=== PATIENT | male | born 1960 | race African-American/Black ===

== ENCOUNTER 2020-03-06 12:50 | Outpatient (REF) | payer OTHER, SELFPAY | END 2020-03-06 12:51 | disposition home or self-care (01) | LOC: HO.LAB 12:50 | PROVIDERS: Visit Provider Internal Medicine | DX: Z20.828 Contact with and (suspected) exposure to other viral communicable diseases (principal) | CPT/HCPCS: 87635 ==

== ENCOUNTER 2022-12-21 10:28 | Outpatient (AMB) | payer OTHER, SELFPAY ==
--- NOTE | 2022-12-21 06:57 | A.OFFVIS_ITS ---
Intake Intake Visit Reasons: Elevated PSA Allergies tetracycline Allergy (Verified 12/21/22 11:33) Unknown HPI HPI Comments History of Present Illness Details Jamey is a 62-year-old male who presents today to the office for an evaluation of elevated PSA. 12/21/2022-- He complains of urinary frequency and weak urinary stream.? He has a past medial history significant for nicotine dependence, type 2 diabetes. He states that he is not taking Atorvastatin and Vitamin D medications at this time. He states that he is not on any blood thinners. He reports bleeding with ejaculation and microscopic hematuria.? He states that he used to smoke ? a pack a day in the past.?He has been smoking since he was 7 years old. He smoked 4 packs a day for 4 years when he was in the He denies any dysuria. He states that his father had a history of prostate cancer. He uses cane for ambulatory assistance. Review of urology referral notes from the [place], he had a PSA of 24.98. Evaluation UA - 1+ blood Plan: We will schedule CAT scan and US of the kidneys. Various contributing factors that can lead to elevated PSA were discussed with the patient including enlarged prostate, inflammation/infection, and prostate cancer. Discussed prostate biopsy followed by cystoscopy to be scheduled. Prescribed Bactrim DS. ? PFSH Medical History History of benign prostatic hyperplasia History of cocaine abuse History of erectile dysfunction History of hyperlipidemia History of tobacco use History of vitamin B deficiency History of vitamin D deficiency Hx of chronic hepatitis Hx of chronic kidney disease Hx of essential hypertension Hx of obesity Hx of sleep apnea Hx of tinnitus Hx of type 2 diabetes mellitus Surgical History Hx of colonoscopy Family History Father No problems noted. Mother No problems noted. Social History Alcohol intake: unknown Patient Tobacco Use Status: Current everyday Tobacco user Questionnaire AUA Symptom Score AUA Incomplete emptying - It does not feel like I empty my bladder all the way.: 5 - Almost always Frequency - I have to go again less than two hours after I finish urinating.: 4 - More than half the time Intermittency - I stop and start again several times when I urinate.: 3 - About half the time Urgency - It is hard to wait when I have to urinate.: 2 - Less than half the time Weak stream - I have a weak urinary stream.: 5 - Almost always Straining - I have to push or strain to begin urination.: 1 - Less than 1 time in 5 Nocturia - I get up to urinate after I go to bed until the time I get up in the morning.: 3 times AUA Symptom Score: 23 Quality of life due to urinary symptoms: If you were to spend the rest of your life with your urinary condition the way it is now, how would you feel about that?: Terrible Source: Ramírez RECINOS, Wilbur DESAI Jr, O'Megha MP, et al, and the Measurement Committee of the [employer]. The [employer] symptom index for benign prostatic hyperplasia. J Urol. 1992; 148: 8644-8936. Copyright 1992 [employer] Review of Systems Const All systems reviewed & are unremarkable except as noted in HPI and below Reports no additional complaints Eyes Reports no additional complaints ENT Reports no additional complaints Card Denies dyspnea Resp Denies cough and Denies dyspnea GI Reports no additional complaints Musc Reports no additional complaints Skin/Breast Denies rash and Denies unusual bruising Neuro Reports no additional complaints Psych Reports no additional complaints Endo Reports no additional complaints Perfecto/Lymph Reports no additional complaints Aller/Immun Reports no additional complaints Physical Exam Const General: healthy appearing, no acute distress and well developed Orientation/consciousness: patient oriented x3 HEENT Head: Yes normocephalic and Yes atraumatic Eyes Conjunctivae: conjunctivae normal Neck Neck: Yes normal visual inspection Chest Chest palpation & inspection: normal inspection of the chest Resp Effort & Inspection: normal respiratory effort Cardio Rate: regular rate GI Inspection: Yes normal to inspection Palpation (GI): Soft to palpation Skin General skin exam: no rashes or lesions noted Neuro General: patient oriented x3 Extrem General: No pedal edema Psych Appearance: grossly normal Affect: normal affect Results AMB Urinalysis, Automated UA Leukoctes 0 Talib/uL Last Edit by Sallie Lundy CMA on 12/21/22 11:46 UA Nitrite Negative Last Edit by Sallie Lundy CMA on 12/21/22 11:46 UA Urobilinogen 1 mg/dL Last Edit by Sallie Lundy CMA on 12/21/22 11:46 + Sallie Lundy 12/21/22 11:46 UA Protein 1 mg/dL Last Edit by Sallie Lundy CMA on 12/21/22 11:46 + Sallie Lundy 12/21/22 11:46 UA pH 6.0 Last Edit by Sallie Lundy CMA on 12/21/22 11:46 UA Blood 1 Sumit/uL Last Edit by Sallie Lundy CMA on 12/21/22 11:46 UA Specific [place] 1.030 Last Edit by Sallie Lundy CMA on 12/21/22 11: 48 UA Specific [place] previously reported as 1.30 Sallie Lundy 12/21/22 11:48 UA Ketone Negative Last Edit by Sallie Lundy CMA on 12/21/22 11:46 UA Bilirubin 1 mg/dL Last Edit by Sallie Lundy CMA on 12/21/22 11:46 + Sallie Lundy 12/21/22 11:46 UA Glucose 0 mg/dL Last Edit by Sallie Lundy CMA on 12/21/22 11:46 Results Reviewed Results Reviewed: Laboratory Last Values Urine pH (Auto) 6.0 12/21/22 11:42 Specific [place] (Auto) 1.030 12/21/22 11:42 Urine Protein (Auto) 1 mg/dL 12/21/22 11:42 Glucose (UA)(Auto) 0 mg/dL 12/21/22 11:42 Urine Ketones (Auto) Negative 12/21/22 11:42 Urine Blood (Auto) 1 Sumit/uL 12/21/22 11:42 Urine Nitrite (Auto) Negative 12/21/22 11:42 Urine Bilirubin (Auto) 1 mg/dL 12/21/22 11:42 Urine Urobilinogen (Auto) 1 mg/dL 12/21/22 11:42 Leukocyte Esterase (Auto) 0 Talib/uL 12/21/22 11:42 Assessment & Plan Assessment & Plan (1) Microscopic hematuria: Code(s): R31.29 - Other microscopic hematuria (2) BPH (benign prostatic hyperplasia): Code(s): N40.0 - Benign prostatic hyperplasia without lower urinary tract symptoms (3) Family history of prostate cancer: Code(s): Z80.42 - Family history of malignant neoplasm of prostate (4) Elevated PSA: Code(s): R97.20 - Elevated prostate specific antigen [PSA] Plan Schedule CAT scan and US of the kidneys. Various contributing factors that can lead to elevated PSA were discussed with the patient including enlarged prostate, inflammation/infection, and prostate cancer. Discussed prostate biopsy followed by cystoscopy to be scheduled. Prescribed Bactrim DS. Orders: Orders AMB Urinalysis Automated 12/21/22 Z13.9 - Encounter for screening, unspecified Patient Instructions: The patient had an opportunity to ask questions regarding treatment plan. All questions were answered. Imaging, Laboratory studies and physical exam results were discussed and reviewed in detail. No major barriers to understanding were identified. The patient expressed understanding and agreement with the above treatment plan.? ? ? The patient is aware they should contact our office by phone for worsening of their current condition or the appearance of new symptoms. Compliance is encouraged with any medications and followup testing that is ordered.? ? ? It is a privilege to be allowed the opportunity to participate in the urologic care of your patient. If you have any questions or concerns regarding treatment for the above conditions please do not hesitate to contact me. The office telephone contact is [phone].? ? ? This note is constructed in part using voice recognition software. While every effort has been made to ensure accuracy contact lens curve grinder errors may have been included.? ? ? Yours sincerely,? ? ? Carolyne Douglas MD? Quality Reporting (2019) Benign Prostatic Hyperplasia ([facility] 771) AUA symptom score: 23 Quality of life due to urinary symptoms: If you were to spend the rest of your life with your urinary condition the way it is now, how would you feel about that?: Terrible Coding Level of Care Code New Pt Level 4 (54182) Diagnoses Microscopic hematuria R31.29 BPH (benign prostatic hyperplasia) N40.0 Family history of prostate cancer Z80.42 Elevated PSA R97.20
--- NOTE | 2022-12-21 12:05 | MHC.OFFVIS ---
Intake Intake Visit Reasons: Elevated PSA Allergies tetracycline Allergy (Verified 12/21/22 11:33) Unknown HPI HPI Comments History of Present Illness Details Jamey is a 62-year-old male who presents today to the office for an evaluation of elevated PSA. 12/21/2022-- He complains of urinary frequency and weak urinary stream.? He has a past medial history significant for nicotine dependence, type 2 diabetes. He states that he is not taking Atorvastatin and Vitamin D medications at this time. He states that he is not on any blood thinners. He reports bleeding with ejaculation and microscopic hematuria.? He states that he used to smoke ? a pack a day in the past.?He has been smoking since he was 7 years old. He smoked 4 packs a day for 4 years when he was in the He denies any dysuria. He states that his father had a history of prostate cancer. He uses cane for ambulatory assistance. Review of urology referral notes from the [place], he had a PSA of 24.98. Plan: We will schedule CAT scan and US of the kidneys. Various contributing factors that can lead to elevated PSA were discussed with the patient including enlarged prostate, inflammation/infection, and prostate cancer. Discussed prostate biopsy followed by cystoscopy to be scheduled. Prescribed Bactrim DS. [facility] Medical History History of benign prostatic hyperplasia History of cocaine abuse History of erectile dysfunction History of hyperlipidemia History of tobacco use History of vitamin B deficiency History of vitamin D deficiency Hx of chronic hepatitis Hx of chronic kidney disease Hx of essential hypertension Hx of obesity Hx of sleep apnea Hx of tinnitus Hx of type 2 diabetes mellitus Surgical History Hx of colonoscopy Family History Father No problems noted. Mother No problems noted. Social History Alcohol intake: unknown Patient Tobacco Use Status: Current everyday Tobacco user Results AMB Urinalysis, Automated UA Leukoctes 0 Talib/uL Last Edit by Sallie Lundy CMA on 12/21/22 11:46 UA Nitrite Negative Last Edit by Sallie Lundy CMA on 12/21/22 11:46 UA Urobilinogen 1 mg/dL Last Edit by Sallie Lundy CMA on 12/21/22 11:46 + Sallie Lundy 12/21/22 11:46 UA Protein 1 mg/dL Last Edit by Sallie Lundy CMA on 12/21/22 11:46 + Sallie Lundy 12/21/22 11:46 UA pH 6.0 Last Edit by Sallie Lundy CMA on 12/21/22 11:46 UA Blood 1 Sumit/uL Last Edit by Sallie Lundy CMA on 12/21/22 11:46 UA Specific [place] 1.030 Last Edit by Sallie Lundy CMA on 12/21/22 11:48 UA Specific [place] previously reported as 1.30 Sallie Lundy 12/21/22 11:48 UA Ketone Negative Last Edit by Sallie Lundy CMA on 12/21/22 11:46 UA Bilirubin 1 mg/dL Last Edit by Sallie Lundy CMA on 12/21/22 11:46 + Sallie Lundy 12/21/22 11:46 UA Glucose 0 mg/dL Last Edit by Sallie Lundy CMA on 12/21/22 11:46 Results Reviewed Results Reviewed: Laboratory Last Values Urine pH (Auto) 6.0 12/21/22 11:42 Specific [place] (Auto) 1.030 12/21/22 11:42 Urine Protein (Auto) 1 mg/dL 12/21/22 11:42 Glucose (UA)(Auto) 0 mg/dL 12/21/22 11:42 Urine Ketones (Auto) Negative 12/21/22 11:42 Urine Blood (Auto) 1 Sumit/uL 12/21/22 11:42 Urine Nitrite (Auto) Negative 12/21/22 11:42 Urine Bilirubin (Auto) 1 mg/dL 12/21/22 11:42 Urine Urobilinogen (Auto) 1 mg/dL 12/21/22 11:42 Leukocyte Esterase (Auto) 0 Talib/uL 12/21/22 11:42 Assessment & Plan Assessment & Plan (1) Family history of prostate cancer: Code(s): Z80.42 - Family history of malignant neoplasm of prostate (2) Hematospermia: Code(s): R36.1 - Hematospermia (3) BPH (benign prostatic hyperplasia): Code(s): N40.0 - Benign prostatic hyperplasia without lower urinary tract symptoms (4) Microscopic hematuria: Code(s): R31.29 - Other microscopic hematuria Plan We will schedule CAT scan and US of the kidneys. Various contributing factors that can lead to elevated PSA were discussed with the patient including enlarged prostate, inflammation/infection, and prostate cancer. Discussed prostate biopsy followed by cystoscopy to be scheduled. Prescribed Bactrim DS. Orders: Orders AMB Urinalysis Automated Today Z13.9 - Encounter for screening, unspecified Coding Diagnoses Family history of prostate cancer Z80.42 Hematospermia R36.1 BPH (benign prostatic hyperplasia) N40.0 Microscopic hematuria R31.29
== END 2022-12-21 12:24 | disposition home or self-care (01) ==
PROVIDERS: PCP Family Medicine; Visit Provider Urology
DX: R31.29 Other microscopic hematuria (principal); N40.0 Benign prostatic hyperplasia without lower urinary tract symptoms; Z80.42 Family history of malignant neoplasm of prostate; R97.20 Elevated prostate specific antigen [PSA]
CPT/HCPCS: 99204

== ENCOUNTER → 2022-12-21 10:28 | Outpatient (BNVA) | payer OTHER, SELFPAY | PROVIDERS: PCP Family Medicine; Visit Provider Urology | DX: R31.29 Other microscopic hematuria (principal); R97.20 Elevated prostate specific antigen [PSA]; N40.0 Benign prostatic hyperplasia without lower urinary tract symptoms; Z80.42 Family history of malignant neoplasm of prostate | CPT/HCPCS: 81003; 99202 ==

== ENCOUNTER 2023-01-17 06:26 | Day surgery (SDC) | payer OTHER, SELFPAY ==
--- NOTE | 2023-01-09 09:05 | P.CONAN_ITS ---
Documented by User: Faina Guido NP 01/09/23 09:06 HPI - Anesthesia Eval Consult details Narrative: 62yo M for Prostate Biopsy, Cystoscopy & Possible Bladder Biopsy PMFSH Active Problems Active Problems: All Active Problems (Updated 01/02/23 @ 15:41 by Carolyne Douglas MD) Diabetes (Acute) Hematuria (Acute) Elevated PSA (Acute) Microscopic hematuria (Acute) BPH (benign prostatic hyperplasia) (Acute) Hematospermia (Acute) Family history of prostate cancer (Acute) Past Medical History Medical History History of benign prostatic hyperplasia History of cocaine abuse History of erectile dysfunction History of hyperlipidemia History of tobacco use History of vitamin B deficiency History of vitamin D deficiency Hx of chronic hepatitis Hx of chronic kidney disease Hx of essential hypertension Hx of obesity Hx of sleep apnea Hx of tinnitus Hx of type 2 diabetes mellitus Family History Family History Father No problems noted. Mother No problems noted. Surgical History Surgical History Hx of colonoscopy Social History Social History Are you a primary healthcare sales representative to a significant other at home: No Do you presently have visiting nurse or other home services: No Alcohol intake: unknown Patient Tobacco Use Status: Current everyday Tobacco user Tobacco use type: Cigarette Cigarette Packs Per Day: 0.5 Cigarettes Per Day: 10.0 Smoked in Last 30 Days: Yes Patient Interested in Nicotine Replacement: No Patient Given Instructions on How to Stop Smoking: No Substance Use Type Other:: cocaine Have you been hit, kicked, punched, or otherwise hurt by someone within the past year? If so, by whom?: No Are you DNR?: No Advance Directives: No Advance Directives Information Provided: Yes Recently lost weight without trying: No Eating poorly because of decreased appetite: No Nutrition Risks: No Nutritional Risk Poor oral hygiene: No Meds Allergies Allergy/AdvReac Type Severity Reaction Status Date / Time tetracycline Allergy Unknown Verified 12/21/22 11:33 Home Medications Medication Instructions Recorded Confirmed Last Taken Type amlodipine 5 mg tablet 5 mg PO DAILY 12/13/22 Unknown History atorvastatin 40 mg tablet 40 mg PO BEDTIME 12/13/22 Unknown History cholecalciferol (vitamin D3) 50 50 mcg PO DAILY 12/13/22 Unknown History mcg (2,000 unit) capsule sildenafil 100 mg tablet 100 mg PO DAILY PRN 12/13/22 Unknown History tamsulosin 0.4 mg capsule 0.4 mg PO BEDTIME 12/13/22 Unknown History terazosin 2 mg capsule 2 mg PO BEDTIME 12/13/22 Unknown History Exam Exam Date and Time: January 09, [id number] Assessment and Plan Assessment Anesthesia Assessment: Chart Reviewed Documented by User: Marjorie Harvey MD 01/17/23 07:57 PMFSH Past Medical History Medical History History of benign prostatic hyperplasia History of cocaine abuse History of erectile dysfunction History of hyperlipidemia History of tobacco use History of vitamin B deficiency History of vitamin D deficiency Hx of chronic hepatitis Hx of chronic kidney disease Hx of essential hypertension Hx of obesity Hx of sleep apnea Hx of tinnitus Hx of type 2 diabetes mellitus Family History Family History Father No problems noted. Mother No problems noted. Family history of problems with anesthesia: No Surgical History Surgical History Hx of colonoscopy History of Problems with Anesthesia: No Social History Social History Are you a primary healthcare sales representative to a significant other at home: No Do you presently have visiting nurse or other home services: No Alcohol intake: unknown Patient Tobacco Use Status: Current everyday Tobacco user Tobacco use type: Cigarette Cigarette Packs Per Day: 0.5 Cigarettes Per Day: 10.0 Smoked in Last 30 Days: Yes Patient Interested in Nicotine Replacement: No Patient Given Instructions on How to Stop Smoking: No Substance Use Type Other:: cocaine Have you been hit, kicked, punched, or otherwise hurt by someone within the past year? If so, by whom?: No Are you DNR?: No Advance Directives: No Advance Directives Information Provided: Yes Recently lost weight without trying: No Eating poorly because of decreased appetite: No Nutrition Risks: No Nutritional Risk Poor oral hygiene: No Meds Allergies Allergy/AdvReac Type Severity Reaction Status Date / Time tetracycline Allergy Unknown Verified 12/21/22 11:33 Home Medications Medication Instructions Recorded Confirmed Last Taken Type amlodipine 5 mg tablet 5 mg PO DAILY 12/13/22 Unknown History atorvastatin 40 mg tablet 40 mg PO BEDTIME 12/13/22 Unknown History cholecalciferol (vitamin D3) 50 50 mcg PO DAILY 12/13/22 Unknown History mcg (2,000 unit) capsule sildenafil 100 mg tablet 100 mg PO DAILY PRN 12/13/22 Unknown History tamsulosin 0.4 mg capsule 0.4 mg PO BEDTIME 12/13/22 Unknown History terazosin 2 mg capsule 2 mg PO BEDTIME 12/13/22 Unknown History Exam Airway Mallampati Class: III TM Dist: >3cm Neck ROM: Full Heart: rrr Lungs: cta Assessment and Plan Assessment Anesthesia Assessment: Anesthesia Plan Discussed and Smoking Cess. Discussed Final Anesthetic Review Family History of Problems with Anesthesia: No History of Problems with Anesthesia: No NPO: Yes ASA Class: III Final Preanesthetic Review: No Changes in Pt Med Stat, Meds/Allgs Chart Reviewed, Consent Obtained/Reviewed and Anes Risks/Benef Reviewed Patient Risk: Intermediate Procedure Risk: Low Anesthetic Plan Anesthetic Plan: GA Disposition: Standard PACU
[2023-01-17] VITALS (8 sets, daily range): BP systolic 119–152; BP diastolic 72–90; PULSE 76–84; RESP 17–18; TEMP 36.3–36.8; O2SAT 96–100; BMI 30.5
[2023-01-17 07:10] LABS: Amphetamine Screen Urine Not Detected (Not Detect); Barbiturates, Urine Not Detected (Not Detect); Benzodiazepines Screen Urine Not Detected (Not Detect); Cannabinoid Screen Urine Not Detected (Not Detect); Cocaine Screen Urine Not Detected (Not Detect); Fentanyl, urine Not Detected (Not Detect); Opiate Screen Urine Not Detected (Not Detect); Phencyclidine Screen Urine Not Detected (Not Detect)
--- NOTE | 2023-01-17 07:18 | MHC.SHP ---
Pre-Procedural Eval Section A Date of Service: 01/17/23 The patient is an INPATIENT: No The History & Physical has been completed within 30 days and I have reviewed it.: Yes Section B Chief Complaint: Elevated prostate specific antigen[PSA], Hematuria Details of Present Illness: Herve states he is now seeing gross painless hematuria. Allergies: Allergies Allergy/AdvReac Type Severity Reaction Status Date / Time tetracycline Allergy Unknown Verified 12/21/22 11:33 Plan Diagnosis/Plan: Unchanged I have reviewed the history and physical and performed a pertinent physical examination on my patient. No changes have occurred unless specified. Cystoscopy, possible bladder biopsy, transrectal ultrasound guided biopsy of the prostate Time Spent With Patient Time: Total time managing care of this patient today ____ minutes.
[2023-01-17] MEDS: oxyCODONE HCl Immed Release 5 MG TABLET PO (08:55)
--- NOTE | 2023-01-17 09:01 | W.PM.OPN ---
Operative Note Operative Note Date of Service: 01/17/23 Narrative: PreOperative Diagnosis:? ? Elevated PSA, hematuria Post Operative Diagnosis:??Elevated PSA, hematuria Procedure:?1. Transrectal ultrasound guided biopsy of the prostate 12 core 2. Transrectal ultrasound measurement of prostate 3. Transrectal ultrasound guided pudendal nerve block 4. Cystoscopy Surgeon:?Dr Carolyne Douglas Anesthesia:?General Indications for procedure: Elevated PSA, painles gross hematuria Procedure: The patient was brought into the OR room and placed on the OR table in supine position. General anesthesia was instituted. The patient was repositioned into lithotomy position, prepped and draped in the usual sterile fashion. ? Time-out was done per protocol. ? Antibiotics confirmed. Levaquin 500 mg IV. 2% lidocaine urojet was passed transurethrally into the bladder. ? A 22 fr cystoscope was placed transurethrally into the bladder.? The right and left ureteral orifices were visualized.? The bulbous urethra was within normal limits, Trilobar enlargement of the prostate. The median lobe was obstructive. The entire bladder was visualized.? There were no suspicious bladder lesions seen.? The bladder was visualized with the 30 and 70 degree lens. The right and left ureteral orifices wer visualized. The cystoscope was removed.? The patient was repositioned and was placed in left lateral position. Digital rectal exam performed, iodine mixed with lubricant jelly 30 cc placed per rectum. Ultrasound probe was placed per rectum. The prostate was visualized. A cyst was noted. The prostate was measured width 5.32 cm, height 3.64 cm, length 5.99 cm with a volume of 60.7 mL. An ultrasound guided pudendal nerve block was performed using 10 cc of 1% lidocaine. A 12 core biopsy was performed from the left base, left mid, left apex and right base, mid, apex 2 biopsies from each section. The ultrasound probe was removed and digital palpation of the prostate for 2-3 minutes for hemostasis was performed. The patient tolerated the procedure well. Complications: None
[2023-01-17] MEDS: Phenazopyridine HCL 200 MG TABLET PO (09:06)
== END 2023-01-17 11:53 | disposition home or self-care (01) ==
PROVIDERS: Anesthesiology; PCP Family Medicine; Visit Provider Urology
PROC: (CPT 55700; principal; 2023-01-17 07:30)
PROC: (CPT 55700; 2023-01-17 07:30)
DX: C61 Malignant neoplasm of prostate (principal); R97.20 Elevated prostate specific antigen [PSA]; Z80.42 Family history of malignant neoplasm of prostate; R31.0 Gross hematuria; N40.1 Benign prostatic hyperplasia with lower urinary tract symptoms; N42.83 Cyst of prostate; N52.9 Male erectile dysfunction, unspecified; E11.22 Type 2 diabetes mellitus with diabetic chronic kidney disease; I12.9 Hypertensive chronic kidney disease with stage 1 through stage 4 chronic kidney disease, or unspecified chronic kidney disease; N18.9 Chronic kidney disease, unspecified; Z79.899 Other long term (current) drug therapy; Z99.89 Dependence on other enabling machines and devices; Z88.1 Allergy status to other antibiotic agents; F17.210 Nicotine dependence, cigarettes, uncomplicated; F14.90 Cocaine use, unspecified, uncomplicated
CPT/HCPCS: 55700; 52000; 76942; 80307; 88305; 88344; J1100; J1956; J2405; J3010

== ENCOUNTER → 2023-01-17 06:26 | Outpatient (BNV) | payer OTHER, SELFPAY | PROVIDERS: PCP Family Medicine; Visit Provider Urology | DX: R97.20 Elevated prostate specific antigen [PSA] (principal); R31.0 Gross hematuria | CPT/HCPCS: 52000; 55700; 76942 ==

== ENCOUNTER 2023-02-02 13:41 | Outpatient (REF) | payer OTHER, SELFPAY | END 2023-02-02 13:42 | disposition home or self-care (01) | LOC: HO.LAB 13:41 | PROVIDERS: PCP Family Medicine; Visit Provider Urology | DX: N39.0 Urinary tract infection, site not specified (principal); R97.20 Elevated prostate specific antigen [PSA]; C61 Malignant neoplasm of prostate | CPT/HCPCS: 81003; 87086; 99212 ==

== ENCOUNTER 2023-02-02 13:41 | Outpatient (AMB) | payer OTHER, SELFPAY ==
--- NOTE | 2023-02-02 13:43 | A.OFFVIS_ITS ---
Intake Intake Visit Reasons: Bx results Intake Note: Patient presents today for a follow-up on Post Op, Biopsy Results: Meds- Finasteride, Terazosin, Tamsulosin & Pyridium Allergies to Antibiotic- No Known Allergies Blood Thinner- None Kitchen Helper Required: No Allergies tetracycline Allergy (Verified 12/21/22 11:33) Unknown Medication List - Last Reconciled 02/02/23 by Carolyne Douglas MD amlodipine 5 mg PO DAILY atorvastatin 40 mg PO BEDTIME cholecalciferol (vitamin D3) 50 mcg PO DAILY finasteride (Proscar) 5 mg PO DAILY sildenafil 100 mg PO DAILY PRN sulfamethoxazole-trimethoprim 800-160 mg (Bactrim DS) 1 tab PO BID tamsulosin 0.4 mg PO BEDTIME terazosin 2 mg PO BEDTIME HPI HPI Comments History of Present Illness Details Jamey is a 62-year-old male who presents today to the office for a follow-up. 02/02/2023? He is followed today for biopsy results. He was last seen by me on 12/21/2022 for elevated PSA. Prescribed Bactrim DS during that time.? The patient is a status post prostate biopsy and cystoscopy done on 01/17/2023 in the main OR. Estimated prostate size was 60.7. I reviewed the pathology report results from 01/17/2023 revealed a one core left apex that came back 1 % of the core with karlie grade 3+3. Cystoscopy findings: Bladder no suspicious lesions, trilobar enlargement of prostate. He denies any burning with urination. He completed bactrim, taking pyridium. Review of charts: Last visit: 12/21/2022? 12/21/2022-- He complains of urinary frequency and weak urinary stream.? history significant for nicotine dependence, type 2 diabetes. He states that he is not taking Atorvastatin and Vitamin D medications at this time. He states that he is not on any blood thinners. He reports bleeding with ejaculation and microscopic hematuria.? He states that he used to smoke ? a pack a day in the past. He has been smoking since he was 7 years old. He smoked 4 packs a day for 4 years when he was in the He denies any dysuria. He states that his father had a history of prostate cancer. He uses cane for ambulatory assistance. Review of urology referral notes from the [place], he had a PSA of 24.98. Evaluation UA - 1+ blood Plan: We will schedule CAT scan and US of the kidneys. Various contributing factors that can lead to elevated PSA were discussed with the patient including enlarged prostate, inflammation/infection, and prostate cancer. Discussed prostate biopsy followed by cystoscopy to be scheduled. Prescribed Bactrim DS. 02/22/2023?Evaluation today?UA? Leukocyt es: 1 +; nitrite positive; blood: 2 +. 02/02/2023: Plan: Will send urine for culture. Active surveillance for the prostate cancer. Continue taking Proscar 5 mg, and tamsulosin 0.4 mg daily. Advised the patient to stop taking Pyridium. Follow up in 6 months with PSA and MRI of the prostate prior. [facility] Medical History History of benign prostatic hyperplasia History of cocaine abuse History of erectile dysfunction History of hyperlipidemia History of tobacco use History of vitamin B deficiency History of vitamin D deficiency Hx of chronic hepatitis Hx of chronic kidney disease Hx of essential hypertension Hx of obesity Hx of sleep apnea Hx of tinnitus Hx of type 2 diabetes mellitus Surgical History Hx of colonoscopy Family History Father No problems noted. Mother No problems noted. Social History Are you a primary career coordinator to a significant other at home: No Do you presently have visiting nurse or other home services: No Alcohol intake: unknown Patient Tobacco Use Status: Current everyday Tobacco user Tobacco use type: Cigarette Cigarette Packs Per Day: 0.5 Cigarettes Per Day: 10.0 Results AMB Urinalysis, Automated UA Leukoctes 70 Talib/uL Last Edit by Brigida Barrientos [facility] on 02/02/23 14:25 1+ Brigida Barrientos 02/02/23 14:25 UA Nitrite Positive Last Edit by Brigida Barrientos [facility] on 02/02/23 14:25 UA Urobilinogen 2 mg/dL Last Edit by Brigida Barrientos [facility] on 02/02/23 14:25 1+ Brigida Barrientos 02/02/23 14:25 UA Protein 15 mg/dL Last Edit by Brigida Barrientos [facility] on 02/02/23 14:25 UA pH 5.5 Last Edit by Brigida Barrientos [facility] on 02/02/23 14:25 UA Blood 80 Sumit/uL Last Edit by Brigida Barrientos [facility] on 02/02/23 14:25 2+ Brigida Barrientos 02/02/23 14:25 UA Specific [place] 1.030 Last Edit by Brigida Barrientos [facility] on 02/02/23 14: 25 UA Ketone Positive Last Edit by Brigida Barrientos [facility] on 02/02/23 14:25 5mg Brigida Barrientos 02/02/23 14:25 UA Bilirubin 2 mg/dL Last Edit by Brigida Barrientos [facility] on 02/02/23 14:25 2+ Brigida Barrientos 02/02/23 14:25 UA Glucose 0 mg/dL Last Edit by Brigida Barrientos [facility] on 02/02/23 14:25 Results Reviewed Results Reviewed: Laboratory Last Values Urine pH (Auto) 5.5 02/02/23 14:23 Specific [place] (Auto) 1.030 02/02/23 14:23 Urine Protein (Auto) 15 mg/dL 02/02/23 14:23 Glucose (UA)(Auto) 0 mg/dL 02/02/23 14:23 Urine Ketones (Auto) Positive 02/02/23 14:23 Urine Blood (Auto) 80 Sumit/uL 02/02/23 14:23 Urine Nitrite (Auto) Positive 02/02/23 14:23 Urine Bilirubin (Auto) 2 mg/dL 02/02/23 14:23 Urine Urobilinogen (Auto) 2 mg/dL 02/02/23 14:23 Leukocyte Esterase (Auto) 70 Talib/uL 02/02/23 14:23 Date of service: 01/17/2023: Diagnosis Prostate, needle core biopsies: A. Left base lateral: Atypical small acinar proliferation. B. Left base medial: Benign prostatic tissue. C. Left mid lateral: Benign prostatic tissue. D. Left mid medial: Benign prostatic tissue. E. Left apex lateral: Adenocarcinoma, Karlie grade 3+3=6 (Grade group 1), involving 1% of core, with background High-grade intraepithelial neoplasia (HGPIN). F. Left apex medial: High-grade intraepithelial neoplasia (HGPIN). G. Right base lateral: Benign prostatic tissue. H. Right base medial: Benign prostatic tissue. I. Right mid lateral: Benign prostatic tissue. J. Right mid medial: Benign fibromuscular tissue. K. Right apex lateral: Benign fibromuscular tissue. L. Right apex medial: Benign fibromuscular tissue. Data synopsis - Prostate needle biopsy Histologic type: Acinar adenocarcinoma Histologic grade: Karl[place] score: 3+3=6 % of pattern 4: N/A % of pattern 5: N/A Grade group: 1 Tumor quantitation: Number cores positive 1: Total number of cores: 12 % of tissue involved: <1% of all tissue Assessment & Plan Assessment & Plan (1) Adenocarcinoma of prostate: Code(s): C61 - Malignant neoplasm of prostate (2) Elevated PSA: Code(s): R97.20 - Elevated prostate specific antigen [PSA] Plan Will send urine for culture. Active surveillance for the prostate cancer. Continue taking Proscar 5 mg, and tamsulosin 0.4 mg daily. Advised the patient to stop taking Pyridium. Follow up in 6 months with PSA and MRI of the prostate prior. Orders: Orders MR pelvis wo/w con 5 Months C61 - Malignant neoplasm of prostate, R97.20 - Elevated prostate specific antigen [PSA] AMB Urinalysis Automated Today Z13.9 - Encounter for screening, unspecified PSA,Total (Free>4and<10) 5 Months C61 - Malignant neoplasm of prostate, R97.20 - Elevated prostate specific antigen [PSA] Patient Instructions: The patient had an opportunity to ask questions regarding treatment plan. All questions were answered. Imaging, Laboratory studies and physical exam results were discussed and reviewed in detail. No major barriers to understanding were identified. The patient expressed understanding and agreement with the above treatment plan.? ? ? The patient is aware they should contact our office by phone for worsening of their current condition or the appearance of new symptoms. Compliance is encouraged with any medications and followup testing that is ordered.? ? ? It is a privilege to be allowed the opportunity to participate in the urologic care of your patient. If you have any questions or concerns regarding treatment for the above conditions please do not hesitate to contact me. The office telephone contact is [phone].? ? ? This note is constructed in part using voice recognition software. While every effort has been made to ensure accuracy ice cream freezer assistant errors may have been included.? ? ? Yours sincerely,? ? ? Carolyne Douglas MD? ? Coding Level of Care Code Est Pt Level 4 (19923) Diagnoses Adenocarcinoma of prostate C61 Elevated PSA R97.20 Time Spent (min) 31
== END 2023-02-02 14:46 | disposition home or self-care (01) ==
PROVIDERS: PCP Family Medicine; Visit Provider Urology
DX: C61 Malignant neoplasm of prostate (principal); R97.20 Elevated prostate specific antigen [PSA]; Z13.9 Encounter for screening, unspecified
CPT/HCPCS: 99214

== ENCOUNTER 2023-04-11 14:54 | Outpatient (REF) | payer OTHER, SELFPAY ==
--- NOTE | ~2023-04-11 | CT_ITS ---
EXAMINATION: CT ABDOMEN AND PELVIS WITHOUT AND WITH CONTRAST CLINICAL INFORMATION: Hematuria COMPARISON: None available. TECHNIQUE: Multidetector volumetric imaging was performed of the abdomen and pelvis before and after the IV administration of mL of Omnipaque 300 intravenous contrast. Sagittal and coronal reformatted images were obtained on the technologist's workstation. This CT examination was performed using dose optimization techniques as appropriate, variously including the following: *Automated exposure control *Adjustment of mA and/or kV according to patient size (this includes techniques or standardized protocols for targeted exams where dose is matched to indication/reason for exam; i.e. extremities or head) *Use of iterative reconstruction technique DLP: 817 mGy-cm FINDINGS: LUNG BASES: The visualized lung bases are unremarkable. LIVER, GALLBLADDER, AND BILIARY TREE: The liver is normal in size, shape, and attenuation. No focal hepatic lesion or biliary ductal dilatation is present. The gallbladder is unremarkable with no evidence of radiopaque gallstones, gallbladder wall thickening, or obvious pericholecystic inflammatory changes. PANCREAS: Small calcifications in the pancreas suggestive of chronic pancreatitis. SPLEEN: Unremarkable ADRENAL GLANDS: Unremarkable KIDNEYS AND URETERS: The kidneys are normal in size, shape, and attenuation. No hydronephrosis, hydroureter, or calculi seen. The collecting systems and ureters are normal. No perinephric stranding. BLADDER: Not optimally distended. The prostate gland is enlarged and protrudes into the base of the bladder. Abnormal contour to the left base of the bladder probably related to lobulated prostate gland. GASTROINTESTINAL TRACT: The small and large bowel are unremarkable. The appendix is unremarkable. ABDOMINAL WALL: Umbilical hernia containing fat. LYMPH NODES: Normal VASCULAR: Unremarkable PELVIC VISCERA: The prostate gland is enlarged and protrudes into the base of the bladder. The prostate gland measures 4.2 x 5.2 cm in AP and transverse dimension. The prostate gland is heterogeneous in attenuation with 1 cm cystic area superiorly. OSSEOUS STRUCTURES: Unremarkable CT/CT abdomen pelvis wo/w IV con IMPRESSION: Normal-appearing kidneys, collecting systems and ureters. Bladder not optimally distended and not well evaluated. Enlarged prostate gland that protrudes into the base of the bladder. There is lobulated contour seen at the left base of the bladder probably related to the prostate gland. The prostate gland is heterogeneous in attenuation with 1 cm cystic area posterior superiorly. Small calcifications in the pancreas suggestive of chronic pancreatitis. Fleischner guidelines were followed.
[2023-04-11] MEDS: iohexoL 350 MG/ML 100 ML INFUS..BTL 85 ML IV (15:20)
[2023-04-13 06:57] LABS: Creatinine POC 0.8 mg/dL (0.5-1.4); GFR POC > 60
== END 2023-04-11 14:55 | disposition home or self-care (01) ==
LOC: HO.CT 14:54
PROVIDERS: PCP Family Medicine; Visit Provider Urology
DX: R31.9 Hematuria, unspecified (principal)
CPT/HCPCS: 74178; 82565; Q9967

== ENCOUNTER 2023-09-01 09:38 | Outpatient (REF) | payer OTHER, SELFPAY ==
[2023-09-01 11:44] LABS: Anion Gap 10 (12-20); Carbon Dioxide 27 mmol/L (22-29); Chloride 110 mmol/L (96-108); Potassium 3.8 mmol/L (3.3-5.1); Sodium 143 mmol/L (135-145)
[2023-09-01 12:02] LABS: PSA,Total (Free>4and<10) 7.92 ng/mL (0.00-4.00)
[2023-09-04 11:43] LABS: Free Prostate Spec Ag 0.8 ng/mL; Percent Free Prostate Spec Ag 10 % (calc) (>25); Prostate Specific Ag Total 8.1 ng/mL (< OR = 4.0)
== END 2023-09-01 09:39 | disposition home or self-care (01) ==
LOC: HO.LAB 09:38
PROVIDERS: PCP Family Medicine; Visit Provider Urology
DX: R31.9 Hematuria, unspecified (principal); E11.9 Type 2 diabetes mellitus without complications; C61 Malignant neoplasm of prostate; R97.20 Elevated prostate specific antigen [PSA]; Z12.5 Encounter for screening for malignant neoplasm of prostate
CPT/HCPCS: 36415; 80051; 82550; 84153; 84154

== ENCOUNTER 2023-09-07 10:24 | Outpatient (AMB) | payer OTHER, SELFPAY ==
--- NOTE | 2023-09-07 10:24 | A.OFFVIS_ITS ---
Intake Visit Reasons: 6m/MRI/PSA Intake Note: Patient presents today for a follow-up on PROSTATE MRI & PSA RESULTS: Meds- Finasteride, Terazosin, Tamsulosin & Sildenafil Allergies to Antibiotic- No Known Allergies Blood Thinner- None Lockstitcher Required: No Allergies tetracycline Allergy (Verified 12/21/22 11:33) Unknown HPI Comments Details: Jamey is a 63-year-old male who presents today for telehealth follow-up. He states he was recently discharged from hospital. He is on active surveillance for diagnosis of prostate cancer. He had MRI prostate and results reviewed with him, a 1.9 cm lesion right posterior transition zone near base, [place] 5; clinically significant, no adenapathy, capsule or SV involvement. PSA -09/01/23--7.92ng/mL. Discussed MRI guided prostate biopsy. Review of chart: 02/02/2023? He is followed today for biopsy results. He was last seen by me on 12/21/2022 for elevated PSA. Prescribed Bactrim DS during that time.? The patient is a status post prostate biopsy and cystoscopy done on 01/17/2023 in the main OR. Estimated prostate size was 60.7. I reviewed the pathology report results from 01/17/2023 revealed a one core left apex that came back 1 % of the core with karlie grade 3+3. Cystoscopy findings: Bladder no suspicious lesions, trilobar enlargement of prostate. He denies any burning with urination. He completed bactrim, taking pyridium. Last visit: 12/21/2022? 12/21/2022-- He complains of urinary frequency and weak urinary stream.? history significant for nicotine dependence, type 2 diabetes. He states that he is not taking Atorvastatin and Vitamin D medications at this time. He states that he is not on any blood thinners. He reports bleeding with ejaculation and microscopic hematuria.? He states that he used to smoke ? a pack a day in the past. He has been smoking since he was 7 years old. He smoked 4 packs a day for 4 years when he was in the He denies any dysuria. He states that his father had a history of prostate cancer. He uses cane for ambulatory assistance. Review of urology referral notes from the [place], he had a PSA of 24.98. Evaluation UA - 1+ blood Plan: We will schedule CAT scan and US of the kidneys. Various contributing factors that can lead to elevated PSA were discussed with the patient including enlarged prostate, inflammation/infection, and prostate cancer. Discussed prostate biopsy followed by cystoscopy to be scheduled. Prescribed Bactrim DS. [facility] Medical History History of benign prostatic hyperplasia History of cocaine abuse History of erectile dysfunction History of hyperlipidemia History of tobacco use History of vitamin B deficiency History of vitamin D deficiency Hx of chronic hepatitis Hx of chronic kidney disease Hx of essential hypertension Hx of obesity Hx of sleep apnea Hx of tinnitus Hx of type 2 diabetes mellitus Surgical History Hx of colonoscopy Family History Father No problems noted. Mother No problems noted. Social History Are you a primary college and career counselor to a significant other at home: No Do you presently have visiting nurse or other home services: No Alcohol intake: unknown Patient Tobacco Use Status: Current everyday Tobacco user Tobacco use type: Cigarette Cigarette Packs Per Day: 0.5 Cigarettes Per Day: 10.0 Review of Systems Const All systems reviewed & are unremarkable except as noted in HPI and below Reports no additional complaints Eyes Reports no additional complaints ENT Reports no additional complaints Card Reports no additional complaints Resp Reports no additional complaints GI Reports no additional complaints Reports as per HPI Musc Reports no additional complaints Skin/Breast Reports system reviewed and no additional complaints, except as documented Neuro Reports no additional complaints Psych Reports no additional complaints Endo Reports no additional complaints Perfecto/Lymph Reports no additional complaints Aller/Immun Reports no additional complaints Telehealth Telehealth Location of provider rendering services: practice address Location of patient: address on file Patient Identification confirmed using: Name, : Yes Telehealth method: video Patient verbally consented to treatment: Yes Patient verbally consented to billing insurance company: Yes Patient informed of any privacy concerns related to visit: Yes Assessment & Plan Assessment & Plan (1) Adenocarcinoma of prostate: Code(s): C61 - Malignant neoplasm of prostate Category: Medical (2) Elevated PSA: Code(s): R97.20 - Elevated prostate specific antigen [PSA] Category: Medical Plan MRI guided prostate biopsy Coding Level of Care Code Tele Est Pt Level 4 (28100) Diagnoses Adenocarcinoma of prostate C61 Elevated PSA R97.20
== END 2023-09-07 11:31 | disposition home or self-care (01) ==
LOC: HO.HUSH 10:24
PROVIDERS: PCP Family Medicine; Visit Provider Urology
DX: C61 Malignant neoplasm of prostate (principal); R97.20 Elevated prostate specific antigen [PSA]
CPT/HCPCS: 99214

== ENCOUNTER → 2023-09-07 10:24 | Outpatient (BNVA) | payer OTHER, SELFPAY | PROVIDERS: PCP Family Medicine; Visit Provider Urology ==

== ENCOUNTER 2023-10-18 12:47 | Outpatient (AMB) | payer OTHER, SELFPAY ==
--- NOTE | 2023-10-18 12:47 | MHC.OFFVIS ---
Intake Visit Reasons: follow up/MRI/PSA Business Employment Specialist Required: No Allergies tetracycline Allergy (Verified 10/18/23 12:48) Unknown HPI Comments Details: 10/18/23- Jamey is a 63-year-old male who presents today for telehealth follow-up. He is on active surveillance for diagnosis of prostate cancer. He had MRI prostate and results reviewed with him, a 1.9 cm lesion right posterior transition zone near base, [place] 5; clinically significant, no adenapathy, capsule or SV involvement. PSA -09/01/23--7.92ng/mL. We are in the process of coordinating the MRI guided biopsy. I discussed with him in more detail event regarding recent hospitalization to [facility]. He states he was treated for sepsis and possible stroke. We will need medical clearance prior to procedure. Review of chart: 09/07/23--Jamey is a 63-year-old male who presents today for telehealth follow-up. He states he was recently discharged from hospital. He is on active surveillance for diagnosis of prostate cancer. He had MRI prostate and results reviewed with him, a 1.9 cm lesion right posterior transition zone near base, [place] 5; clinically significant, no adenapathy, capsule or SV involvement. PSA -09/01/23--7.92ng/mL. Discussed MRI guided prostate biopsy. 02/02/2023? He is followed today for biopsy results. He was last seen by me on 12/21/2022 for elevated PSA. Prescribed Bactrim DS during that time.? The patient is a status post prostate biopsy and cystoscopy done on 01/17/2023 in the main OR. Estimated prostate size was 60.7. I reviewed the pathology report results from 01/17/2023 revealed a one core left apex that came back 1 % of the core with karlie grade 3+3. Cystoscopy findings: Bladder no suspicious lesions, trilobar enlargement of prostate. He denies any burning with urination. He completed bactrim, taking pyridium. 12/21/2022-- He complains of urinary frequency and weak urinary stream.? history significant for nicotine dependence, type 2 diabetes. He states that he is not taking Atorvastatin and Vitamin D medications at this time. He states that he is not on any blood thinners. He reports bleeding with ejaculation and microscopic hematuria.? He states that he used to smoke ? a pack a day in the past. He has been smoking since he was 7 years old. He smoked 4 packs a day for 4 years when he was in the He denies any dysuria. He states that his father had a history of prostate cancer. He uses cane for ambulatory assistance. Review of urology referral notes from the [place], he had a PSA of 24.98. Evaluation UA - 1+ blood Plan: We will schedule CAT scan and US of the kidneys. Various contributing factors that can lead to elevated PSA were discussed with the patient including enlarged prostate, inflammation/infection, and prostate cancer. Discussed prostate biopsy followed by cystoscopy to be scheduled. Prescribed Bactrim DS. [facility] Medical History History of vitamin D deficiency Hx of type 2 diabetes mellitus History of tobacco use Hx of tinnitus Hx of sleep apnea Hx of obesity History of erectile dysfunction History of hyperlipidemia Hx of essential hypertension History of vitamin B deficiency History of cocaine abuse Hx of chronic hepatitis Hx of chronic kidney disease History of benign prostatic hyperplasia Surgical History Hx of colonoscopy Family History Father No problems noted. Mother No problems noted. Social History Are you a primary lawn care worker to a significant other at home: No Do you presently have visiting nurse or other home services: No Alcohol intake: unknown Patient Tobacco Use Status: Current everyday Tobacco user Tobacco use type: Cigarette Cigarette Packs Per Day: 0.5 Cigarettes Per Day: 10.0 Review of Systems Const All systems reviewed & are unremarkable except as noted in HPI and below Reports no additional complaints Eyes Reports no additional complaints ENT Reports no additional complaints Card Reports no additional complaints Resp Reports no additional complaints GI Reports no additional complaints Reports as per HPI Musc Reports no additional complaints Skin/Breast Reports system reviewed and no additional complaints, except as documented Neuro Reports no additional complaints Psych Reports no additional complaints Endo Reports no additional complaints Perfecto/Lymph Reports no additional complaints Aller/Immun Reports no additional complaints Telehealth Telehealth Telehealth Platform: Telephone Location of provider rendering services: practice address Location of patient: address on file Patient Identification confirmed using: Name, : Yes Telehealth method: voice only Patient verbally consented to treatment: Yes Patient verbally consented to billing insurance company: Yes Patient informed of any privacy concerns related to visit: Yes Minutes spent on Phone/Video with Pt.: 15 Results Reviewed Results Reviewed: Date of service: 01/17/2023: Diagnosis Prostate, needle core biopsies: A. Left base lateral: Atypical small acinar proliferation. B. Left base medial: Benign prostatic tissue. C. Left mid lateral: Benign prostatic tissue. D. Left mid medial: Benign prostatic tissue. E. Left apex lateral: Adenocarcinoma, [place] grade 3+3=6 (Grade group 1), involving 1% of core, with background High-grade intraepithelial neoplasia (HGPIN). F. Left apex medial: High-grade intraepithelial neoplasia (HGPIN). G. Right base lateral: Benign prostatic tissue. H. Right base medial: Benign prostatic tissue. I. Right mid lateral: Benign prostatic tissue. J. Right mid medial: Benign fibromuscular tissue. K. Right apex lateral: Benign fibromuscular tissue. L. Right apex medial: Benign fibromuscular tissue. Data synopsis - Prostate needle biopsy Histologic type: Acinar adenocarcinoma Histologic grade: [place] score: 3+3=6 % of pattern 4: N/A % of pattern 5: N/A Grade group: 1 Tumor quantitation: Number cores positive 1: Total number of cores: 12 % of tissue involved: <1% of all tissue Assessment & Plan Assessment & Plan (1) Adenocarcinoma of prostate: Code(s): C61 - Malignant neoplasm of prostate Category: Medical (2) Elevated PSA: Code(s): R97.20 - Elevated prostate specific antigen [PSA] Category: Medical Plan MRI guided prostate biopsy. Medical clearance prior Patient Instructions: The patient had an opportunity to ask questions regarding treatment plan. The patient expressed understanding and agreement with the above treatment plan. The patient is aware they should contact our office by phone for worsening of their current condition or the appearance of new symptoms. Compliance is encouraged with any medications and followup testing that is ordered. It is a privilege to be allowed the opportunity to participate in the urologic care of your patient. If you have any questions or concerns regarding treatment for the above conditions please do not hesitate to contact me. The office telephone contact is [phone]. This note is constructed in part using voice recognition software. While every effort has been made to ensure accuracy protocol manager errors may have been included. Yours sincerely, Carolyne Douglas MD Coding Level of Care Code Tele Est Pt Level 3 (78385) Diagnoses Adenocarcinoma of prostate C61 Elevated PSA R97.20
== END 2023-10-18 13:54 | disposition home or self-care (01) ==
LOC: HO.HUSH 12:47
PROVIDERS: PCP Family Medicine; Referring Provider Family Medicine; Visit Provider Urology
DX: C61 Malignant neoplasm of prostate (principal); R97.20 Elevated prostate specific antigen [PSA]
CPT/HCPCS: 99213

== ENCOUNTER → 2023-10-18 12:47 | Outpatient (BNVA) | payer OTHER, SELFPAY | PROVIDERS: PCP Family Medicine; Visit Provider Urology ==

== ENCOUNTER 2024-02-27 15:27 | Outpatient (AMB) | payer OTHER, SELFPAY ==
--- NOTE | 2024-02-27 15:27 | A.OFFVIS_ITS ---
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 50 g prostate 10/18/23- Jamey is a 63-year-old male who presents today for telehealth follow- up. He is on active surveillance for diagnosis of prostate cancer. He had MRI prostate and results reviewed with him, a 1.9 cm lesion right posterior transition zone near base, VA 5; clinically significant, no adenapathy, capsule or SV involvement. PSA -09/01/23--7.92ng/mL. We are in the process of coordinating the MRI guided biopsy. I discussed with him in more detail event regarding recent hospitalization to [facility]. He states he was treated for sepsis and possible stroke. We will need medical clearance prior to procedure. Review of chart: 09/07/23--Jamey is a 63-year-old male who presents today for telehealth follow- up. He states he was recently discharged from hospital. He is on active surveil thiago for diagnosis of prostate cancer. He had MRI prostate and results reviewed with him, a 1.9 cm lesion right posterior transition zone near base, VA 5; clinically significant, no adenapathy, capsule or SV involvement. PSA -09/01/23--7.92ng/mL. Discussed MRI guided prostate biopsy. 02/02/2023? He is followed today for biopsy results. He was last seen by me on 12/21/2022 for elevated PSA. Prescribed Bactrim DS during that time.? The patient is a status post prostate biopsy and cystoscopy done on 01/17/2023 in the main OR. Estimated prostate size was 60.7. I reviewed the pathology report results from 01/17/2023 revealed a one core left apex that came back 1 % of the core with karlie grade 3+3. Cystoscopy findings: Bladder no suspicious lesions, trilobar enlargement of prostate. He denies any burning with urination. He completed bactrim, taking pyridium. 12/21/2022-- He complains of urinary frequency and weak urinary stream.? history significant for nicotine dependence, type 2 diabetes. He states that he is not taking Atorvastatin and Vitamin D medications at this time. He states that he is not on any blood thinners. He reports bleeding with ejaculation and microscopic hematuria.? He states that he used to smoke ? a pack a day in the past. He has been smoking since he was 7 years old. He smoked 4 packs a day for 4 years when he was in the He denies any dysuria. He states that his father had a history of prostate cancer. He uses cane for ambulatory assistance. Review of urology referral notes from the [place], he had a PSA of 24.98. Evaluation UA - 1+ blood Plan: We will schedule CAT scan and US of the kidneys. Various contributing factors that can lead to elevated PSA were discussed with the patient including enlarged prostate, inflammation/infection, and prostate cancer. Discussed prostate biopsy followed by cystoscopy to be scheduled. Prescribed Bactrim DS. PFSH Medical History History of vitamin D deficiency Hx of type 2 diabetes mellitus History of tobacco use Hx of tinnitus Hx of sleep apnea Hx of obesity History of erectile dysfunction History of hyperlipidemia Hx of essential hypertension History of vitamin B deficiency History of cocaine abuse Hx of chronic hepatitis Hx of chronic kidney disease History of benign prostatic hyperplasia Surgical History Hx of colonoscopy Family History Father No problems noted. Mother No problems noted. Social History Are you a primary intensive care medicine specialist to a significant other at home: No Do you presently have visiting nurse or other home services: No Alcohol intake: unknown Patient Tobacco Use Status: Current everyday Tobacco user Tobacco use type: Cigarette Cigarette Packs Per Day: 0.5 Cigarettes Per Day: 10.0 Review of Systems Const All systems reviewed & are unremarkable except as noted in HPI and below Reports no additional complaints Resp Reports no additional complaints GI Reports no additional complaints Reports as per HPI [facility] [place] no additional complaints Physical Exam Telemedicine evaluation Appropriate responses Regular breathing rate and rhythm HEENT Head: Yes normal to inspection Ears: hearing grossly normal bilaterally Eyes General: appearance normal, both eyes and all related structures Neck Neck: Yes normal visual inspection Chest Chest palpation & inspection: normal inspection of the chest Resp Effort & Inspection: normal respiratory effort and able to speak in complete sentences Telehealth Telehealth Telehealth Platform: [employer] Location of provider rendering services: practice address Location of patient: address on file Patient Identification confirmed using: Name, : Yes Telehealth method: video Patient verbally consented to treatment: Yes Patient verbally consented to billing insurance company: Yes Patient informed of any privacy concerns related to visit: Yes Minutes spent on Phone/Video with Pt.: 15 Assessment & Plan Assessment & Plan (1) Adenocarcinoma of prostate: Code(s): C61 - Malignant neoplasm of prostate Category: Medical Plan Risks, benefits and alternatives to therapy were discussed. These include but are not limited to infection, bleeding, damage to local organs and tissues, need for further interventions. Anesthetic risks regarding cardiac arrhythmia, blood clots, and potential mortality were discussed. The patient understands the typical recovery time and the outpatient nature of the procedure. After consideration of these risks the patient gives full informed consent and they wish to move ahead with the procedure. MRI guided prostate biopsy Patient Instructions: Imaging studies, laboratory and physical exam results were discussed and reviewed in detail. No major barriers to patient understanding were identified. An opportunity to ask questions regarding the treatment plan was provided. All questions were answered. The patient expressed understanding and agreement with the above treatment plan. The patient is aware they should contact our office by phone for worsening of their current condition or the appearance of new urologic symptoms. Compliance is encouraged with any medications and followup testing that is ordered. It is a privilege to participate in the urologic care of your patient. If you have any questions or concerns regarding treatment for the above conditions, or other urologic issues, please do not hesitate to contact me. The office telephone contact is [phone]. This note is constructed using voice recognition software. While every effort has been made to ensure accuracy semiconductor wafers marker errors may have been included. Yours sincerely, Dr Sukhdev Naylor MD, [facility] - Urology Providers of Expert, Compassionate Care for the Genitourinary System Coding Level of Care Code Tele Est Pt Level 3 (46229) Diagnoses Adenocarcinoma of prostate C61
== END 2024-02-27 16:32 | disposition home or self-care (01) ==
LOC: HO.HUSH 15:27
PROVIDERS: PCP Family Medicine; Visit Provider Urology
DX: C61 Malignant neoplasm of prostate (principal)
CPT/HCPCS: 99213

== ENCOUNTER → 2024-02-27 15:27 | Outpatient (BNVA) | payer OTHER, SELFPAY | PROVIDERS: PCP Family Medicine; Visit Provider Urology ==

== ENCOUNTER 2024-03-04 09:02 | Day surgery (SDC) | payer OTHER, SELFPAY ==
--- NOTE | 2023-12-29 14:31 | HO.ANESPROP2 ---
HPI - Anesthesia Eval Consult details Narrative: 63yo M for Targeted Prostate Needle Biopsy Smoker Hx polysub PMFSH Active Problems Active Problems: All Active Problems Adenocarcinoma of prostate (Acute) Diabetes (Acute) Hematuria (Acute) Elevated PSA (Acute) Microscopic hematuria (Acute) BPH (benign prostatic hyperplasia) (Acute) Hematospermia (Acute) Family history of prostate cancer (Acute) Past Medical History Medical History History of vitamin D deficiency Hx of type 2 diabetes mellitus History of tobacco use Hx of tinnitus Hx of sleep apnea Hx of obesity History of erectile dysfunction History of hyperlipidemia Hx of essential hypertension History of vitamin B deficiency History of cocaine abuse Hx of chronic hepatitis Hx of chronic kidney disease History of benign prostatic hyperplasia Family History Family History Father No problems noted. Mother No problems noted. Family history of problems with anesthesia: No Surgical History Surgical History Hx of colonoscopy History of Problems with Anesthesia: No Social History Social History Are you a primary home care giver to a significant other at home: No Do you presently have visiting nurse or other home services: No Alcohol intake: unknown Patient Tobacco Use Status: Current everyday Tobacco user Tobacco use type: Cigarette Cigarette Packs Per Day: 0.5 Cigarettes Per Day: 10.0 Meds Allergies Allergy/AdvReac Type Severity Reaction Status Date / Time tetracycline Allergy Unknown Verified 10/18/23 12:48 Home Medications ?Medication ?Instructions ?Recorded ?Confirmed ?Last Taken ?Type amlodipine 5 mg tablet 5 mg PO DAILY 12/13/22 02/02/23 Unknown History atorvastatin 40 mg tablet 40 mg PO BEDTIME 12/13/22 02/02/23 Unknown History cholecalciferol (vitamin D3) 50 50 mcg PO DAILY 12/13/22 02/02/23 Unknown History mcg (2,000 unit) capsule sildenafil 100 mg tablet 100 mg PO DAILY PRN 12/13/22 02/02/23 Unknown History terazosin 2 mg capsule 2 mg PO BEDTIME 12/13/22 02/02/23 Unknown History Assessment and Plan Assessment Anesthesia Assessment: Chart Reviewed Final Anesthetic Review Family History of Problems with Anesthesia: No History of Problems with Anesthesia: No
--- NOTE | 2024-03-01 12:54 | P.CONAN_ITS ---
Documented by User: Faina Guido NP 03/01/24 12:56 HPI - Anesthesia Eval Consult details Narrative: 63yo M for Targeted Prostate Needle Biopsy PMFSH Active Problems Active Problems: All Active Problems Adenocarcinoma of prostate (Acute) Diabetes (Acute) Hematuria (Acute) Elevated PSA (Acute) Microscopic hematuria (Acute) BPH (benign prostatic hyperplasia) (Acute) Hematospermia (Acute) Family history of prostate cancer (Acute) Past Medical History Medical History History of vitamin D deficiency Hx of type 2 diabetes mellitus History of tobacco use Hx of tinnitus Hx of sleep apnea Hx of obesity History of erectile dysfunction History of hyperlipidemia Hx of essential hypertension History of vitamin B deficiency History of cocaine abuse Hx of chronic hepatitis Hx of chronic kidney disease History of benign prostatic hyperplasia Family History Family History Father No problems noted. Mother No problems noted. Family history of problems with anesthesia: No Surgical History Surgical History (Updated 03/04/24 @ 10:21 by Melonie Merida RN) Hx of hernia repair Hx of colonoscopy History of Problems with Anesthesia: No Social History Social History Are you a primary hemodialysis patient care specialist to a significant other at home: No Do you presently have visiting nurse or other home services: No Alcohol intake: unknown Patient Tobacco Use Status: Current everyday Tobacco user Tobacco use type: Cigarette Cigarette Packs Per Day: 0.5 Cigarettes Per Day: 10.0 Smoked in Last 30 Days: Yes Patient Interested in Nicotine Replacement: No Have you been hit, kicked, punched, or otherwise hurt by someone within the past year? If so, by whom?: No Are you DNR?: No Advance Directives: No Advance Directives Information Provided: Yes Recently lost weight without trying: No Nutrition Risks: No Nutritional Risk Poor oral hygiene: No Meds Allergies Allergy/AdvReac Type Severity Reaction Status Date / Time tetracycline Allergy Unknown Verified 03/04/24 09:37 Home Medications ?Medication ?Instructions ?Recorded ?Confirmed ?Last Taken ?Type amlodipine 5 mg tablet 5 mg PO DAILY 12/13/22 03/04/24 Unknown History atorvastatin 40 mg tablet 40 mg PO BEDTIME 12/13/22 03/04/24 Unknown History cholecalciferol (vitamin D3) 50 50 mcg PO DAILY 12/13/22 03/04/24 Unknown History mcg (2,000 unit) capsule sildenafil 100 mg tablet 100 mg PO DAILY PRN Erectile 12/13/22 03/04/24 Unknown History Dysfunction terazosin 2 mg capsule 2 mg PO BEDTIME 12/13/22 03/04/24 Unknown History Assessment and Plan Assessment Anesthesia Assessment: Chart Reviewed Final Anesthetic Review Family History of Problems with Anesthesia: No History of Problems with Anesthesia: No Documented by User: Karolina Alves MD 03/04/24 10:47 PMFSH Past Medical History Medical History History of vitamin D deficiency Hx of type 2 diabetes mellitus History of tobacco use Hx of tinnitus Hx of sleep apnea Hx of obesity History of erectile dysfunction History of hyperlipidemia Hx of essential hypertension History of vitamin B deficiency History of cocaine abuse Hx of chronic hepatitis Hx of chronic kidney disease History of benign prostatic hyperplasia Family History Family History Father No problems noted. Mother No problems noted. Surgical History Surgical History (Updated 03/04/24 @ 10:21 by Melonie Merida RN) Hx of hernia repair Hx of colonoscopy Social History Social History Are you a primary hemodialysis patient care specialist to a significant other at home: No Do you presently have visiting nurse or other home services: No Alcohol intake: unknown Patient Tobacco Use Status: Current everyday Tobacco user Tobacco use type: Cigarette Cigarette Packs Per Day: 0.5 Cigarettes Per Day: 10.0 Smoked in Last 30 Days: Yes Patient Interested in Nicotine Replacement: No Have you been hit, kicked, punched, or otherwise hurt by someone within the past year? If so, by whom?: No Are you DNR?: No Advance Directives: No Advance Directives Information Provided: Yes Recently lost weight without trying: No Nutrition Risks: No Nutritional Risk Poor oral hygiene: No Meds Allergies Allergy/AdvReac Type Severity Reaction Status Date / Time tetracycline Allergy Unknown Verified 03/04/24 09:37 Home Medications ?Medication ?Instructions ?Recorded ?Confirmed ?Last Taken ?Type amlodipine 5 mg tablet 5 mg PO DAILY 12/13/22 03/04/24 Unknown History atorvastatin 40 mg tablet 40 mg PO BEDTIME 12/13/22 03/04/24 Unknown History cholecalciferol (vitamin D3) 50 50 mcg PO DAILY 12/13/22 03/04/24 Unknown History mcg (2,000 unit) capsule sildenafil 100 mg tablet 100 mg PO DAILY PRN Erectile 12/13/22 03/04/24 Unknown History Dysfunction terazosin 2 mg capsule 2 mg PO BEDTIME 12/13/22 03/04/24 Unknown History Exam Airway Mallampati Class: III TM Dist: >3cm Neck ROM: Full Heart: rrr Lungs: cta Assessment and Plan Assessment Anesthesia Assessment: Anesthesia Plan Discussed Final Anesthetic Review NPO: Yes ASA Class: III Final Preanesthetic Review: No Changes in Pt Med Stat, Meds/Allgs Chart Reviewed and Consent Obtained/Reviewed Patient Risk: Low Procedure Risk: Low Anesthetic Plan Anesthetic Plan: GA Disposition: Standard PACU
[2024-03-04] VITALS (8 sets, daily range): BP systolic 103–157; BP diastolic 69–95; PULSE 57–87; RESP 9–18; TEMP 36.1–36.6; O2SAT 97–99; BMI 30.9
[2024-03-04] MEDS: Lactated Ringers 1,000 ML 100 ML IVCONT (09:37)
[2024-03-04 10:03] LABS: Hemoglobin 13.2 g/dl (14.0-18.0); Mean Corpuscular HGB Conc 34.7 g/dl (31.0-36.0); Mean Corpuscular Hemoglobin 31.6 pg (27.0-33.0); Mean Corpuscular Volume 90.9 fL (80.0-98.0); Mean Platelet Volume 9.4 fL (9.4-12.4); Platelet Count 237 X10*3/uL (160-400); Red Blood Count 4.18 X10*6/uL (4.60-5.80); Red Cell Distribution Width 15.2 % (11.0-16.0); White Blood Count 6.5 X10*3/uL (4.8-10.8)
[2024-03-04 10:23] LABS: Anion Gap 12 (12-20); Blood Urea Nitrogen 9 mg/dL (9-16); Calcium 9.7 mg/dL (8.4-10.2); Carbon Dioxide 27 mmol/L (22-29); Chloride 107 mmol/L (96-108); Creatinine Clr Calc Pharmacy 63.8; Estimated Glomerular Filt Rate 59; Glucose Fasting 126 mg/dL (60-99); Potassium 3.3 mmol/L (3.3-5.1); Sodium 143 mmol/L (135-145)
[2024-03-04] MEDS: levoFLOXacin 500 MG TABLET PO (12:40)
--- NOTE | 2024-03-04 12:50 | MHC.SHP ---
Pre-Procedural Eval Section A - 24 Hr Update-Section A only Date of Service: 03/04/24 The patient is an INPATIENT: No Changes since office visit: No Cold of Flu in the past 2 weeks, No New Medical Problems, No Changes in Medication and No Patient answered all questions The patient has been examined within 24 hours of the surgical procedure. The History & Physical has been completed within 30 days and I have reviewed it.: Yes Section B - Complete if H&P > 30 days Chief Complaint: Elevated prostate specific antigen [PSA] Allergies: Allergies Allergy/AdvReac Type Severity Reaction Status Date / Time tetracycline Allergy Intermediate Gastrointestinal Verified 03/04/24 12:42 Upset Plan I have reviewed the history and physical and performed a pertinent physical examination on my patient. No changes have occurred unless specified. Time Spent With Patient Time: Total time managing care of this patient today ____ minutes.
--- NOTE | 2024-03-04 13:33 | P.OP_ITS ---
Operative Note Operative Note Date of Service: 03/04/24 Narrative: Preoperative diagnosis: Prostate Cancer Postoperative diagnosis: Prostate Cancer Procedure: 1. transrectal ultrasound-guided pudendal nerve block 2. MRI-US fusion image registration performed 3. transperineal ultrasound-guided prostate biopsy 14 core including targets Surgeon: Dr. Sukhdev Naylor Anesthetic: Sedation plus local Indications for procedure: Prostate Cancer - 06/09 core Gl 3+# - here for follow-up biopsy Procedure: After informed consent was verified, the patient was brought into the procedure area. Patient identity confirmed. Perioperative antibiotics confirmed. Safety pause time out performed. Anesthesia performed per protocol. Scrotum taped out of operative area. Iodine prep used. Perineal injection of local anesthetic. Digital guided prostate pudendal nerve block performed with 10 cc of 1% lidocaine. 5cc each side. Combination 10cc iodine with 50cc gel was mixed and placed in the rectum. Ultrasound probe was placed per rectum. Ultrasound probe stabilized on a prostate stepper with attached grid. [employer] software and hardware platform used for US image acquisition, US 3D model creation and MRI-US fusion image overlay. Ultrasound placement was made with external grid calibration for height and prostate diameter in both the transverse and longitudinal planes. Grid A-C covering right prostate and c-F covering left prostate. Numbers 1.0-2.5 covering posterior prostate and 2.5-4.0 covering anterior prostate. Once grid calibration was confirmed prostate ultrasound data acquisition was performed in the transverse fashion. The US images were registered to create model boundaries. A three dimensional ultrasound model was created using [employer] software. The model was reviewed against acquired US images. The planned needle targeting, based on prior acquisition of MRI imaging, was overlaid on the ultrasound images and targets confirmed through ultrasound review. Adjustments were then made between real time and projected model targeting locations. Based on pre-planning evaluation 14 targets had been identified. These included 2 targets of the PI-RADS 3 - identified lesion/s. He tolerated the procedure well. Was transferred to stable condition in the PACU. Printed instructions regarding antibiotic use and common side effects such as low-grade temperature, potential infection and bleeding were given Pathology: 14 prostate biopsy CPT 66366 Modifier 22 for complexity of procedure execution (Perineal prostate biopsy) CPT code 48578: Transrectal ultrasound; this is a diagnostic test for evaluation of the prostate and surrounding structures, looking for abnormalities or suspicious areas worrisome for cancer CPT code 35375: Ultrasonic guidance for needle placement (eg, biopsy, aspiration, injection, localization device), imaging supervision and interpre tation CPT 69669: 3D rendering with interpretation and reporting of computed tomography (CT), MRI, ultrasound, or other tomographic modality with image postprocessing under concurrent supervision; not requiring image postprocessing on an independent workstation
[2024-03-04 14:25] LABS: Glucose, Whole Blood 129 mg/dL (60-115)
== END 2024-03-04 15:39 | disposition home or self-care (01) ==
PROVIDERS: Nurse Practitioner; PCP Family Medicine; Visit Provider Urology
PROC: (CPT 55700; principal; 2024-03-04 11:30)
DX: C61 Malignant neoplasm of prostate (principal); R97.20 Elevated prostate specific antigen [PSA]; N52.9 Male erectile dysfunction, unspecified; E11.22 Type 2 diabetes mellitus with diabetic chronic kidney disease; I12.9 Hypertensive chronic kidney disease with stage 1 through stage 4 chronic kidney disease, or unspecified chronic kidney disease; N18.9 Chronic kidney disease, unspecified; J44.9 Chronic obstructive pulmonary disease, unspecified; B18.2 Chronic viral hepatitis C; E55.9 Vitamin D deficiency, unspecified; E53.8 Deficiency of other specified B group vitamins; F17.210 Nicotine dependence, cigarettes, uncomplicated; F14.21 Cocaine dependence, in remission; Z79.899 Other long term (current) drug therapy; Z88.1 Allergy status to other antibiotic agents; Z91.148 Patient's other noncompliance with medication regimen for other reason
CPT/HCPCS: 55706; 36415; 80048; 82947; 85027; 88305; J0330; J1100; J2003; J2250; J2371; J2405; J2704; J2795; J3010

== ENCOUNTER → 2024-03-04 09:02 | Outpatient (BNV) | payer OTHER, SELFPAY | PROVIDERS: PCP Family Medicine; Visit Provider Urology | DX: C61 Malignant neoplasm of prostate (principal) | CPT/HCPCS: 55706; 76376; 76872; 76942 ==

== ENCOUNTER 2024-03-20 09:54 | Outpatient (AMB) | payer OTHER, SELFPAY ==
--- NOTE | 2024-03-20 09:58 | A.OFFVIS_ITS ---
Intake Visit Reasons: Targeted Prostate biopsy results Intake Note: Patient is present for Telephone Biopsy Result Urology Med: Finasteride, Tamsulosin, Sildenafil, Terazosin Antibiotic Allergy: Tetrecycline Blood Thinner: None Recent PSA: 08/2023 PSA: 7.92 Hospice Nurse Practitioner Required: No Accompanied by: Self / Same As Patient Allergies tetracycline Allergy (Intermediate, Verified 03/20/24 09:58) Gastrointestinal Upset Medication List - Last Reconciled 03/20/24 by Sukhdev Naylor MD amlodipine 5 mg PO DAILY atorvastatin 40 mg PO BEDTIME cholecalciferol (vitamin D3) 50 mcg PO DAILY finasteride (Proscar) 5 mg PO ONCE 90 days sildenafil 100 mg PO DAILY PRN sulfamethoxazole-trimethoprim 800-160 mg (Bactrim DS) 1 tab PO BID tamsulosin 0.4 mg PO BEDTIME 90 days terazosin 2 mg PO BEDTIME HPI Comments Details: Marcus is a pleasant male. He is a patient of Dr. Page. He is seen for the following urologic conditions - prostate cancer Telemedicine Evaluation 15 min Consultation [employer] Marty Video 03/21 Prostate MRI reviewed with 1.9 cm right posterior transition zone base lesion PI-RADS 5. 50 g prostate Underwent directed biopsies Directed biopsies negative Restart finasteride 4 month follow-up PSA 10/18/23- Jamey is a 63-year-old male who presents today for telehealth follow- up. He is on active surveillance for diagnosis of prostate cancer. He had MRI prostate and results reviewed with him, a 1.9 cm lesion right posterior transition zone near base, DC 5; clinically significant, no adenapathy, capsule or SV involvement. PSA -09/01/23--7.92ng/mL. We are in the process of coordinating the MRI guided biopsy. I discussed with him in more detail event regarding recent hospitalization to [facility]. He states he was treated for sepsis and possible stroke. We will need medical clearance prior to procedure. Review of chart: 09/07/23--Jamey is a 63-year-old male who presents today for telehealth follow- up. He states he was recently discharged from hospital. He is on active surveillance for diagnosis of prostate cancer. He had MRI prostate and results reviewed with him, a 1.9 cm lesion right posterior transition zone near base, DC 5; clinically significant, no adenapathy, capsule or SV involvement. PSA -09/01/23--7.92ng/mL. Discussed MRI guided prostate biopsy. 02/02/2023? Histologic type: Acinar adenocarcinoma G[place] score: 3+3=6 Grade group: 1 Tumor quantitation: Number cores positive 1: Total number of cores: 12 % of tissue involved: <1% of all tissue 12/21/2022-- He complains of urinary frequency and weak urinary stream.? history significant for nicotine dependence, type 2 diabetes. He states that he is not taking Atorvastatin and Vitamin D medications at this time. He states that he is not on any blood thinners. He reports bleeding with ejaculation and microscopic hematuria.? He states that he used to smoke ? a pack a day in the past. He has been smoking since he was 7 years old. He smoked 4 packs a day for 4 years when he was in the He denies any dysuria. He states that his father had a history of prostate cancer. He uses cane for ambulatory assistance. Review of urology referral notes from the [place], he had a PSA of 24.98. Evaluation UA - 1+ blood Plan: We will schedule CAT scan and US of the kidneys. Various contributing factors that can lead to elevated PSA were discussed with the patient including enlarged prostate, inflammation/infection, and prostate cancer. Discussed prostate biopsy followed by cystoscopy to be scheduled. Prescribed Bactrim DS. PFSH Medical History History of vitamin D deficiency Hx of type 2 diabetes mellitus History of tobacco use Hx of tinnitus Hx of sleep apnea Hx of obesity History of erectile dysfunction History of hyperlipidemia Hx of essential hypertension History of vitamin B deficiency History of cocaine abuse Hx of chronic hepatitis Hx of chronic kidney disease History of benign prostatic hyperplasia Surgical History Hx of hernia repair Hx of colonoscopy Family History Father No problems noted. Mother No problems noted. Social History Are you a primary home care assistant to a significant other at home: No Do you presently have visiting nurse or other home services: No Alcohol intake: unknown Patient Tobacco Use Status: Current everyday Tobacco user Tobacco use type: Cigarette Cigarette Packs Per Day: 0.5 Cigarettes Per Day: 10.0 Telehealth Telehealth Telehealth Platform: [employer] Location of provider rendering services: practice address Location of patient: address on file Patient Identification confirmed using: Name, : Yes Telehealth method: video Patient verbally consented to treatment: Yes Patient verbally consented to billing insurance company: Yes Patient informed of any privacy concerns related to visit: Yes Minutes spent on Phone/Video with Pt.: 15 Assessment & Plan Assessment & Plan (1) Adenocarcinoma of prostate: Code(s): C61 - Malignant neoplasm of prostate Category: Medical Plan Four month follow-up PSA Orders: Orders PSA,Total (Free>4and<10) 4 Months C61 - Malignant neoplasm of prostate Medications: Changed From finasteride (Proscar) 5 mg PO DAILY 90 tabs 2RF To finasteride (Proscar) take daily 5 mg PO ONCE 90 days 90 tabs 1RF Patient Instructions: Imaging studies, laboratory and physical exam results were discussed and reviewed in detail. No major barriers to patient understanding were identified. An opportunity to ask questions regarding the treatment plan was provided. All questions were answered. The patient expressed understanding and agreement with the above treatment plan. The patient is aware they should contact our office by phone for worsening of their current condition or the appearance of new urologic symptoms. Compliance is encouraged with any medications and followup testing that is ordered. It is a privilege to participate in the urologic care of your patient. If you have any questions or concerns regarding treatment for the above conditions, or other urologic issues, please do not hesitate to contact me. The office telephone contact is [phone]. This note is constructed using voice recognition software. While every effort has been made to ensure accuracy heel finisher errors may have been included. Yours sincerely, Dr Sukhdev Naylor MD, [facility] - Urology Providers of Expert, Compassionate Care for the Genitourinary System Coding Level of Care Code Tele Est Pt Level 4 (05425) Diagnoses Adenocarcinoma of prostate C61
== END 2024-03-20 10:40 | disposition home or self-care (01) ==
LOC: HO.HUSH 09:54
PROVIDERS: PCP Family Medicine; Referring Provider Family Medicine; Visit Provider Urology
DX: C61 Malignant neoplasm of prostate (principal)
CPT/HCPCS: 99214

== ENCOUNTER → 2024-03-20 09:54 | Outpatient (BNVA) | payer OTHER, SELFPAY | PROVIDERS: PCP Family Medicine; Visit Provider Urology ==

== ENCOUNTER 2024-07-24 10:55 | Outpatient (AMB) | payer OTHER, SELFPAY ==
--- NOTE | 2024-07-24 10:56 | A.OFFVIS_ITS ---
Intake Visit Reasons: 4m/PSA/PVR Intake Note: Patient is present for 4M/PSA/ PVR Urology Medication:TAMSULOSIN,FINASTERIDE,SILDENAFIL Antibiotic Allergy:TETRCYCLINE Blood Thinner: Todays PVR:21ML'S Iv Technician Required: No Allergies tetracycline Allergy (Intermediate, Verified 07/24/24 10:57) Gastrointestinal Upset HPI Comments Details: Marcus is a pleasant male. He is a patient of Dr. Page. He is seen for the following urologic conditions - prostate cancer - Lower urinary tract symptoms Four month surveillance Remains on tamsulosin, finasteride and sildenafil No current PSA Repeat PSA today Weakness of stream unable to clear 12 in or more Discussed GreenLight laser prostate Printed information provided Lower urinary tract symptoms Progressive Maximized on medication - tamsulosin, finasteride Prostate cancer - low-grade, low volume - active surveillance PSA 09/19 8.0 03/21 Prostate MRI reviewed with 1.9 cm right posterior transition zone base lesion PI-RADS 5 - directed biopsies negative 02/18 initial PSA 25 Histologic type: Acinar adenocarcinoma Raffy score: 3+3=6 Grade group: 1 Tumor quantitation: Number cores positive 1: Total number of cores: 12 % of tissue involved: <1% of all tissue PFSH Medical History History of vitamin D deficiency Hx of type 2 diabetes mellitus History of tobacco use Hx of tinnitus Hx of sleep apnea Hx of obesity History of erectile dysfunction History of hyperlipidemia Hx of essential hypertension History of vitamin B deficiency History of cocaine abuse Hx of chronic hepatitis Hx of chronic kidney disease History of benign prostatic hyperplasia Surgical History Hx of hernia repair Hx of colonoscopy Family History Father No problems noted. Mother No problems noted. Social History Are you a primary acute care nurse practitioner to a significant other at home: No Do you presently have visiting nurse or other home services: No Alcohol intake: unknown Patient Tobacco Use Status: Current everyday Tobacco user Tobacco use type: Cigarette Cigarette Packs Per Day: 0.5 Cigarettes Per Day: 10.0 Review of Systems Const Denies chills and Denies fever(s) Card Reports no additional complaints and Denies syncope Resp Denies cough GI Denies abdominal pain and Denies heartburn Reports as per HPI and Denies change in libido Neuro Denies syncope Psych Denies change in libido Endo Denies change in libido Physical Exam Const General: cooperative, healthy appearing, comfortable and no acute distress Orientation/consciousness: patient oriented x3 HEENT Face and sinus: Yes normal facial exam Mouth: moist mucous membranes Neck Neck: Yes normal visual inspection, Yes full ROM and Yes trachea midline Chest Chest palpation & inspection: normal inspection of the chest Resp Effort & Inspection: normal respiratory effort, able to speak in complete sentences and no respiratory distress GI Inspection: Yes normal to inspection Back/Spine/Pelvis Cervical Spine: normal cervical lordosis Thoracic/Lumbar Spine: thoracic and lumbar spine normal to inspection Skin General skin exam: no rashes or lesions noted Neuro General: patient oriented x3, gait normal, tone normal and moves all extremities Extrem General: Yes normal to inspection and Yes capillary refill normal Office Procedures Post Void Residual Post Residual Void Post Void Residual (PVR): 21 [id number] Void Residual by ultrasound Assessment & Plan Assessment & Plan (1) BPH (benign prostatic hyperplasia): Code(s): N40.0 - Benign prostatic hyperplasia without lower urinary tract symptoms Category: Medical (2) Adenocarcinoma of prostate: Code(s): C61 - Malignant neoplasm of prostate Category: Medical Plan PSA today PSA 4 months Orders: Orders AMB Urinalysis Automated Today Z13.9 - Encounter for screening, unspecified PSA,Total (Free>4and<10) Today C61 - Malignant neoplasm of prostate PSA,Total (Free>4and<10) 4 Months C61 - Malignant neoplasm of prostate Patient Instructions: This note is constructed using voice recognition software. While every effort has been made to ensure accuracy support services manager errors may have been included. Imaging studies, laboratory and physical exam results were discussed and reviewed in detail. No major barriers to patient understanding were identified. An opportunity to ask questions regarding the treatment plan was provided. All questions were answered. The patient expressed understanding and agreement with the above treatment plan. The patient is aware they should contact our office by phone for worsening of their current condition or the appearance of new urologic symptoms. Compliance is encouraged with any medications and followup testing that is ordered. It is a privilege to participate in the urologic care of your patient. If you have any questions or concerns regarding treatment for the above conditions, or other urologic issues, please do not hesitate to contact me. The office telephone contact is [phone]. Sincerely, Dr Sukhdev Naylor MD, [facility] - Urology Compassionate Specialist Care for the Genitourinary System Coding Level of Care Code Est Pt Level 3 (75327) Diagnoses BPH (benign prostatic hyperplasia) N40.0 Adenocarcinoma of prostate C61 CPT Codes Post Residual Void - PVR CPT Code: 25537-Nfta Void Residual by ultrasound ([id number])
--- OUTSIDE RECORDS SUMMARY | 2024-07-24 13:37 | XMS_ITS | Encounter Summary ---
Author Name [facility] Address [address] [place] [address] Care Team Providers Care Hammer Driver Name Role Phone COLT RAND Primary Care Provider Unavailabl e Insurance Providers: All historical and current Section Date Range: From patient's date of to the date document was created. This section includes the names of all active insurance providers for the patient. Insurance Provider Type of Coverage Plan Name Start of Policy Coverage End of Policy Coverage Group Number Member ID Insurance Provider's Telephone Number Policy Womack's Name Patient's Relationship to Policy Womcak [facility] MEDICAID MEDICAID MEDIC AID May 29, 2018 MEDICAI D [id number] JAMES WRIGHT PATIENT MEDICAID MEDICAID [facility] Sep 24, 2018 MEDICAI D [id number] ALEX AlexandreJAMES PATIENT Selected Encounter This section includes the information on record at [place] for the Encounter. Date/Time Encounter Type Encounter Description Reason Provider Source Nov 10, 2023 01:00 PM SELF CARE MNGMENT TRAINING PHYSICAL THERAPY ICD-10-CM M62.81 Muscle weakness (generalized) ANGELES DUNN Baldomero Encounter Template Text not used by [facility] Assessments - Encounter Diagnoses This section includes the primary and secondary diagnoses documented for the Encounter. Date/Time Primary/Secondary Diagnosis Diagnosis Name Provider Source Nov 10, 2023 01:43 PM PRIMARY Muscle weakness (generalized) EMILEE DUNN JUANA KATHY [place] Plan of Treatment: Future Appointments (+ 6 months) and Future Tests (+/- 45 days) The Plan of Treatment section includes future care activities for the patient [facility] [place] [facility] This section includes future appointments and future orders which are active, pending or scheduled. Future Appointments This section includes appointments that were scheduled to occur 6 months from the date of the Encounter, up to a maximum of 20 appointments. The data comes from all [place] [facility]. Appointment Date/Time Appointment Type Appointme nt Facility Name Nov 27, 2023 01:30 PM AMBULATORY [place] [place] [facility] [place] [facility] Nov 29, 2023 02:30 PM AMBULATORY - [facility] [facility] [place] [facility] [place] [facility] Dec 04, 2023 01:30 PM AMBULATORY - [facility] [place] [facility] [place] [facility] Dec 07, 2023 11:00 AM AMBULATORY - [place] MEDIC[place] Dec 22, 2023 11:30 AM AMBULATORY - RE[facility] MEDICIN [place] Dec 28, 2023 11:00 AM AMBULATORY - RE[facility] MEDICIN [place] Jan 05, 2024 11:30 AM AMBULATORY - RE[facility] MEDICIN [place] Jan 11, 2024 08:30 AM AMBULATORY - [place]ICINE [place] [facility] [place] [facility] Feb 26, 2024 01:00 PM AMBULATORY - MEDICINE [place] [facility] [place] [facility] Feb 27, 2024 03:30 PM AMBULATORY - MEDICINE [place] [facility] [place] [facility] Mar 28, 2024 11:00 AM AMBULATORY - MEDICINE [place] [facility] [place] [facility] Apr 01, 2024 01:30 PM AMBULATORY - MEDICINE [place] [facility] [place] [facility] May 03, 2024 02:00 PM AM[place]ULATORY [place]ICINE [place] [facility] [place] [facility] Social History: Smoking Status (Most current) and Tobacco Use (All prior to encounter date) This section includes the most current, and the historical, smoking and tobacco- related health factors from the [place] facility where the Encounter took place. Current Smoking Status This section includes the most current smoking, or tobacco-related health factor, from the [place] facility where the Encounter took place. Date/Time Current Smoking Status Comment Anthony ity Sep 06, 2023 03:30 PM VA-TOBACCO DOESNT USE WI 30 MIN WAKEUP [place] Tobacco Use History This section includes a history of the smoking, or tobacco-related health factors, that were collected on or before the date of the Encounter. The data comes from the [facility] where the Encounter took place. Date/Time Smoking Status/Tobacco Use Comment F acility Sep 06, 2023 03:30 PM VA-TOBACCO USE 30 YEARS OR MORE [place] Sep 06, 2023 03:30 PM VA-TOBACCO USE ADVICE [place] Sep 06, 2023 03:30 PM VA-TOBACCO USE PANCAKE PROFESSIONAL [facility] Sep 06, 2023 03:30 PM VA-TOBACCO USE MED [facility] Sep 06, 2023 03:30 PM VA-TOBACCO USER EVERY DAY [place] Jul 26, 2022 02:00 PM [facility]BACCO [facility]ARS [facility] 02:00 PM VA-TOBACCO USE ADVICE [place] Jul 26, 2022 02:00 PM VA-TOBACCO USE PANCAKE PROFESSIONAL [facility] Jul 26, 2022 02:00 PM VA-TOBACCO USE MED [facility] Jul 26, 2022 02:00 PM VA-TOBACCO USE WI 30 MIN OF WAKE UP [place] Jul 26, 2022 02:00 PM VA-TOBACCO USER EVERY DAY [place] Mar 01, 2019 01:59 PM VA-TOBACCO DOESNT USE WI 30 MIN [facility] Mar 01, 2019 01:59 PM VA-TOBACCO USE 30 YEARS OR MORE [place] Mar 01, 2019 01:59 PM VA-TOBACCO USE ADVICE [place] Mar 01, 2019 01:59 PM VA-TOBACCO USE PANCAKE PROFESSIONAL [facility] Mar 01, 2019 01:59 PM VA-TOBACCO USE MED [facility] Mar 01, 2019 01:59 PM VA-TOBACCO USER EVERY DAY [place] Mar 06, 2018 04:15 PM VA-TOBACCO USE 30 YEARS OR MORE [place] Mar 06, 2018 04:15 PM VA-TOBACCO USE ADVICE [place] Mar 06, 2018 04:15 PM VA-TOBACCO USE PANCAKE PROFESSIONAL NO [place] Mar 06, 2018 04:15 PM VA-TOBACCO USE MED [facility] Mar 06, 2018 04:15 PM VA-TOBACCO USE WI 30 MIN OF WAKE UP [place] Mar 06, 2018 04:15 PM VA-TOBACCO USER EVERY DAY [place] Advance Directives: All historical and current Section Date Range: From patient's date of to the date document was created. This section includes ALL of a patient's completed or amended [place] Advance and Rescinded Directives. The entries below indicate that a directive exists for the patient, but an actual copy is not included with this document. The data comes from all [place] facilities. Date Advance Directives Provider Source Mar 15, 2018 ADVANCE DIRECTIVE RULTOBI GORE MICHAEL Encounter Notes: All associated encounter notes This section contains the clinical notes associated to the Encounter. Date/Time Encounter Note(s) Provider Source Nov 10, 2023 01:10 PM PHYSICAL THERAPY C ONSULT: LOCAL TITLE: PHYSICAL THERAPY CONSULT STANDARD TITLE: PHYSICAL THERAPY CONSULT DATE OF NOTE: NOV 10, 2023@13:10 ENTRY DATE: NOV 10, 2023@13:10:44 AUTHOR: CECI DUNN COSIGNER: URGENCY: STATUS: COMPLETED Initial Evaluation date: 11/10/23 Treatment #: eval Treatment time: 40 min Diagnosis: Muscle Weakness (Generalized) (ICD-10-CM M62.81) (Primary) Provider: Camilo Velazquez. identified by full name and Active problems - Computerized Problem List is the source for the followin. Adenocarcinoma of prostate 2. Obesity 3. Folic acid deficiency 4. Housing lack 5. Colonoscopy Screening 6. Tobacco dependence, continuous 7. Hyperlipidemia 8. Type 2 diabetes mellitus 9. Benign prostatic hypertrophy with outflow obstruction 10. Hypertension 11. Cocaine dependence in remission 12. Tinnitus 13. Erectile dysfunction 14. Obstructive sleep apnea 15. Chronic hepatitis C SUBJECTIVE: [place]ah states he suffered from sepsis in Jun 2023 along with a mild stroke causing weakness in his right leg. He was found following being on the floor for 5 days and was hospitalized for three months. He completed rehab and home PT, progressing from a wheel chair, to a walker, and now uses a single point cane. He finds that his knee's tend to buckle when not using the cane and feels he is a high falls risk. He has been attempting to walk 1-2 blocks per day for exercise and is hopeful he can regain his strength and endurance. Prior to the hospitalization he exercised regularly performing a variety of cardiovascular and strengthening exercises. He has a history of being on the [employer] team and understands the benefits of regular exercise. He is hopeful PT can help improve his leg strength and balance so he can ambulate without a cane. Date of onset: Jun 2023 ( ) Gradual (x) Rapid BRIANNE: Stroke, sepsis Since onset: ( ) Worsening ( ) Improving (x) Staying the same C/O: (x) Pain location: Right knee ( ) ROM loss: (x) Strength loss: Right lower extremity weakness ( ) Sensory loss: Pain 0-10: Current 0/10 Pt. goal: Walk without a cane OBJECTIVE: Vitals: BP: 142/89 HR: 89 SaO2: 99% Observation: Ambulates with single point cane MMT / Myotomes (R) (L) *pain UE strength grossly 5/5 bilaterally Hip flex L2 4 4+ Knee flex L5: 4- 5 Extension L3 4 5 Ankle DF L4 4 5 PF S1: 4+ 5 Balance Test: 30 Second Chair Stand Stand up and sit down as many times in 30 seconds, arms folded Trial 1: 7 times Timed Up and Go Test modifications: Trial 1: 24 without cane & no arms to rise(right knee álvaro) Trial 2: 14 seconds with cane and arm assist ARROYO: 4 Sitting to standing 4: Able to stand without using hands & stabilize independently 3: Able to stand independently using hands 2: Able to stand after several tries 1: Need minimal aid to stand or stabilize 0: Needs mod or max A to stand 4 Standing unsupported 4: Able to stand safely for 2 minutes 3: Able to stand 2 minutes with supervision 2: Able to stand 30 seconds unsupported 1: Needs several tries to stand 30 seconds unsupported 0: Unable to stand 30 seconds unsupported 4 Sitting unsupported 4: Able to sit safely and securely for 2 minutes 3: Able to sit 2 minutes under supervision 2: Able to sit 30 seconds 1: Able to sit 10 seconds 0: Unable to sit without support 10 seconds 4 Standing to sitting 4: Sits safely with minimal use of hands 3: Controls descent by using hands 2: Uses back of legs against chair to control descent 1: Sits independently but has uncontrolled descent 0: Needs assist to sit 3 Pivot transfer from chair (1 armrest 1 w/o then back) 4: Able to transfer safely with minor use of hands 3: Able to transfer safely definite use of hands 2: Able to transfer with verbal cue or supervision 1: Needs one person to assist 0: Needs two people to assist 4 Standing unsupported eyes closed 4: Able to stand 10 seconds safely 3: Able to stand 10 seconds with supervision 2: Able to stand 3 seconds 1: Unable to keep eyes closed 3 seconds but is safe 0: Needs help to keep from falling 4 Standing unsupported feet together 4: Able to stand 1 minute safely 3: Able to stand 1 minute with supervision 2: Unable to hold 30 seconds 1: Needs help to position, able to stand 15 seconds 0: Unable to hold 15 seconds 3 Reaching forward with outstretched arms while standing 4: Can reach forward confidently 10 inches 3: Can reach forward 5 inches 2: Reaches forward but needs supervision 1: Looses balance while trying / requires external support 4 Pick object from the floor from a standing position 4: Able to fruit or nut picker slipper safely and easily 3: Able to fruit or nut picker slipper but needs supervision 2: Unable but reaches 1-2 inches from slipper 1: Unable to fruit or nut picker and needs supervision while trying 0: unable to try / needs assist to prevent fall 3 Turning to look behind while standing 4: Looks behind from both sides and weight shifts well 3: Looks behind one side only other side shows less weight shift 2: Turns sideways only but maintains balance 1: Needs supervision when turning 0: Needs assist to keep from losing balance or falling 1 Turn 360 degrees 4: Able to turn 360 degrees safely in 4 seconds or less 3: Able to turn 360 deg safely one side only 4 seconds less 2: Able to turn 360 deg safely but slowly 1: Needs close supervision or verbal cuing 0: Needs assistance while turning [address] alternate foot on stool standing unsupported 4: Complete 8 steps in 20 seconds independently 3: Complete 8 steps > 20 seconds independently 2: Able to complete 4 steps without aid with supervision 1: Able to complete >2 steps, needs minimal assist 0: Needs assistance to keep from falling / unable to try 4 Standing unsupported one foot in front 4: Able to place foot tandem independently and hold 30 seconds 3: Able to place foot ahead independently and hold 30 seconds 2: Able to take small step independently and hold 30 seconds 1: Needs help to step but can hold 15 seconds 0: Loses balance while stepping or standing 2 Standing on one leg 4: Able to lift leg independently and hold >10 seconds 3: Able to lift leg independently and hold 5-10 seconds 2: Able to lift leg independently and hold > 3 seconds 1: Unable to hold 3 seconds but remains standing independently 0: Unable to try, needs assist to prevent fall 45/56 points ASSESSMENT: [place]ah is a 63 year old male presenting to PT with gait and balance deficits following a CVA causing right lower extremity weakness. The right knee also has some medial ligamentous insufficiency and will require bracing to help prevent buckling during standing. Please perform the exercises in the parallel bars as the right knee can buckle and result in a fall. Suspect he will do well with physical therapy due to intact cognition and high motivations to return to normal. GOALS: 1.)TUG less than 10 seconds with SPC 2.)10 sit to stands in 30 seconds 3.)Ambulate without AD safely, without knee buckling 4.)Rx HEP in 4 visits PLAN OF CARE: [place] is in agreement to split treatments between [place] and [place] due to availability. Aerobic exercise and walking routine. Mat hip and core stabilization. Functional movement patterns in parallel bars. Gentle lower extremity stretches. Balance and proprioception training in parallel bars. Pre-gait and gait training in parallel bars. 6 apointments 2x per week. TODAYS TREATMENT: Edu on plan of care. Ordered more compression stockings. Ordered hinged knee brace, advised to bring this device to f/u appointments. Thank you for this consultation and allowing the PT team to participate in this patient's care. Please do not hesitate to contact us if you have any questions. All treatments to be implemented at tolerance of pt. and discretion of therapist(s). Pt is in agreement with above goals and plan of care and will be discharged when goals are met or pt. has plateaued in progress. /arnaud/ CECI DUNN DPSidney Physical Therapist Signed: 11/10/2023 14:56 CECI DUNN [place]
--- OUTSIDE RECORDS SUMMARY | 2024-07-24 13:37 | XMS_ITS | Encounter Summary ---
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 Date/Time Encounter Type Encounter Description Reason Provider Source Aug 24, 2023 08:45 AM OFF/OP EST SEPTEMBER X REQ PHY/QHP PRIMARY CARE/MEDICINE ICD-10-CM L03.115 Cellulitis of right lower limb TONI HAQUE Encounter Template Text not used by [place] Assessments - Encounter Diagnoses This section includes the primary and secondary diagnoses documented for the Encounter. Date/Time Primary/Secondary Diagnosis Diagnosis Name Provider Source Aug 24, 2023 10:07 AM PRIMARY Cellulitis of right lower limb TONI HAQUE [place] Plan of Treatment: Future Appointments (+ 6 months) and Future Tests (+/- 45 days) The Plan of Treatment section includes future care activities for the patient from [facility] [place] [facility] This section includes future appointments and future orders which are active, pending or scheduled. Future Appointments This section includes appointments that were scheduled to occur 6 months from the date of the Encounter, up to a maximum of 20 appointments. The data comes from all [place] treatment facilities. Appointment Date/Time Appointment Type Appointme nt Facility Name Sep 06, 2023 03:30 PM AM[place]UL[place]ORY [place]ICINE [place] [facility] [place] [facility] Sep 07, 2023 12:00 PM AM[place]UL[place] [facility] [place] [facility] Sep 08, 2023 11:00 AM AM[facility]ULATORY [facility] MEDICINE [facility] Sep 26, 2023 10:00 AM AMBULATORY - REHAB MEDICIN E [place] October 05, 2023 01:30 PM AM[place]UL[place] [facility] [place] [facility] Oct 30, 2023 11:30 AM [facility]ORY [facility] MEDICINE [facility] Oct 31, 2023 03:00 PM AM[place]UL[place] [facility] [place] [facility] Nov 09, 2023 01:00 PM AMBULATORY [place]ICINE [place] [facility] [place] [facility] Nov 10, 2023 01:00 PM AMBULATORY - REHAB MEDICIN E [place] Nov 27, 2023 01:30 PM AMBULATORY - REHAB MEDICIN E [place] [facility] [place] [facility] Nov 29, 2023 02:30 PM AMBULATORY - REHAB MEDICIN E [place] [facility] [place] [facility] Dec 04, 2023 01:30 PM AMBULATORY - REHAB MEDICIN E [place] [facility] [place] [facility] Dec 07, 2023 11:00 AM AMBULATORY - REHAB MEDICIN E [place] Dec 22, 2023 11:30 AM AMBULATORY - REHAB MEDICIN E [place] Dec 28, 2023 11:00 AM AMBULATORY - REHAB MEDICIN E [place] Jan 05, 2024 11:30 AM AMBULATORY - REHAB MEDICIN E [place] Jan 11, 2024 08:30 AM AMBULATORY - MEDICINE [facility] Lab Results: +/- 30 days of the encounter This section includes the Chemistry and Hematology Lab Results on record with [place] for the patient. Radiology Reports and Pathology Reports are provided separately, in subsequent sections. Lab Results This section contains the Chemistry/Hematology Results that were resulted 30 days before or 30 daysafter the date of the Encounter. Date/Time Source Result Type Result - Unit Interpretation Reference Range Comment Sep 08, 2023 01:01 PM [place] CBC AND DIFF (AUTO) Specimen Type: BLOOD No comment entered. Ordering Provider: COLT RAND Report Released Date/Time: Sep 08, 2023 11:41 AM Reporting Lab: [facility] [address] [facility] [address] Performing Lab: [facility] [address] [facility] [address] WBC 5.25 10*3/uL 4.50-11.00 RBC 3.74 10*6/uL L 4.23-5.66 HGB 11.6 g/dL L 12.8-17 HCT 35.7 L 39.2-50.4 MCV 95.5 fL 82-99 MCHC 32.5 g/dL 30.8-35.1 PLT 215 10*3/uL 140-360 RDW-CV 16.5 H 12.0-16.0 Cook, Abs 0.35 10*3/uL 0.30-1.10 MCH 31.0 pg 26.2-32.6 Neut % 43.2 L 43.7-75.8 Lymph % 41.9 14.0-42.3 Cook % 6.7 5.1-13.7 Eos % 7.6 H 0.4-6.8 Baso % 0.4 0.1-2.0 Neut, Abs 2.27 10*3/uL 2.20-7.60 Lymph, Abs 2.20 10*3/uL 1.00-3.20 Eos, Abs 0.40 10*3/uL 0.03-0.44 Baso, Abs 0.02 10*3/uL 0.01-0.13 Immature Gran % 0.2 0.0-0.7 Immature Gran, Abs 0.01 10*3/uL 0.00-0.06 Aug 29, 2023 09:34 AM [facility] TRAMADOL PNL (Quest) Specimen Type: URINE Comment: REFERENCE RANGE: <100 ng/mL REFERENCE RANGE: <100 ng/mL See LDT message Test Performed by [facility], [place], [address] [place], [place] Arturo Wilhelm M.D., Ph.D., Director of Laboratories , CLIA [id number] This drug testing is for medical treatment only. Analysis was performed as non-forensic testing and these results should be used only by healthcare providers to render diagnosis or treatment, or to monitor progress of medical conditions. LDT Message: This test was developed and its analytical performance characteristics have been determined by [place], [place]. It has not been cleared or approved by the U.S. Food and Drug Administration. This assay has been validated pursuant to the CLIA regulations and is used for clinical purposes. Healthcare Providers needing Interpretation assistance, please contact us at [phone] ( ) M-F, 8am to 10pm EST TEST PERFORMED AT: , Ordering Provider: COLT RAND Report Released Date/Time: Aug 24, 2023 02:13 PM Reporting Lab: [address] [address] Performing Lab: [facility] [address] [address] TRAMADOL,URINE NEGATIVE ng/mL SEE BELOW DESMETHYLTRAMAD OL NEGATIVE ng/mL SEE BELOW Aug 29, 2023 09:34 AM [facility] METHADONE SCREEN Specimen Type: URINE Comment: THOMAS test are qualitative, any L or H flags only indicate a VA alert was sent. Ordering Provider: COLT RAND Report Released Date/Time: Aug 24, 2023 02:13 PM Reporting Lab: [facility] [address] [facility] [address] Performing Lab: [facility] [address] [facility] [address] METHADONE SCREEN None detected(Negati ve) L Negative Aug 29, 2023 09:34 AM [facility] ALCOHOL, ETHYL URINE PANEL Specimen Type: URINE Comment: Urine with Cr <5 is diluted or substituted. Cr between 5 and 20 is very dilute. Urine with SG of 1.001 or less is diluted or substituted. SG of 1.003 or less is very dilute. Urine with a pH <3 or >11 has been adulterated and is unsuitable for testing by our current method. Urine with pH between 3 and 4 OR 10 and 11 may have been adulterated. Ordering Provider: COLT RAND Report Released Date/Time: Aug 24, 2023 02:13 PM Reporting Lab: [address] [address] Performing Lab: [address] [address] ALCOHOL, ETHYL URINE NONE-DETECTED mg/dL NONE-DETEC KARIN, cutoff = 10 mg/dL PH, THOMAS 5.1 [pH] 4-10 CREATININE, THOMAS 318.04 mg/dL >20 SP.GRAVITY, THOMAS 1.031 H 1.00 3-1.02 0 Aug 29, 2023 09:34 AM [facility] AMPHETAMINES SCREEN PANEL Specimen Type: URINE Comment: Urine with Cr <5 is diluted or substituted. Cr between 5 and 20 is very dilute. Urine with SG of 1.001 or less is diluted or substituted. SG of 1.003 or less is very dilute. Urine with a pH <3 or >11 has been adulterated and is unsuitable for testing by our current method. Urine with pH between 3 and 4 OR 10 and 11 may have been adulterated. Ordering Provider: COLT RAND Report Released Date/Time: Aug 24, 2023 02:13 PM Reporting Lab: [address] [address] Performing Lab: [address] [address] AMPHETAMINES SCREEN NONE-DETECTED None-Detec karin, Cutoff = 1000 ng/mL PH, THOMAS 5.1 [pH] 4-10 CREATININE, THOMAS 318.04 mg/dL >20 SP.GRAVITY, THOMAS 1.031 H 1.00 3-1.02 0 Aug 29, 2023 09:34 AM [facility] FENTANYL SCREEN PANEL Specimen Type: URINE Comment: Urine with Cr <5 is diluted or substituted. Cr between 5 and 20 is very dilute. Urine with SG of 1.001 or less is diluted or substituted. SG of 1.003 or less is very dilute. Urine with a pH <3 or >11 has been adulterated and is unsuitable for testing by our current method. Urine with pH between 3 and 4 OR 10 and 11 may have been adulterated. FENTANYL CONFIRMATION NOT SENT BY LAB. Ordering Provider: COLT RAND Report Released Date/Time: Aug 24, 2023 02:13 PM Reporting Lab: [address] [address] Performing Lab: [address] [address] FENTANYL SCREEN NONE-DETECTE D ng/mL Negative: Cutoff = 1.00 ng/mL PH, THOMAS 5.3 [pH] 4-10 CREATININE, THOMAS 317.72 mg/dL >20 SP.GRAVITY, THOMAS 1.031 H 1.00 3-1.02 0 Aug 29, 2023 09:34 AM [facility] BENZODIAZEPINES SCREEN PANEL Specimen Type: URINE Comment: Urine with Cr <5 is diluted or substituted. Cr between 5 and 20 is very dilute. Urine with SG of 1.001 or less is diluted or substituted. SG of 1.003 or less is very dilute. Urine with a pH <3 or >11 has been adulterated and is unsuitable for testing by our current method. Urine with pH between 3 and 4 OR 10 and 11 may have been adulterated. Ordering Provider: COLT RAND Report Released Date/Time: Aug 24, 2023 02:13 PM Reporting Lab: [address] [address] Performing Lab: [address] [address] BENZODIAZEPINES SCREEN NONE-DETECTED None-Detec karin, Cutoff = 200 ng/mL PH, THOMAS 5.1 [pH] 4-10 CREATININE, THOMAS 318.04 mg/dL >20 SP.GRAVITY, THOMAS 1.031 H 1.00 3-1.02 0 Aug 29, 2023 09:34 AM [facility] BUPRENORPHINE SCREEN PANEL Specimen Type: URINE Comment: Urine with Cr <5 is diluted or substituted. Cr between 5 and 20 is very dilute. Urine with SG of 1.001 or less is diluted or substituted. SG of 1.003 or less is very dilute. Urine with a pH <3 or >11 has been adulterated and is unsuitable for testing by our current method. Urine with pH between 3 and 4 OR 10 and 11 may have been adulterated. Ordering Provider: COLT RAND Report Released Date/Time: Aug 24, 2023 02:13 PM Reporting Lab: [address] [address] Performing Lab: [address] [address] BUPRENORPHINE (URINE) NONE-DETECTED None Detected, Cutoff = 10.0 ng/mL PH, THOMAS 5.1 [pH] 4-10 CREATININE, THOMAS 318.04 mg/dL >20 SP.GRAVITY, THOMAS 1.031 H 1.00 3-1.02 0 Aug 29, 2023 09:34 AM [facility] COCAINE SCREEN PANEL Specimen Type: URINE Comment: Urine with Cr <5 is diluted or substituted. Cr between 5 and 20 is very dilute. Urine with SG of 1.001 or less is diluted or substituted. SG of 1.003 or less is very dilute. Urine with a pH <3 or >11 has been adulterated and is unsuitable for testing by our current method. Urine with pH between 3 and 4 OR 10 and 11 may have been adulterated. Ordering Provider: COLT RAND Report Released Date/Time: Aug 24, 2023 02:13 PM Reporting Lab: [address] [address] Performing Lab: [address] [address] COCAINE SCREEN NONE-DETECTED N one-Detec karin,Cutoff = 300 ng/mL PH, THOMAS 5.1 [pH] 4-10 CREATININE, THOMAS 318.04 mg/dL >20 SP.GRAVITY, THOMAS 1.031 H 1.00 3-1.02 0 Aug 29, 2023 09:34 AM [facility] OPIATES SCREEN PANEL Specimen Type: URINE Comment: Urine with Cr <5 is diluted or substituted. Cr between 5 and 20 is very dilute. Urine with SG of 1.001 or less is diluted or substituted. SG of 1.003 or less is very dilute. Urine with a pH <3 or >11 has been adulterated and is unsuitable for testing by our current method. Urine with pH between 3 and 4 OR 10 and 11 may have been adulterated. Ordering Provider: COLT RAND Report Released Date/Time: Aug 24, 2023 02:13 PM Reporting Lab: [address] [address] Performing Lab: [address] [address] OPIATES SCREEN NONE-DETECTED N one-Detec karin, Cutoff = 300 ng/mL PH, THOMAS 5.1 [pH] 4-10 CREATININE, THOMAS 318.04 mg/dL >20 SP.GRAVITY, THOMAS 1.031 H 1.00 3-1.02 0 Aug 29, 2023 09:34 AM [facility] OXYCODONE SCREEN PANEL Specimen Type: URINE Comment: Urine with Cr <5 is diluted or substituted. Cr between 5 and 20 is very dilute. Urine with SG of 1.001 or less is diluted or substituted. SG of 1.003 or less is very dilute. Urine with a pH <3 or >11 has been adulterated and is unsuitable for testing by our current method. Urine with pH between 3 and 4 OR 10 and 11 may have been adulterated. Ordering Provider: COLT RAND Report Released Date/Time: Aug 24, 2023 02:13 PM Reporting Lab: [address] [address] Performing Lab: [address] [address] OXYCODONE SCREEN NONE-DETECTED None-Detec karin, Cutoff = 100 ng/mL PH, THOMAS 5.1 [pH] 4-10 CREATININE, THOMAS 318.04 mg/dL >20 SP.GRAVITY, THOMAS 1.031 H 1.00 3-1.02 0 Aug 29, 2023 09:34 AM [facility] CANNABINOIDS SCREEN PANEL Specimen Type: URINE Comment: Urine with Cr <5 is diluted or substituted. Cr between 5 and 20 is very dilute. Urine with SG of 1.001 or less is diluted or substituted. SG of 1.003 or less is very dilute. Urine with a pH <3 or >11 has been adulterated and is unsuitable for testing by our current method. Urine with pH between 3 and 4 OR 10 and 11 may have been adulterated. Ordering Provider: COLT RAND Report Released Date/Time: Aug 24, 2023 02:13 PM Reporting Lab: [address] [address] Performing Lab: [address] [address] CANNABINOIDS SCREEN NONE-DETECTED None-Detec karin,Cutoff = 50 ng/mL PH, THOMAS 5.1 [pH] 4-10 CREATININE, THOMAS 318.04 mg/dL >20 SP.GRAVITY, THOMAS 1.031 H 1.00 3-1.02 0 Aug 29, 2023 09:06 AM [facility] LIPID PANEL FASTING Specimen Type: SERUM No comment entered. Ordering Provider: COLT RAND Report Released Date/Time: Aug 24, 2023 02:11 PM Reporting Lab: [address] [address] Performing Lab: [address] [address] CHOLESTEROL 132 mg/dL TRIGLYCERIDE 129 mg/dL 0-150 LDL calculated 69 mg/dL 0-129 CHOL/HDL 3.6 HDL CHOLESTEROL 37 mg/dL L 40-60 Aug 29, 2023 09:06 AM [facility] LIVER FUNCTION Specimen Type: SERUM No comment entered. Ordering Provider: COLT RAND Report Released Date/Time: Aug 24, 2023 02:11 PM Reporting Lab: [address] [address] Performing Lab: [address] [address] PROTEIN,TOTAL 7.7 g/dL 6.0-8.3 ALBUMIN 3.8 g/dL 3.5-5.0 ALKALINE PHOSPHATASE 73 U/L 40-150 AST 15 U/L 5-34 ALT 9 U/L BILIRUBIN, TOTAL 0.5 mg/dL 0.2-1.2 Aug 29, 2023 09:06 AM [facility] PSA Specimen Type: SERUM No comment entered. Ordering Provider: COLT RAND Report Released Date/Time: Aug 24, 2023 02:11 PM Reporting Lab: [address] [address] Performing Lab: [address] [address] PSA 7.14 ng/mL H 0.00-4.00 Aug 29, 2023 09:06 AM [facility] BASIC METABOLIC PANEL (fasting) Specimen Type: SERUM No comment entered. Ordering Provider: COLT RAND Report Released Date/Time: Aug 24, 2023 02:11 PM Reporting Lab: [address] [address] Performing Lab: [address] [address] UREA NITROGEN 10 mg/dL 7-25 GLUCOSE 113 mg/dL H 65-100 SODIUM 142 mmol/L 135-145 POTASSIUM 3.7 mmol/L 3.5-5.0 CHLORIDE 108 mmol/L 100-110 CO2 25 meq/L 20-30 CREATININE, Serum 1.13 mg/dL 0.50-1.40 eGFR(CKD-EPI 2020) 72 mL/min >60 Aug 29, 2023 09:06 AM [facility] TSH Specimen Type: SERUM No comment entered. Ordering Provider: COLT RAND Report Released Date/Time: Aug 24, 2023 02:11 PM Reporting Lab[facility] [address] [address] Performing [facility]: [facility] [address] [address] TSH 1.07 u[IU]/mL 0.35-5.00 Aug 29, 2023 09:06 AM [facility] HEMOGLOBIN A1C PANEL Specimen Type: BLOOD Comment: Values obtained from A1C measurements can vary. For atypical A1C assays, a reported value of 7.0 could actually be between 6.72 and 7.28 if measured by a reference method. A reported value of 9.0 could actually be between 8.73 and 9.27. Ref: http://www.ngsp .org/CAPdata.as p Ordering Provider: COLT RAND Report Released Date/Time: Aug 24, 2023 02:11 PM Reporting Lab: [facility] [address] [address] Performing [facility] [address] HEMOGLOBIN A1C 4.4 4.0-5.6 Aug 29, 2023 09:06 AM [facility] VITAMIN B12 Specimen Type: SERUM No comment entered. Ordering Provider: COLT RAND Report Released Date/Time: Aug 24, 2023 02:11 PM Reporting Lab: [facility] [address] [address] Performing [facility]: [facility] [address] VITAMIN B12 329 pg/mL 200-900 Aug 29, 2023 09:06 AM [facility] CBC AND DIFF (AUTO) Specimen Type: BLOOD No comment entered. Ordering Provider: COLT RAND Report Released Date/Time: Aug 24, 2023 02:11 PM Reporting Lab: [facility] [address] Performing Lab: [facility] [address] [facility] [address] WBC 4.94 10*3/uL 4.50-11.00 RBC 3.69 10*6/uL L 4.23-5.66 HGB 11.4 g/dL L 12.8-17 HCT 34.8 L 39.2-50.4 MCV 94.3 fL 82-99 MCHC 32.8 g/dL 30.8-35.1 PLT 264 10*3/uL 140-360 RDW-CV 16.3 H 12.0-16.0 Cook, Abs 0.28 10*3/uL L 0.30-1.10 MCH 30.9 pg 26.2-32.6 Neut % 54.0 43.7-75.8 Lymph % 31.8 14.0-42.3 Cook % 5.7 5.1-13.7 Eos % 7.5 H 0.4-6.8 Baso % 0.8 0.1-2.0 Neut, Abs 2.67 10*3/uL 2.20-7.60 Lymph, Abs 1.57 10*3/uL 1.00-3.20 Eos, Abs 0.37 10*3/uL 0.03-0.44 Baso, Abs 0.04 10*3/uL 0.01-0.13 Immature Gran % 0.2 0.0-0.7 Immature Gran, Abs 0.01 10*3/uL 0.00-0.06 Vital Signs: All taken on the encounter date This section contains inpatient and outpatient Vital Signs collected on the date of the Encounter. Date/Time Temperature Pulse Blood Pressure Respiratory Rate SP02 Pain Height Weight Body Mass Index Source Aug 24, 2023 09:17 AM 97.3 91 120/75 18 100 4 [place] Social History: Smoking Status (Most current) and Tobacco Use (All prior to encounter date) This section includes the most current, and the historical, smoking and tobacco- related health factors from the [place] facility where the Encounter took place. Current Smoking Status This section includes the most current smoking, or tobacco-related health factor, from the [place] facility where the Encounter took place. Date/Time Current Smoking Status Marita riojas Jul 26, 2022 02:00 PM [place]-TOBAC[place] USE [place] 30 MIN OF WAKE UP [place] Tobacco Use History This section includes a history of the smoking, or tobacco-related health factors, that were collected on or before the date of the Encounter. The data comes from the [place] facility where the Encounter took place. Date/Time Smoking Status/Tobacco Use Comment F acility Jul 26, 2022 02:00 PM VA-TOBACCO USE ADVICE [place] Jul 26, 2022 02:00 PM VA-TOBACCO USE BACKFILLER NO [facility] Jul 26, 2022 02:00 PM VA-TOBACCO USE MED NO [place] Jul 26, 2022 02:00 PM VA-TOBACCO USE [place] 30 MIN OF WAKE UP [facility] 28, 2023 02:00 PM VA-TOBACCO USER EVERY DAY [place] Mar 01, 2019 01:59 PM [facility]ACCO [facility]ESNT USE [facility] 01, 2019 01:59 PM VA-TOBACCO USE 30 YEARS OR MORE [facility] Mar 01, 2019 01:59 PM VA-TOBACCO USE ADVICE [facility] Mar 01, 2019 01:59 PM VA-TOBACCO USE BACKFILLER NO [place] Mar 01, 2019 01:59 PM VA-TOBACCO USE MED NO [facility] Mar 01, 2019 01:59 PM VA-TOBACCO USER EVERY DAY [facility] Mar 06, 2018 04:15 PM VA-TOBACCO USE 30 YEARS OR MORE [facility] Mar 06, 2018 04:15 PM VA-TOBACCO USE ADVICE [facility] Mar 06, 2018 04:15 PM VA-TOBACCO USE BACKFILLER NO [place] Mar 06, 2018 04:15 PM VA-TOBACCO USE MED [facility] Mar 06, 2018 04:15 PM VA-TOBACCO USE [place] 30 MIN OF WAKE UP [place] Mar 06, 2018 04:15 PM VA-TOBACCO USER EVERY DAY [place] Advance Directives: All historical and current Section Date Range: From patient's date of to the date document was created. This section includes ALL of a patient's completed or amended [place] Advance and Rescinded Directives. The entries below indicate that a directive exists for the patient, but an actual copy is not included with this document. The data comes from all [facility]. Date Advance Directives Provider Source Mar 15, 2018 ADVANCE DIRECTIVE RUTOBI AU Encounter Notes: All associated encounter notes This section contains the clinical notes associated to the Encounter. Date/Time Encounter Note(s) Provider Source Aug 24, 2023 09:17 AM PRIMARY CARE NOTE: LOCAL TITLE: WALK-IN NOTE PRIMARY CARE (T) STANDARD TITLE: PRIMARY CARE NOTE DATE OF NOTE: AUG 24, 2023@09:17 ENTRY DATE: AUG 24, 2023@09:17:54 AUTHOR: TONI HAQUE COSIGNER: URGENCY: STATUS: COMPLETED Data: 63year old MALE Glendora reports to Primary Care clinic for Walk-In visit. Glendora's PCP is COLT RAND, last visit with PCP was , next visit scheduled for . Today Vet walks in to clinic with complaint of increase pain and swelling to right lower leg Last recorded Vital Signs are: Temperature:97.3 F [36.3 C] (08/24/2023 09:17) Pulse:91 (08/24/2023 09:17) Blood Pressure:120/75 (08/24/2023 09:17) Respiration:18 (08/24/2023 09:17) Pain:4 (08/24/2023 09:17) Vet reports current allergies are: Remote Allergy Data FACILITY ALLERGY/ADR -------- 534^[facility] (534)^[id number] 636^[facility]^636TETRACYCLINE 689^[facility]^689TETRACYCLINE Current Medications from Active Med list include: Active Outpatient Medications (including Supplies): Active Outpatient Medications Status = 1) ALBUTEROL 90MCG (CFC-F) 200D ORAL INHL INHALE 2 PUFFS ACTIVE BY MOUTH EVERY 6 HOURS NEEDED FOR WHEEZING 2) AMLODIPINE BESYLATE 2.5MG TAB TAKE THREE TABLETS BY ACTIVE MOUTH ONCE DAILY FOR BLOOD PRESSURE/HEART, DO NOT TAKE WITH GRAPEFRUIT JUICE 3) ATORVASTATIN CALCIUM 40MG TAB TAKE ONE-HALF TABLET BY ACTIVE MOUTH AT BEDTIME FOR CHOLESTEROL 4) DICLOFENAC NA 1% TOP GEL APPLY 2 GRAMS TOPICALLY FOUR ACTIVE TIMES A DAY FOR RIGHT KNEE OSTEOARTHRITIS - USE DOSING CARD PROVIDED IN BOX 5) FINASTERIDE 5MG TAB TAKE ONE TABLET BY MOUTH ONCE ACTIVE DAILY 6) IVERMECTIN 3MG TAB TAKE FIVE TABLETS BY MOUTH ACTIVE DIRECTED BY PROVIDER ONCE ON 08/20/23 7) PERMETHRIN 5% CREAM APPLY A THIN LAYER TOPICALLY AT ACTIVE BEDTIME FOR SCABIES AT BEDTIME FROM NECK DOWN. WASH OFF IN THE MORNING. MAY REPEAT IN 1 WEEK IF NEEDED 8) SILDENAFIL CITRATE 100MG TAB TAKE ONE TABLET BY MOUTH ACTIVE ONCE DAILY NEEDED TAKE 1 HOUR PRIOR TO SEXUAL ACTIVITY 9) VITAMIN B COMPLEX CAP TAKE 1 CAPSULE BY MOUTH ONCE ACTIVE DAILY FOR VITAMIN SUPPLEMENTATION Action: Glendora presents to sick call with concerns of increase pain and swelling to the right lower leg. States since initial concerns leg has improved but since returning home he his right leg has increased in size and pain. [facility] [place] [facility] [place], then to [facility] for STR. States he has been home for 4 days. He feels like he should have been continued on the antibiotic but was not discharged home with any. Glendora reports home nurse goes out daily. Having PT at home as well Right lower leg with 2+ edema, skin taught, skin discolored with slight increase warmth noted. Edema from knee to toes. No open areas noted. Pain 4-5/10 currently. Reports pain as burning. Denies numbness to foot. Using oxycodone PRN with some effect. advised if pain increases, worsening edema, open areas, numbness to leg or foot he is to go to ED. Verbalized understanding. Referred to Stefan DALTON Reminders Info Only: [facility] Connect Capable DUE NOW Advance Directive Screen MH AD Jul 26 Suicide Screen Jul 26 Homelessness/Food Insecurity Screen Jul 26 Depression Screening Jul 26 Pneumococcal Conjugate Vaccine (PCV15/PCDUE NOW Tobacco Use Screening Jul 26 Screen for Abd Aortic Aneurysm DUE NOW Medication Reconciliation DUE NOW Alcohol Use Screen (AUDIT-C) Jul 26 Tdap Immunization DUE NOW Herpes Zoster (Shingles) Vaccine DUE NOW Sexual Orientation Jul 26 RHS Screen DUE NOW Diabetes: Kidney Health Evaluation Jun 21 PAVE Foot Check DUE NOW Unable to complete clinical reminders due to time constraints /es/ TONI K GARLAND, SVP [employer] RN Signed: 08/24/2023 10:08 TONI HAQUE
--- OUTSIDE RECORDS SUMMARY | 2024-07-24 13:37 | XMS_ITS | Encounter Summary ---
Author Name [facility] [place] [facility] [place] [facility] [facility] [place] Address [address] [place] [address] Care Team Providers Care Investigation Manager Name Role Phone COLT RAND Primary Care [...] Womack's Name Patient's Relationship to Policy Womack [facility] MEDICAID MEDICAID MEDIC AID May 29, 2018 MEDICAI D [id number] ALEX AlexandreJAMES PATIENT MEDICAID MEDICAID [facility] Sep 24, 2018 MEDICAI D [id number] ALEX AlexandreJAMES PATIENT Selected Encounter This section includes the information on record at [place] for the Encounter. Date/Time Encounter Type Encounter Description Reason Provider Source Sep 08, 2023 11:00 AM OFFICE O/P EST LOW 20 MIN PRIMARY CARE/MEDICINE ICD-10-CM L03.90 Cellulitis, unspecified COLT RAND Encounter Template Text not used by [facility] Assessments - Encounter Diagnoses This section includes the primary and secondary diagnoses documented for the Encounter. Date/Time Primary/Secondary Diagnosis Diagnosis Name Provider Source Sep 08, 2023 11:40 AM PRIMARY Cellulitis, unspecified KEYONACOLTAnitha BARNHART [facility] Plan of Treatment: Future Appointments (+ 6 months) and Future Tests (+/- 45 days) The Plan of Treatment section includes future care activities for the patient [facility] [place] [facility] This section includes future appointments and future orders which are active, pending or scheduled. Future Appointments This section includes appointments that were scheduled to occur 6 months from the date of the Encounter, up to a maximum of 20 appointments. The data comes from all [place] treatment facilities. Appointment Date/Time Appointment Type Appointme nt Facility Name Sep 26, 2023 10:00 AM AMBULATORY - REHAB MEDICIN E [facility] October 05, 2023 01:30 PM [place] [facility] [place] [facility] Oct 30, 2023 11:30 AM AMBULATORY - MEDICINE [facility] Oct 31, 2023 03:00 PM [place] [facility] [facility] Nov 09, 2023 01:00 PM [place] [facility] [place] [facility] Nov 10, 2023 01:00 PM AMBULATORY - REHAB MEDICIN E [facility] Nov 27, 2023 01:30 PM AM[facility] [place] [facility] [place] [facility] Nov 29, 2023 02:30 PM AMBULAT[facility] [place] [facility] Dec 04, 2023 01:30 PM AMBULATORY [facility] [place] [facility] Dec 07, 2023 11:00 AM AMBULATORY - REHAB MEDICIN [facility] Dec 22, 2023 11:30 AM AMBULATORY - REHAB MEDICIN E [facility] Dec 28, 2023 11:00 AM AMBULATORY - REHAB MEDICIN [facility] Jan 05, 2024 11:30 AM AMBULATORY - REHAB MEDICIN [facility] Jan 11, 2024 08:30 AM [place] [facility] [facility] Feb 26, 2024 01:00 PM [place] [facility] [facility] Feb 27, 2024 03:30 PM [place] [facility] [place] [facility] Lab Results: +/- 30 days of the encounter This section includes the Chemistry and Hematology Lab Results on record with [place] for the patient. Radiology Reports and Pathology Reports are provided separately, in subsequent sections. Lab Results This section contains the Chemistry/Hematology Results that were resulted 30 days before or 30 daysafter the date of the Encounter. Date/Time Source Result Type Result - Unit Interpretation Reference Range Comment Sep 08, 2023 01:01 PM [facility] CBC AND DIFF (AUTO) Specimen Type: BLOOD No comment entered. Ordering Provider: COLT RAND Report Released Date/Time: Sep 08, 2023 11:41 AM Reporting Lab: [facility] [address] [address] Performing Lab: [address] [address] WBC 5.25 10*3/uL 4.50-11.00 RBC 3.74 10*6/uL L 4.23-5.66 HGB 11.6 g/dL L 12.8-17 HCT 35.7 L 39.2-50.4 MCV 95.5 fL 82-99 MCHC 32.5 g/dL 30.8-35.1 PLT 215 10*3/uL 140-360 RDW-CV 16.5 H 12.0-16.0 [place], Abs 0.35 10*3/uL 0.30-1.10 MCH 31.0 pg 26.2-32.6 Neut % 43.2 L 43.7-75.8 Lymph % 41.9 14.0-42.3 [place] % 6.7 5.1-13.7 Eos % 7.6 H 0.4-6.8 Baso % 0.4 0.1-2.0 Neut, Abs 2.27 10*3/uL 2.20-7.60 Lymph, Abs 2.20 10*3/uL 1.00-3.20 Eos, Abs 0.40 10*3/uL 0.03-0.44 Baso, Abs 0.02 10*3/uL 0.01-0.13 Immature Gran % 0.2 0.0-0.7 Immature Gran, Abs 0.01 10*3/uL 0.00-0.06 Aug 29, 2023 09:34 AM [facility] TRAMADOL PNL ([facility]) Specimen Type: URINE Comment: REFERENCE RANGE: <100 ng/mL REFERENCE RANGE: <100 ng/mL See LDT message Test Performed by [employer], [employer] [place], [address] [place], [place] Arturo Wilhelm M.D., Ph.D., Director of Laboratories , CLIA [id number] This drug testing is for medical treatment only. Analysis was performed as non-forensic testing and these results should be used only by healthcare providers to render diagnosis or treatment, or to monitor progress of medical conditions. LDT Message: This test was developed and its analytical performance characteristics have been determined by [employer] [place], [place]. It has not been cleared or approved by the U.S. Food and Drug Administration. This assay has been validated pursuant to the CLIA regulations and is used for clinical purposes. Healthcare Providers needing Interpretation assistance, please contact us at [phone] ( ) M-F, 8am to 10pm EST TEST PERFORMED AT: , Ordering Provider: COLT RAND Report Released Date/Time: Aug 24, 2023 02:13 PM Reporting Lab: [address] [address] Performing Lab: [facility] [address] [address] TRAMADOL,URINE NEGATIVE ng/mL SEE BELOW DESMETHYLTRAMAD OL NEGATIVE ng/mL SEE BELOW Aug 29, 2023 09:34 AM [facility] METHADONE SCREEN Specimen Type: URINE Comment: THOMAS test are qualitative, any L or H flags only indicate a VA alert was sent. Ordering Provider: COLT RAND Report Released Date/Time: Aug 24, 2023 02:13 PM Reporting Lab: [facility] [address] [address] Performing Lab: [facility] [address] [address] METHADONE SCREEN None detected(Negati ve) L Negative Aug 29, 2023 09:34 AM [facility] ALCOHOL, ETHYL URINE PANEL Specimen Type: URINE [...] Aug 24, 2023 02:13 PM Reporting Lab: [address] [address] Performing Lab: [address] [address] ALCOHOL, ETHYL URINE NONE-DETECTED mg/dL NONE-DETEC KARIN, cutoff = 10 mg/dL PH, THOMAS 5.1 [pH] 4-10 CREATININE, THOMAS 318.04 mg/dL >20 SP.GRAVITY, THOMAS 1.031 H 1.00 3-1.02 0 Aug 29, 2023 09:34 AM [facility] AMPHETAMINES SCREEN PANEL Specimen Type: URINE Comment: [...] Aug 24, 2023 02:13 PM Reporting Lab: [address] [address] Performing Lab: [address] [address] AMPHETAMINES SCREEN NONE-DETECTED None-Detec karin, Cutoff = 1000 ng/mL PH, THOMAS 5.1 [pH] 4-10 CREATININE, THOMAS 318.04 mg/dL >20 SP.GRAVITY, THOMAS 1.031 H 1.00 3-1.02 0 Aug 29, 2023 09:34 AM [facility] FENTANYL SCREEN PANEL Specimen Type: URINE Comment: [...] Aug 24, 2023 02:13 PM Reporting Lab: [address] [address] Performing Lab: [address] [address] FENTANYL SCREEN NONE-DETECTE D ng/mL Negative: Cutoff = 1.00 ng/mL PH, THOMAS 5.3 [pH] 4-10 CREATININE, THOMAS 317.72 mg/dL >20 SP.GRAVITY, THOMAS 1.031 H 1.00 3-1.02 0 Aug 29, 2023 09:34 AM [facility] BENZODIAZEPINES SCREEN PANEL Specimen Type: URINE Comment: [...] Aug 24, 2023 02:13 PM Reporting Lab: [address] [address] Performing Lab: [address] [address] BENZODIAZEPINES SCREEN NONE-DETECTED None-Detec karin, Cutoff = 200 ng/mL PH, THOMAS 5.1 [pH] 4-10 CREATININE, THOMAS 318.04 mg/dL >20 SP.GRAVITY, THOMAS 1.031 H 1.00 3-1.02 0 Aug 29, 2023 09:34 AM [facility] BUPRENORPHINE SCREEN PANEL Specimen Type: URINE Comment: [...] Aug 24, 2023 02:13 PM Reporting Lab: [address] [address] Performing Lab: [address] [address] BUPRENORPHINE (URINE) NONE-DETECTED None Detected, Cutoff = 10.0 ng/mL PH, THOMAS 5.1 [pH] 4-10 CREATININE, THOMAS 318.04 mg/dL >20 SP.GRAVITY, THOMAS 1.031 H 1.00 3-1.02 0 Aug 29, 2023 09:34 AM [facility] COCAINE SCREEN PANEL Specimen Type: URINE Comment: [...] Aug 24, 2023 02:13 PM Reporting Lab: [address] [address] Performing Lab: [address] [address] COCAINE SCREEN NONE-DETECTED N one-Detec karin,Cutoff = 300 ng/mL PH, THOMAS 5.1 [pH] 4-10 CREATININE, THOMAS 318.04 mg/dL >20 SP.GRAVITY, THOMAS 1.031 H 1.00 3-1.02 0 Aug 29, 2023 09:34 AM [facility] OPIATES SCREEN PANEL Specimen Type: URINE Comment: [...] Aug 24, 2023 02:13 PM Reporting Lab: [address] [address] Performing Lab: [address] [address] OPIATES SCREEN NONE-DETECTED N one-Detec karin, Cutoff = 300 ng/mL PH, THOMAS 5.1 [pH] 4-10 CREATININE, THOMAS 318.04 mg/dL >20 SP.GRAVITY, THOMAS 1.031 H 1.00 3-1.02 0 Aug 29, 2023 09:34 AM [facility] OXYCODONE SCREEN PANEL Specimen Type: URINE Comment: [...] Aug 24, 2023 02:13 PM Reporting Lab: [address] [address] Performing Lab: [address] [address] OXYCODONE SCREEN NONE-DETECTED None-Detec karin, Cutoff = 100 ng/mL PH, THOMAS 5.1 [pH] 4-10 CREATININE, THOMAS 318.04 mg/dL >20 SP.GRAVITY, THOMAS 1.031 H 1.00 3-1.02 0 Aug 29, 2023 09:34 AM [facility] CANNABINOIDS SCREEN PANEL Specimen Type: URINE Comment: [...] Aug 24, 2023 02:13 PM Reporting Lab: [address] [address] Performing Lab: [address] [address] CANNABINOIDS SCREEN NONE-DETECTED None-Detec karin,Cutoff = 50 ng/mL PH, THOMAS 5.1 [pH] 4-10 CREATININE, THOMAS 318.04 mg/dL >20 SP.GRAVITY, THOMAS 1.031 H 1.00 3-1.02 0 Aug 29, 2023 09:06 AM [facility] LIPID PANEL FASTING Specimen Type: SERUM No comment entered. Ordering Provider: COLT RAND Report Released Date/Time: Aug 24, 2023 02:11 PM Reporting Lab: [address] [address] Performing Lab: [address] [address] CHOLESTEROL 132 mg/dL TRIGLYCERIDE 129 mg/dL 0-150 LDL calculated 69 mg/dL 0-129 CHOL/HDL 3.6 HDL CHOLESTEROL 37 mg/dL L 40-60 Aug 29, 2023 09:06 AM [facility] LIVER FUNCTION Specimen Type: SERUM No comment entered. Ordering Provider: COLT RAND Report Released Date/Time: Aug 24, 2023 02:11 PM Reporting [facility]: [facility] [address] [address] Performing Lab: [facility] [address] [address] PROTEIN,TOTAL 7.7 g/dL 6.0-8.3 ALBUMIN 3.8 g/dL 3.5-5.0 ALKALINE PHOSPHATASE 73 U/L 40-150 AST 15 U/L 5-34 ALT 9 U/L BILIRUBIN, TOTAL 0.5 mg/dL 0.2-1.2 Aug 29, 2023 09:06 AM [facility] PSA Specimen Type: SERUM No comment entered. Ordering Provider: COLT RAND Report Released Date/Time: Aug 24, 2023 02:11 PM Reporting Lab: [facility] [address] [address] Performing Lab: [address] [address] PSA 7.14 ng/mL H 0.00-4.00 Aug 29, 2023 09:06 AM [facility] BASIC METABOLIC PANEL (fasting) Specimen Type: SERUM No comment entered. Ordering Provider: COLT RAND Report Released Date/Time: Aug 24, 2023 02:11 PM Reporting Lab: [facility] [address] [address] Performing Lab: [address] [address] UREA NITROGEN 10 mg/dL 7-25 GLUCOSE 113 mg/dL H 65-100 SODIUM 142 mmol/L 135-145 POTASSIUM 3.7 mmol/L 3.5-5.0 CHLORIDE 108 mmol/L 100-110 CO2 25 meq/L 20-30 CREATININE, Serum 1.13 mg/dL 0.50-1.40 eGFR(CKD-EPI 2020) 72 mL/min >60 Aug 29, 2023 09:06 AM [facility] TSH Specimen Type: SERUM No comment entered. Ordering Provider: COLT RAND Report Released Date/Time: Aug 24, 2023 02:11 PM Reporting Lab: [facility] [place] [facility] [address] [address] Performing [facility]: [facility] [address] [address] TSH 1.07 u[IU]/mL 0.35-5.00 Aug 29, 2023 09:06 AM [facility] HEMOGLOBIN A1C PANEL Specimen Type: BLOOD Comment: [...] Aug 24, 2023 02:11 PM Reporting Lab: [facility] [address] [address] Performing Lab: [facility] [address] [address] HEMOGLOBIN A1C 4.4 4.0-5.6 Aug 29, 2023 09:06 AM [facility] VITAMIN B12 Specimen Type: SERUM No comment entered. Ordering Provider: COLT RAND Report Released Date/Time: Aug 24, 2023 02:11 PM Reporting Lab: [facility] [address] Performing Lab: [facility] [address] [address] VITAMIN B12 329 pg/mL 200-900 Aug 29, 2023 09:06 AM [facility] CBC AND DIFF (AUTO) Specimen Type: BLOOD No comment entered. Ordering Provider: COLT RAND Report Released Date/Time: Aug 24, 2023 02:11 PM Reporting Lab: [facility] [address] [address] Performing Lab: [facility] [address] [address] WBC 4.94 10*3/uL 4.50-11.00 RBC 3.69 10*6/uL L 4.23-5.66 HGB 11.4 g/dL L 12.8-17 HCT 34.8 L 39.2-50.4 MCV 94.3 fL 82-99 MCHC 32.8 g/dL 30.8-35.1 PLT 264 10*3/uL 140-360 RDW-CV 16.3 H 12.0-16.0 [place], Abs 0.28 10*3/uL L 0.30-1.10 MCH 30.9 pg 26.2-32.6 Neut % 54.0 43.7-75.8 Lymph % 31.8 14.0-42.3 [place] % 5.7 5.1-13.7 Eos % 7.5 H 0.4-6.8 Baso % 0.8 0.1-2.0 Neut, Abs 2.67 10*3/uL 2.20-7.60 Lymph, Abs 1.57 10*3/uL 1.00-3.20 Eos, Abs 0.37 10*3/uL 0.03-0.44 Baso, Abs 0.04 10*3/uL 0.01-0.13 Immature Gran % 0.2 0.0-0.7 Immature Gran, Abs 0.01 10*3/uL 0.00-0.06 Social History: Smoking Status (Most current) and Tobacco Use (All prior to encounter date) This section includes the most current, and the historical, smoking and tobacco- related health factors from the [place] facility where the Encounter took place. Current Smoking Status This section includes the most current smoking, or tobacco-related health factor, from the [place] facility where the Encounter took place. Date/Time Current Smoking Status Comment Facil ity Sep 06, 2023 03:30 PM VA-TOBACCO USER EVERY DAY [facility] Tobacco Use History This section includes a history of the smoking, or tobacco-related health factors, that were collected on or before the date of the Encounter. The data comes from the [place] facility where the Encounter took place. Date/Time Smoking Status/Tobacco Use Comment F acility Sep 06, 2023 03:30 PM VA-TOBACCO USE 30 YEARS OR MORE [facility] Sep 06, 2023 03:30 PM VA-TOBACCO USE ADVICE [facility] Sep 06, 2023 03:30 PM VA-TOBACCO USE CASING CREW PUSHER NO [facility] Sep 06, 2023 03:30 PM VA-TOBACCO USE MED NO [facility] Sep 06, 2023 03:30 PM VA-TOBACCO USER EVERY DAY [facility] Jul 26, 2022 02:00 PM VA-TOBACCO USE 30 YEARS OR MORE [facility] Jul 26, 2022 02:00 PM VA-TOBACCO USE ADVICE [facility] Jul 26, 2022 02:00 PM VA-TOBACCO USE CASING CREW PUSHER NO [facility] Jul 26, 2022 02:00 PM VA-TOBACCO USE MED NO [facility] Jul 26, 2022 02:00 PM VA-TOBACCO USE WI 30 MIN OF WAKE UP [facility] Jul 26, 2022 02:00 PM VA-TOBACCO USER EVERY DAY [facility] Mar 01, 2019 01:59 PM VA-TOBACCO DOESNT USE WI 30 MIN WAKEUP [facility] Mar 01, 2019 01:59 PM VA-TOBACCO USE 30 YEARS OR MORE [facility] Mar 01, 2019 01:59 PM VA-TOBACCO USE ADVICE [facility] Mar 01, 2019 01:59 PM VA-TOBACCO USE CASING CREW PUSHER NO [facility] Mar 01, 2019 01:59 PM VA-TOBACCO USE MED NO [facility] Mar 01, 2019 01:59 PM VA-TOBACCO USER EVERY DAY [facility] Mar 06, 2018 04:15 PM VA-TOBACCO USE 30 YEARS OR MORE [facility] Mar 06, 2018 04:15 PM VA-TOBACCO USE ADVICE [facility] Mar 06, 2018 04:15 PM VA-TOBACCO USE CASING CREW PUSHER NO [facility] Mar 06, 2018 04:15 PM VA-TOBACCO USE MED NO [facility] Mar 06, 2018 04:15 PM VA-TOBACCO USE [place] 30 MIN OF WAKE UP [facility] Mar 06, 2018 04:15 PM VA-TOBACCO USER EVERY DAY [facility] Advance Directives: All historical and current Section Date Range: From patient's date of to the date document was created. This section includes ALL of a patient's completed or amended [place] Advance and Rescinded Directives. The entries below indicate that a directive exists for the patient, but an actual copy is not included with this document. The data comes from all [facility]. Date Advance Directives Provider Source Mar 15, 2018 ADVANCE DIRECTIVE TOBI JOHNSON Encounter Notes: All associated encounter notes This section contains the clinical notes associated to the Encounter. Date/Time Encounter Note(s) Provider Source Sep 08, 2023 10:25 AM PHYSICIAN NOTE: LOCAL TITLE: MD NOTE STANDARD TITLE: PHYSICIAN NOTE DATE OF NOTE: SEP 08, 2023@10:25 ENTRY DATE: SEP 08, 2023@10:25:36 AUTHOR: COLT RAND COSIGNER: URGENCY: STATUS: COMPLETED NOTE Has ADDENDA HISTORY OF PRESENT ILLNESS: JAMES LEO, is a 63 yo MALE [place], who presents at the [facility] via [facility] for a hospital follow up. He presented to [facility] on 07/15/23 with c/o pain, swelling, and erythema of his RLE. He had been on the floor for 4 days. Trauma surgery consulted due to concern for possible underlying necrotizing fasciitis. CT RLE showed diffuse soft tissue edema with reactive lymph nodes, but no underlying gas to suggest necrotizing infection or fluid collection to suggest abscess. Initial WBC was 32. He was dxed with RLE cellulitis. He was treated with zosyn, vanco, clinda, then cefazolin. He was transitioned to keflex 500mg QID x 14 days (due to slow improvement) - the last day being 08/04/23. On D/C to rehab his WBC was 6.6. It was also noted that he had a rash which was dxed as scabies. He was D/C'd to [facility] using private insurance on 08/04/23. He was started on levaquin 500mg daily through 08/16/23. He was also treated for recurrent scabies. His WBC was 7.1 on 08/14/23. He was D/C'd home from rehab on 08/17/23 with VNA services. He was then seen by Mr Rodriguez as a walk-in on 08/24/23 b/c vet had concerns of increased pain and swelling to the right lower leg and stated he felt he should be continued on an antibiotic. He was given levofloxacin 750mg/day x 10 days and oxycodone 5mg QID prn pain (#40). Active problems - Computerized Problem List is [...] Obstructive sleep apnea 15. Chronic hepatitis C The following VA and Non-VA meds were reconciled with patient: Active Outpatient Medications (including Supplies): Issue Date Status Last Fill Active Outpatient Medications Refills Expiration ===== 1) ALBUTEROL 90MCG (CFC-F) 200D ORAL INHL ACTIVE Issu:04-10-23 Qty: 1 for 30 days Sig: INHALE 2 Refills: 1 Last:06-05-23 PUFFS BY MOUTH EVERY 6 HOURS NEEDED Expr:04-10-24 FOR WHEEZING 2) AMLODIPINE BESYLATE 2.5MG TAB Qty: 270 ACTIVE Issu:09-06-23 for 90 days Sig: TAKE THREE TABLETS Refills: 1 Last:09-06-23 BY MOUTH ONCE DAILY FOR BLOOD Expr:09-06-24 PRESSURE/HEART, DO NOT TAKE WITH GRAPEFRUIT JUICE 3) ATORVASTATIN CALCIUM 40MG TAB Qty: 45 ACTIVE Issu:02-07-23 for 90 days Sig: TAKE ONE-HALF TABLET Refills: 2 Last:06-05-23 BY MOUTH AT BEDTIME FOR CHOLESTEROL Expr:02-08-24 4) DICLOFENAC NA 1% TOP GEL Qty: 100 for ACTIVE (S) Issu:04-10-23 30 days Sig: APPLY 2 GRAMS TOPICALLY Refills: 0 Last:09-11-23 FOUR TIMES A DAY FOR RIGHT KNEE Expr:04-10-24 OSTEOARTHRITIS - USE DOSING CARD PROVIDED IN BOX 5) FINASTERIDE 5MG TAB Qty: 90 for 90 days ACTIVE Issu:01-17-23 Sig: TAKE ONE TABLET BY MOUTH ONCE Refills: 0 Last:07-15-23 DAILY Expr:01-18-24 6) IVERMECTIN 3MG TAB Qty: 5 for 1 days ACTIVE Issu:08-18-23 Sig: TAKE FIVE TABLETS BY MOUTH Refills: 0 Last:08-18-23 DIRECTED BY PROVIDER ONCE ON 08/20/23 Expr:09-17-23 7) LEVOFLOXACIN 750MG TAB Qty: 10 for 10 ACTIVE Issu:08-24-23 days Sig: TAKE ONE TABLET BY MOUTH Refills: 0 Last:08-24-23 ONCE DAILY FOR INFECTION CAUSED BY Expr:09-23-23 BACTERIA 8) OXYCODONE HCL 5MG TAB NOT SA Qty: ACTIVE Issu:08-24-23 40 for 10 days Sig: TAKE ONE TABLET Refills: 0 Last:08-24-23 BY MOUTH FOUR TIMES DAILY NEEDED Expr:09-23-23 FOR PAIN 9) PERMETHRIN 5% CREAM Qty: 60 for 7 days ACTIVE Issu:06-22-23 Sig: APPLY A THIN LAYER TOPICALLY AT Refills: 0 Last:06-29-23 BEDTIME FOR SCABIES AT BEDTIME FROM Expr:06-22-24 NECK DOWN. WASH OFF IN THE MORNING. MAY REPEAT IN 1 WEEK IF NEEDED 10) SILDENAFIL CITRATE 100MG TAB Qty: 18 ACTIVE (S) Issu:09-06-23 for 90 days Sig: TAKE ONE TABLET BY Refills: 3 Last:10-14-23 MOUTH ONCE DAILY NEEDED TAKE 1 Expr:09-06-24 HOUR PRIOR TO SEXUAL ACTIVITY 11) TAMSULOSIN HCL 0.4MG CAP Qty: 10 for 10 ACTIVE Issu:09-08-23 days Sig: TAKE ONE CAPSULE BY MOUTH Refills: 0 Last:09-08-23 AT BEDTIME DIRECTED BY PROVIDER - Expr:10-08-23 STOP TAKING TERAZOSIN 12) TRIAMCINOLONE ACETONIDE 0.1% OINT Qty: ACTIVE Issu:09-06-23 80 for 60 days Sig: APPLY THIN LAYER Refills: 0 Last:09-06-23 TOPICALLY TWICE DAILY FOR ITCHING Expr:11-05-23 13) VITAMIN B COMPLEX CAP Qty: 100 for 90 ACTIVE Issu:04-10-23 days Sig: TAKE 1 CAPSULE BY MOUTH Refills: 2 Last:06-29-23 ONCE DAILY FOR VITAMIN SUPPLEMENTATION Expr:04-10-24 ALLERGIES: ========= TETRACYCLINE LAB HISTORY: CHEM 7 TREND LAB CUMULATIVE SELECTED Collection DT Spec GLUCOSE BUN CREATIN Sodium K+/Pot CL CO2 08/29/2023 09:06 SERUM 113 H 10 1.13 142 3.7 108 25 04/04/2023 11:30 SERUM 115 H 06/21/2022 13:39 SERUM 102 H 12 1.42 H 141 4.2 108 26 10/19/2020 14:36 SERUM 109 H 14 1.39 139 3.6 107 24 05/14/2019 13:07 SERUM 106 H 11 1.46 H 142 3.9 108 32 H CBC TREND Collection DT Spec WBC RBC HGB HCT MCV MCH PLT 08/29/2023 09:06 BLOOD 4.94 3.69 L 11.4 L 34.8 L 94.3 30.9 264 10/19/2020 14:36 BLOOD 4.78 4.04 L 13.1 38.2 L 94.6 32.4 244 05/14/2019 13:07 BLOOD 5.21 4.14 L 13.5 39.4 95.2 32.6 219 HEMOGLOBIN A1C TREND Collection DT Spec HGBA1c 08/29/2023 09:06 BLOOD 4.4 04/04/2023 11:30 BLOOD 4.9 06/21/2022 13:39 BLOOD 4.8 10/19/2020 14:36 BLOOD 5.1 05/14/2019 13:07 BLOOD 5.0 LIPID PANEL TREND Collection DT Spec CHOL HDL CHO/HDL LDL-c TRIG 08/29/2023 09:06 SERUM 132 37 L 3.6 69 129 04/04/2023 11:30 SERUM 160 38 L 4.2 101 104 06/21/2022 13:39 SERUM 154 36 L 4.3 86 161 H 10/19/2020 14:36 SERUM 175 39 L 4.5 107 147 05/14/2019 13:07 SERUM 150 36 L 4.2 89 126 LIVER PANEL TREND Collection DT Spec AST ALT T BILI ALK SALLIE T. PROT ALBUMIN 08/29/2023 09:06 SERUM 15 9 0.5 73 7.7 3.8 04/04/2023 11:30 SERUM 15 11 0.5 67 6.9 4.2 06/21/2022 13:39 SERUM 15 13 0.5 66 7.4 4.1 10/19/2020 14:36 SERUM 19 17 0.6 74 7.5 4.1 05/14/2019 13:07 SERUM 15 13 0.5 69 6.9 4.0 Collection DT Spec TSH 08/29/2023 09:06 SERUM 1.07 ========= 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 - [employer]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 COMBAT SERVICE INDICATED: No REVIEW OF SYSTEMS: CONSTITUTIONAL: No fever, no loss of appetite ENT: No sore throat, no cough CARDIOVASCULAR: No chest pain, no palpitations RESPIRATORY: No SOB, no wheezing GASTROINTESTINAL: No abd pain, no N/V/D MUSCULOSKELETAL: No joint pain, no joint swelling NEUROLOGIC: No numbness, no weakness, no tingling EXAMINATION: GENERAL: WD/WN , pleasant & in NAD NEUROLOGIC: AAO x3, no focal findings PSYCHIATRIC: Good eye contact, affect normal ASSESSMENT/PLAN: 1. RLE Cellulitis: CBC 4.94 on 08/29/23, will repeat today, has completed 6 different antibiotic regimens (levaquin twice at different doses), he has been receiving home PT services which he feels has improved the appearance of his RLE quite a bit, advised him to absolutely continue these exercises -advised if for some reason his leg takes a turn for the worse, he should go to the ER for evaluation and treatment FOLLOW UP: prn ========= UPCOMING APPOINTMENTS: 11/09/2023 13:00 NHM/OPTOMETRY/DANIEL 03/07/2024 14:00 CWM/SO/PACT 10 No barriers; Patient understands and agrees to current treatment plan. If pt has any questions, concerns, or changes in current health status he[facility]she will call [facility] Medication Reconciliation: Outpatient: Has the patient been taking medications as documented in the EMLR? YES: The patient has been taking medications as documented in the EMLR. Essential Medication List for Review used to complete this medication reconciliation. INCLUDED IN THIS LIST: Alphabetical list of active outpatient prescriptions [facility] from this [facility] (local) and dispensed from another [facility] or [facility] facility (remote) as well as inpatient orders (local, pending and active), local clinic medications, locally documented non-VA medications, and local prescriptions that have or been discontinued in the past 90 days. - All changes in medications, including all non-VA/Herbal/OTC medications were entered into [facility]. - If there were any medications the patient should no longer take, they were discontinued. - The patient/caregiver was instructed to update this list, discard old lists, and take this list to the next appointment, whether with a VA or non-VA provider. JLV Link Data on this list may not be complete. Please check JLV. Allergies/ADRs (Tool #5) FACILITY ALLERGY/ADR -------- [facility] ([address] [facility] [place] [facility] [place] [facility] TETRACYCLINE [facility] [place] TETRACYCLINE Med Recon NoGlossary (Tool #1) INCLUDED IN THIS LIST: Alphabetical list of active outpatient prescriptions dispensed from this VA (local) and dispensed from another VA or DoD facility (remote) as well as inpatient orders (local pending and active), local clinic medications, locally documented non-VA medications, and local prescriptions that have or been discontinued in the past 90 days. Non-VA Meds Last Documented On: Data not found NOTE The display of VA prescriptions dispensed from another VA or DoD facility (remote) is limited to active outpatient prescription entries matched to National Drug File at the originating site and may not include some items such as investigational drugs, compounds, etc. NOT INCLUDED IN THIS LIST: Medications self-entered by the patient into personal health records (i.e. [employer]) are NOT included in this list. Non-VA medications documented outside this VA, remote inpatient orders (regardless of status) and remote clinic medications are NOT included in this list. The patient and provider must always discuss medications the patient is taking, regardless of where the medication was dispensed or obtained. ---- OUTPT ALBUTEROL 90MCG (CFC-F) 200D ORAL INHL (Status = Active) INHALE 2 PUFFS BY MOUTH EVERY 6 HOURS NEEDED FOR WHEEZING Rx# [id number] Last Released: 06/07/23 Qty/Days Supply: 06/27 Rx Expiration Date: 04/10/24 Refills Remainin Indication: FOR WHEEZING OUTPT AMLODIPINE BESYLATE 2.5MG TAB (Status = Discontinued) TAKE THREE TABLETS BY MOUTH ONCE DAILY FOR BLOOD PRESSURE/HEART, DO NOT TAKE WITH [employer] JUICE Rx# [id number] Last Released: 04/29/23 Qty/Days Supply: 27090 Rx Expiration Date: 11/25/23 Refills Remainin Indication: FOR HIGH BLOOD PRESSURE OUTPT AMLODIPINE BESYLATE 2.5MG TAB (Status = Active) TAKE THREE TABLETS BY MOUTH ONCE DAILY FOR BLOOD PRESSURE/HEART, DO NOT TAKE WITH GRAPE[employer] JUICE Rx# [id number] Last Released: 09/06/23 Qty/Days Supply: 270/90 Rx Expiration Date: 09/06/24 Refills Remainin Indication: FOR HIGH BLOOD PRESSURE OUTPT ATORVASTATIN CALCIUM 40MG TAB (Status = Active) TAKE ONE-HALF TABLET BY MOUTH AT BEDTIME FOR CHOLESTEROL Rx# [id number] Last Released: 06/07/23 Qty/Days Supply: 45 Rx Expiration Date: 02/08/24 Refills Remainin OUTPT DICLOFENAC NA 1% TOP GEL (Status = Active/Suspended) APPLY 2 GRAMS TOPICALLY FOUR TIMES A DAY FOR RIGHT KNEE OSTEOARTHRITIS - USE DOSING CARD PROVIDED IN BOX Rx# [id number] Last Released: 06/03/23 Qty/Days Supply: /30 Rx Expiration Date: 04/10/24 Refills Remainin Indication: FOR RIGHT KNEE OUTPT FINASTERIDE 5MG TAB (Status = Active) TAKE ONE TABLET BY MOUTH ONCE DAILY Rx# [id number] Last Released: 07/12/23 Qty/Days Supply: Rx Expiration Date: 01/18/24 Refills Remainin OUTPT IVERMECTIN 3MG TAB (Status = Active) TAKE FIVE TABLETS BY MOUTH DIRECTED BY PROVIDER ONCE ON 08/20/23 Rx# [id number] Last Released: 08/18/23 Qty/Days Supply: 09/26 Rx Expiration Date: 09/17/23 Refills Remainin Indication: FOR ROUNDWORM INFECTION OUTPT LEVOFLOXACIN 750MG TAB (Status = Active) TAKE ONE TABLET BY MOUTH ONCE DAILY FOR INFECTION CAUSED BY BACTERIA Rx# [id number] Last Released: 08/24/23 Qty/Days Supply: 03/07 Rx Expiration Date: 09/23/23 Refills Remainin Indication: FOR INFECTION CAUSED BY BACTERIA OUTPT OXYCODONE HCL 5MG TAB NOT SA (Status = Active) TAKE ONE TABLET BY MOUTH FOUR TIMES DAILY NEEDED FOR PAIN Rx# [id number] Last Released: 08/24/23 Qty/Days Supply: Rx Expiration Date: 09/23/23 Refills Remainin Indication: FOR PAIN OUTPT PERMETHRIN 5% CREAM (Status = Active) APPLY A THIN LAYER TOPICALLY AT BEDTIME FOR SCABIES AT BEDTIME FROM NECK DOWN. WASH OFF IN THE MORNING. MAY REPEAT IN 1 WEEK IF NEEDED Rx# [id number] Last Released: 06/29/23 Qty/Days Supply: 60 Rx Expiration Date: 06/22/24 Refills Remainin Indication: FOR SCABIES OUTPT SILDENAFIL CITRATE 100MG TAB (Status = Discontinued) TAKE ONE TABLET BY MOUTH ONCE DAILY NEEDED TAKE 1 HOUR PRIOR TO SEXUAL ACTIVITY Rx# [id number] Last Released: 09/06/23 Qty/Days Supply: 11/25 Rx Expiration Date: 04/26/24 Refills Remainin Indication: FOR ERECTILE DYSFUNCTION OUTPT SILDENAFIL CITRATE 100MG TAB (Status = Active/Suspended) TAKE ONE TABLET BY MOUTH ONCE DAILY NEEDED TAKE 1 HOUR PRIOR TO SEXUAL ACTIVITY Rx# [id number] Last Released: Qty/Days Supply: Rx Expiration Date: 09/06/24 Refills Remainin Indication: FOR ERECTILE DYSFUNCTION OUTPT TAMSULOSIN HCL 0.4MG CAP (Status = ) TAKE ONE CAPSULE BY MOUTH AT BEDTIME DIRECTED BY PROVIDER - STOP TAKING TERAZOSIN Rx# [id number] Last Released: 06/16/23 Qty/Days Supply: Rx Expiration Date: 08/08/23 Refills Remainin OUTPT TAMSULOSIN HCL 0.4MG CAP (Status = Active) TAKE ONE CAPSULE BY MOUTH AT BEDTIME DIRECTED BY PROVIDER - STOP TAKING TERAZOSIN Rx# [id number] Last Released: 09/08/23 Qty/Days Supply: 03/07 Rx Expiration Date: 10/08/23 Refills Remainin OUTPT TRIAMCINOLONE ACETONIDE 0.1% OINT (Status = Active) APPLY THIN LAYER TOPICALLY TWICE DAILY FOR ITCHING Rx# [id number] Last Released: 09/06/23 Qty/Days Supply: 80/60 Rx Expiration Date: 11/05/23 Refills Remainin Indication: FOR ITCHING OUTPT VITAMIN B COMPLEX CAP (Status = Active) TAKE 1 CAPSULE BY MOUTH ONCE DAILY FOR VITAMIN SUPPLEMENTATION Rx# [id number] Last Released: 06/16/23 Qty/Days Supply: 100/90 Rx Expiration Date: 04/10/24 Refills Remainin Indication: FOR VITAMIN SUPPLEMENTATION ---- SUPPLIES ---- /arnaud/ COLT RAND MD Primary Care Physician Signed: 09/08/2023 11:44 09/08/2023 ADDENDUM STATUS: COMPLETED Called and informed his WBC was 5.25. /ethan RAND MD Primary Care Physician Signed: 09/08/2023 16:09 COLT RAND
--- OUTSIDE RECORDS SUMMARY | 2024-07-24 13:37 | XMS_ITS | Encounter Summary ---
Author Name [facility] [place] [facility] [place] [facility] [facility] [place] Address [address] [place] [address] Care Team Providers Care Film Maker Name Role Phone COLT RAND Primary Care [...] Womack's Name Patient's Relationship to Policy Womack [facility] MEDICAID MEDICAID MEDIC AID May 29, 2018 MEDICAI D [id number] ALEX AlexandreJAMES PATIENT [facility]ICA[facility] Sep 24, 2018 MEDICAI D [id number] ALEX AlexandreJAMES PATIENT Selected Encounter This section includes the information on record at [place] for the Encounter. Date/Time Encounter Type Encounter Description Reason Provider Source Jan 11, 2024 08:30 AM OFFICE O/P EST LOW 20 MIN PRIMARY CARE/MEDICINE ICD-10-CM I10 Essential (primary) hypertension COLT RAND Encounter Template Text not used by VA Assessments - Encounter Diagnoses This section includes the primary and secondary diagnoses documented for the Encounter. Date/Time Primary/Secondary Diagnosis Diagnosis Name Provider Source Jan 11, 2024 08:36 AM PRIMARY Essential (primary) hypertension COLT RAND BRONWYN PONCE Jan 11, 2024 08:36 AM SECONDARY Chronic obstructive pulmonary disease, unspecified KEYONACOLT BRONWYN PONCE Plan of Treatment: Future Appointments (+ 6 months) and Future Tests (+/- 45 days) The Plan of Treatment section includes future care activities for the patient [facility] [place] [facility] This section includes future appointments and future orders which are active, pending or scheduled. Future Appointments This section includes appointments that were scheduled to occur 6 months from the date of the Encounter, up to a maximum of 20 appointments. The data comes from all [place] treatment facilities. Appointment Date/Time Appointment Type Appointme nt Facility Name Feb 26, 2024 01:00 PM [place]ULATORY [place]ICINE [place] [facility] [place] [facility] Feb 27, 2024 03:30 PM [facility] [place] [facility] Mar 28, 2024 11:00 AM AMBULATORY - MEDICINE [facility] [place] [facility] Apr 01, 2024 01:30 PM [place] [facility] [place] [facility] May 03, 2024 02:00 PM [place] [facility] [place] [facility] Jun 03, 2024 02:00 PM AMBULATORY - NONE [facility] [place] [facility] Jun 03, 2024 02:30 PM [place] [facility] [place] [facility] Jun 04, 2024 08:30 AM AMBULATORY - MEDICINE [facility] Social History: Smoking Status (Most current) and Tobacco Use (All prior to encounter date) This section includes the most current, and the historical, smoking and tobacco- related health factors from the [place] facility where the Encounter took place. Current Smoking Status This section includes the most current smoking, or tobacco-related health factor, from the [place] facility where the Encounter took place. Date/Time Current Smoking Status Comment Facil ity Sep 06, 2023 03:30 PM VA-TOBACCO USER EVERY DAY [facility] Tobacco Use History This section includes a history of the smoking, or tobacco-related health factors, that were collected on or before the date of the Encounter. The data comes from the [place] facility where the Encounter took place. Date/Time Smoking Status/Tobacco Use Comment F acility Sep 06, 2023 03:30 PM VA-TOBACCO USE 30 YEARS OR MORE [facility] Sep 06, 2023 03:30 PM VA-TOBACCO USE ADVICE [facility] Sep 06, 2023 03:30 PM VA-TOBACCO USE IT SUPPORT SPECIALIST NO [facility] Sep 06, 2023 03:30 PM VA-TOBACCO USE MED NO [facility] Sep 06, 2023 03:30 PM VA-TOBACCO USER EVERY DAY [facility] Jul 26, 2022 02:00 PM VA-TOBACCO USE 30 YEARS OR MORE [facility] Jul 26, 2022 02:00 PM VA-TOBACCO USE ADVICE [facility] Jul 26, 2022 02:00 PM VA-TOBACCO USE IT SUPPORT SPECIALIST NO [facility] Jul 26, 2022 02:00 PM VA-TOBACCO USE MED [facility] Jul 26, 2022 02:00 PM VA-TOBACCO USE WI 30 MIN OF WAKE UP [facility] Jul 26, 2022 02:00 PM VA-TOBACCO USER EVERY DAY [facility] Mar 01, 2019 01:59 PM VA-TOBACCO DOESNT USE WI 30 MIN WAKEUP [facility] Mar 01, 2019 01:59 PM VA-TOBACCO USE 30 YEARS OR MORE [facility] Mar 01, 2019 01:59 PM VA-TOBACCO USE ADVICE [facility] Mar 01, 2019 01:59 PM VA-TOBACCO USE IT SUPPORT SPECIALIST NO [facility] Mar 01, 2019 01:59 PM VA-TOBACCO USE MED [facility] Mar 01, 2019 01:59 PM VA-TOBACCO USER EVERY DAY [facility] Mar 06, 2018 04:15 PM VA-TOBACCO USE 30 YEARS OR MORE [facility] Mar 06, 2018 04:15 PM VA-TOBACCO USE ADVICE [facility] Mar 06, 2018 04:15 PM VA-TOBACCO USE IT SUPPORT SPECIALIST NO [facility] Mar 06, 2018 04:15 PM VA-TOBACCO USE MED NO [facility] Mar 06, 2018 04:15 PM VA-TOBACCO USE WI 30 MIN OF WAKE UP [facility] Mar 06, 2018 04:15 PM VA-TOBACCO USER EVERY DAY [facility] Advance Directives: All historical and current Section Date Range: From patient's date of to the date document was created. This section includes ALL of a patient's completed or amended VA Advance and Rescinded Directives. The entries below indicate that a directive exists for the patient, but an actual copy is not included with this document. The data comes from all [place] facilities. Date Advance Directives Provider Source Mar 15, 2018 ADVANCE DIRECTIVE RULBAO,TOBI RODRIGUEZ Encounter Notes: All associated encounter notes This section contains the clinical notes associated to the Encounter. Date/Time Encounter Note(s) Provider Source Jan 11, 2024 08:23 AM PREVENTIVE MEDICIN E NURSING NOTE: LOCAL TITLE: CLINICAL REMINDERS/NURSING STANDARD TITLE: PREVENTIVE MEDICINE NURSING NOTE DATE OF NOTE: JAN 11, 2024@08:23 ENTRY DATE: JAN 11, 2024@08:23:53 AUTHOR: LADONNA GONGORA EXP COSIGNER: URGENCY: STATUS: COMPLETED Pneumococcal Conjugate Vaccine (PCV15/PCV20): Refuses PCV vaccine Immunization: PNEUMOCOCCAL CONJUGATE, UNSPECIFIED FORMULATION Refusal Reason: PATIENT DECISION Patient refuses all immunization(s) in the PneumoPCV group Date Documented: 01/11/24 08:24 COVID-19 Immunization: Referred to another clinic for immunization (desired vaccine unavailable at this location) Tdap Immunization: The patient declines to receive the recommended dose of Tdap vaccine. Immunization: TDAP Refusal Reason: PATIENT DECISION Patient refuses all immunization(s) in the TDAP group Date Documented: 01/11/24 08:24 Herpes Zoster (Shingles) Vaccine: The patient declines to receive the recommended dose of zoster (shingles) vaccine. Immunization: ZOSTER RECOMBINANT Refusal Reason: PATIENT DECISION Patient refuses all immunization(s) in the ZOSTER group Date Documented: 01/11/24 08:24 PAVE Foot Check: Patient declined limb care exam. The patient was advised the [place] mandates all patients with diabetes mellitus, end stage renal disease, peripheral vascular disease, or sensory neuropathy should have a complete foot check completed annually. This includes a visual exam of the skin, pedal pulses and a sensory exam. Patients with any abnormality noted during the foot check should be referred to a specialist. /arnaud/ LADONNA GONGORA LPN PACT 10 Signed: 01/11/2024 08:25 LADONNA GONGORAFIELD Jan 11, 2024 05:48 AM PHYSICIAN NOTE: LOCAL TITLE: MD NOTE STANDARD TITLE: PHYSICIAN NOTE DATE OF NOTE: JAN 11, 2024@05:48 ENTRY DATE: JAN 11, 2024@05:48:44 AUTHOR: COLT RAND EXP COSIGNER: URGENCY: STATUS: COMPLETED HISTORY OF PRESENT ILLNESS: JAMES LEO, is a 63 yo MALE [place], who presents at the [facility] for hospital follow up. He presented to [facility] on 12/29/23 with c/o cough and SOB. Chest CT Angio suggestive of bronchitis/developing bronch-pneumonia. Started on ceftriaxone and azithromycin. Admitted for further mgmt. He felt better after steroid and antibiotic. Pt has a 50 yr pack hx of smoking, likely underlying COPD. He had been having episodes of coughing resulting in syncope. He had 2 episodes the day before admission causing him to fall and hit his head. Seen by opthalmology for left eye sxs related to fall (? floaters). Will benefit from formal outpt PFT. His amlodipine was increased from 7.5mg/day to 10mg/day. He was D/C'd home 01/06/24. Active problems - Computerized Problem List is the source for the followin. Adenocarcinoma of prostate 2. Obesity 3. Folic acid deficiency 4. Housing lack 5. Colonoscopy Screening 6. Tobacco dependence, continuous 7. Hyperlipidemia 8. Type 2 diabetes mellitus 9. Benign prostatic hypertrophy 10. Hypertension 11. Cocaine dependence in remission 12. Tinnitus 13. Erectile dysfunction 14. Obstructive sleep apnea 15. Chronic hepatitis C The following VA and Non-VA meds were reconciled with patient: Active Outpatient Medications (including Supplies): Issue Date Status Last Fill Active Outpatient Medications Refills Expiration ======= 1) ALBUTEROL 90MCG (CFC-F) 200D ORAL INHL ACTIVE Issu:04-10-23 Qty: 1 for 30 days Sig: INHALE 2 Refills: 0 Last:11-10-23 PUFFS BY MOUTH EVERY 6 HOURS NEEDED Expr:04-10-24 FOR WHEEZING 2) AMLODIPINE BESYLATE 2.5MG TAB Qty: 270 ACTIVE (S) Issu:11-16-23 for 90 days Sig: TAKE THREE TABLETS Refills: 1 Last:02-23-24 BY MOUTH ONCE DAILY FOR BLOOD Expr:11-16-24 PRESSURE/HEART, DO NOT TAKE WITH GRAPEFRUIT JUICE 3) ATORVASTATIN CALCIUM 40MG TAB Qty: 45 ACTIVE Issu:02-07-23 for 90 days Sig: TAKE ONE-HALF TABLET Refills: 1 Last:11-10-23 BY MOUTH AT BEDTIME FOR CHOLESTEROL Expr:02-08-24 4) DICLOFENAC NA 1% TOP GEL Qty: 100 for ACTIVE Issu:04-10-23 30 days Sig: APPLY 2 GRAMS TOPICALLY Refills: 0 Last:09-11-23 FOUR TIMES A DAY FOR RIGHT KNEE Expr:04-10-24 OSTEOARTHRITIS - USE DOSING CARD PROVIDED IN BOX 5) FINASTERIDE 5MG TAB Qty: 90 for 90 days ACTIVE Issu:01-17-23 Sig: TAKE ONE TABLET BY MOUTH ONCE Refills: 0 Last:07-15-23 DAILY Expr:01-18-24 6) OMEPRAZOLE 20MG EC CAP Qty: 60 for 30 ACTIVE Issu:10-31-23 days Sig: TAKE ONE CAPSULE BY MOUTH Refills: 0 Last:11-20-23 TWICE DAILY FOR GASTROESOPHAGEAL Expr:10-31-24 REFLUX DISEASE 7) PERMETHRIN 5% CREAM Qty: 60 for 7 days ACTIVE Issu:06-22-23 Sig: APPLY A THIN LAYER TOPICALLY AT Refills: 0 Last:06-29-23 BEDTIME FOR SCABIES AT BEDTIME FROM Expr:06-22-24 NECK DOWN. WASH OFF IN THE MORNING. MAY REPEAT IN 1 WEEK IF NEEDED 8) SILDENAFIL CITRATE 100MG TAB Qty: 18 ACTIVE Issu:09-06-23 for 90 days Sig: TAKE ONE TABLET BY Refills: 2 Last:01-02-24 MOUTH ONCE DAILY NEEDED TAKE 1 Expr:09-06-24 HOUR PRIOR TO SEXUAL ACTIVITY 9) TAMSULOSIN HCL 0.4MG CAP Qty: 30 for 30 ACTIVE Issu:10-05-23 days Sig: TAKE ONE CAPSULE BY MOUTH Refills: 3 Last:12-14-23 AT BEDTIME DIRECTED BY PROVIDER Expr:10-05-24 10) VITAMIN B COMPLEX CAP Qty: 100 for 90 ACTIVE Issu:04-10-23 days Sig: TAKE 1 CAPSULE BY MOUTH Refills: 1 Last:11-10-23 ONCE DAILY FOR VITAMIN SUPPLEMENTATION Expr:11-13-24 ALLERGIES: ========= TETRACYCLINE LAB HISTORY: CHEM 7 TREND Collection DT Spec GLUCOSE BUN CREATIN Sodium [...] WBC RBC HGB HCT MCV MCH PLT 09/08/2023 13:01 BLOOD 5.25 3.74 L 11.6 L 35.7 L 95.5 31.0 215 08/29/2023 09:06 BLOOD 4.94 3.69 L 11.4 [...] DT Spec TSH 08/29/2023 09:06 SERUM 1.07 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 - [employer]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 COMBAT SERVICE INDICATED: No VITAL SIGNS: Blood Pressure 131/89 (01/11/2024 08:23) Pulse 82 (01/11/2024 08:23) Respiration 16 (01/11/2024 08:23) Pulse Oximetry 98% (01/11/2024 08:23) Temperature 98.2 F [36.8 C] (01/11/2024 08:23) Pain 0 (01/11/2024 08:23) Height 67 in [170.2 cm] (01/11/2024 08:23) Weight 198.4 lb [89.99 kg] (01/11/2024 08:23) BMI BMI: 31.1 REVIEW OF SYSTEMS: CONSTITUTIONAL: No fever ENT: No sore throat, no cough CARDIOVASCULAR: No chest pain, no palpitations RESPIRATORY: No SOB, no wheezing GASTROINTESTINAL: No abd pain, no N/V/D, no change in stool NEUROLOGIC: No H/A EXAMINATION: GENERAL: WD/WN , pleasant & in NAD HEENT: Moist mucosa NECK: Supple, no LN's HEART: RRR, S1-S2, no murmurs LUNGS: CTA B/L, no wheezes, distant BS B/L ABDOMEN: Soft, NT/ND EXTREMITIES: FROM x 4, no edema ASSESSMENT/PLAN: 1. Hypertension: under acceptable control on amlodipine 10mg/day (forgot to take med this am) 2. COPD w/Emphysema: will order PFT's 3. Pneumonia: completed abxs as inpt, Chest CTA was suggestive of bronchitis/devloping broncho pneumonia, resolved 4. Tobacco Dependence: 50 pack yr hx, counseled to quit smoking, will Rx nicoderm patch 14mcg/day FOLLOW UP: as scheduled 03/07/24 - FBW prior - HTN/Lipids/DM II ========= UPCOMING APPOINTMENTS: 03/07/2024 14:00 CWM/SO/PACT 10 03/28/2024 11:00 CWM/NO/DERMATOLOGY CABLE PLACER AM 11/21/2024 13:30 NHM/OPTOMETRY/DANIEL No barriers; Patient understands and agrees to [...] Allergies/ADRs (Tool #5) FACILITY ALLERGY/ADR -------- TOVA CHAIREZ [facility] ([address] [facility]AC[facility]CLINE [facility] [place] [facility] TETRACYCLINE [facility] TETRACYCLINE Med Recon NoGlossary (Tool #1) INCLUDED IN THIS LIST: Alphabetical list of active outpatient prescriptions dispensed from this [place] (local) and dispensed from another VA or [facility] facility (remote) as well as inpatient orders (local pending and active), local clinic medications, locally documented non-VA medications, and local prescriptions that have or been discontinued in the past 90 days. Non-VA Meds Last Documented On: Data not found NOTE The display of VA prescriptions dispensed from another [place] or [facility] facility (remote) is limited to active outpatient prescription entries matched to National Drug File at the originating site and may not include some items such as investigational drugs, compounds, etc. NOT INCLUDED IN THIS LIST: Medications self-entered by the patient into personal health records (i.e. [employer]) are NOT included in this list. Non-VA medications documented outside this [place], remote inpatient orders (regardless of status) and remote clinic medications are NOT included in this list. The patient and provider must always discuss medications the patient is taking, regardless of where the medication was dispensed or obtained. ------ OUTPT A & D OINT (Status = ) APPLY SMALL AMOUNT TOPICALLY TWICE DAILY NEEDED FOR SKIN PROTECTION Rx# [id number] Last Released: 10/09/23 Qty/Days Supply: Rx Expiration Date: 10/15/23 Refills Remainin Indication: FOR SKIN PROTECTION OUTPT ALBUTEROL 90MCG (CFC-F) 200D ORAL INHL (Status = Active) INHALE 2 PUFFS BY MOUTH EVERY 6 HOURS NEEDED FOR WHEEZING Rx# [id number] Last Released: 11/06/23 Qty/Days Supply: 06/27 Rx Expiration Date: 04/10/24 Refills Remainin Indication: FOR WHEEZING OUTPT AMLODIPINE BESYLATE 10MG TAB (Status = Pending) TAKE ONE TABLET BY MOUTH ONCE DAILY FOR BLOOD PRESSURE/HEART, DO NOT TAKE WITH GRAPEFRUIT JUICE Login Date: 01/11/24 Qty/Days Supply: 90 Refills Ordered: 1 OUTPT AMLODIPINE BESYLATE 2.5MG TAB (Status = Discontinued) TAKE THREE TABLETS BY MOUTH ONCE DAILY FOR BLOOD PRESSURE/HEART, DO NOT TAKE WITH GRAPEFRUIT JUICE Rx# [id number] Last Released: 11/13/23 Qty/Days Supply: Rx Expiration Date: 09/06/24 Refills Remainin Indication: FOR HIGH BLOOD PRESSURE OUTPT AMLODIPINE BESYLATE 2.5MG TAB (Status = Discontinued) TAKE THREE TABLETS BY MOUTH ONCE DAILY FOR BLOOD PRESSURE/HEART, DO NOT TAKE WITH GRAPEFRUIT JUICE Rx# [id number] Last Released: Qt/Days Supply: 270 Rx Expiration Date: 11/16/24 Refills Remainin Indication: FOR HIGH BLOOD PRESSURE OUTPT ATORVASTATIN CALCIUM 40MG TAB (Status = Active) TAKE ONE-HALF TABLET BY MOUTH AT BEDTIME FOR CHOLESTEROL Rx# [id number] Last Released: 11/06/23 Qty/Days Supply: 45 Rx Expiration Date: 02/08/24 Refills Remainin OUTPT DICLOFENAC NA 1% TOP GEL (Status = Active) APPLY 2 GRAMS TOPICALLY FOUR TIMES A DAY FOR RIGHT KNEE OSTEOARTHRITIS - USE DOSING CARD PROVIDED IN BOX Rx# [id number] Last Released: 09/12/23 Qty/Days Supply: 100/30 Rx Expiration Date: 04/10/24 Refills Remainin Indication: FOR RIGHT KNEE OUTPT FINASTERIDE 5MG TAB (Status = Active) TAKE ONE TABLET BY MOUTH ONCE DAILY Rx# [id number] Last Released: 07/12/23 Qty/Days Supply: 90 Rx Expiration Date: 01/18/24 Refills Remainin OUTPT LORATADINE 10MG TAB (Status = ) TAKE ONE TABLET BY MOUTH EVERY EVENING FOR ALLERGY Rx# [id number] Last Released: 10/05/23 Qty/Days Supply: 30 Rx Expiration Date: 10/15/23 Refills Remainin Indication: FOR ALLERGY OUTPT OMEPRAZOLE 20MG EC CAP (Status = Active) TAKE ONE CAPSULE BY MOUTH TWICE DAILY FOR GASTROESOPHAGEAL REFLUX DISEASE Rx# [id number] Last Released: 11/13/23 Qty/Days Supply: 60 Rx Expiration Date: 10/31/24 Refills Remainin Indication: FOR GASTROESOPHAGEAL REFLUX DISEASE OUTPT PERMETHRIN 5% CREAM (Status = Active) APPLY A THIN LAYER TOPICALLY AT BEDTIME FOR SCABIES AT BEDTIME FROM NECK DOWN. WASH OFF IN THE MORNING. MAY REPEAT IN 1 WEEK IF NEEDED Rx# [id number] Last Released: 06/29/23 Qty/Days Supply: 60 Rx Expiration Date: 06/22/24 Refills Remainin Indication: FOR SCABIES OUTPT SILDENAFIL CITRATE 100MG TAB (Status = Active) TAKE ONE TABLET BY MOUTH ONCE DAILY NEEDED TAKE 1 HOUR PRIOR TO SEXUAL ACTIVITY Rx# [id number] Last Released: 12/26/23 Qty/Days Supply: Rx Expiration Date: 09/06/24 Refills Remainin Indication: FOR ERECTILE DYSFUNCTION OUTPT TAMSULOSIN HCL 0.4MG CAP (Status = Active) TAKE ONE CAPSULE BY MOUTH AT BEDTIME DIRECTED BY PROVIDER Rx# [id number] Last Released: 12/13/23 Qty/Days Supply: Rx Expiration Date: 10/05/24 Refills Remainin OUTPT TRIAMCINOLONE ACETONIDE 0.1% CREAM (Status = ) APPLY A THIN LAYER TOPICALLY EVERY 12 HOURS NEEDED FOR ITCHING Rx# [id number] Last Released: 11/20/23 Qty/Days Supply: 45430 Rx Expiration Date: 12/16/23 Refills Remainin Indication: FOR ITCHING OUTPT TRIAMCINOLONE ACETONIDE 0.1% OINT (Status = ) APPLY THIN LAYER TOPICALLY EVERY 12 HOURS NEEDED FOR ITCHING Rx# [id number] Last Released: 10/05/23 Qty/Days Supply: 45430 Rx Expiration Date: 10/15/23 Refills Remainin Indication: FOR ITCHING OUTPT TRIAMCINOLONE ACETONIDE 0.1% OINT (Status = ) APPLY THIN LAYER TOPICALLY TWICE DAILY NEEDED FOR ITCHING Rx# [id number] Last Released: 12/13/23 Qty/Days Supply: Rx Expiration Date: 01/07/24 Refills Remainin Indication: FOR ITCHING OUTPT VITAMIN B COMPLEX CAP (Status = Active) TAKE 1 CAPSULE BY MOUTH ONCE DAILY FOR VITAMIN SUPPLEMENTATION Rx# [id number] Last Released: 11/06/23 Qty/Days Supply: 100/90 Rx Expiration Date: 04/10/24 Refills Remainin Indication: FOR VITAMIN SUPPLEMENTATION ------ SUPPLIES ------ /arnaud/ COLT RAND MD Primary Care Physician Signed: 01/11/2024 08:49 COLT RAND [facility]
--- OUTSIDE RECORDS SUMMARY | 2024-07-24 13:37 | XMS_ITS | Encounter Summary ---
Author Name [facility] [place] [facility] [facility] [place] Address [address] [place] [address] Care Team Providers Care Surfacing Technician Name Role Phone COLT RAND Primary Care [...] Womack's Name Patient's Relationship to Policy Womack [facility] MEDICAID MEDICAID MEDIC AID May 29, 2018 MEDICAI D [id number] ALEX AlexandreJAMES PATIENT MEDICAID [facility]ICAID [facility] Sep 24, 2018 MEDICAI D [id number] ALEX AlexandreJAMES PATIENT Selected Encounter This section includes the information on record at [place] for the Encounter. Date/Time Encounter Type Encounter Description Reason Provider Source Feb 26, 2024 01:00 PM OFFICE O/P EST LOW 20 MIN PRIMARY CARE/MEDICINE ICD-10-CM Z01.818 Encounter for other preprocedural examination COLT RAND Encounter Template Text not used by [facility] Assessments - Encounter Diagnoses This section includes the primary and secondary diagnoses documented for the Encounter. Date/Time Primary/Secondary Diagnosis Diagnosis Name Provider Source Feb 26, 2024 01:24 PM PRIMARY Encounter for other preprocedural examination COLT RAND [place] Feb 26, 2024 01:24 PM SECONDARY Encounter for immunization CARLOS OSMAN [place] Plan of Treatment: Future Appointments (+ 6 months) and Future Tests (+/- 45 days) The Plan of Treatment section includes future care activities for the patient from all [place] treatmentfacilities. This section includes future appointments and future orders which are active, pending or scheduled. Future Appointments This section includes appointments that were scheduled to occur 6 months from the date of the Encounter, up to a maximum of 20 appointments. The data comes from all [place] treatment facilities. Appointment Date/Time Appointment Type Appointme nt Facility Name Feb 27, 2024 03:30 PM AMBULATORY - MEDICINE [place] [facility] Mar 28, 2024 11:00 AM AMBULATORY - MEDICINE [place] [facility] Apr 01, 2024 01:30 PM AMBULATORY - MEDICINE [place] [facility] May 03, 2024 02:00 PM AMBULATORY - MEDICINE [place] [facility] Jun 03, 2024 02:00 PM AMBULATORY - NONE [place] [facility] Jun 03, 2024 02:30 PM AMBULATORY - MEDICINE [place] [facility] Jun 04, 2024 08:30 AM AMBULATORY - MEDICINE [facility] Lab Results: +/- 30 days of the encounter This section includes the Chemistry and Hematology Lab Results on record with [place] for the patient. Radiology Reports and Pathology Reports are provided separately, in subsequent sections. Lab Results This section contains the Chemistry/Hematology Results that were resulted 30 days before or 30 daysafter the date of the Encounter. Date/Time Source Result Type Result - Unit Interpretation Reference Range Comment Mar 07, 2024 08:02 AM [place] [facility] MICROALBUMIN CREATININE RATIO PANEL Specimen Type: URINE No comment entered. Ordering Provider: COLT RAND Report Released Date/Time: Sep 06, 2023 04:01 PM Reporting Lab: [place] [facility] [address] [facility] [address] Performing [facility]: [facility] [address] [facility] [address] MICROALBUMIN/C REATININE RATIO 17.6 mg/g 0-29.9 MICROALBUMIN,Q UANTITATIVE 2.8 mg/dL RR UNAVAIL CREATININE URINE 158.84 mg/dL Mar 06, 2024 11:43 AM [facility] LIPID PANEL FASTING Specimen Type: SERUM No comment entered. Ordering Provider: COLT RAND Report Released Date/Time: Sep 06, 2023 04:01 PM Reporting Lab: [address] [address] Performing Lab: [address] [address] CHOLESTEROL 193 mg/dL TRIGLYCERIDE 221 mg/dL H 0-150 LDL calculated 113 mg/dL 0-129 CHOL/HDL 5.4 HDL CHOLESTEROL 36 mg/dL L 40-60 Mar 06, 2024 11:43 AM [facility] LIVER FUNCTION Specimen Type: SERUM No comment entered. Ordering Provider: COLT RAND Report Released Date/Time: Sep 06, 2023 04:01 PM Reporting Lab: [address] [address] Performing Lab: [address] [address] PROTEIN,TOTAL 7.5 g/dL 6.0-8.3 ALBUMIN 4.4 g/dL 3.5-5.0 ALKALINE PHOSPHATASE 79 U/L 40-150 AST 18 U/L 5-34 ALT 16 U/L BILIRUBIN, TOTAL 0.8 mg/dL 0.2-1.2 Mar 06, 2024 11:43 AM [facility] HEMOGLOBIN A1C PANEL Specimen Type: BLOOD Comment: Values obtained from A1C measurements can vary. For atypical A1C assays, a reported value of 7.0 could actually be between 6.72 and 7.28 if measured by a reference method. A reported value of 9.0 could actually be between 8.73 and 9.27. Ref: http://www.ngs p.org/CAPdata. asp Ordering Provider: COLT RAND Report Released Date/Time: Sep 06, 2023 04:01 PM Reporting Lab: [facility] [address] [facility] [address] Performing Lab: [facility] [address] [facility] [address] HEMOGLOBIN A1C 4.9 4.0-5.6 Mar 06, 2024 11:43 AM [facility] BASIC METABOLIC PANEL (fasting) Specimen Type: SERUM No comment entered. Ordering Provider: COLT RAND Report Released Date/Time: Sep 06, 2023 04:01 PM Reporting Lab: [facility] [address] [facility] [address] Performing Lab: [facility] [address] [facility] [address] UREA NITROGEN 12 mg/dL 7-25 GLUCOSE 119 mg/dL H 65-100 SODIUM 142 mmol/L 135-145 POTASSIUM 3.4 mmol/L L 3.5-5.0 CHLORIDE 105 mmol/L 100-110 CO2 26 meq/L 20-30 CREATININE, Serum 1.35 mg/dL 0.50-1.40 eGFR(CKD-EPI 2020) 58 mL/min L >60 Immunizations: All administered on the encounter date This section contains immunizations associated to the Encounter. Immunization Series Date Issued Reaction Comments COVID-19 (MODERNA), MRNA, LN P-S, PF, 50 MCG/0.5 ML (AGES 12+ YEARS) Feb 26, 2024 INFLUENZA, SPLIT VIRUS, TRIVALENT, PF Feb 25, 2 024 Social History: Smoking Status (Most current) and Tobacco Use (All prior to encounter date) This section includes the most current, and the historical, smoking and tobacco- related health factors from the [place] facility where the Encounter took place. Current Smoking Status This section includes the most current smoking, or tobacco-related health factor, from the [place] facility where the Encounter took place. Date/Time Current Smoking Status Comment Anthony riojas Sep 06, 2023 03:30 PM [place]-TOBACCO USER EVERY DAY [place] Tobacco Use History This section includes a history of the smoking, or tobacco-related health factors, that were collected on or before the date of the Encounter. The data comes from the [place] facility where the Encounter took place. Date/Time Smoking Status/Tobacco Use Comment F acility Sep 06, 2023 03:30 PM VA-TOBACCO USE 30 YEARS OR MORE [place] Sep 06, 2023 03:30 PM VA-TOBACCO USE ADVICE [place] Sep 06, 2023 03:30 PM VA-TOBACCO USE SALES P[facility] NO [place] Sep 06, 2023 03:30 PM VA-TOBACCO USE MED [facility] Sep 06, 2023 03:30 PM VA-TOBACCO USER EVERY DAY [place] Jul 26, 2022 02:00 PM VA-TOBACCO USE 30 YEARS OR MORE [place] Jul 26, 2022 02:00 PM VA-TOBACCO USE ADVICE [place] Jul 26, 2022 02:00 PM VA-TOBACCO USE SALES [facility] NO [place] Jul 26, 2022 02:00 PM VA-TOBACCO USE MED [facility] Jul 26, 2022 02:00 PM [facility]-TOBACCO USE [place] [facility] 02:00 PM VA-TOBACCO USER EVERY DAY [place] Mar 01, 2019 01:59 PM VA-TOBACCO DOESNT USE WI 30 MIN WAKEUP [place] Mar 01, 2019 01:59 PM VA-TOBACCO USE 30 YEARS OR MORE [place] Mar 01, 2019 01:59 PM VA-TOBACCO USE ADVICE [place] Mar 01, 2019 01:59 PM VA-TOBACCO USE SALES [facility] [place] Mar 01, 2019 01:59 PM VA-TOBACCO USE MED [facility] Mar 01, 2019 01:59 PM VA-TOBACCO USER EVERY DAY [place] Mar 06, 2018 04:15 PM VA-TOBACCO USE 30 YEARS OR MORE [place] Mar 06, 2018 04:15 PM VA-TOBACCO USE ADVICE [place] Mar 06, 2018 04:15 PM VA-TOBACCO USE SALES [facility] [place] Mar 06, 2018 04:15 PM VA-TOBACCO USE MED [facility] Mar 06, 2018 04:15 PM VA-TOBACCO USE WI 30 MIN OF WAKE UP [place] Mar 06, 2018 04:15 PM VA-TOBACCO USER EVERY DAY [place] Advance Directives: All historical and current Section Date Range: From patient's date of to the date document was created. This section includes ALL of a patient's completed or amended VA Advance and Rescinded Directives. The entries below indicate that a directive exists for the patient, but an actual copy is not included with this document. The data comes from all [facility]. Date Advance Directives Provider Source Mar 15, 2018 ADVANCE DIRECTIVE RULFS,TOBI MOHAN LD Encounter Notes: All associated encounter notes This section contains the clinical notes associated to the Encounter. Date/Time Encounter Note(s) Provider Source Feb 26, 2024 01:12 PM PREVENTIVE MEDICIN E NURSING NOTE: LOCAL TITLE: CLINICAL REMINDERS/NURSING STANDARD TITLE: PREVENTIVE MEDICINE NURSING NOTE DATE OF NOTE: FEB 26, 2024@13:12 ENTRY DATE: FEB 26, 2024@13:12:43 AUTHOR: KATHY OSMAN EXP COSIGNER: URGENCY: STATUS: COMPLETED Pneumococcal Conjugate Vaccine (PCV15/PCV20): Refuses PCV vaccine Immunization: PNEUMOCOCCAL CONJUGATE, UNSPECIFIED FORMULATION Refusal Reason: PATIENT DECISION Patient refuses all immunization(s) in the PneumoPCV group Date Documented: 02/26/24 13:12 Influenza Immunization: Influenza, Trivalent, Preservative Free (Fluarix-Syringe) Administered: INFLUENZA, SPLIT VIRUS, TRIVALENT, PF Date Administered: Feb 26, 2024 13:00 Series: Booster Pie Maker Machine: [employer] Lot: [id number] Exp Date: Nov 25, 2024 NDC: [id number] Admin Route/Site: INTRAMUSCULAR/LEFT DELTOID Dosage: 0.5mL Vaccine Information Statement(s): INFLUENZA(FLU) VACC(INACTIVATED OR RECOMBINANT)VIS Jan 01, 2021 (MACANESE) Order By: Policy Administered By: Kathy Osman The Influenza Vaccine Information Statement (VIS) was reviewed with the patient/caregiver which lists the benefits and risks of the vaccine and the risks of not receiving the Influenza vaccine. The patient/caregiver denied any prior severe reaction to this vaccine or its components or a severe allergic reaction, such as anaphylaxis, to any vaccine or any injectable therapy. The patient/caregiver gave verbal consent to receive the vaccine. COVID-19 Immunization: Moderna Monovalent (Spikevax) Administered: COVID-19 (MODERNA), MRNA, LNP-S, PF, 50 MCG/0.5 ML (AGES 12+ YEARS) Date Administered: Feb 26, 2024 13:00 Series: Booster Pie Maker Machine: MODERNA [employer] Lot: [id number] Exp Date: October 18, 2024 NDC: [id number] Admin Route/Site: INTRAMUSCULAR/RIGHT DELTOID Dosage: 0.5mL Vaccine Information Statement(s): COVID-19 MRNA VACCINE (12+ YRS) VACCINE VIS Mar 16, 2023 (MACANESE) Order By: Policy Administered By: Kathy Osman Vaccine administered without complications. Tdap Immunization: The patient declines to receive the recommended dose of Tdap vaccine. Immunization: TDAP Refusal Reason: PATIENT DECISION Patient refuses all immunization(s) in the TDAP group Date Documented: 02/26/24 13:14 Herpes Zoster (Shingles) Vaccine: The patient declines to receive the recommended dose of zoster (shingles) vaccine. Immunization: ZOSTER RECOMBINANT Refusal Reason: PATIENT DECISION Patient refuses all immunization(s) in the ZOSTER group Date Documented: 02/26/24 13:14 PAVE Foot Check: Patient declined limb care exam. The patient was advised the [place] mandates all patients with diabetes mellitus, end stage renal disease, peripheral vascular disease, or sensory neuropathy should have a complete foot check completed annually. This includes a visual exam of the skin, pedal pulses and a sensory exam. Patients with any abnormality noted during the foot check should be referred to a specialist. /arnaud/ KATHY SOMAN LPN PACT 10 Signed: 02/26/2024 13:15 KATHY OSMAN [place] Feb 26, 2024 06:54 AM PHYSICIAN NOTE: LOCAL TITLE: MD NOTE STANDARD TITLE: PHYSICIAN NOTE DATE OF NOTE: FEB 26, 2024@06:54 ENTRY DATE: FEB 26, 2024@06:54:46 AUTHOR: COLT RAND EXP COSIGNER: URGENCY: STATUS: COMPLETED HISTORY OF PRESENT ILLNESS: JAMES LEO is a 63 yo MALE who presents at the [facility] for pre-op medical clearance. He is scheduled to undergo a TURP procedure on 03/04/24 to be performed at [facility] by Dr Sukhdev Elmore under general anesthesia. Patient has a long history of known noncompliance with medications and appointments. Active problems - Computerized Problem List is the source for the followin. Chronic obstructive pulmonary disease 2. Adenocarcinoma of prostate 3. Obesity 4. Folic acid deficiency 5. Housing lack 6. Colonoscopy Screening 7. Tobacco dependence, continuous 8. Hyperlipidemia 9. Type 2 diabetes mellitus 10. Benign prostatic hypertrophy with outflow obstruction 11. Hypertension 12. Cocaine dependence in remission 13. Tinnitus 14. Erectile dysfunction 15. Obstructive sleep apnea 16. Chronic hepatitis C The following VA and Non-VA meds were reconciled with patient: Active Outpatient Medications (including Supplies): Issue Date Status Last Fill Active Outpatient Medications Refills Expiration ======= 1) ALBUTEROL 90MCG (CFC-F) 200D ORAL INHL ACTIVE Issu:04-10-23 Qty: 1 for 30 days Sig: INHALE 2 Refills: 0 Last:11-10-23 PUFFS BY MOUTH EVERY 6 HOURS NEEDED Expr:04-10-24 FOR WHEEZING 2) AMLODIPINE BESYLATE 10MG TAB Qty: 90 ACTIVE Issu:01-11-24 for 90 days Sig: TAKE ONE TABLET BY Refills: 1 Last:01-11-24 MOUTH ONCE DAILY FOR BLOOD Expr:01-11-25 PRESSURE/HEART, DO NOT TAKE WITH GRAPEFRUIT JUICE 3) DICLOFENAC NA 1% TOP GEL Qty: 100 for ACTIVE Issu:04-10-23 30 days Sig: APPLY 2 GRAMS TOPICALLY Refills: 0 Last:09-11-23 FOUR TIMES A DAY FOR RIGHT KNEE Expr:04-10-24 OSTEOARTHRITIS - USE DOSING CARD PROVIDED IN BOX 4) NICOTINE 14MG/24HR PATCH Qty: 28 for 28 ACTIVE Issu:01-11-24 days Sig: APPLY 1 PATCH TO SKIN ONCE Refills: 1 Last:01-11-24 DAILY FOR SMOKING CESSATION (REMOVE Expr:01-11-25 OLD PATCH BEFORE APPLYING NEW PATCH) 5) OMEPRAZOLE 20MG EC CAP Qty: 60 for 30 ACTIVE Issu:10-31-23 days Sig: TAKE ONE CAPSULE BY MOUTH Refills: 0 Last:11-20-23 TWICE DAILY FOR GASTROESOPHAGEAL Expr:10-31-24 REFLUX DISEASE 6) PERMETHRIN 5% CREAM Qty: 60 for 7 days ACTIVE Issu:06-22-23 Sig: APPLY A THIN LAYER TOPICALLY AT Refills: 0 Last:06-29-23 BEDTIME FOR SCABIES AT BEDTIME FROM Expr:06-22-24 NECK DOWN. WASH OFF IN THE MORNING. MAY REPEAT IN 1 WEEK IF NEEDED 7) SILDENAFIL CITRATE 100MG TAB Qty: 18 ACTIVE (S) Issu:09-06-23 for 90 days Sig: TAKE ONE TABLET BY Refills: 1 Last:04-01-24 MOUTH ONCE DAILY NEEDED TAKE 1 Expr:09-06-24 HOUR PRIOR TO SEXUAL ACTIVITY 8) TAMSULOSIN HCL 0.4MG CAP Qty: 90 for 90 ACTIVE Issu:12-18-23 days Sig: TAKE ONE CAPSULE BY MOUTH Refills: 1 Last:01-24-24 EVERY EVENING AT BEDTIME FOR ENLARGED Expr:12-18-24 PROSTATE 9) VITAMIN B COMPLEX CAP Qty: 100 for 90 ACTIVE Issu:04-10-23 days Sig: TAKE 1 CAPSULE BY MOUTH Refills: 1 Last:11-10-23 ONCE DAILY FOR VITAMIN SUPPLEMENTATION Expr:04-10-24 ALLERGIES: [...] 11 1.46 H 142 3.9 108 32 CBC TREND Collection DT Spec WBC RBC [...] 1.07 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 - [facility] [employer]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 COMBAT SERVICE INDICATED: No VITAL SIGNS: Blood Pressure 134/90 (02/26/2024 13:11)Repeat BP: 133/86 Pulse 88 (02/26/2024 13:11) Respiration 16 (02/26/2024 13:11) Pulse Oximetry 99% (02/26/2024 13:11) Temperature 98.5 F [36.9 C] (02/26/2024 13:11) Pain 0 (02/26/2024 13:11) Height 67 in [170.2 cm] (02/26/2024 13:11) Weight 202 lb [91.63 kg] (02/26/2024 13:11) BMI BMI: 31.7 REVIEW OF SYSTEMS: ENT: No sore throat, no cough CARDIOVASCULAR: No chest pain, no palpitations RESPIRATORY: No SOB, no wheezing GASTROINTESTINAL: No abd pain, no N/V/D GENITOURINARY: No urinary symptoms MUSCULOSKELETAL: No joint pain PSYCHIATRIC: No anxiety, no depression NEUROLOGIC: No H/A, no numbness, no weakness EXAMINATION: GENERAL: WD/WN in NAD HEENT: Moist mucosa NECK: Supple, no LN's, no carotid bruits HEART: RRR, S1-S2, no murmurs LUNGS: CTA B/L ABDOMEN: Soft, NT/ND, + BS x 4 Quads PERIPH PULSES: 2+ B/L EXTREMITIES: FROM x 4, no edema NEUROLOGIC: AAO x3, no focal findings PSYCHIATRIC: Good eye contact, affect normal ASSESSMENT/PLAN: Pre-Op Medical Exam: patient is medically cleared to undergo a TURP on 03/04/24 at [facility] to be performed by Dr Sukhdev Elmore under general anesthesia. 1. Hypertension: under good control on amlodipine 10mg/day 2. Hyperlipidemia: historically well controlled on atorvastatin 20mg/QHS 3. DM II: historically diet controlled 4. Hx Hepatitis C: s/p ribavirin & ledipasvir treatment, Hep C neg on 05/14/19 5. Obstructive Sleep Apnea: compliant with CPAP 6. BPH: on tamsulosin 0.4mg/day 7. Prostate CA: dxed 12/2022, managed by urology at [facility], Dr Rodriguez 8. Tobacco Dependence: per pt down to 3 cigs a day from 3 PPD, (53+ pack yr hx) started age 7, not interested in quitting 9. COPD w/Emphysema: PFT's scheduled for 04/18/24 10. Hx Cocaine dependence: in remission - ? last use 05/29/16 11. Erectile Dysfunction: on sildenafil 100mg/day prn 12. Psoriasis: on Acitretin 25mg/day 13. Obesity: BMI ~32, counseled on weight loss FOLLOW UP: pt cancelled 03/07/24 appt - will reschedule - FBW prior - ========= HTN/Lipids/DM II UPCOMING APPOINTMENTS: 02/27/2024 15:30 COM CARE-UROLOGY 03/28/2024 11:00 CWM/NO/DERMATOLOGY [employer] SALESPERSON AM 04/18/2024 12:30 CWM/NO/PFT PM 05/20/2024 14:00 CWM/NO/CAT SCAN 11/21/2024 13:30 NHM/OPTOMETRY/DANIEL No barriers; Patient understands and agrees to current treatment plan. If pt has any questions, concerns, or changes in current health status he/she will call or come in to the VA. BMI>30/>24.99 High Risk: Patient declines to discuss weight management. Patient declined weight discussion. Discussed revisiting at a future visit. Medication Reconciliation: Outpatient: Has the patient been taking medications as documented in the EMLR? YES: The patient has been taking medications as documented in the EMLR. Essential Medication List for Review used to complete this medication reconciliation. INCLUDED IN THIS LIST: Alphabetical list of active outpatient prescriptions dispensed from this [facility] (local) and dispensed from another [place] or [facility] facility (remote) as well as inpatient orders [...] (Tool #5) FACILITY ALLERGY/ADR -------- [facility]CL[facility]INE [facility] TETRACYCLINE [facility] TETRACYCLINE Med Recon NoGlossary (Tool #1) INCLUDED IN THIS LIST: Alphabetical list of active outpatient prescriptions dispensed from this [place] (local) and dispensed from another [place] or [facility] facility (remote) as well as inpatient orders (local pending and active), local clinic medications, locally documented non-VA medications, and local prescriptions that have or been discontinued in the past 90 days. Non-VA Meds Last Documented On: Data not found NOTE The display of VA prescriptions dispensed from another [place] or [facility] facility (remote) is limited to active outpatient prescription entries matched to National Drug File at the originating site and may not include some items such as investigational drugs, compounds, etc. NOT INCLUDED IN THIS LIST: Medications self-entered by the patient into personal health records (i.e. [employer]) are NOT included in this list. Non-VA medications documented outside this [place], remote inpatient orders (regardless of status) and remote clinic medications are NOT included in this list. The patient and provider must always discuss medications the patient is taking, regardless of where the medication was dispensed or obtained. ------ OUTPT ALBUTEROL 90MCG (CFC-F) 200D ORAL INHL (Status = Active) INHALE 2 PUFFS BY MOUTH EVERY 6 HOURS NEEDED FOR WHEEZING Rx# [id number] Last Released: 11/06/23 Qty/Days Supply: 06/27 Rx Expiration Date: 04/10/24 Refills Remainin Indication: FOR WHEEZING OUTPT AMLODIPINE BESYLATE 10MG TAB (Status = Active) TAKE ONE TABLET BY MOUTH ONCE DAILY FOR BLOOD PRESSURE/HEART, DO NOT TAKE WITH GRAPEFRUIT JUICE Rx# [id number] Last Released: 01/11/24 Qty/Days Supply: Rx Expiration Date: 01/11/25 Refills Remainin Indication: FOR HIGH BLOOD PRESSURE OUTPT AMLODIPINE BESYLATE 2.5MG TAB (Status = Discontinued) TAKE THREE TABLETS BY MOUTH ONCE DAILY FOR BLOOD PRESSURE/HEART, DO NOT TAKE WITH GRAPEFRUIT JUICE Rx# [id number] Last Released: Qt/Days Supply: 270/ Rx Expiration Date: 11/16/24 Refills Remainin Indication: FOR HIGH BLOOD PRESSURE OUTPT ATORVASTATIN CALCIUM 40MG TAB (Status = ) TAKE ONE-HALF TABLET BY MOUTH AT BEDTIME FOR CHOLESTEROL Rx# [id number] Last Released: 11/06/23 Qty/Days Supply: 45 Rx Expiration Date: 02/08/24 Refills Remainin OUTPT DICLOFENAC NA 1% TOP GEL (Status = Active) APPLY 2 GRAMS TOPICALLY FOUR TIMES A DAY FOR RIGHT KNEE OSTEOARTHRITIS - USE DOSING CARD PROVIDED IN BOX Rx# [id number] Last Released: 09/12/23 Qty/Days Supply: 100/30 Rx Expiration Date: 04/10/24 Refills Remainin Indication: FOR RIGHT KNEE OUTPT FINASTERIDE 5MG TAB (Status = ) TAKE ONE TABLET BY MOUTH ONCE DAILY Rx# [id number] Last Released: 07/12/23 Qty/Days Supply: 90/90 Rx Expiration Date: 01/18/24 Refills Remainin OUTPT NICOTINE 14MG/24HR PATCH (Status = Active) APPLY 1 PATCH TO SKIN ONCE DAILY FOR SMOKING CESSATION (REMOVE OLD PATCH BEFORE APPLYING NEW PATCH) Rx# [id number] Last Released: 01/19/24 Qty/Days Supply: Rx Expiration Date: 01/11/25 Refills Remainin Indication: FOR SMOKING CESSATION OUTPT OMEPRAZOLE 20MG EC CAP (Status = Active) TAKE ONE CAPSULE BY MOUTH TWICE DAILY FOR GASTROESOPHAGEAL REFLUX DISEASE Rx# [id number] Last Released: 11/13/23 Qty/Days Supply: 60/30 Rx Expiration Date: 10/31/24 Refills Remainin Indication: FOR GASTROESOPHAGEAL REFLUX DISEASE OUTPT PERMETHRIN 5% CREAM (Status = Active) APPLY A THIN LAYER TOPICALLY AT BEDTIME FOR SCABIES AT BEDTIME FROM NECK DOWN. WASH OFF IN THE MORNING. MAY REPEAT IN 1 WEEK IF NEEDED Rx# [id number] Last Released: 06/29/23 Qty/Days Supply: 60/7 Rx Expiration Date: 06/22/24 Refills Remainin Indication: FOR SCABIES OUTPT SILDENAFIL CITRATE 100MG TAB (Status = Active/Suspended) TAKE ONE TABLET BY MOUTH ONCE DAILY NEEDED TAKE 1 HOUR PRIOR TO SEXUAL ACTIVITY Rx# [id number] Last Released: 12/26/23 Qty/Days Supply: Rx Expiration Date: 09/06/24 Refills Remainin Indication: FOR ERECTILE DYSFUNCTION OUTPT TAMSULOSIN HCL 0.4MG CAP (Status = Discontinued) TAKE ONE CAPSULE BY MOUTH AT BEDTIME DIRECTED BY PROVIDER Rx# [id number] Last Released: 12/13/23 Qty/Days Supply: Rx Expiration Date: 10/05/24 Refills Remainin OUTPT TAMSULOSIN HCL 0.4MG CAP (Status = Active) TAKE ONE CAPSULE BY MOUTH EVERY EVENING AT BEDTIME FOR ENLARGED PROSTATE Rx# [id number] Last Released: 02/09/24 Qty/Days Supply: Rx Expiration Date: 12/18/24 Refills Remainin Indication: FOR ENLARGED PROSTATE OUTPT TRIAMCINOLONE ACETONIDE 0.1% CREAM (Status = ) APPLY A THIN LAYER TOPICALLY EVERY 12 HOURS NEEDED FOR ITCHING Rx# [id number] Last Released: 11/20/23 Qty/Days Supply: Rx Expiration Date: 12/16/23 Refills Remainin Indication: FOR ITCHING OUTPT TRIAMCINOLONE ACETONIDE 0.1% OINT (Status = ) APPLY THIN LAYER TOPICALLY TWICE DAILY NEEDED FOR ITCHING Rx# [id number] Last Released: 12/13/23 Qty/Days Supply: Rx Expiration Date: 01/07/24 Refills Remainin Indication: FOR ITCHING OUTPT VITAMIN B COMPLEX CAP (Status = Active) TAKE 1 CAPSULE BY MOUTH ONCE DAILY FOR VITAMIN SUPPLEMENTATION Rx# [id number] Last Released: 11/06/23 Qty/Days Supply: Rx Expiration Date: 04/10/24 Refills Remainin Indication: FOR VITAMIN SUPPLEMENTATION ------ SUPPLIES ------ Home Telehealth ([facility]) Referral: Patient not a candidate for [facility] at this time. Diabetes: Kidney Health Evaluation: Last eGFR: EGFR Collection DT Specimen Test Name Result Units Ref Range 08/29/2023 09:06 SERUM eGFR(CKD-EPI 2020 72 mL/min Ref: >=60 Last uACR: No uACR found within the past year uACR (Urine Albumin-Creatinine Ratio) Quantitative urine creatinine and quantitative urine albumin lab tests were ordered. /arnaud/ COLT RAND MD Primary Care Physician Signed: 02/26/2024 13:38 COLT RAND [place]
--- OUTSIDE RECORDS SUMMARY | 2024-07-24 13:38 | XMS_ITS ---
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 Date/Time Encounter Type Encounter Description Reason Provider Source Nov 29, 2023 02:30 PM THERAPEUTIC EXERCISES PHYSICAL THERAPY ICD-10-CM M62.81 Muscle weakness (generalized) SABINE CALLEJAS Encounter Template Text not used by [facility] Assessments - Encounter Diagnoses This section includes the primary and secondary diagnoses documented for the Encounter. Date/Time Primary/Secondary Diagnosis Diagnosis Name Provider Source Nov 29, 2023 04:09 PM PRIMARY Muscle weakness (generalized) SABINE CALLEJAS [facility] Plan of Treatment: Future Appointments (+ 6 months) and Future Tests (+/- 45 days) The Plan of Treatment section includes future care activities for the patient [facility] This section includes future appointments and future orders which are active, pending or scheduled. Future Appointments This section includes appointments that were scheduled to occur 6 months from the date of the Encounter, up to a maximum of 20 appointments. The data comes from all [place] treatment facilities. Appointment Date/Time Appointment Type Appointme nt Facility Name Dec 04, 2023 01:30 PM AMBULATORY - [facility] Dec 07, 2023 11:00 AM AM[facility]ULAT[facility] - [place]IC[place] Dec 22, 2023 11:30 AM AMBULATORY - RE[place] Dec 28, 2023 11:00 AM AMBULATORY - REHAB MEDICIN E [place] Jan 05, 2024 11:30 AM AMBULATORY - REHAB MEDICIN E [place] Jan 11, 2024 08:30 AM AMBULATORY - MEDICINE [facility] [place] [facility] Feb 26, 2024 01:00 PM AMBULATORY - MEDICINE [facility] [place] [facility] Feb 27, 2024 03:30 PM AMBULATORY - MEDICINE [facility] [place] [facility] Mar 28, 2024 11:00 AM AMBULATORY - MEDICINE [facility] [place] [facility] Apr 01, 2024 01:30 PM AMBULATORY - MEDICINE [facility] [place] [facility] May 03, 2024 02:00 PM AMBULATORY - MEDICINE [facility] Social History: Smoking Status (Most current) and Tobacco Use (All prior to encounter date) This section includes the most current, and the historical, smoking and tobacco- related health factors from the [place] facility where the Encounter took place. Current Smoking Status This section includes the most current smoking, or tobacco-related health factor, from the [place] facility where the Encounter took place. Date/Time Current Smoking Status Comment Facil ity October 21, 2020 01:38 PM VA-TOBACCO USER EVERY DAY [facility] Tobacco Use History This section includes a history of the smoking, or tobacco-related health factors, that were collected on or before the date of the Encounter. The data comes from the CT facility where the Encounter took place. Date/Time Smoking Status/Tobacco Use Comment F acility October 21, 2020 01:38 PM VA-TOBACCO USE [address] [place] [facility] October 21, 2020 01:38 PM VA-TOBACCO USE ADVICE CT [facility] [place] 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 October 21, 2020 01:38 PM VA-TOBACCO USE MED NO CT [place] [facility] October 21, 2020 01:38 PM [facility]BACCO [facility]ER [facility] Advance Directives: All historical and current Section Date Range: From patient's date of to the date document was created. This section includes ALL of a patient's completed or amended CT Advance and Rescinded Directives. The entries below indicate that a directive exists for the patient, but an actual copy is not included with this document. The data comes from all CT facilities. Date Advance Directives Provider Source Mar 15, 2018 ADVANCE DIRECTIVE TOBI JOHNSON Encounter Notes: All associated encounter notes This section contains the clinical notes associated to the Encounter. Date/Time Encounter Note(s) Provider Source Nov 29, 2023 04:03 PM PHYSICAL THERAPY NOTE: LOCAL TITLE: PHYSICAL THERAPY STANDARD TITLE: PHYSICAL THERAPY NOTE DATE OF NOTE: NOV 29, 2023@16:03 ENTRY DATE: NOV 29, 2023@16:03:20 AUTHOR: KIKI CALLEJAS COSIGNER: URGENCY: STATUS: COMPLETED Initial Evaluation date: 11/10/23 Treatment #: 2 Treatment time: 30 min Diagnosis: Muscle Weakness (Generalized) (ICD-10-CM M62.81) (Primary) Provider: Camilo Arevalo identified by full name and SUBJECTIVE: States that he's feeling good, ready to work OBJECTIVE: THERAPEUTIC EXERCISE: MINUTES: 30 mins Nu-step 10 mins L4 standing hip abd in pbars standing hip ext in pbars, almost fell, L knee buckled L hip flexor S in pbars L TKE with rtband in pbars MANUAL THERAPY: MINUTES: GAIT TRAINING: MINUTES: NEUROMUSCULAR EDUCATION: MINUTES: OTHER: MINUTES: MODALITIES: MINUTES: [] Contraindication screen completed prior to modality [] Skin intact pre/post SELF CARE/EDUCATION: MINUTES: Access Code: [email or web address] URL: [email or web address] Date: 11/29/2023 Prepared by: [facility] Exercises - Beginner Bridge - 1 x daily - 7 x weekly - 3 sets - 10 reps - Beginner Clam - 1 x daily - 7 x weekly - 3 sets - 10 reps - Sidelying Diagonal Hip Abduction - 1 x daily - 7 x weekly - 3 sets - 10 reps - Sit to Stand Without Arm Support - 1 x daily - 7 x weekly - 3 sets - 10 reps - Standing Hip Abduction with Counter Support - 1 x daily - 7 x weekly - 3 sets - 10 reps - Standing Hip Extension with Counter Support - 1 x daily - 7 x weekly - 3 sets - 10 reps - Standing Terminal Knee Extension with Resistance - 1 x daily - 7 x weekly - 3 sets - 10 reps Patient education was provided for all aspects of care during this clinical encounter. ASSESSMENT: Tolerated session well, was able to catch himself before falling, no particular reason why the knee buckled, will need to monitor L knee. PLAN: Schwertner is in agreement to split treatments between [facility] and [place] due to availability. Aerobic exercise and walking routine. Mat hip and core stabilization. Functional movement patterns in parallel bars. Gentle lower extremity stretches. Balance and proprioception training in parallel bars. Pre-gait and gait training in parallel bars. /es/ BETHANY ESPINOZA LICENSE OPEN TENTER OPERATOR Signed: 11/29/2023 16:[address] [facility]
--- OUTSIDE RECORDS SUMMARY | 2024-07-24 13:38 | XMS_ITS ---
Author Name [facility] [place] Address [address] [place] [address] Care Team Providers Care Trial Lawyer Name Role Phone COLT RAND Primary Care [...] Womack's Name Patient's Relationship to Policy Womack [facility] MEDICAID MEDICAID MEDIC AID May 29, 2018 MEDICAI D [id number] JAMES WRIGHT PATIENT MEDICAID MEDICAID [facility] [place] [place] Sep 24, 2018 MEDICAI D [id number] JAMES WRIGHT PATIENT Selected Encounter This section includes the information on record at [place] for the Encounter. Date/Time Encounter Type Encounter Description Reason Provider Source Jun 04, 2024 07:07 AM [facility] OL DIG ASSMT&MGMT 5-10 PULMONARY/CHEST ICD-10-CM Z12.2 Encntr screen for malignant neoplasm of respiratory organs JADE GUTHRIE [facility] Encounter Template Text not used by [place] Assessments - Encounter Diagnoses This section includes the primary and secondary diagnoses documented for the Encounter. Date/Time Primary/Secondary Diagnosis Diagnosis Name Provider Source Jun 04, 2024 09:11 AM PRIMARY Encntr screen for malignant neoplasm of respiratory organs JADE GUTHRIE CCA [facility] Plan of Treatment: Future Appointments (+ 6 months) and Future Tests (+/- 45 days) The Plan of Treatment section includes future care activities for the patient from all [place] [facility] This section includes future appointments and future orders which are active, pending or scheduled. Future Appointments This section includes appointments that were scheduled to occur 6 months from the date of the Encounter, up to a maximum of 20 appointments. The data comes from all [place] treatment facilities. Appointment Date/Time Appointment Type Appointme nt Facility Name Aug 28, 2024 02:00 PM AMBULATORY - MEDICINE [facility] Sep 23, 2024 01:30 PM AMBULATORY - MEDICINE [facility] October 02, 2024 02:00 PM AMBULATORY - MEDICINE [facility] Nov 21, 2024 01:30 PM AMBULATORY - MEDICINE [facility] Social History: Smoking Status (Most current) and Tobacco Use (All prior to encounter date) This section includes the most current, and the historical, smoking and tobacco- related health factors from the [place] facility where the Encounter took place. Current Smoking Status This section includes the most current smoking, or tobacco-related health factor, from the [place] facility where the Encounter took place. Date/Time Current Smoking Status Comment Facil ity October 21, 2020 01:38 PM VA-TOBACCO USER EVERY DAY [facility] Tobacco Use History This section includes a history of the smoking, or tobacco-related health factors, that were collected on or before the date of the Encounter. The data comes from the [place] facility where the Encounter took place. 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 This section includes ALL of a patient's completed or amended [place] Advance and Rescinded Directives. The entries below indicate that a directive exists for the patient, but an actual copy is not included with this document. The data comes from all [place] facilities. Date Advance Directives Provider Source Mar 15, 2018 ADVANCE DIRECTIVE TOBI JOHNSON Radiology Reports: +/- 30 days of the encounter Radiology Reports For cases when an order for radiology services may have been completed prior to the date of the Encounter, the report list includes the Radiology Reports that were completed up to 30 days before dateof the Encounter. For cases when an order for radiology services may have been completed after the date of the Encounter, the report list also includes the Radiology Reports that were completed up to30 days after date of the Encounter. The data comes from all [place] treatment facilities. Date/Time Radiology Report Provider Source Jun 03, 2024 02:31 PM LDCT LUNG CANCER S CREENING: JAMES LEO Lynette [id number] -[id number] M Exm Date: JUN 03, 2024@14:31 Req Phys: COLT RAND Pat Loc: ZZCWM/NO/LCS ADMIN (Req'g Loc) Img Loc: [place] Service: [facility] [place] [address] (Case [id number] COMPLETE) LDCT LUNG CANCER SCREENING (CT Detailed) CPT:59702 Reason for Study: LUNG CANCER SCREENING Clinical History: 43 TPY-Currently smoking LCS LDCT on 05/18/2023: LR2 Index Nodule: 3.0 mm solid round well-circumscribed right upper lobe pulmonary nodule, 8-180. Report Status: Verified Date Reported: JUN 03, 2024 Date Verified: JUN 03, 2024 Briar Cutter E-Sig:/ES/YOSELIN LALA Report: CT THORAX LUNG CANCER SCR C- 06/03/2024 2:31 PM COMPARISON: 05/18/2023 TECHNIQUE: Non-contrast helical low-dose CT (LDCT) of the chest using lung cancer screening protocol. Iterative reconstruction technique was employed in order to reduce radiation exposure to the patient. Vessel suppression and nodule detection algorithms were applied. Imaging technique is not optimized for detection of soft tissue abnormalities. FINDINGS: Lung screening specific (LUNG-RADS): Stable 3 mm solid nodule with smooth margins located in the left upper lobe on series 8 image 85. Stable 3 mm soft tissue nodule with smooth margins located in the right upper lobe on series 8 image 159. Potentially significant incidentals (LUNG-RADS category S): Coronary artery atherosclerotic calcifications. Pulmonary incidentals: Emphysema. Other incidentals: Stable appearance of minimally hyperdense nodules within the marrow cavity of the right seventh rib and benign-appearing cortical thickening of the proximal right eighth rib. Impression: 1. LUNG-RADS Category : Lung-RADS Category 2, benign appearance and behavior. 2. LUNG-RADS Category S: Coronary atherosclerotic calcifications. RECOMMENDATIONS: Continue low-dose CT lung cancer screening. Primary Diagnostic Code: No immediate attention required Primary Interpreting Staff: YOSELIN LALA Staff Physician (Briar Cutter) /YOSELIN [facility]ALL[facility] Encounter Notes: All associated encounter notes This section contains the clinical notes associated to the Encounter. Date/Time Encounter Note(s) Provider Source Jun 04, 2024 07:07 AM PREVENTIVE MEDICINE RISK ASSESSMENT SCREENING NOTE: LOCAL TITLE: LUNG CANCER SCREENING DOCUMENTATION STANDARD TITLE: PREVENTIVE MEDICINE RISK ASSESSMENT SCREENING NO DATE OF NOTE: JUN 04, 2024@07:07 ENTRY DATE: JUN 04, 2024@07:07:25 AUTHOR: ZAFAR GUTHRIE COSIGNER: URGENCY: STATUS: COMPLETED NO LUNG NODULES or TRACKING OF NODULE NOT INDICATED per guidelines (e.g., clearly benign/some small nodules). Date of image: Date: June 03, 2024 LDCT Scan Results: Most recent LDCT scan shows a nodule for which tracking is not indicated per guidelines or radiology report. Comment: Stable Lung RADS Score: 2 (S) FINDINGS: Lung screening specific (LUNG-RADS): Stable 3 mm solid nodule with smooth margins located in the left upper lobe on series 8 image 85. Stable 3 mm soft tissue nodule with smooth margins located in the right upper lobe on series 8 image 159. Impression: 1. LUNG-RADS Category : Lung-RADS Category 2, benign appearance and behavior. 2. LUNG-RADS Category S: Coronary atherosclerotic calcifications. RECOMMENDATIONS: Continue low-dose CT lung cancer screening. Incidental Findings: S CODE ALERTS PCP TO SIGNIFICANT INCIDENTAL FINDING NOT RELATED TO LUNG CANCER: S CODE FINDING FOR THIS SCAN: LUNG-RADS Category S: Coronary atherosclerotic calcifications. The following *INCIDENTAL FINDINGS* were noted: Pulmonary incidentals: Emphysema. Other incidentals: Stable appearance of minimally hyperdense nodules within the marrow cavity of the right seventh rib and benign-appearing cortical thickening of the proximal right eighth rib. I am notifying the Primary Care Provider for information, and for follow-up of incidental findings, if indicated. Comment: Dr. Rand via TEAMS message and second signer in CPRS, PACT team via second signer in CPRS Plan: Continue routine annual lung cancer screening. Patient Notification of results: Results letter sent to patient. Comment: Results letter and educational materials mailed to address on file. Patient contacted by telephone. Comment: Call placed to the [facility]. Non-urgent voicemail left. Direct call back number for LCS Coordinator provided. /arnaud/ ZAFAR LOWERY,RN,OCN LUNG CANCER SCREENING NURSE NAVIGATOR Signed: 06/04/2024 09:11 Receipt Acknowledged By: 06/04/2024 09:24 /es/ ANTONIO SANTANA RN REGISTERED NURSE 06/04/2024 09:26 /arnaud/ COLT RAND MD Primary Care Physician ZAFAR GUTHRIE [place] [facility]
--- OUTSIDE RECORDS SUMMARY | 2024-07-24 13:38 | XMS_ITS | Encounter Summary ---
Author Name [facility] [place] [facility] [place] [facility] [place] Address [address] [place] [address] Care Team Providers Care Manager Of Finance Name Role Phone COLT RAND Primary Care [...] Womack's Name Patient's Relationship to Policy Womack [facility] MEDICAID MEDICAID MEDIC AID May 29, 2018 MEDICAI D [id number] JAMES WRIGHT PATIENT MEDICAID MEDICAID [facility] Sep 24, 2018 MEDICAI D [id number] ALEX AlexandreJAMES PATIENT Selected Encounter This section includes the information on record at [place] for the Encounter. Date/Time Encounter Type Encounter Description Reason Provider Source Oct 30, 2023 11:30 AM OFF/OP EST SEPTEMBER X REQ PHY/QHP PRIMARY CARE/MEDICINE ICD-10-CM R06.00 Dyspnea, unspecified TONI HAQUE Encounter Template Text not used by VA Assessments - Encounter Diagnoses This section includes the primary and secondary diagnoses documented for the Encounter. Date/Time Primary/Secondary Diagnosis Diagnosis Name Provider Source Oct 30, 2023 12:08 PM PRIMARY Dyspnea, unspecified TONI HAQUE [place] Oct 30, 2023 12:08 PM SECONDARY Essential (primary) hypertension GARLANDTONI Addison [place] Plan of Treatment: Future Appointments (+ 6 months) and Future Tests (+/- 45 days) The Plan of Treatment section includes future care activities for the patient [facility] [place] [facility] This section includes future appointments and future orders which are active, pending or scheduled. Future Appointments This section includes appointments that were scheduled to occur 6 months from the date of the Encounter, up to a maximum of 20 appointments. The data comes from all [place] treatment facilities. Appointment Date/Time Appointment Type Appointme nt Facility Name Oct 31, 2023 03:00 PM AMBULATORY [facility]ICINE [facility] [place] [facility] Nov 09, 2023 01:00 PM AM[place]ULATORY [place]ICINE [place] [facility] [place] [facility] Nov 10, 2023 01:00 PM AMBULATORY - REHAB MEDICIN E [place] Nov 27, 2023 01:30 PM AMBULATORY - REHAB MEDICIN E [facility] [place] [facility] Nov 29, 2023 02:30 PM AMBULATORY - REHAB MEDICIN E [facility] [place] [facility] Dec 04, 2023 01:30 PM AMBULATORY - REHAB MEDICIN E [facility] [place] [facility] Dec 07, 2023 11:00 AM AMBULATORY - REHAB MEDICIN E [place] Dec 22, 2023 11:30 AM AMBULATORY - REHAB MEDICIN E [place] Dec 28, 2023 11:00 AM AMBULATORY - [facility]HAB MEDICIN E [place] Jan 05, 2024 11:30 AM AMBULATORY - REHAB MEDICIN E [place] Jan 11, 2024 08:30 AM AMBULATORY - MEDICINE [facility] [place] [facility] Feb 26, 2024 01:00 PM AMBULATORY - MEDICINE [facility] [place] [facility] Feb 27, 2024 03:30 PM AMBULATORY - MEDICINE [facility] [place] [facility] Mar 28, 2024 11:00 AM AMBULATORY - MEDICINE [facility] [place] [facility] Apr 01, 2024 01:30 PM AMBULATORY - MEDICINE [facility] [place] [facility] Vital Signs: All taken on the encounter date This section contains inpatient and outpatient Vital Signs collected on the date of the Encounter. Date/Time Temperature Pulse Blood Pressure Respiratory Rate SP02 Pain Height Weight Body Mass Index Source Oct 30, 2023 11:54 AM 98.2 82 144/88 18 96 0 200 31 [facility] Social History: Smoking Status (Most current) and Tobacco Use (All prior to encounter date) This section includes the most current, and the historical, smoking and tobacco- related health factors from the [place] facility where the Encounter took place. Current Smoking Status This section includes the most current smoking, or tobacco-related health factor, from the [place] facility where the Encounter took place. Date/Time Current Smoking Status Comment Facil it Sep 06, 2023 03:30 PM VA-TOBACCO USER EVERY DAY [place] Tobacco Use History This section includes a history of the smoking, or tobacco-related health factors, that were collected on or before the date of the Encounter. The data comes from the [place] facility where the Encounter took place. Date/Time Smoking Status/Tobacco Use Comment F acility Sep 06, 2023 03:30 PM VA-TOBACCO USE 30 YEARS OR MORE [facility] Sep 06, 2023 03:30 PM VA-TOBACCO USE ADVICE [facility] Sep 06, 2023 03:30 PM VA-TOBACCO USE RIDES ATTENDANT [facility] Sep 06, 2023 03:30 PM VA-TOBACCO USE MED [facility] Sep 06, 2023 03:30 PM VA-TOBACCO USER EVERY DAY [place] Jul 26, 2022 02:00 PM VA-TOBACCO USE 30 YEARS OR MORE [place] Jul 26, 2022 02:00 PM VA-TOBACCO USE ADVICE [facility] Jul 26, 2022 02:00 PM VA-TOBACCO USE RIDES ATTENDANT NO [facility] Jul 26, 2022 02:00 PM VA-TOBACCO USE MED [facility] Jul 26, 2022 02:00 PM VA-TOBACCO USE WI 30 MIN OF WAKE UP [facility] Jul 26, 2022 02:00 PM VA-TOBACCO USER EVERY DAY [facility] Mar 01, 2019 01:59 PM VA-TOBACCO DOESNT USE WI 30 MIN WAKEUP [facility] Mar 01, 2019 01:59 PM VA-TOBACCO USE 30 YEARS OR MORE [facility] Mar 01, 2019 01:59 PM VA-TOBACCO USE ADVICE [facility] Mar 01, 2019 01:59 PM VA-TOBACCO USE RIDES ATTENDANT [facility] Mar 01, 2019 01:59 PM VA-TOBACCO USE MED NO [facility] Mar 01, 2019 01:59 PM VA-TOBACCO USER EVERY DAY [facility] Mar 06, 2018 04:15 PM VA-TOBACCO USE 30 YEARS OR MORE [facility] Mar 06, 2018 04:15 PM VA-TOBACCO USE ADVICE [facility] Mar 06, 2018 04:15 PM VA-TOBACCO USE RIDES ATTENDANT NO [facility] Mar 06, 2018 04:15 PM VA-TOBACCO USE MED NO [place] Mar 06, 2018 04:15 PM VA-TOBACCO USE WI 30 MIN OF WAKE UP [facility] Mar 06, 2018 04:15 PM VA-TOBACCO USER EVERY DAY [facility] Advance Directives: All historical and current Section Date Range: From patient's date of to the date document was created. This section includes ALL of a patient's completed or amended [place] Advance and Rescinded Directives. The entries below indicate that a directive exists for the patient, but an actual copy is not included with this document. The data comes from all [place] facilities. Date Advance Directives Provider Source Mar 15, 2018 ADVANCE DIRECTIVE TOBI JOHSNON Encounter Notes: All associated encounter notes This section contains the clinical notes associated to the Encounter. Date/Time Encounter Note(s) Provider Source Oct 30, 2023 11:58 AM PRIMARY CARE NOTE: LOCAL TITLE: WALK-IN NOTE PRIMARY CARE (T) STANDARD TITLE: PRIMARY CARE NOTE DATE OF NOTE: OCT 30, 2023@11:58 ENTRY DATE: OCT 30, 2023@11:58:48 AUTHOR: TONI HAQUE COSIGNER: URGENCY: STATUS: COMPLETED Data: 63year old MALE reports to Primary Care clinic for Walk-In visit. [place]'s PCP is COLT RAND, last visit with PCP was 10/05/23, next visit scheduled for 10/31/23. Today Vet walks in to clinic with complaint of gurgling in chest, short of breath since June Last recorded Vital Signs are: Temperature:98.2 F [36.8 C] (10/30/2023 11:54) Pulse:82 (10/30/2023 11:54) Blood Pressure:144/88 (10/30/2023 11:54) Respiration:18 (10/30/2023 11:54) Pain:0 (10/30/2023 11:54) Vet reports current allergies are: Remote Allergy Data FACILITY ALLERGY/ADR -------- 534^TOVA CHAIREZ [facility] ([id number])^[id number]^[facility]^[id number] 689^[facility]^[id number] Current Medications from Active Med list [...] TABLET BY MOUTH ONCE ACTIVE DAILY 6) PERMETHRIN 5% CREAM APPLY A THIN LAYER TOPICALLY AT ACTIVE BEDTIME FOR SCABIES AT BEDTIME FROM NECK DOWN. WASH OFF IN THE MORNING. MAY REPEAT IN 1 WEEK IF NEEDED 7) SILDENAFIL CITRATE 100MG TAB TAKE ONE TABLET BY MOUTH ACTIVE ONCE DAILY NEEDED TAKE 1 HOUR PRIOR TO SEXUAL ACTIVITY 8) TAMSULOSIN HCL 0.4MG CAP TAKE ONE CAPSULE BY MOUTH AT ACTIVE BEDTIME DIRECTED BY PROVIDER 9) VITAMIN B COMPLEX CAP TAKE 1 CAPSULE BY MOUTH ONCE ACTIVE DAILY FOR VITAMIN SUPPLEMENTATION Action: [place] reports since recent discharge from hospital in June he has been having a feeling of gurgling in chest with dyspnea [place] states when he feels the gurgling, he will clear his throat and it will improve for a short time then returns. States mild dyspnea as well. Reports these symptoms started at the end of June reports he smokes tobacco, 1 pack every 3 days. [place] states he has an albuterol Inh, using it with some effect. Seen by PCP 10/05/23, when asked why he did not mention it he said he though it was a cold. Denies chest pain, headache or dizziness. Lung sounds with faint expiratory wheezing O2 sat 96% on room air RR 16-18, easy and even, no distress noted. BP 144/88 manual, with HR 82 reg, apical. [place] with appointment to see PCP tomorrow. Advised for new or worsening symptoms to go to ED for evaluation Verbalized understanding. Reminders Info Only: VA Video Connect Capable DUE NOW Pneumococcal Conjugate Vaccine (PCV15/PCDUE NOW Medication Reconciliation DUE NOW COVID-19 Immunization DUE NOW Tdap Immunization DUE NOW HTN Assess for Elevated BP>=140/90 DUE NOW Herpes Zoster (Shingles) Vaccine DUE NOW Diabetes: Kidney Health Evaluation Jun 21 PAVE Foot Check DUE NOW (Optional) Whole Health Documentation DUE NOW /arnaud/ TONI HAQUE RN PRIMARY CARE RN Signed: 10/30/2023 12:09 Receipt Acknowledged By: 10/30/2023 12:39 /es/ ANTONIO SANTANA RN REGISTERED NURSE 10/30/2023 12:46 /es/ COLT RAND MD Primary Care Physician TONI HAQUE
--- OUTSIDE RECORDS SUMMARY | 2024-07-24 13:38 | XMS_ITS ---
Author Name [facility] [place] [facility] [place] Address [address] [place] [address] Care Team Providers Care Patient Scheduling Coordinator Name Role Phone COLT RAND Primary Care [...] MEDIC AID May 29, 2018 MEDICAI D [id number] JAMES WRIGHT PATIENT MEDICAID MEDICAID [facility] Sep 24, 2018 MEDICAI D [id number] ALEX AlexandreJAMES PATIENT Selected Encounter This section includes the information on record at [place] for the Encounter. Date/Time Encounter Type Encounter Description Reason Provider Source Nov 27, 2023 01:30 PM THERAPEUTIC EXERCISES PHYSICAL THERAPY ICD-10-CM M62.81 Muscle weakness (generalized) SABINE CALLEJAS Encounter Template Text not used by VA Assessments - Encounter Diagnoses This section includes the primary and secondary diagnoses documented for the Encounter. Date/Time Primary/Secondary Diagnosis Diagnosis Name Provider Source Nov 27, 2023 02:57 PM PRIMARY Muscle weakness (generalized) SABINE CALLEJAS [place] [facility] [place] [facility] Plan of Treatment: Future Appointments (+ 6 months) and Future Tests (+/- 45 days) The Plan of Treatment section includes future care activities for the patient from all [place] [facility]. This section includes future appointments and future orders which are active, pending or scheduled. Future Appointments This section includes appointments that were scheduled to occur 6 months from the date of the Encounter, up to a maximum of 20 appointments. The data comes from all [place] treatment facilities. Appointment Date/Time Appointment Type Appointme nt Facility Name Nov 29, 2023 02:30 PM AMBULATORY - [place] MEDICIN E [place] [facility] [place] [facility] Dec 04, 2023 01:30 PM AMBULATORY - [place]HAB MEDICIN [place] [facility] [place] [facility] Dec 07, 2023 11:00 AM AMBULATORY - REHAB MEDICIN E [place] Dec 22, 2023 11:30 AM AMBULATORY - REHAB MEDICIN E [place] Dec 28, 2023 11:00 AM AMBULATORY - REHAB MEDICIN E [place] Jan 05, 2024 11:30 AM AMBULATORY - REHAB MEDICIN E [place] Jan 11, 2024 08:30 AM AMBULATORY - MEDICINE [facility] [place] [facility] Feb 26, 2024 01:00 PM AMBULATORY - MEDICINE [facility] [place] [facility] Feb 27, 2024 03:30 PM AMBULATORY - MEDICINE [place] [facility] [place] [facility] Mar 28, 2024 11:00 AM AMBULATORY - MEDICINE [place] [facility] [place] [facility] Apr 01, 2024 01:30 PM AMBULATORY - MEDICINE [place] [facility] [place] [facility] May 03, 2024 02:00 PM AMBULATORY - MEDICINE [facility] [place] [facility] Social History: Smoking Status (Most current) and Tobacco Use (All prior to encounter date) This section includes the most current, and the historical, smoking and tobacco- related health factors from the [place] facility where the Encounter took place. Current Smoking Status This section includes the most current smoking, or tobacco-related health factor, from the [place] facility where the Encounter took place. Date/Time Current Smoking Status Comment Facil ity October 21, 2020 01:38 PM VA-TOBACCO USER EVERY DAY [facility] Tobacco Use History This section includes a history of the smoking, or tobacco-related health factors, that were collected on or before the date of the Encounter. The data comes from the [place] facility where the Encounter took place. Date/Time Smoking Status/Tobacco Use Comment F acility October 21, 2020 01:38 PM VA-TOBACCO USE 30 YEARS OR MORE [place] [facility] October 21, 2020 01:38 PM [facility] October 21, 2020 01:38 PM [facility]-TOBACCO [facility] October 21, 2020 01:38 PM VA-TOBACCO USE MED [facility] October 21, 2020 01:38 PM VA-TOBACCO USER EVERY DAY [facility] Advance Directives: All historical and current Section Date Range: From patient's date of to the date document was created. This section includes ALL of a patient's completed or amended [place] Advance and Rescinded Directives. The entries below indicate that a directive exists for the patient, but an actual copy is not included with this document. The data comes from all [place] facilities. Date Advance Directives Provider Source Mar 15, 2018 ADVANCE DIRECTIVE TOBI JOHNSON Encounter Notes: All associated encounter notes This section contains the clinical notes associated to the Encounter. Date/Time Encounter Note(s) Provider Source Nov 27, 2023 02:51 PM PHYSICAL THERAPY NOTE: LOCAL TITLE: PHYSICAL THERAPY STANDARD TITLE: PHYSICAL THERAPY NOTE DATE OF NOTE: NOV 27, 2023@14:51 ENTRY DATE: NOV 27, 2023@14:51:46 AUTHOR: KIKI CALLEJAS EXP COSIGNER: URGENCY: STATUS: COMPLETED Initial Evaluation date: 11/10/23 Treatment #: 1 Treatment time: 30 min Diagnosis: Muscle Weakness (Generalized) (ICD-10-CM M62.81) (Primary) Provider: Camilo Arevalo identified by full name and SUBJECTIVE: States that he's feeling ok, ready to work. OBJECTIVE: THERAPEUTIC EXERCISE: MINUTES: 30 mins nu-step 10 mins L4 sit<> stand bridging clamshells in S/L glute Abd in S/L MANUAL THERAPY: MINUTES: GAIT TRAINING: MINUTES: NEUROMUSCULAR EDUCATION: MINUTES: OTHER: MINUTES: MODALITIES: MINUTES: [] Contraindication screen completed prior to modality [] Skin intact pre/post SELF CARE/EDUCATION: MINUTES: Access Code: [email or web address] URL: [email or web address] / Date: 11/27/2023 Prepared by: [facility] Exercises - Beginner Bridge - 1 x [...] this clinical encounter. ASSESSMENT: Tolerated session well, having some difficulties performing standing exercises secondary to pain in left knee, noted weakness R hip area PLAN: [place] is in agreement to split treatments between [place] and [place] due to availability. Aerobic exercise and walking routine. Mat hip and core stabilization. Functional movement patterns in parallel bars. Gentle lower extremity stretches. Balance and proprioception training in parallel bars. Pre-gait and gait training in parallel bars. 6 appointments 2x per week. /arnaud/ BETHANY ESPINOZA LICENSE ALTERATION SPECIALIST Signed: 11/27/2023 14:57 KIKI CALLEJAS [place] [facility] [place] [facility]
--- OUTSIDE RECORDS SUMMARY | 2024-07-24 13:38 | XMS_ITS | Continuity of Care Document ---
Author Name [facility] Organization [facility] Care Team Providers Care Upfitter Name Role Phone [facility] Unavailable Unavailable Problems Combined list of problems from Department of Defense and Veterans Affairs facilities. It does not include entries that were removed or entered in error. Problem Status Onset Date Problem Type Date of Resolution Comments Source Adenocarcinoma of prostate Active Condition Apr 14, 2023 Entered By: COLT RAND Comment: [place] grade 3+3=6 - Dxed 12/2022 [place] Albuminuria * (ICD-9-CM 791.0) Active Condition [facility] Benign prostatic hypertrophy with outflow obstruction Active Condition [facility] [place] [facility] Chronic hepatitis C Active Condition Feb 23, 2018 Entered By: COLT RAND Comment: s/p ribavirin and ledipasvir treatment [facility] [place] [facility] Chronic obstructive pulmonary disease Active Condition Jan 10 Entered By: COLT RAND Comment: with Emphysema [place] Closed fracture of other bone of wrist (ICD-9-CM 814.09) Active Condition [facility] Cocaine dependence Active [facility] Cocaine dependence in remission Active Condition [facility] [place] [facility] Cocaine dependence in remission (SNOMED CT 379803966) Active Condition [facility] Colonoscopy Screening Active Condition Feb 23, 2018 Entered By: COLT RAND Comment: +FH of Colon CAOct 2017 Entered By: COLT RAND Comment: 2015 adenomatous/hype rplastic polyps removed - repeat 3 yrs (2018)October 26, 2022 Entered By: LADONNA GONGORA Comment: 10/18/22: [facility] Dr. Carbajal, 3mm polyp proxial ascending colon, Diverticulosis sigmoid, non-bleeding hemorrhoids repeat 5yr. [facility] [place] [facility] Diabetes Mellitus without mention of Complication, type II or unspecified type, Active Condition Nov 26, 2010 Entered By: KATHY ASHTON III Comment: no 2010; f/u summer 2011 [facility] Dyslipidemia (SNOMED CT 813822209) Active Condition [facility] Edema of lower extremity Active Condition Feb 23, 2015 Entered By: KATHY ASHTON III Comment: chronic, left leg [facility] Erectile dysfunction Active Condition [facility] Family History of Malignant Neoplasm of Gastrointestinal Tract Active Condition Nov 17, 2010 Entered By: KATHY ASHTON III Comment: father: colon ca ~age55 [facility] Fit for work with restrictions (SNOMED CT 613103139) Active Condition [facility] Folic acid deficiency Active Condition [facility] Frac Wrist Active Condition [facility] Hearing loss (SNOMED CT 57700968) Active Condition [facility] Hepatitis C (SNOMED CT 49747240) Active Condition Dec 31, 2009 Entered By: KATHY ASHTON III Comment: genotype 1; liver bx 11/05: grade 2 inflam; stage 2 fibrosis [facility] Homeless single person Active Condition [facility] Housing lack Active Condition [facility] Hypertension Active Condition [facility] Hypertension * (ICD-9-CM 401.9) Active Condition [facility] Hypertrophy (Benign) of Prostate with Urinary obstruction (ICD-9-CM 600.01) Active Condition [facility] Impotence of organic origin (SNOMED CT 046740740) Active Condition [facility] Nicotine dependence Active Condition [facility] Nocturia * (ICD-9-CM 788.43) Active Condition [facility] Obesity Active Condition [facility] Obstructive sleep apnea Active Condition Feb 23, 2018 Entered By: COLT RAND Comment: on CPAP [facility] Screening for Malignant Neoplasms of colon Active Condition Nov 17, 2010 Entered By: KATHY ASHTON III Comment: cscope 2009: diverticulosis; f/u due 2014 due to fhx [facility] Tinnitus Active Condition [facility] Tinnitus (SNOMED CT 64092313) Active Condition [facility] Tobacco dependence syndrome (SNOMED CT 56220196) Active Condition [facility] Tobacco dependence, continuous Active Condition [facility] Type 2 diabetes mellitus Active Condition [facility] Diagnosis: ICD-10-CM J44.9 Chronic obstructive pulmonary disease, unspecified Active Diagnosis [facility] Diagnosis: ICD-10-CM Z12.2 Encntr screen for malignant neoplasm of respiratory organs Active Diagnosis [facility] Diagnosis: ICD-10-CM I10 Essential (primary) hypertension Active Diagnosis [place] Diagnosis: ICD-10-CM L43.9 Lichen planus, unspecified Active Diagnosis [facility] Diagnosis: ICD-10-CM Z01.818 Encounter for other preprocedural examination Active Diagnosis [place] Diagnosis: ICD-10-CM M62.81 Muscle weakness (generalized) Active Diagnosis [place] Diagnosis: ICD-10-CM Z46.0 Encounter for fit/adjst of spectacles and contact lenses Active Diagnosis [facility] Diagnosis: ICD-10-CM H53.2 Diplopia Active Diagnosis [facility] Diagnosis: ICD-10-CM K21.9 Gastro-esophageal reflux disease without esophagitis Active Diagnosis [facility] Diagnosis: ICD-10-CM R06.00 Dyspnea, unspecified Active Diagnosis [place] Diagnosis: ICD-10-CM L23.9 Allergic contact dermatitis, unspecified cause Active Diagnosis [facility] [place] Diagnosis: ICD-10-CM R60.9 Edema, unspecified Active Diagnosis [facility] Diagnosis: ICD-10-CM L03.90 Cellulitis, unspecified Active Diagnosis [place] Diagnosis: ICD-10-CM R26.9 Unspecified abnormalities of gait and mobility Active Diagnosis [facility] [place] Diagnosis: ICD-10-CM L03.115 Cellulitis of right lower limb Active Diagnosis [place] Diagnosis: ICD-10-CM M25.561 Pain in right knee Active Diagnosis [facility] Diagnosis: ICD-10-CM Z46.1 Encounter for fitting and adjustment of hearing aid Active Diagnosis [facility] Medications Combined list of outpatient medications from Department of Defense and Veterans Affairs facilities.Medications provided include 1) outpatient medications from the last 15 months, and 2) patient-reported medications. Medication Details Route Status Patient Instructions Prescription Expires Prescription Number Last Dispense Date Ordering Provider Order Date Order Qty Source ACITRETIN 25MG CAP TAKE ONE CAPSULE BY MOUTH ONCE DAILY ORAL ACTIVE 09/18/2024 [id number] CAPUA,SOF [place] 2024 90 [facility] ALBUTEROL 90MCG/ACTUA T (CFC-F) INHL,ORAL,8 .5GM DOSE COUNTER INHALE 2 PUFFS BY MOUTH EVERY 6 HOURS NEEDED FOR WHEEZING RESPIR ATORY (INHAL ATION) 04/10/2024 [id number] 4 KORI RAND SA 2022 1 [place] AMLODIPINE BESYLATE 10MG TAB TAKE ONE TABLET BY MOUTH ONCE DAILY FOR BLOOD PRESSURE /HEART, DO NOT TAKE WITH GRAPEFRU IT JUICE ORAL ACTIVE 01/11/2025 [id number] 4 KORI RAND SA 2023 90 [place] AMLODIPINE BESYLATE 2.5MG TAB TAKE THREE TABLETS BY MOUTH ONCE DAILY FOR BLOOD PRESSURE /HEART, DO NOT TAKE WITH GRAPEFRU IT JUICE ORAL DISCONT INUED (EDIT) 11/16/2024 [id number] 4 KORI RAND SA 2023 270 [place] AMLODIPINE BESYLATE 2.5MG TAB TAKE THREE TABLETS BY MOUTH ONCE DAILY FOR BLOOD PRESSURE /HEART, DO NOT TAKE WITH GRAPEFRU IT JUICE ORAL DISCONT INUED 09/06/2024 [id number] 4 KORI RAND SA 2023 270 [place] AMLODIPINE BESYLATE 2.5MG TAB TAKE THREE TABLETS BY MOUTH ONCE DAILY FOR BLOOD PRESSURE /HEART, DO NOT TAKE WITH GRAPEFRU IT JUICE ORAL DISCONT INUED 11/25/2023 [id number] KORI RAND SA 2022 270 [place] ATORVASTATI N CA 40MG TAB TAKE ONE-HALF TABLET BY MOUTH AT BEDTIME FOR CHOLESTE ROL ORAL ACTIVE 04/02/2025 [id number] 5 KORI RAND SA 2023 45 [place] ATORVASTATI N CA 40MG TAB TAKE ONE-HALF TABLET BY MOUTH AT BEDTIME FOR CHOLESTE ROL ORAL DISCONT INUED 02/08/2024 [id number] 4 KORI RAND SA 2022 45 [place] CLOBETASOL PROPIONATE 0.05% OINT,TOP APPLY THIN LAYER TOPICALL Y TWICE DAILY NEEDED FOR ITCHING/ RASH FOR ITCHING AND FLARE. MAX 14D/M TOPICA L ACTIVE 03/29/2025 [id number] 5 YOUNG HUSSEIN 2023 60 [facility] DICLOFENAC NA 1% GEL,TOP APPLY 2 GRAMS TOPICALL Y FOUR TIMES A DAY FOR RIGHT KNEE OSTEOART HRITIS - USE DOSING CARD PROVIDED IN BOX DAPHNE Law 04/10/2024 [id number] 4 KORI RAND SA 2022 100 [place] FINASTERIDE 5MG TAB TAKE ONE TABLET BY MOUTH ONCE DAILY FOR ENLARGED PROSTATE ORAL ACTIVE 03/21/2025 [id number] 5 JIMMIE BELL MD 2023 90 [facility] FINASTERIDE 5MG TAB TAKE ONE TABLET BY MOUTH ONCE DAILY ORAL 01/18/2024 [id number] CALLI MCGILL 2022 90 [place] IVERMECTIN 3MG TAB TAKE FIVE TABLETS BY MOUTH DIRECTED BY PROVIDER ONCE ON 08/20/23 ORAL 09/17/2023 [id number] KOMAL BARRIENTOS KENYA 2023 5 [facility] LEVOFLOXACI N 750MG TAB TAKE ONE TABLET BY MOUTH ONCE DAILY FOR INFECTIO N CAUSED BY BACTERIA ORAL 09/23/2023 [id number] 4 SARAH BETH DUNAWAY 2023 10 [place] LORATADINE 10MG TAB TAKE ONE TABLET BY MOUTH EVERY EVENING FOR ALLERGY ORAL 10/15/2023 [id number] 4 ERI XAVIER NP 2023 30 [facility] NICOTINE 14MG/24HRS PATCH APPLY 1 PATCH TO SKIN ONCE DAILY FOR SMOKING CESSATIO N (REMOVE OLD PATCH BEFORE APPLYING NEW PATCH) TRANSD ERMAL ACTIVE 01/11/2025 [id number] 5 KORI RAND SA 2023 28 [place] OMEPRAZOLE 20MG CAP,EC TAKE ONE CAPSULE BY MOUTH TWICE DAILY FOR GASTROES OPHAGEAL REFLUX DISEASE ORAL ACTIVE 10/31/2024 [id number] 4 KORI RAND SA 2023 60 [place] OXYCODONE HCL 5MG TAB TAKE ONE TABLET BY MOUTH FOUR TIMES DAILY NEEDED FOR PAIN ORAL 09/23/2023 [id number] 4 SARAH BETH DUNAWAY 2023 40 [place] PERMETHRIN 5% CREAM APPLY A THIN LAYER TOPICALL Y AT BEDTIME FOR SCABIES AT BEDTIME FROM NECK DOWN. WASH OFF IN THE MORNING. MAY REPEAT IN 1 WEEK IF NEEDED TOPICA L DISCONT INUED BY PROVIDE R 06/22/2024 [id number] KORI RAND SA 2023 60 [place] SILDENAFIL CITRATE 100MG TAB TAKE ONE TABLET BY MOUTH ONCE DAILY NEEDED TAKE 1 HOUR PRIOR TO SEXUAL ACTIVITY ORAL ACTIVE 09/06/2024 [id number] 5 KORI RAND SA 2023 18 [place] SILDENAFIL CITRATE 100MG TAB TAKE ONE TABLET BY MOUTH ONCE DAILY NEEDED TAKE 1 HOUR PRIOR TO SEXUAL ACTIVITY ORAL DISCONT INUED 04/26/2024 [id number] 4 KORI RAND SA 2022 6 [place] TAMSULOSIN HCL 0.4MG CAP TAKE ONE CAPSULE BY MOUTH EVERY EVENING AT BEDTIME FOR ENLARGED PROSTATE ORAL ACTIVE 12/18/2024 [id number] 5 JIMMIE BELL MD 2023 90 [facility] TAMSULOSIN HCL 0.4MG CAP TAKE ONE CAPSULE BY MOUTH AT BEDTIME DIRECTED BY PROVIDER ORAL DISCONT INUED 10/05/2024 [id number] 4 KORI RAND SA 2023 30 [place] TAMSULOSIN HCL 0.4MG CAP TAKE ONE CAPSULE BY MOUTH AT BEDTIME DIRECTED BY PROVIDER - STOP TAKING TERAZOSI N ORAL DISCONT INUED 10/08/2023 [id number] JAMES ESCALANTE RY D 2023 10 [place] TAMSULOSIN HCL 0.4MG CAP TAKE ONE CAPSULE BY MOUTH AT BEDTIME DIRECTED BY PROVIDER - STOP TAKING TERAZOSI N ORAL 08/08/2023 [id number] JAMES ESCALANTE RY D 2022 30 [place] TRIAMCINOLO NE ACETONIDE 0.1% CREAM,TOP APPLY A THIN LAYER TOPICALL Y EVERY 12 HOURS NEEDED FOR ITCHING TOPICA L 12/16/2023 [id number] 4 XAVIERERI Escobedo SECRETARY BOOK KEEPER 2023 454 [facility] TRIAMCINOLO NE ACETONIDE 0.1% OINT,TOP APPLY THIN LAYER TOPICALL Y TWICE DAILY NEEDED TOPICA L ACTIVE 03/29/2025 [id number] YOUNG HUSSEIN 2023 454 [facility] TRIAMCINOLO NE ACETONIDE 0.1% OINT,TOP APPLY THIN LAYER TOPICALL Y TWICE DAILY FOR ITCHING TOPICA L DISCONT INUED 11/05/2023 [id number] KORI RAND SA 2023 80 [place] TRIAMCINOLO NE ACETONIDE 0.1% OINT,TOP APPLY THIN LAYER TOPICALL Y TWICE DAILY NEEDED FOR ITCHING TOPICA L 01/07/2024 [id number] 4 XAVIERERI SECRETARY BOOK KEEPER 2023 160 [facility] TRIAMCINOLO NE ACETONIDE 0.1% OINT,TOP APPLY THIN LAYER TOPICALL Y EVERY 12 HOURS NEEDED FOR ITCHING TOPICA L 10/15/2023 [id number] 4 XAVIERERI Escobedo SECRETARY BOOK KEEPER 2023 454 [facility] VITAMIN A/VITAMIN D OINT,TOP APPLY SMALL AMOUNT TOPICALL Y TWICE DAILY NEEDED FOR SKIN PROTECTI ON TOPICA L 10/15/2023 [id number] 4 ERI XAVIER SECRETARY BOOK KEEPER 2023 180 [facility] VITAMIN B COMPLEX CAP TAKE 1 CAPSULE BY MOUTH ONCE DAILY FOR VITAMIN SUPPLEME NTATION ORAL 04/10/2024 [id number] 4 KORI RAND SA 2022 100 [place] Allergies, Adverse Reactions, Alerts Combined list of allergies from Department of Defense and Veterans Affairs facilities. It does not include entries that were removed or entered in error. Substance Category Reaction Severity Reaction type Status Date Reported Comments Source TETRACYCLINE Propensity to adverse reactions to drug (finding) Nausea and vomiting, Itching of eye, Eruption active 0 [facility] TETRACYCLINE Propensity to adverse reactions to drug (finding) Nausea, Finding of vomiting active 5 [facility] TETRACYCLINE Propensity to adverse reactions to drug (finding) active 9 [facility] TETRACYCLINE Propensity to adverse reactions to drug (finding) Stomach cramps, Nausea and vomiting active 9 [facility] Immunizations Combined list of available immunizations from the Department of Defense and Veterans Affairs facilities. Immunization Series Date Given Administered By Site Reaction Lot Number CVX Code Drug Equipment Scheduler Status Comments Source ZOSTER RECOMBINANT 1 2023 MARGIE GONGORA ON M LEFT DELTO ID [id number] 187 complet ed [place] COVID-19 (MODERNA), MRNA, LNP-S, PF, 50 MCG/0.5 ML (AGES 12+ YEARS) 2023 MARGIE GONGORA ON M RIGHT DELTO ID [id number] 312 complet ed [place] INFLUENZA, SPLIT VIRUS, TRIVALENT, PF 2023 MARGIE GONGORA ON M LEFT DELTO ID [id number] 140 complet ed [place] INFLUENZA, INJECTABLE, QUADRIVALENT, PRESERVATIVE FREE 2022 MARGIE GONGORA ON M LEFT DELTO ID [id number] 150 complet ed [place] COVID-19 (MODERNA), MRNA, LNP-S, PF, 100 MCG/0.5ML DOSE OR 50 MCG/0.25ML DOSE 3 2021 207 complet ed [facility] COVID-19 (MODERNA), MRNA, LNP-S, PF, 100 MCG/0.5 ML DOSE 2 2020 207 complet ed MOD; [id number]; 1 [place] COVID-19 (MODERNA), MRNA, LNP-S, PF, 100 MCG/0.5 ML DOSE 1 2020 207 complet ed MOD; [id number]; 1 [place] TDAP (HISTORICAL) 2015 115 complet ed [facility] INFLUENZA, SEASONAL, INJECTABLE 2015 141 complet ed [facility] TD(ADULT) UNSPECIFIED FORMULATION 2015 139 complet ed [facility] INFLUENZA, UNSPECIFIED FORMULATION 2014 88 complet ed [employer]/# [id number] [facility] INFLUENZA, UNSPECIFIED FORMULATION 2011 88 complet ed [employer]/ Lot# [id number] [facility] INFLUENZA (HISTORICAL) 2010 88 complet ed INFLUENZA MANUF/LOT #: SANOFI PASTEUR/U [id number] [facility] V7 PNEUMOCOCCAL (HISTORICAL) 2010 NONE 109 complet ed Left Deltoid [facility] PNEUMOCOCCAL POLYSACCHARID E PPV23 2010 33 complet ed [facility] HEP A-HEP B 2010 NONE 104 complet ed [facility] HEPATITIS B VACCINE (HISTORICAL) 2010 43 complet ed [facility] HEP A-HEP B 2 2009 104 complet ed [facility] HEP A-HEP B 1 2009 104 complet ed [facility] INFLUENZA (HISTORICAL) 2009 NONE 88 complet ed 0.5cc R Deltoid, Lot #[id number] A/Exp.10/29 [facility] NOVEL INFLUENZA-H1N 1-09, ALL FORMULATIONS 2009 128 complet ed [facility] Results Combined list of recent chemistry, hematology and other laboratory results from Department of Defense and Veterans Affairs, ranging from 15 months to all on record, depending upon the facility. Order Name Results Value Reference Range Date Interpretation Specimen Comments Source MICROALBU MIN CREATININ E RATIO PANEL MICROALBUMI N/CREATININ E [MASS RATIO] IN URINE 17.6 mg/g 0 - 29.9 03/07 Specimen Type: URINE No comment entered. Ordering Provider: COLT RAND Report Released Date/Time: Sep 06, 2023 04:01 PM Reporting Lab: [facility] [place] [facility] [address] [facility] [address] Performing Lab: [facility] [place] [facility] [address] [facility] [address] [facility] [facility] MICROALBU MIN CREATININ E RATIO PANEL MICROALBUMI N [MASS/VOLUM E] IN URINE 2.8 mg/dL 03/07 Specimen Type: URINE No comment entered. Ordering Provider: COLT RAND Report Released Date/Time: Sep 06, 2023 04:01 PM Reporting Lab: [facility] [place] [facility] [address] [facility] [address] Performing Lab: [facility] [place] [facility] [address] [facility] [address] [facility] [place] [facility] MICROALBU MIN CREATININ E RATIO PANEL CREATININE [MASS/VOLUM E] IN URINE 158.84 mg/dL 03/07 Specimen Type: URINE No comment entered. Ordering Provider: COLT RAND Report Released Date/Time: Sep 06, 2023 04:01 PM Reporting Lab: [facility] [place] [facility] [address] [facility] [address] Performing Lab: [facility] [place] [facility] [address] [facility] [address] [facility] LIPID PANEL FASTING CHOLESTEROL [MASS/VOLUM E] IN SERUM OR PLASMA 193 mg/dL 03/06 Specimen Type: SERUM No comment entered. Ordering Provider: COLT RAND Report Released Date/Time: Sep 06, 2023 04:01 PM Reporting Lab: [facility] [place] [facility] [address] [facility] [address] Performing Lab: [facility] [place] [facility] [address] [facility] [address] [facility] [place] [facility] LIPID PANEL FASTING TRIGLYCERID E [MASS/VOLUM E] IN SERUM OR PLASMA 221 mg/dL 0 - 150 03/06 H Specimen Type: SERUM No comment entered. Ordering Provider: COLT RAND Report Released Date/Time: Sep 06, 2023 04:01 PM Reporting Lab: [facility] [place] [facility] [address] [facility] [address] Performing Lab: [facility] [place] [facility] [address] [facility] [address] [facility] [place] [facility] LIPID PANEL FASTING CHOLESTEROL IN LDL [MASS/VOLUM E] IN SERUM OR PLASMA BY CALCULATION 113 mg/dL 0 - 129 03/06 Specimen Type: SERUM No comment entered. Ordering Provider: COLT RAND Report Released Date/Time: Sep 06, 2023 04:01 PM Reporting Lab: [facility] [place] [facility] [address] [facility] [address] Performing Lab: [facility] [place] [facility] [address] [facility] [address] [facility] LIPID PANEL FASTING CHOLESTEROL .TOTAL/CHOL ESTEROL IN HDL [MASS RATIO] IN SERUM OR PLASMA 5.4 03/06 Specimen Type: SERUM No comment entered. Ordering Provider: COLT RAND Report Released Date/Time: Sep 06, 2023 04:01 PM Reporting Lab: [facility] [place] [facility] [address] [facility] [address] Performing Lab: [facility] [place] [facility] [address] [facility] [address] [facility] [place] [facility] LIPID PANEL FASTING CHOLESTEROL IN HDL [MASS/VOLUM E] IN SERUM OR PLASMA 36 mg/dL 40 - 60 03/06 L Specimen Type: SERUM No comment entered. Ordering Provider: COLT RAND Report Released Date/Time: Sep 06, 2023 04:01 PM Reporting Lab: [facility] [place] [facility] [address] [facility] [address] Performing Lab: [facility] [place] [facility] [address] [facility] [address] [facility] [place] [facility] LIVER FUNCTION PROTEIN [MASS/VOLUM E] IN SERUM OR PLASMA 7.5 g/dL 6.0 - 8.3 03/06 Specimen Type: SERUM No comment entered. Ordering Provider: COLT RAND Report Released Date/Time: Sep 06, 2023 04:01 PM Reporting Lab: [facility] [place] [facility] [address] [facility] [address] Performing Lab: [facility] [place] [facility] [address] [facility] [address] [facility] [place] [facility] LIVER FUNCTION ALBUMIN [MASS/VOLUM E] IN SERUM OR PLASMA 4.4 g/dL 3.5 - 5.0 03/06 Specimen Type: SERUM No comment entered. Ordering Provider: COLT RAND Report Released Date/Time: Sep 06, 2023 04:01 PM Reporting Lab: [facility] [place] [facility] [address] [facility] [address] Performing Lab: [facility] [place] [facility] [address] [facility] [address] [facility] [place] [facility] LIVER FUNCTION ALKALINE PHOSPHATASE [ENZYMATIC ACTIVITY/VO LUME] IN SERUM OR PLASMA 79 U/L 40 - 150 03/06 Specimen Type: SERUM No comment entered. Ordering Provider: COLT RAND Report Released Date/Time: Sep 06, 2023 04:01 PM Reporting Lab: [facility] [place] [facility] [address] [facility] [address] Performing Lab: [facility] [place] [facility] [address] [facility] [address] [facility] [place] [facility] LIVER FUNCTION ASPARTATE AMINOTRANSF ERASE [ENZYMATIC ACTIVITY/VO LUME] IN SERUM OR PLASMA 18 U/L 5 - 34 03/06 Specimen Type: SERUM No comment entered. Ordering Provider: COLT RAND Report Released Date/Time: Sep 06, 2023 04:01 PM Reporting Lab: [facility] [address] Performing Lab: [facility] [address] [facility] LIVER FUNCTION ALANINE AMINOTRANSF ERASE [ENZYMATIC ACTIVITY/VO LUME] IN SERUM OR PLASMA 16 U/L 03/06 Specimen Type: SERUM No comment entered. Ordering Provider: COLT RAND Report Released Date/Time: Sep 06, 2023 04:01 PM Reporting Lab: [facility] [address] Performing Lab: [facility] [phone] [place], [place] [address] [facility] LIVER FUNCTION BILIRUBIN.T OTAL [MASS/VOLUM E] IN SERUM OR PLASMA 0.8 mg/dL 0.2 - 1.2 03/06 Specimen Type: SERUM No comment entered. Ordering Provider: COLT RAND Report Released Date/Time: Sep 06, 2023 04:01 PM Reporting Lab: [facility] [address] [address] Performing Lab: [phone] [place], [place] [id number] [facility] HEMOGLOBI N A1C PANEL HEMOGLOBIN A1C/HEMOGLO BIN.TOTAL IN BLOOD BY HPLC 4.9 4.0 - 5.6 03/06 Specimen Type: BLOOD Comment: Values obtained from A1C measurement s can vary. For atypical A1C assays, a reported value of 7.0 could actually be between 6.72 and 7.28 if measured by a reference method. A reported value of 9.0 could actually be between 8.73 and 9.27. Ref: [email or web address]://[email or web address]/[place] [email or web address] Ordering Provider: CLOT RAND Report Released Date/Time: Sep 06, 2023 04:01 PM Reporting [facility] [place] [id number] Performing Lab: [facility] [address] [facility] [address] [facility] BASIC METABOLIC PANEL (fasting) UREA NITROGEN [MASS/VOLUM E] IN SERUM OR PLASMA 12 mg/dL 7 - 25 03/06 Specimen Type: SERUM No comment entered. Ordering Provider: COLT RAND Report Released Date/Time: Sep 06, 2023 04:01 PM Reporting Lab: [facility] [place] [facility] [address] [facility] [address] Performing Lab: [facility]USE[facility] [address] [facility] [address] [facility]RDECAT[facility]ITALN [facility] BASIC METABOLIC PANEL (fasting) GLUCOSE [MASS/VOLUM E] IN SERUM OR PLASMA 119 mg/dL 65 - 100 03/06 H Specimen Type: SERUM No comment entered. Ordering Provider: COLT RAND Report Released Date/Time: Sep 06, 2023 04:01 PM Reporting Lab: [facility] [address] [facility] [address] Performing Lab: [facility] [address] [facility] [address] [facility]N [facility] BASIC METABOLIC PANEL (fasting) SODIUM [MOLES/VOLU ME] IN SERUM OR PLASMA 142 mmol/L 135 - 145 03/06 Specimen Type: SERUM No comment entered. Ordering Provider: COLT RAND Report Released Date/Time: Sep 06, 2023 04:01 PM Reporting Lab: [facility] [address] [facility] [address] Performing Lab: [facility] [address] [facility] [address] [facility]ITALRSEARCY HOSPITALTRN [facility]USE [facility] BASIC METABOLIC PANEL (fasting) POTASSIUM [MOLES/VOLU ME] IN SERUM OR PLASMA 3.4 mmol/L 3.5 - 5.0 03/06 L Specimen Type: SERUM No comment entered. Ordering Provider: COLT RAND Report Released Date/Time: Sep 06, 2023 04:01 PM Reporting Lab: [facility] [place] [facility] [address] [facility] [address] Performing Lab: [facility] [place] [facility] [address] [facility] [address] [facility] [place] [facility] BASIC METABOLIC PANEL (fasting) CHLORIDE [MOLES/VOLU ME] IN SERUM OR PLASMA 105 mmol/L 100 - 110 03/06 Specimen Type: SERUM No comment entered. Ordering Provider: COLT RAND Report Released Date/Time: Sep 06, 2023 04:01 PM Reporting Lab: [facility] [place] [facility] [address] [facility] [address] Performing Lab: [facility] [place] [facility] [address] [facility] [address] [facility] [place] [facility] BASIC METABOLIC PANEL (fasting) CARBON DIOXIDE, TOTAL [MOLES/VOLU ME] IN SERUM OR PLASMA 26 meq/L 20 - 30 03/06 Specimen Type: SERUM No comment entered. Ordering Provider: COLT RAND Report Released Date/Time: Sep 06, 2023 04:01 PM Reporting Lab: [facility] [place] [facility] [address] [facility] [address] Performing Lab: [facility] [place] [facility] [address] [facility] [address] [facility] [place] [facility] BASIC METABOLIC PANEL (fasting) CREATININE [MASS/VOLUM E] IN SERUM OR PLASMA 1.35 mg/dL 0.50 - 1.40 03/06 Specimen Type: SERUM No comment entered. Ordering Provider: COLT RAND Report Released Date/Time: Sep 06, 2023 04:01 PM Reporting Lab: [facility] [place] [facility] [address] [facility] [address] Performing Lab: [facility] [place] [facility] [address] [facility] [address] [facility] [place] [facility] BASIC METABOLIC PANEL (fasting) GLOMERULAR FILTRATION RATE/1.73 SQ M.PREDICTED [VOLUME RATE/AREA] IN SERUM, PLASMA OR BLOOD BY CREATININE- BASED FORMULA (CKD-EPI 2020) 58 mL/min 60 03/06 L Specimen Type: SERUM No comment entered. Ordering Provider: COLT RAND Report Released Date/Time: Sep 06, 2023 04:01 PM Reporting Lab: [facility] [place] [address] [address] Performing Lab: [facility] [place] [address] [address] [facility] [place] [facility] CBC AND DIFF (AUTO) LEUKOCYTES [#/VOLUME] IN BLOOD BY AUTOMATED COUNT 5.25 10*3/u L 4.50 - 11.00 09/07 Specimen Type: BLOOD No comment entered. Ordering Provider: COLT RAND Report Released Date/Time: Sep 08, 2023 11:41 AM Reporting Lab: [facility] [place] [address] [address] Performing Lab: [facility] [place] [address] [address] [place] CBC AND DIFF (AUTO) ERYTHROCYTE S [#/VOLUME] IN BLOOD BY AUTOMATED COUNT 3.74 10*6/u L 4.23 - 5.66 09/07 L Specimen Type: BLOOD No comment entered. Ordering Provider: COLT RAND Report Released Date/Time: Sep 08, 2023 11:41 AM Reporting Lab: [facility] [place] [address] [address] Performing Lab: [facility] [place] [address] [address] [place] CBC AND DIFF (AUTO) HEMOGLOBIN [MASS/VOLUM E] IN BLOOD 11.6 g/dL 12.8 - 17 09/07 L Specimen Type: BLOOD No comment entered. Ordering Provider: COLT RAND Report Released Date/Time: Sep 08, 2023 11:41 AM Reporting Lab: [facility] [place] [address] [address] Performing Lab: [facility] [place] [address] [address] [place] CBC AND DIFF (AUTO) HEMATOCRIT [VOLUME FRACTION] OF BLOOD BY AUTOMATED COUNT 35.7 39.2 - 50.4 09/07 L Specimen Type: BLOOD No comment entered. Ordering Provider: COLT RAND Report Released Date/Time: Sep 08, 2023 11:41 AM Reporting Lab: [facility] [facility] [address] [address] Performing Lab: [facility]PITALRSEARCY HOSPITALTRN [facility] CENTERUSE[address] [address] [place] CBC AND DIFF (AUTO) MCV [ENTITIC VOLUME] BY AUTOMATED COUNT 95.5 fL 82 - 99 09/07 Specimen Type: BLOOD No comment entered. Ordering Provider: COLT RAND Report Released Date/Time: Sep 08, 2023 11:41 AM Reporting Lab: [facility]ITALRDECATUR [facility]OSPITALN [address] [address] Performing Lab: [facility]N [facility] CENTERUSE[address] [address] [place] CBC AND DIFF (AUTO) MCHC [MASS/VOLUM E] BY AUTOMATED COUNT 32.5 g/dL 30.8 - 35.1 09/07 Specimen Type: BLOOD No comment entered. Ordering Provider: COLT RAND Report Released Date/Time: Sep 08, 2023 11:41 AM Reporting Lab: [facility]ITALRDECATUR [facility]PITALN [address] [address] Performing Lab: [facility]ITALRSEARCY HOSPITALTRN [facility] CENTERUSE[address] [address] [place] CBC AND DIFF (AUTO) PLATELETS [#/VOLUME] IN BLOOD BY AUTOMATED COUNT 215 10*3/u L 140 - 360 09/07 Specimen Type: BLOOD No comment entered. Ordering Provider: COLT RAND Report Released Date/Time: Sep 08, 2023 11:41 AM Reporting Lab: [facility] [address] [address] Performing Lab: [facility]ITALRSEARCY HOSPITALTRN [facility] CENTERUSE[address] [address] [place] CBC AND DIFF (AUTO) ERYTHROCYTE DISTRIBUTIO N WIDTH [RATIO] BY AUTOMATED COUNT 16.5 12.0 - 16.0 09/07 H Specimen Type: BLOOD No comment entered. Ordering Provider: COLT RAND Report Released Date/Time: Sep 08, 2023 11:41 AM Reporting Lab: [facility] [place] [address] [address] Performing Lab: [facility] [place] [address] [address] [place] CBC AND DIFF (AUTO) MONOCYTES [#/VOLUME] IN BLOOD BY AUTOMATED COUNT 0.35 10*3/u L 0.30 - 1.10 09/07 Specimen Type: BLOOD No comment entered. Ordering Provider: COLT RNAD Report Released Date/Time: Sep 08, 2023 11:41 AM Reporting Lab: [facility] [place] [address] Performing Lab: [facility] [place] [address] [address] [place] CBC AND DIFF (AUTO) MCH [ENTITIC MASS] BY AUTOMATED COUNT 31.0 pg 26.2 - 32.6 09/07 Specimen Type: BLOOD No comment entered. Ordering Provider: COLT RAND Report Released Date/Time: Sep 08, 2023 11:41 AM Reporting Lab: [facility] [place] [address] [address] Performing Lab: [facility] [place] [address] [address] [place] CBC AND DIFF (AUTO) NEUTROPHILS /100 LEUKOCYTES IN BLOOD BY AUTOMATED COUNT 43.2 43.7 - 75.8 09/07 L Specimen Type: BLOOD No comment entered. Ordering Provider: COLT RAND Report Released Date/Time: Sep 08, 2023 11:41 AM Reporting Lab: [facility] [place] [address] [address] Performing Lab: [facility] [place] [address] [address] [place] CBC AND DIFF (AUTO) LYMPHOCYTES /100 LEUKOCYTES IN BLOOD BY AUTOMATED COUNT 41.9 14.0 - 42.3 09/07 Specimen Type: BLOOD No comment entered. Ordering Provider: COLT RAND Report Released Date/Time: Sep 08, 2023 11:41 AM Reporting Lab: [facility] [address] [address] Performing Lab: [facility]ENTERUSETS [address] [address] [place] CBC AND DIFF (AUTO) MONOCYTES/1 00 LEUKOCYTES IN BLOOD BY AUTOMATED COUNT 6.7 5.1 - 13.7 09/07 Specimen Type: BLOOD No comment entered. Ordering Provider: COLT RAND Report Released Date/Time: Sep 08, 2023 11:41 AM Reporting Lab: [facility]ITALRSEARCY HOSPITALTRN [address] [address] Performing Lab: [facility] TRN [facility]ENTERUSE[address] [address] [place] CBC AND DIFF (AUTO) EOSINOPHILS /100 LEUKOCYTES IN BLOOD BY AUTOMATED COUNT 7.6 0.4 - 6.8 09/07 H Specimen Type: BLOOD No comment entered. Ordering Provider: COLT RAND Report Released Date/Time: Sep 08, 2023 11:41 AM Reporting Lab: [facility]ENTERUSETS [address] [address] Performing Lab: [facility]ITALRSEARCY HOSPITALTRN [facility]ENTERUSE[address] [address] [place] CBC AND DIFF (AUTO) BASOPHILS/1 00 LEUKOCYTES IN BLOOD BY AUTOMATED COUNT 0.4 0.1 - 2.0 09/07 Specimen Type: BLOOD No comment entered. Ordering Provider: COLT RAND Report Released Date/Time: Sep 08, 2023 11:41 AM Reporting Lab: [facility]ENTERUSETS [address] [address] Performing Lab: [facility]ENTERUSETS [address] [address] [place] CBC AND DIFF (AUTO) NEUTROPHILS [#/VOLUME] IN BLOOD BY AUTOMATED COUNT 2.27 10*3/u L 2.20 - 7.60 09/07 Specimen Type: BLOOD No comment entered. Ordering Provider: COLT RAND Report Released Date/Time: Sep 08, 2023 11:41 AM Reporting Lab: [facility] [place] [facility] [address] [address] Performing Lab: [facility] [address] [address] [place] CBC AND DIFF (AUTO) LYMPHOCYTES [#/VOLUME] IN BLOOD BY AUTOMATED COUNT 2.20 10*3/u L 1.00 - 3.20 09/07 Specimen Type: BLOOD No comment entered. Ordering Provider: COLT RAND Report Released Date/Time: Sep 08, 2023 11:41 AM Reporting Lab: [facility] TRN [address] [address] Performing Lab: [facility]ITALRDECATUR [facility]ITALN [address] [address] [place] CBC AND DIFF (AUTO) EOSINOPHILS [#/VOLUME] IN BLOOD BY AUTOMATED COUNT 0.40 10*3/u L 0.03 - 0.44 09/07 Specimen Type: BLOOD No comment entered. Ordering Provider: COLT RAND Report Released Date/Time: Sep 08, 2023 11:41 AM Reporting Lab: [facility] TRN [address] [address] Performing Lab: [facility]ENTERUSE[address] [address] [place] CBC AND DIFF (AUTO) BASOPHILS [#/VOLUME] IN BLOOD BY AUTOMATED COUNT 0.02 10*3/u L 0.01 - 0.13 09/07 Specimen Type: BLOOD No comment entered. Ordering Provider: COTL RAND Report Released Date/Time: Sep 08, 2023 11:41 AM Reporting Lab: [facility]ENTERUSE[address] [address] Performing Lab: [facility]ENTERUSE[address] [address] [place] CBC AND DIFF (AUTO) IMMATURE GRANULOCYTE S/100 LEUKOCYTES IN BLOOD BY AUTOMATED COUNT 0.2 0.0 - 0.7 09/07 Specimen Type: BLOOD No comment entered. Ordering Provider: COLT RAND Report Released Date/Time: Sep 08, 2023 11:41 AM Reporting Lab: [address] [address] Performing Lab: [address] [address] [facility] [place] CBC AND DIFF (AUTO) IMMATURE GRANULOCYTE S [#/VOLUME] IN BLOOD 0.01 10*3/u L 0.00 - 0.06 09/07 Specimen Type: BLOOD No comment entered. Ordering Provider: COLT RAND Report Released Date/Time: Sep 08, 2023 11:41 AM Reporting Lab: [address] [address] Performing Lab: [address] [address] [facility] [place] TRAMADOL PNL ([facility]) TRAMADOL CUTOFF [MASS/VOLUM E] IN URINE FOR CONFIRMATOR Y METHOD NEGATI VEng/m L 08/28 Specimen Type: URINE Comment: REFERENCE RANGE: <100 ng/mL REFERENCE RANGE: <100 ng/mL See LDT message Test Performed by [facility], [employer] [facility], [address] [place] [address] Arturo Wilhelm M.D., Ph.D., Director of Laboratorie s , CLIA [id number] This drug testing is for medical treatment only. Analysis was performed as non-forensi c testing and these results should be used only by healthcare providers to render diagnosis or treatment, or to monitor progress of medical conditions. LDT Message: This test was developed and its analytical performance characteris tics have been determined by [email or web address] [place], [place]. It has not been cleared or approved by the U.S. Food and Drug Administrat ion. This assay has been validated pursuant to the CLIA regulations and is used for clinical purposes. Healthcare Providers needing Interpretat ion assistance, please contact us at [phone] ([phone]) M-F, 8am to 10pm EST TEST PERFORMED AT: , Ordering Provider: COLT RAND Report Released Date/Time: Aug 24, 2023 02:13 PM Reporting Lab: [facility]N [facility]ENTERUSE[facility] [address] [facility] [address] Performing Lab: [facility]N [facility] CENTERUSEREBEKAH VIL[place] [id number] [address] [facility] TRAMADOL PNL ([facility]) NORTRAMADOL [MASS/VOLUM E] IN URINE NEGATI VEng/m L 08/28 Specimen Type: URINE Comment: REFERENCE RANGE: <100 ng/mL REFERENCE RANGE: <100 ng/mL See LDT message Test Performed by [facility] [employer] [facility], [address] [place] [address] Arturo Wilhelm M.D., Ph.D., Director of Laboratorie s , CLIA [id number] This drug testing is for medical treatment only. Analysis was performed as non-forensi c testing and these results should be used only by healthcare providers to render diagnosis or treatment, or to monitor progress of medical conditions. LDT Message: This test was developed and its analytical performance characteris tics have been determined by [employer] [place], [place]. It has not been cleared or approved by the U.S. Food and Drug Administrat ion. This assay has been validated pursuant to the CLIA regulations and is used for clinical purposes. Healthcare Providers needing Interpretat ion assistance, please contact us at [phone] [phone] ([phone]) M-F, 8am to 10pm EST TEST PERFORMED AT: , Ordering Provider: COLT RAND Report Released Date/Time: Aug 24, 2023 02:13 PM Reporting Lab: [address] [address] Performing Lab: [facility] [address] [address] [facility] METHADONE SCREEN METHADONE [PRESENCE] IN URINE BY SCREEN METHOD None detect ed(Neg ative) 08/28 L Specimen Type: URINE Comment: THOMAS test are qualitative , any L or H flags only indicate a [place] alert was sent. Ordering Provider: COLT RAND Report Released Date/Time: Aug 24, 2023 02:13 PM Reporting Lab: [facility] [address] [facility] [address] Performing Lab: [facility] [address] [facility] [address] [facility] ALCOHOL, ETHYL URINE PANEL ETHANOL [MASS/VOLUM E] IN URINE NONE-D ETECTE Dmg/dL - 10 08/28 Specimen Type: URINE Comment: Urine with Cr <5 is diluted or substituted . Cr between 5 and 20 is very dilute. Urine with SG of 1.001 or less is diluted or substituted . SG of 1.003 or less is very dilute. Urine with a pH <3 or >11 has been adulterated and is unsuitable for testing by our current method. Urine with pH between 3 and 4 OR 10 and 11 may have been adulterated . Ordering Provider: COLT RAND Report Released Date/Time: Aug 24, 2023 02:13 PM Reporting Lab: [facility] [address] [facility] [address] Performing Lab: [address] [address] [facility] ALCOHOL, ETHYL URINE PANEL PH OF URINE 5.1 [pH] 4 - 10 08/28 Specimen Type: URINE Comment: Urine with Cr <5 is diluted or substituted . Cr between 5 and 20 is very dilute. Urine with SG of 1.001 or less is diluted or substituted . SG of 1.003 or less is very dilute. Urine with a pH <3 or >11 has been adulterated and is unsuitable for testing by our current method. Urine with pH between 3 and 4 OR 10 and 11 may have been adulterated . Ordering Provider: COLT RAND Report Released Date/Time: Aug 24, 2023 02:13 PM Reporting Lab: [address] [address] Performing Lab: [address] [address] [facility] ALCOHOL, ETHYL URINE PANEL CREATININE [MASS/VOLUM E] IN URINE 318.04 mg/dL 20 08/28 Specimen Type: URINE Comment: Urine with Cr <5 is diluted or substituted . Cr between 5 and 20 is very dilute. Urine with SG of 1.001 or less is diluted or substituted . SG of 1.003 or less is very dilute. Urine with a pH <3 or >11 has been adulterated and is unsuitable for testing by our current method. Urine with pH between 3 and 4 OR 10 and 11 may have been adulterated . Ordering Provider: COLT RAND Report Released Date/Time: Aug 24, 2023 02:13 PM Reporting Lab: [address] [address] Performing Lab: [address] [address] [facility] ALCOHOL, ETHYL URINE PANEL SPECIFIC GRAVITY OF URINE 1.031 1.003 - 1.020 08/28 H Specimen Type: URINE Comment: Urine with Cr <5 is diluted or substituted . Cr between 5 and 20 is very dilute. Urine with SG of 1.001 or less is diluted or substituted . SG of 1.003 or less is very dilute. Urine with a pH <3 or >11 has been adulterated and is unsuitable for testing by our current method. Urine with pH between 3 and 4 OR 10 and 11 may have been adulterated . Ordering Provider: COLT RAND Report Released Date/Time: Aug 24, 2023 02:13 PM Reporting Lab: [address] [address] Performing Lab: [address] [address] [facility] FENTANYL SCREEN PANEL FENTANYL [PRESENCE] IN URINE BY SCREEN METHOD NONE-D ETECTE Dng/mL 08/28 Specimen Type: URINE Comment: Urine with Cr <5 is diluted or substituted . Cr between 5 and 20 is very dilute. Urine with SG of 1.001 or less is diluted or substituted . SG of 1.003 or less is very dilute. Urine with a pH <3 or >11 has been adulterated and is unsuitable for testing by our current method. Urine with pH between 3 and 4 OR 10 and 11 may have been adulterated . FENTANYL CONFIRMATIO N NOT SENT BY LAB. Ordering Provider: COLT RAND Report Released Date/Time: Aug 24, 2023 02:13 PM Reporting Lab: [address] [address] Performing Lab: [address] [address] [facility] FENTANYL SCREEN PANEL PH OF URINE 5.3 [pH] 4 - 10 08/28 Specimen Type: URINE Comment: Urine with Cr <5 is diluted or substituted . Cr between 5 and 20 is very dilute. Urine with SG of 1.001 or less is diluted or substituted . SG of 1.003 or less is very dilute. Urine with a pH <3 or >11 has been adulterated and is unsuitable for testing by our current method. Urine with pH between 3 and 4 OR 10 and 11 may have been adulterated . FENTANYL CONFIRMATIO N NOT SENT BY LAB. Ordering Provider: COLT RAND Report Released Date/Time: Aug 24, 2023 02:13 PM Reporting Lab: [address] [address] Performing Lab: [address] [address] [facility] FENTANYL SCREEN PANEL CREATININE [MASS/VOLUM E] IN URINE 317.72 mg/dL 08/28 Specimen Type: URINE Comment: Urine with Cr <5 is diluted or substituted . Cr between 5 and 20 is very dilute. Urine with SG of 1.001 or less is diluted or substituted . SG of 1.003 or less is very dilute. Urine with a pH <3 or >11 has been adulterated and is unsuitable for testing by our current method. Urine with pH between 3 and 4 OR 10 and 11 may have been adulterated . FENTANYL CONFIRMATIO N NOT SENT BY LAB. Ordering Provider: COLT RAND Report Released Date/Time: Aug 24, 2023 02:13 PM Reporting Lab: [facility] [place] [facility] [address] [facility] [address] Performing Lab: [facility] [address] [facility] [address] [facility]ITALRDECATUR [facility]ITALN [place] [facility] FENTANYL SCREEN PANEL SPECIFIC GRAVITY OF URINE 1.031 1.003 - 1.020 08/28 H Specimen Type: URINE Comment: Urine with Cr <5 is diluted or substituted . Cr between 5 and 20 is very dilute. Urine with SG of 1.001 or less is diluted or substituted . SG of 1.003 or less is very dilute. Urine with a pH <3 or >11 has been adulterated and is unsuitable for testing by our current method. Urine with pH between 3 and 4 OR 10 and 11 may have been adulterated . FENTANYL CONFIRMATIO N NOT SENT BY LAB. Ordering Provider: COLT RAND Report Released Date/Time: Aug 24, 2023 02:13 PM Reporting Lab: [facility]ITALRSE[facility]PITALTRN [place] [facility] [address] [facility] [address] Performing Lab: [facility] [place] [facility] [address] [facility] [address] [facility] Vital Signs Combined list of inpatient and outpatient Vital Signs from Department of Defense and Veterans Affairs, ranging from 12 months to all on record, depending upon the facility. Vital Sign Value Date Comments Source SYSTOLIC BLOOD PRESSURE 135 04/01/20 24 13:22:41 [facility] [place] [facility] DIASTOLIC BLOOD PRESSURE 88 024 13:22:41 [facility] [place] [facility] PULSE OXIMETRY 96 04/01/2024 13:22:41 [facility] [place] [facility] WEIGHT 200.6 04/01/2024 13:22:41 [facility] [place] [facility] BMI 31 kg/m2 04/01/2024 13:22:41 [facility] [place] [facility] PAIN 0 04/01/2024 13:22:41 [facility] [place] [facility] HEIGHT 67 04/01/2024 13:22:41 [facility] [place] [facility] TEMPERATURE 97.4 04/01/2024 13:22:41 [facility] [place] [facility] PULSE 82 04/01/2024 13:22:41 [facility] [place] [facility] RESPIRATION 16 04/01/2024 13:22:41 [facility] [place] [facility] SYSTOLIC BLOOD PRESSURE 145 02/26/20 24 13:11:45 [facility] [place] [facility] DIASTOLIC BLOOD PRESSURE 93 024 13:11:45 [facility] PULSE OXIMETRY 99 02/26/2024 13:11:45 [facility] WEIGHT 202 02/26/2024 13:11:45 [facility] BMI 32 kg/m2 02/26/2024 13:11:45 [facility] PAIN 0 02/26/2024 13:11:45 [facility] HEIGHT 67 02/26/2024 13:11:45 [facility] TEMPERATURE 98.5 02/26/2024 13:11:45 [facility] PULSE 88 02/26/2024 13:11:45 [facility] RESPIRATION 16 02/26/2024 13:11:45 [facility] SYSTOLIC BLOOD PRESSURE 170 01/30/20 24 14:19:15 [facility] DIASTOLIC BLOOD PRESSURE 91 024 14:19:15 [facility] PULSE OXIMETRY 97 01/30/2024 14:19:15 [facility] WEIGHT 206.2 01/30/2024 14:19:15 [facility] BMI 32 kg/m2 01/30/2024 14:19:15 [facility] [facility] PAIN 0 01/30/2024 14:19:15 [facility] HEIGHT 67 01/30/2024 14:19:15 [facility] TEMPERATURE 97.4 01/30/2024 14:19:15 [facility] PULSE 104 01/30/2024 14:19:15 [facility] RESPIRATION 18 01/30/2024 14:19:15 [facility] SYSTOLIC BLOOD PRESSURE 131 01/11/20 24 08:23:15 [facility] DIASTOLIC BLOOD PRESSURE 89 024 08:23:15 [facility] PULSE OXIMETRY 98 01/11/2024 08:23:15 [facility] WEIGHT 198.4 01/11/2024 08:23:15 [facility] BMI 31 kg/m2 01/11/2024 08:23:15 [facility] PAIN 0 01/11/2024 08:23:15 [facility] HEIGHT 67 01/11/2024 08:23:15 [facility] TEMPERATURE 98.2 01/11/2024 08:23:15 [facility] PULSE 82 01/11/2024 08:23:15 [facility] RESPIRATION 16 01/11/2024 08:23:15 [facility] SYSTOLIC BLOOD PRESSURE 135 10/31/19 24 15:05:36 [facility] DIASTOLIC BLOOD PRESSURE 89 024 15:05:36 [facility] PULSE OXIMETRY 97 10/31/2023 15:05:36 [facility] WEIGHT 194 10/31/2023 15:05:36 [facility] BMI 30 kg/m2 10/31/2023 15:05:36 [facility] PAIN 0 10/31/2023 15:05:36 [facility] HEIGHT 67 10/31/2023 15:05:36 [facility] TEMPERATURE 98.2 10/31/2023 15:05:36 [facility] PULSE 87 10/31/2023 15:05:36 [facility] RESPIRATION 18 10/31/2023 15:05:36 [facility] Encounters Combined list of: 1) Encounters from [facility] facilities going backup to the last 18 months, not all VA inpatient encounters are included; 2) Encounters from the [facility] of [facility] facilities going backup to 280 months. Location Location Details Encounter Type Encounter Number Reason For Visit Attending Provider ADM Date DC Date Status Disposition Source [facility] Outpatient Encounter [id number] 01/24 [facility] [place] Outpatient Encounter [id number] 01/24 [place] [facility] Out[facility] Encounter [id number] 02/02 [facility] Out[facility] Encounter [id number] 02/02 [facility] CONFORMITY EVALUATION [id number] Diagnos is: ICD-10- CM Z46.1 Encount er for fitting and adjustm ent of hearing aid Nithya MATSON 02/03 [facility] Out[facility] Encounter [id number] 02/06 [facility] [place] OFFICE O/P EST LOW 20-29 MIN [id number] Diagnos is: ICD-10- CM I10 Essenti al (primar y) hyperte micky DAQUAN RAND 02/07 [place] [facility] Out[facility] Encounter [id number] 02/17 [facility] Out[facility] Encounter [id number] 02/22 [facility]counter [id number] 03/22 [facility]counter [id number] 03/23 [facility] Out[facility] Encounter [id number] 04/03 [facility] LD OFFICE O/P EST MOD 30-39 MIN [id number] Diagnos is: ICD-10- CM I10 Essenti al (primar y) hyperte micky DAQUAN RAND 04/10 [place] [facility] Out[facility] Encounter [id number] 04/11 [facility] Out[facility] Encounter [id number] 04/12 [facility] Out[facility] Encounter [id number] 04/26 [facility] Encounter [id number] 04/26 [facility] Encounter [id number] 05/18 [facility] Encounter [id number] 05/18 [facility] OFFICE O/P EST LOW 20-29 MIN [id number] Diagnos is: ICD-10- CM M25.561 Pain in right knee DAQUAN RAND 05/19 [facility] Encounter [id number] 06/01 [facility] Encounter [id number] 06/15 [facility] Out[facility] Encounter [id number] 06/20 [facility] Encounter [id number] 06/21 [facility]counter [id number] 06/22 [facility] Out[facility] Encounter [id number] 06/27 [facility] Out[facility] Encounter [id number] 07/14 [facility] Out[facility] Encounter [id number] 07/18 [facility] Out[facility] Encounter [id number] 07/19 [facility]counter [id number] 07/24 [facility] Encounter [id number] 08/03 [facility] Out[facility] Encounter [id number] 08/14 [facility] Out[facility] Encounter [id number] 08/17 [facility] Out[facility] Encounter [id number] 08/17 [facility] Out[facility]counter [id number] 08/17 [facility] Out[facility] Encounter [id number] 08/20 [facility] Out[facility] Encounter [id number] 08/21 [facility] [place] OFF/OP EST SEPTEMBER X REQ PHY/QHP [id number] 1BY. 53 Diagnos is: ICD-10- CM L03.115 Celluli tis of right lower limb KATERIN HAQUE IC K 08/23 [place] [facility] Outpatient Encounter [id number] 08/23 [facility]P EST LOW 20 MIN [id number] Diagnos is: ICD-10- CM L03.90 Celluli tis, unspeci fied OSVALDO DUNAWAY N 08/23 [place] [facility] LD ORTHC/PROS TC MGMT SBSQ ENC [id number] Diagnos is: ICD-10- CM R26.9 Unspeci fied abnorma lities of gait and mobilit y CECI DUNN 08/23 [place] [facility] Out[facility] Encounter [id number] 08/23 [facility] Out[facility] Encounter [id number] 08/27 [facility] Out[facility] Encounter [id number] 09/04 [facility] LD OFFICE O/P EST MOD 30 MIN [id number] Diagnos is: ICD-10- CM I10 Essenti al (primar y) hyperte tawanaion DAQUAN RAND 09/05 [place] [facility] Out[facility] Encounter [id number] 09/06 [facility] Encounter [id number] 09/07 [facility] Out[facility] Encounter [id number] 09/07 [facility] Encounter [id number] 09/07 [facility] OFFICE O/P EST LOW 20 MIN [id number] Diagnos is: ICD-10- CM L03.90 Celluli tis, unspeci fied DAQUAN RAND 09/07 [place] [facility] Encounter [id number] 09/07 [facility] Encounter [id number] 09[facility]11 [facility] Out[facility] Encounter [id number] 09/11 [facility] Out[facility]counter [id number] 09/13 [facility] Out[facility] Encounter [id number] MARC-TAMIE PO,BILL 09/13 [facility] Out[facility] Encounter [id number] Diagnos is: ICD-10- CM L23.9 Allergi c contact dermati tis, unspeci fied cause 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 SELF CARE MNGMENT TRAINING [id number] Diagnos is: ICD-10- CM R60.9 Edema, unspeci fied CECI DUNN 09/25 [place] [facility] Out[facility] Encounter [id number] 09/27 [facility] Encounter [id number] 09/28 [facility] Out[facility] Encounter [id number] 10/02 [facility] Out[facility]counter [id number] 10/03 [facility] Out[facility] Encounter [id number] 10/03 [facility] OFFICE O/P EST LOW 20 MIN [id number] Diagnos is: ICD-10- CM L23.9 Allergi c contact dermati tis, unspeci fied cause DAQUAN RAND 10/04 [place] [facility] Out[facility] Encounter [id number] 10/15 [facility] Out[facility]counter [id number] 10/17 [facility] Out[facility] Encounter [id number] 10/18 [facility] Outpatient Encounter [id number] 10/18 [facility] [place] OFF/OP EST MAY X REQ PHY/QHP [id number] Diagnos is: ICD-10- CM R06.00 Dyspnea , unspeci fied GARLAND,ER IC K 10/29 [place] [facility] Outpatient Encounter [id number] 10/29 [facility] [place] OFFICE O/P EST LOW 20 MIN [id number] Diagnos is: ICD-10- CM K21.9 Gastro- esophag eal reflux disease without esophag itis DAQUAN RAND 10/30 [facility] [place] [facility] COMPRE OPH EXAM EST PT 1/> [id number] Diagnos is: ICD-10- CM H53.2 Diplopi a CHALINO SANCHEZ 11/08 [facility] FIT SPECTACLES MULTIFOCAL [id number] Diagnos is: ICD-10- CM Z46.0 Encount er for fit/adj st of spectac les and contact lenses CHALINO SANCHEZ 11/08 [facility] [place] SELF CARE MNGMENT TRAINING [id number] Diagnos is: ICD-10- CM M62.81 Muscle weaknes s (genera lized) CECI DUNN 11/09 [place] [facility] Out[facility] Encounter [id number] 11/13 [facility] Out[facility] Encounter [id number] 11/15 [facility] Out[facility] Encounter [id number] 11/21 [facility] Out[facility] Encounter [id number] 11/23 [facility] Out[facility] Encounter [id number] 11/24 [facility] THERAPEUTI C EXERCISES [id number] Diagnos is: ICD-10- CM M62.81 Muscle weaknes s (genera lized) Fanny CALLEJAS 11/26 [facility] THERAPEUTI C EXERCISES [id number] Diagnos is: ICD-10- CM M62.81 Muscle weaknes s (genera lized) Fanny CALLEJAS 11/28 [facility] THERAPEUTI C EXERCISES [id number] Diagnos is: ICD-10- CM M62.81 Muscle weaknes s (genera lized) Fanny CALLEJAS 12/03 [facility] [place] THERAPEUTI C EXERCISES [id number] Diagnos is: ICD-10- CM M62.81 Muscle weaknes s (genera lized) Fanny CALLEJAS 12/06 [place] [facility] Out[facility] Encounter [id number] 12/06 [facility] Out[facility] Encounter [id number] 12/17 [facility] [place] THERAPEUTI C EXERCISES [id number] Diagnos is: ICD-10- CM M62.81 Muscle weaknes s (genera lized) CECI DUNN 12/21 [place] [facility] Out[facility] Encounter [id number] 12/27 [facility] Out[facility] Encounter [id number] 12/28 [facility] Out[facility] Encounter [id number]/28 [facility] Out[facility] Encounter [id number] 12/31 [facility] Out[facility]counter [id number] 12/31 [facility] Encounter [id number] 12/31 [facility] En[facility] [id number] 01/04 [facility] [place] [facility] LD OFFICE O/P EST LOW 20 MIN [id number] 1BY. 79 Diagnos is: ICD-10- CM I10 Essenti al (primar y) hyperte nsion DAQUAN RANDE 01/10 [place] [facility] Out[facility] Encounter [id number]/23 [facility] Out[facility] Encounter [id number] 01/25 [facility] Out[facility] Encounter [id number] 02/13 [facility] Out[facility]counter [id number] 02/14 [facility] Encounter [id number] 1.02/25 [facility] OFFICE O/P EST LOW 20 MIN [id number] Diagnos is: ICD-10- CM Z01.818 Encount er for other preproc edural examina tiDAQUAN Wild BRONWYN 02/25 [place] [facility] Out[facility] Encounter [id number] 02/26 [facility] Out[facility] Encounter [id number] 03/04 [facility] Out[facility] Encounter [id number] 03/04 [facility] Out[facility] Encounter [id number] 03/20 [facility] OFFICE O/P [place] 60 MIN [id number] 1. Diagnos is: ICD-10- CM L43.9 Lichen planus, unspeci fied YOUNG HUSSEIN 03/28 [facility] OFFICE O/P EST LOW 20 MIN [id number] 1BY. 63 Diagnos is: ICD-10- CM I10 Essenti al (primar y) hyperte nsion DAQUAN RANDE 04/01 [place] [facility] Outpatient Encounter [id number] 1.05/03 [facility] Outpatient Encounter [id number] 1.06/03 [facility] EVALUATION OF WHEEZING [id number] 1. Diagnos is: ICD-10- CM J44.9 Chronic obstruc tive pulmona ry disease , unspeci fied JARMOLOWIC Z,LAKEISHA 06/03 [facility] Out[facility] Encounter [id number] 1.06/03 [facility] Out[facility] Encounter [id number] 1.06/04 [facility] NQHP OL DIG ASSMT&MGMT 5-10 [id number] 1. Diagnos is: ICD-10- CM Z12.2 Encntr screen for maligna nt neoplas m of respira tory organs ZAFAR GUTHRIE 06/04 [facility] CO/[place] DIFFUSE CAPACITY [id number] Diagnos is: ICD-10- CM J44.9 Chronic obstruc tive pulmona ry disease , unspeci britnied Baldomero MARY MD 06/04 [facility] Outpatient Encounter [id number] 06/05 [facility] Outpatient Encounter [id number] 06/12 [facility] Outpatient Encounter [id number] 06/14 [facility] Social History Combined list of available smoking, tobacco, and other social history from Department of Defense and Veterans Affairs facilities. 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 03/01/2019 [place] History of tobacco use CA-TOBACCO USER EVERY DAY 03/06/2018 [facility] History of tobacco use CURRENT TOBACCO USER 04/13/2017 [facility] History of tobacco use V7-CURRENT TOBACCO PRODUCT USER 11/24/2016 [facility] History of tobacco use V7-CURRENT TOBACCO PRODUCT USER 04/01/2016 [facility] History of tobacco use CURRENT TOBACCO USER 03/28/2016 [facility] History of tobacco use V7-CURRENT TOBACCO PRODUCT USER 02/11/2016 [facility] History of tobacco use V7-DECLINED MEDS FOR TOBACCO CESSATION 12/28/2015 [facility] History of tobacco use V7-DECLINED MEDS FOR TOBACCO CESSATION 06/24/2015 [facility] History of tobacco use V7-CURRENT TOBACCO PRODUCT USER 02/23/2015 [facility] History of tobacco use CURRENT TOBACCO USER 02/09/2015 [facility] History of tobacco use V7-CURRENT TOBACCO PRODUCT USER 08/22/2013 [facility] History of tobacco use V7-CURRENT TOBACCO PRODUCT USER 08/16/2012 [facility] History of tobacco use V7-CURRENT TOBACCO PRODUCT USER 04/12/2011 [facility] History of tobacco use CURRENT TOBACCO USER 04/11/2011 [facility] History of tobacco use V7-CURRENT TOBACCO PRODUCT USER 11/17/2010 [facility] History of tobacco use TOBACCO COUNSELING CONTRAINDICATED 03/22/2010 pain [facility] History of tobacco use V7-CURRENT TOBACCO PRODUCT USER 11/16/2009 [facility] History of tobacco use V7-CURRENT TOBACCO PRODUCT USER 08/12/2009 [facility] History of tobacco use V7-CURRENT TOBACCO PRODUCT USER 07/10/2009 [facility] Plan of Care List of future care activities from [facility] facilities. Additional future care activities may be listed in the Assessment and Plan section. Date/Time Care Activity Care Activity Detail Facili ty 08/28/2024 AMBULAT[facility] - [facility]/23/[facility]24 [facility] - MEDICINE AMBULATORY - [facility] 10/02/2024 AMBULATORY - MEDICINE AMBULATORY - MEDICI [facility] 11/21/2024 AMBULATORY - [facility] Advance Directives List of completed, amended, or rescinded Advance Directives on record at [facility] facilities. An actual copy of the Directive is not included. Date Advance Directive Provider Source 03/15/2018 ADVANCE DIRECTIVE TOBI JOHNSON
--- OUTSIDE RECORDS SUMMARY | 2024-07-24 13:38 | XMS_ITS | Encounter Summary ---
Author Name [facility] Address [address] [place] [address] Care Team Providers Care Stem Maker Name Role Phone COLT RAND Primary [...] Womack's Name Patient's Relationship to Policy Womack [facility] MEDICAID MEDICAID MEDIC AID May 29, 2018 MEDICAI D [id number] ALEX AlexandreJAMES PATIENT MEDICAID MEDICAID [facility] Sep 24, 2018 MEDICAI D [id number] ALEX AlexandreJAMES PATIENT Selected Encounter This section includes the information on record at [place] for the Encounter. Date/Time Encounter Type Encounter Description Reason Pro vider Source IHE Encounter Template Text not used by [facility] Advance Directives: All historical and current Section [...]
--- OUTSIDE RECORDS SUMMARY | 2024-07-24 13:38 | XMS_ITS | Encounter Summary ---
Author Name [facility] [facility] [place] Address [address] [place] [address] Care Team Providers Care Religious Education Director Name Role Phone COLT RAND Primary Care [...] Womack's Name Patient's Relationship to Policy Womack [facility] MEDICAID MEDICAID MEDIC AID May 29, 2018 MEDICAI D [id number] ALEX AlexandreJAMES PATIENT MEDICAID MEDICAID [facility] [facility] Sep 24, 2018 MEDICAI D [id number] ALEX AlexandreJAMES PATIENT Selected Encounter This section includes the information on record at [place] for the Encounter. Date/Time Encounter Type Encounter Description Reason Provider Source Apr 01, 2024 01:30 PM OFFICE O/P EST LOW 20 MIN PRIMARY CARE/MEDICINE ICD-10-CM I10 Essential (primary) hypertension COLT RAND Encounter Template Text not used by VA Assessments - Encounter Diagnoses This section includes the primary and secondary diagnoses documented for the Encounter. Date/Time Primary/Secondary Diagnosis Diagnosis Name Provider Source Apr 01, 2024 02:01 PM PRIMARY Essential (primary) hypertension COLT RAND [place] Apr 01, 2024 02:01 PM SECONDARY Encounter for immunization CARLOS OSMAN [place] Apr 01, 2024 02:01 PM SECONDARY Hyperlipidemia, unspecified COLT RAND [place] Apr 01, 2024 02:01 PM SECONDARY Obesity, unspecified COLT RAND [place] Apr 01, 2024 02:01 PM SECONDARY Type 2 diabetes mellitus without complications COLT RAND [place] Plan of Treatment: Future Appointments (+ 6 months) and Future Tests (+/- 45 days) The Plan of Treatment section includes future care activities for the patient from all [place] [facility]. This section includes future appointments and future orders which are active, pending or scheduled. Future Appointments This section includes appointments that were scheduled to occur 6 months from the date of the Encounter, up to a maximum of 20 appointments. The data comes from all [place] treatment facilities. Appointment Date/Time Appointment Type Appointme nt Facility Name May 03, 2024 02:00 PM AMBULATORY [place]ICINE [place] [facility] [place] [facility] Jun 03, 2024 02:00 PM AMBULATORY - NONE [place] [facility] [place] [facility] Jun 03, 2024 02:30 PM [place] [facility] [place] [facility] Jun 04, 2024 08:30 AM AMBULATORY - MEDICINE [facility] Aug 28, 2024 02:00 PM [place] [facility] [place] [facility] Sep 23, 2024 01:30 PM [facility]UL[facility] - [facility]INE [facility] Lab Results: +/- 30 days of the encounter This section includes the Chemistry and Hematology Lab Results on record with [place] for the patient. Radiology Reports and Pathology Reports are provided separately, in subsequent sections. Lab Results This section contains the Chemistry/Hematology Results that were resulted 30 days before or 30 daysafter the date of the Encounter. Date/Time Source Result Type Result - Unit Interpretation Reference Range Comment Mar 07, 2024 08:02 AM [facility] MICROALBUMIN CREATININE RATIO PANEL Specimen Type: URINE No comment entered. Ordering Provider: COLT RAND Report Released Date/Time: Sep 06, 2023 04:01 PM Reporting Lab: [facility] [address] [address] Performing Lab: [facility] [address] [address] MICROALBUMIN/C REATININE RATIO 17.6 mg/g 0-29.9 MICROALBUMIN,Q UANTITATIVE 2.8 mg/dL RR UNAVAIL CREATININE URINE 158.84 mg/dL Mar 06, 2024 11:43 AM [facility] LIPID PANEL FASTING Specimen Type: SERUM No comment entered. Ordering Provider: COLT RAND Report Released Date/Time: Sep 06, 2023 04:01 PM Reporting Lab: [address] [address] Performing Lab: [address] [address] CHOLESTEROL 193 mg/dL TRIGLYCERIDE 221 mg/dL H 0-150 LDL calculated 113 mg/dL 0-129 CHOL/HDL 5.4 HDL CHOLESTEROL 36 mg/dL L 40-60 Mar 06, 2024 11:43 AM [facility] LIVER FUNCTION Specimen Type: SERUM No comment entered. Ordering Provider: COLT RAND Report Released Date/Time: Sep 06, 2023 04:01 PM Reporting Lab: [facility] [address] [address] Performing Lab: [address] [address] PROTEIN,TOTAL 7.5 g/dL 6.0-8.3 ALBUMIN 4.4 g/dL 3.5-5.0 ALKALINE PHOSPHATASE 79 U/L 40-150 AST 18 U/L 5-34 ALT 16 U/L BILIRUBIN, TOTAL 0.8 mg/dL 0.2-1.2 Mar 06, 2024 11:43 AM [facility] HEMOGLOBIN A1C PANEL Specimen Type: BLOOD [...] Sep 06, 2023 04:01 PM Reporting Lab: [facility] [address] [address] Performing Lab: [address] [address] HEMOGLOBIN A1C 4.9 4.0-5.6 Mar 06, 2024 11:43 AM [facility] BASIC METABOLIC PANEL (fasting) Specimen Type: SERUM No comment entered. Ordering Provider: COLT RAND Report Released Date/Time: Sep 06, 2023 04:01 PM Reporting Lab: [address] [address] Performing Lab: [address] [address] UREA NITROGEN 12 mg/dL 7-25 GLUCOSE 119 mg/dL H 65-100 SODIUM 142 mmol/L 135-145 POTASSIUM 3.4 mmol/L L 3.5-5.0 CHLORIDE 105 mmol/L 100-110 CO2 26 meq/L 20-30 CREATININE, Serum 1.35 mg/dL 0.50-1.40 eGFR(CKD-EPI 2020) 58 mL/min L >60 Immunizations: All administered on the encounter date This section contains immunizations associated to the Encounter. Immunization Series Date Issued Reaction Comments ZOSTER RECOMBINANT 1 Apr 01, 2024 Social History: Smoking Status (Most current) and [...] Anthony riojas Sep 06, 2023 03:30 PM [place]AC[place] DO[place] USE [place] 30 MIN [facility] Tobacco Use History This section includes a history of the smoking, or tobacco-related health factors, that were collected on or before the date of the Encounter. The data comes from the [place] facility where the Encounter took place. Date/Time Smoking Status/Tobacco Use Comment F acility Sep 06, 2023 03:30 PM VA-TOBACCO USE 30 YEARS OR MORE [place] Sep 06, 2023 03:30 PM VA-TOBACCO USE ADVICE [place] Sep 06, 2023 03:30 PM VA-TOBACCO USE CAR FERRY CAPTAIN NO [place] Sep 06, 2023 03:30 PM VA-TOBACCO USE MED [facility] Sep 06, 2023 03:30 PM VA-TOBACCO USER EVERY DAY [place] Jul 26, 2022 02:00 PM VA-TOBACCO USE 30 YEARS OR MORE [place] Jul 26, 2022 02:00 PM VA-TOBACCO USE ADVICE [place] Jul 26, 2022 02:00 PM VA-TOBACCO USE CAR FERRY CAPTAIN NO [place] Jul 26, 2022 02:00 PM VA-TOBACCO USE MED [facility] Jul 26, 2022 02:00 PM VA-TOBACCO USE [place] [facility], [facility] 02:00 PM VA-TOBACCO USER EVERY DAY [place] Mar 01, 2019 01:59 PM VA-TOBACCO DOESNT USE WI 30 MIN WAKEUP [place] Mar 01, 2019 01:59 PM VA-TOBACCO USE 30 YEARS OR MORE [place] Mar 01, 2019 01:59 PM VA-TOBACCO USE ADVICE [place] Mar 01, 2019 01:59 PM VA-TOBACCO USE CAR FERRY CAPTAIN NO [place] Mar 01, 2019 01:59 PM VA-TOBACCO USE MED [facility] Mar 01, 2019 01:59 PM VA-TOBACCO USER EVERY DAY [place] Mar 06, 2018 04:15 PM VA-TOBACCO USE 30 YEARS OR MORE [place] Mar 06, 2018 04:15 PM VA-TOBACCO USE ADVICE [place] Mar 06, 2018 04:15 PM VA-TOBACCO USE CAR FERRY CAPTAIN NO [place] Mar 06, 2018 04:15 PM VA-TOBACCO USE MED [facility] Mar 06, 2018 04:15 PM VA-TOBACCO USE [place] 30 MIN OF WAKE UP [place] Mar 06, 2018 04:15 PM VA-TOBACCO USER EVERY DAY [place] Advance Directives: All historical and current Section Date Range: From patient's date of to the date document was created. This section includes ALL of a patient's completed or amended VA Advance and Rescinded Directives. The entries below indicate that a directive exists for the patient, but an actual copy is not included with this document. The data comes from all [facility]. Date Advance Directives Provider Source Mar 15, 2018 ADVANCE DIRECTIVE RULFS,TOBI MOHAN LD Encounter Notes: All associated encounter notes This section contains the clinical notes associated to the Encounter. Date/Time Encounter Note(s) Provider Source Apr 01, 2024 01:23 PM PREVENTIVE MEDICIN E NURSING NOTE: LOCAL TITLE: CLINICAL REMINDERS/NURSING STANDARD TITLE: PREVENTIVE MEDICINE NURSING NOTE DATE OF NOTE: APR 01, 2024@13:23 ENTRY DATE: APR 01, 2024@13:23:27 AUTHOR: KATHY OSMAN EXP COSIGNER: URGENCY: STATUS: COMPLETED Tdap Immunization: The patient declines to receive the recommended dose of Tdap vaccine. Immunization: TDAP Refusal Reason: PATIENT DECISION Patient refuses all immunization(s) in the TDAP group Date Documented: 04/01/24 13:33 Herpes Zoster (Shingles) Vaccine: Administered: ZOSTER RECOMBINANT Date Administered: Apr 01, 2024 13:30 Series: Series 1 Worm Grower: BlogRadio Lot: [id number] Exp Date: Dec 15, 2025 [facility]: [id number] Admin Route/Site: INTRAMUSCULAR/LEFT DELTOID Dosage: 0.5mL Vaccine Information Statement(s): RECOMBINANT ZOSTER VACCINE VIS Jul 02, 2021 (UZBEK) Order By: Policy Administered By: Kathy Osman Vaccine Information Sheet (VIS) was given to the patient/caregiver, education regarding adverse reactions was discussed, as well as barriers to learning, if any, were acknowledged. PAVE Foot Check: A complete foot check was completed at this encounter. VISUAL INSPECTION: Includes inspection for skin breaks, deformity, erythema, trauma, pallor on elevation, dependent rubor, nail deformities, extensive callus and pitting edema. Visual exam results: Normal PEDAL PULSES: Includes palpation of dorsalis and posterior tibial pulses and signs/symptoms of vascular compromise like pain, pallor, parasthesia or paralysis. Present (even if diminished) SENSORY CHECK: Includes 10 gram Monofilament (Tamworth-Elliot) test of sensation. Intact (Greater than or equal to 80% of sites checked) Abnormal (Less than 80% of sites checked): Intact LOW-RISK: LOW RISK INFORMATION PROVIDED: 1. Advised patient not to walk barefoot. 2. Explained the importance of daily foot checks for changes. 3. Stressed the importance of daily foot hygiene, including bathing and complete drying. The patient verbalized understanding and was offered a detailed handout on diabetic foot care. /arnaud/ KATHY OSMAN LPN PACT 10 Signed: 04/01/2024 13:34 KATHY OSMAN Apr 01, 2024 06:53 AM PHYSICIAN NOTE: LOCAL TITLE: MD NOTE STANDARD TITLE: PHYSICIAN NOTE DATE OF NOTE: APR 01, 2024@06:53 ENTRY DATE: APR 01, 2024@06:53:43 AUTHOR: COLT RAND EXP COSIGNER: URGENCY: STATUS: COMPLETED NOTE Has ADDENDA HISTORY OF PRESENT ILLNESS: JAMES LEO is a 63 yo MALE who presents at the [facility] for f/u hypertension, hyperlipidemia, and DM II. Labs completed. Active problems - Computerized Problem List is [...] DO NOT TAKE WITH GRAPEFRUIT JUICE 3) CLOBETASOL PROPIONATE 0.05% OINT Qty: ACTIVE Issu:03-28-24 60 for 30 days Sig: APPLY THIN LAYER Refills: 5 Last:03-28-24 TOPICALLY TWICE DAILY NEEDED FOR Expr:03-29-25 ITCHING/RASH FOR ITCHING AND FLARE. MAX 14D/M 4) DICLOFENAC NA 1% TOP GEL Qty: 100 for ACTIVE Issu:04-10-23 30 days Sig: APPLY 2 GRAMS TOPICALLY Refills: 0 Last:09-11-23 FOUR TIMES A DAY FOR RIGHT KNEE Expr:04-10-24 OSTEOARTHRITIS - USE DOSING CARD PROVIDED IN BOX 5) FINASTERIDE 5MG TAB Qty: 90 for 90 days ACTIVE Issu:03-20-24 Sig: TAKE ONE TABLET BY MOUTH ONCE Refills: 1 Last:03-26-24 DAILY FOR ENLARGED PROSTATE Expr:03-21-25 6) NICOTINE 14MG/24HR PATCH Qty: 28 for 28 ACTIVE Issu:01-11-24 days Sig: APPLY 1 PATCH TO SKIN ONCE Refills: 1 Last:01-11-24 DAILY FOR SMOKING CESSATION (REMOVE Expr:01-11-25 OLD PATCH BEFORE APPLYING NEW PATCH) 7) OMEPRAZOLE 20MG EC CAP Qty: 60 for 30 ACTIVE Issu:10-31-23 days Sig: TAKE ONE CAPSULE BY MOUTH Refills: 0 Last:11-20-23 TWICE DAILY FOR GASTROESOPHAGEAL Expr:10-31-24 REFLUX DISEASE 8) SILDENAFIL CITRATE 100MG TAB Qty: 18 ACTIVE Issu:09-06-23 for 90 days Sig: TAKE ONE TABLET BY Refills: 1 Last:04-01-24 MOUTH ONCE DAILY NEEDED TAKE 1 Expr:09-06-24 HOUR PRIOR TO SEXUAL ACTIVITY 9) TAMSULOSIN HCL 0.4MG CAP Qty: 90 for 90 ACTIVE Issu:12-18-23 days Sig: TAKE ONE CAPSULE BY MOUTH Refills: 1 Last:01-24-24 EVERY EVENING AT BEDTIME FOR ENLARGED Expr:12-18-24 PROSTATE 10) TRIAMCINOLONE ACETONIDE 0.1% OINT Qty: ACTIVE Issu:03-28-24 454 for 30 days Sig: APPLY THIN LAYER Refills: 5 Last:03-28-24 TOPICALLY TWICE DAILY NEEDED Expr:03-29-25 11) VITAMIN B COMPLEX CAP Qty: 100 for 90 ACTIVE Issu:04-10-23 days Sig: TAKE 1 CAPSULE BY MOUTH Refills: 1 Last:11-10-23 ONCE DAILY FOR VITAMIN SUPPLEMENTATION Expr:04-10-24 ALLERGIES: ========= TETRACYCLINE LAB HISTORY: CHEM 7 TREND Collection DT Spec GLUCOSE BUN CREATIN Sodium K+/Pot CL CO2 03/06/2024 11:43 SERUM 119 H 12 1.35 142 3.4 L 105 26 08/29/2023 09:06 SERUM 113 H 10 1.13 142 3.7 108 25 04/04/2023 11:30 SERUM 115 H 06/21/2022 13:39 SERUM 102 H 12 1.42 H 141 4.2 108 26 10/19/2020 14:36 SERUM 109 H 14 1.39 139 3.6 107 24 CBC TREND Collection DT Spec WBC RBC [...] HEMOGLOBIN A1C TREND Collection DT Spec HGBA1c 03/06/2024 11:43 BLOOD 4.9 08/29/2023 09:06 BLOOD 4.4 04/04/2023 11:30 BLOOD 4.9 06/21/2022 13:39 BLOOD 4.8 10/19/2020 14:36 BLOOD 5.1 LIPID PANEL TREND Collection DT Spec CHOL HDL CHO/HDL LDL-c TRIG 03/06/2024 11:43 SERUM 193 36 L 5.4 113 221 H 08/29/2023 09:06 SERUM 132 37 L 3.6 69 129 04/04/2023 11:30 SERUM 160 38 L 4.2 101 104 06/21/2022 13:39 SERUM 154 36 L 4.3 86 161 H 10/19/2020 14:36 SERUM 175 39 L 4.5 107 147 LIVER PANEL TREND Collection DT Spec AST ALT T BILI ALK SALLIE T. 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 COMBAT SERVICE INDICATED: No VITAL SIGNS: Blood Pressure 135/88 (04/01/2024 13:22) Pulse 82 (04/01/2024 13:22) Respiration 16 (04/01/2024 13:22) Pulse Oximetry 96% (04/01/2024 13:22) Temperature 97.4 F [36.3 C] (04/01/2024 13:22) Pain 0 (04/01/2024 13:22) Height 67 in [170.2 cm] (04/01/2024 13:22) Weight 200.6 lb [90.99 kg] (04/01/2024:22) BMI BMI: 31.5 REVIEW OF SYSTEMS: CARDIOVASCULAR: No chest pain, no palps RESPIRATORY: No SOB, no wheezing GASTROINTESTINAL: No abd pain, no N/V/D MUSCULOSKELETAL: No joint pain NEUROLOGIC: No H/A, no numbness EXAMINATION: GENERAL: WD/WN in NAD HEENT: Moist mucosa NECK: Supple,no carotid bruits HEART: RRR, S1-S2, no murmurs LUNGS: CTA B/L ABDOMEN: Soft, NT/ND EXTREMITIES: FROM x 4, no edema NEUROLOGIC: AAO x3, no focal findings ASSESSMENT/PLAN: 1. Hypertension: under acceptable control on amlodipine 10mg/day 2. Hyperlipidemia: advised to restart atorvastatin 20mg/QHS Collection DT Spec CHOL HDL CHO/HDL LDL-c TRIG 03/06/2024 11:43 SERUM 193 36 L 5.4 113 221 H 08/29/2023 09:06 SERUM 132 37 L 3.6 69 129 3. DM II: diet controlled FBS 119 - A1c 5.9% 4. Tobacco Dependence: per pt down to 3 cigs a day from 3 PPD, (53+ pack yr hx) started age 7, not interested in quitting 5. COPD w/Emphysema: PFT's scheduled for 04/18/24 6. Obesity: BMI ~32, counseled on weight loss 7. Adenocarcinoma of Prostate: s/p TURP 03/04/24, Dr Sukhdev Naylor FOLLOW UP: 6 mths - AWE - FBW prior ========= UPCOMING APPOINTMENTS: 04/18/2024 12:30 CWM/NO/PFT PM 05/20/2024 14:00 CWM/NO/CAT SCAN 10/02/2024 14:00 CWM/NO/DERMATOLOGY BOOTH MANAGER 11/21/2024 13:30 NHM/OPTOMETRY/DANIEL No barriers; Patient understands and agrees to current treatment plan. If pt has any questions, concerns, or changes in current health status he/she will call or come in to the [facility]. Home Telehealth (CCHT) Referral: Patient declines participation in CCHT Program at this time. Medication Reconciliation: Outpatient: Has the patient been [...] (Tool #5) FACILITY ALLERGY/ADR -------- [facility] [place] [facility] TETRAC[facility]CLINE Med Recon NoGlossary (Tool #1) INCLUDED IN THIS LIST: Alphabetical list of active outpatient prescriptions dispensed from this [facility] (local) and dispensed from another [place] or [facility] facility (remote) as well as inpatient orders [...] the patient into personal health records (i.e. [employer]) are NOT included in this list. Non-VA medications documented outside this [place], remote inpatient orders (regardless of status) and remote clinic medications are NOT included in this list. The patient and provider must always discuss medications the patient is taking, regardless of where the medication was dispensed or obtained. ------ OUTPT ALBUTEROL 90MCG (CFC-F) 200D ORAL INHL (Status = Active) INHALE 2 PUFFS BY MOUTH EVERY 6 HOURS NEEDED FOR WHEEZING Rx# [id number] Last Released: 11/06/23 Qty/Days Supply: 06/27 Rx Expiration Date: 04/10/24 Refills Remainin Indication: FOR WHEEZING OUTPT AMLODIPINE BESYLATE 10MG TAB (Status = Active) TAKE ONE TABLET BY MOUTH ONCE DAILY FOR BLOOD PRESSURE/HEART, DO NOT TAKE WITH GRAPEFRUIT JUICE Rx# [id number] Last Released: 01/11/24 Qty/Days Supply: 90 Rx Expiration Date: 01/11/25 Refills Remainin Indication: FOR HIGH BLOOD PRESSURE OUTPT AMLODIPINE BESYLATE 2.5MG TAB (Status = Discontinued) TAKE THREE TABLETS BY MOUTH ONCE DAILY FOR BLOOD PRESSURE/HEART, DO NOT TAKE WITH GRAPEFRUIT JUICE Rx# [id number] Last Released: QtDays Supply: 270 Rx Expiration Date: 11/16/24 Refills Remainin Indication: FOR HIGH BLOOD PRESSURE OUTPT ATORVASTATIN CALCIUM 40MG TAB (Status = ) TAKE ONE-HALF TABLET BY MOUTH AT BEDTIME FOR CHOLESTEROL Rx# [id number] Last Released: 11/06/23 Qty/Days Supply: 45 Rx Expiration Date: 02/08/24 Refills Remainin OUTPT CLOBETASOL PROPIONATE 0.05% OINT (Status = Active) APPLY THIN LAYER TOPICALLY TWICE DAILY NEEDED FOR ITCHING/RASH FOR ITCHING AND FLARE. MAX 14D/M Rx# [id number] Last Released: 03/28/24 Qty/Days Supply: 6030 Rx Expiration Date: 03/29/25 Refills Remainin Indication: FOR SKIN INFLAMMATION OUTPT DICLOFENAC NA 1% TOP GEL (Status = Active) APPLY 2 GRAMS TOPICALLY FOUR TIMES A DAY FOR RIGHT KNEE OSTEOARTHRITIS - USE DOSING CARD PROVIDED IN BOX Rx# [id number] Last Released: 09/12/23 Qty/Days Supply: 100/30 Rx Expiration Date: 04/10/24 Refills Remainin Indication: FOR RIGHT KNEE OUTPT FINASTERIDE 5MG TAB (Status = ) TAKE ONE TABLET BY MOUTH ONCE DAILY Rx# [id number] Last Released: 07/12/23 Qty/Days Supply: Rx Expiration Date: 01/18/24 Refills Remainin OUTPT FINASTERIDE 5MG TAB (Status = Active) TAKE ONE TABLET BY MOUTH ONCE DAILY FOR ENLARGED PROSTATE Rx# [id number] Last Released: 03/29/24 Qty/Days Supply: Rx Expiration Date: 03/21/25 Refills Remainin Indication: FOR ENLARGED PROSTATE OUTPT NICOTINE 14MG/24HR PATCH (Status = Active) APPLY 1 PATCH TO SKIN ONCE DAILY FOR SMOKING CESSATION (REMOVE OLD PATCH BEFORE APPLYING NEW PATCH) Rx# [id number] Last Released: 01/19/24 Qty/Days Supply: Rx Expiration Date: 01/11/25 Refills Remainin Indication: FOR SMOKING CESSATION OUTPT OMEPRAZOLE 20MG EC CAP (Status = Active) TAKE ONE CAPSULE BY MOUTH TWICE DAILY FOR GASTROESOPHAGEAL REFLUX DISEASE Rx# [id number] Last Released: 11/13/23 Qty/Days Supply: Rx Expiration Date: 10/31/24 Refills Remainin Indication: FOR GASTROESOPHAGEAL REFLUX DISEASE OUTPT PERMETHRIN 5% CREAM (Status = Discontinued) APPLY A THIN LAYER TOPICALLY AT BEDTIME FOR SCABIES AT BEDTIME FROM NECK DOWN. WASH OFF IN THE MORNING. MAY REPEAT IN 1 WEEK IF NEEDED Rx# [id number] Last Released: 06/29/23 Qty/Days Supply: Rx Expiration Date: 06/22/24 Refills Remainin Indication: FOR SCABIES OUTPT SILDENAFIL CITRATE 100MG TAB (Status = Active) TAKE ONE TABLET BY MOUTH ONCE DAILY NEEDED TAKE 1 HOUR PRIOR TO SEXUAL ACTIVITY Rx# [id number] Last Released: 03/25/24 Qty/Days Supply: Rx Expiration Date: 09/06/24 Refills Remainin Indication: FOR ERECTILE DYSFUNCTION OUTPT TAMSULOSIN HCL 0.4MG CAP (Status = Discontinued) TAKE ONE CAPSULE BY MOUTH AT BEDTIME DIRECTED BY PROVIDER Rx# [id number] Last Released: 12/13/23 Qty/Days Supply: Rx Expiration Date: 10/05/24 Refills Remainin OUTPT TAMSULOSIN HCL 0.4MG CAP (Status = Active) TAKE ONE CAPSULE BY MOUTH EVERY EVENING AT BEDTIME FOR ENLARGED PROSTATE Rx# [id number] Last Released: 02/09/24 Qty/Days Supply: 90 Rx Expiration Date: 12/18/24 Refills Remainin Indication: FOR ENLARGED PROSTATE OUTPT TRIAMCINOLONE ACETONIDE 0.1% OINT (Status = ) APPLY THIN LAYER TOPICALLY TWICE DAILY NEEDED FOR ITCHING Rx# [id number] Last Released: 12/13/23 Qty/Days Supply: 160/30 Rx Expiration Date: 01/07/24 Refills Remainin Indication: FOR ITCHING OUTPT TRIAMCINOLONE ACETONIDE 0.1% OINT (Status = Active) APPLY THIN LAYER TOPICALLY TWICE DAILY NEEDED Rx# [id number] Last Released: 03/29/24 Qty/Days Supply: 454/30 Rx Expiration Date: 03/29/25 Refills Remainin Indication: FOR SKIN INFLAMMATION OUTPT VITAMIN B COMPLEX CAP (Status = Active) TAKE 1 CAPSULE BY MOUTH ONCE DAILY FOR VITAMIN SUPPLEMENTATION Rx# [id number] Last Released: 11/06/23 Qty/Days Supply: 100/90 Rx Expiration Date: 04/10/24 Refills Remainin Indication: FOR VITAMIN SUPPLEMENTATION ------ SUPPLIES ------ /arnaud/ COLT RAND MD Primary Care Physician Signed: 04/01/2024 14:01 07/24/2024 ADDENDUM STATUS: COMPLETED Per PFT report performed on 06/03/24: SPIROMETRY: Mildly reduced FVC (2.51 L, 72%) Mildly reduced FEV1 (1.87 L, 68%) Normal FEV1/FVC After bronchodilator there is no significant change in FVC (9% increase) and FEV1 (8% increase))significant is >10%) LUNG VOLUMES: Mildly reduced TLC (4.63 L, 75%) Normal FRC Normal RV DIFFUSION: Moderately reduced diffusion 12.26 ml/min/mmHg (52%) INTERPRETATION: Mild restrictive ventilatory defect Reduced diffusion There is a borderline significant response to bronchodilator. /es/ ANTONIO SANTANA RN REGISTERED NURSE Signed: 07/24/2024 10:49 Receipt Acknowledged By: * AWAITING SIGNATURE * COLT RAND,COLT PONCE
--- OUTSIDE RECORDS SUMMARY | 2024-07-24 13:38 | XMS_ITS | Encounter Summary ---
Author Name [facility] Organization [facility] Address [address] [place] [address] Care Team Providers Care Drafter Chief Design Name Role Phone COLT RAND Primary Care [...] Womack's Name Patient's Relationship to Policy Womack [facility] MEDICAID MEDICAID MEDIC AID May 29, 2018 MEDICAI D [id number] JAMES WRIGHT PATIENT MEDICAID MEDICAID [facility] ST[facility] SAAD Sep 24, 2018 MEDICAI D [id number] JAMES WRIGHT PATIENT Selected Encounter This section includes the information on record at [place] for the Encounter. Date/Time Encounter Type Encounter Description Reason Provider Source Mar 28, 2024 11:00 AM OFFICE O/P [place] 60 MIN DERMATOLOGY ICD-10-CM L43.9 Lichen planus, unspecified CARLOS HUSSEIN Encounter Template Text not used by [facility] Assessments - Encounter Diagnoses This section includes the primary and secondary diagnoses documented for the Encounter. Date/Time Primary/Secondary Diagnosis Diagnosis Name Provider Source Apr 02, 2024 08:53 AM PRIMARY Lichen planus, unspecified CHAU HUSSEIN [place] [facility] [place] [facility] Apr 02, 2024 08:53 AM SECONDARY Venous insufficiency (chronic) (peripheral) CHAU HUSSEIN [place] [facility] [place] [facility] Apr 02, 2024 08:53 AM SECONDARY Xerosis cutis [facility] [place] [facility] Plan of Treatment: Future Appointments (+ 6 months) and Future Tests (+/- 45 days) The Plan of Treatment section includes future care activities for the patient from all [place] treatmentarbor healthities. This section includes future appointments and future orders which are active, pending or scheduled. Future Appointments This section includes appointments that were scheduled to occur 6 months from the date of the Encounter, up to a maximum of 20 appointments. The data comes from all [place] treatment facilities. Appointment Date/Time Appointment Type Appointme nt Facility Name Apr 01, 2024 01:30 PM AMBULATORY - MEDICINE [place] [facility] [place] [facility] May 03, 2024 02:00 PM AMBULATORY - MEDICINE [place] [facility] [place] [facility] Jun 03, 2024 02:00 PM AMBULATORY - NONE [place] [facility] [place] [facility] Jun 03, 2024 02:30 PM AMBULATORY - MEDICINE [place] [facility] [place] [facility] Jun 04, 2024 08:30 AM AMBULATORY - MEDICINE [facility] Aug 28, 2024 02:00 PM AMBULATORY - MEDICINE DC [facility] [place] [facility] Sep 23, 2024 01:30 PM AMBULATORY - MEDICINE DC [facility] [place] [facility] Lab Results: +/- 30 days of the encounter This section includes the Chemistry and Hematology Lab Results on record with DC for the patient. Radiology Reports and Pathology Reports are provided separately, in subsequent sections. Lab Results This section contains the Chemistry/Hematology Results that were resulted 30 days before or 30 daysafter the date of the Encounter. Date/Time Source Result Type Result - Unit Interpretation Reference Range Comment Mar 07, 2024 08:02 AM [place] [facility] [place] [facility] MICROALBUMIN CREATININE RATIO PANEL Specimen Type: URINE No comment entered. Ordering Provider: COLT RAND Report Released Date/Time: Sep 06, 2023 04:01 PM Reporting Lab: [address] [address] Performing Lab: [address] [address] MICROALBUMIN/C REATININE RATIO 17.6 mg/g 0-29.9 MICROALBUMIN,Q UANTITATIVE 2.8 mg/dL RR UNAVAIL CREATININE URINE 158.84 mg/dL Mar 06, 2024 11:43 AM [facility] LIPID PANEL FASTING Specimen Type: SERUM No comment entered. Ordering Provider: COLT RAND Report Released Date/Time: Sep 06, 2023 04:01 PM Reporting Lab: [address] [address] Performing Lab: [address] [address] CHOLESTEROL 193 mg/dL TRIGLYCERIDE 221 mg/dL H 0-150 LDL calculated 113 mg/dL 0-129 CHOL/HDL 5.4 HDL CHOLESTEROL 36 mg/dL L 40-60 Mar 06, 2024 11:43 AM [facility] LIVER FUNCTION Specimen Type: SERUM No comment entered. Ordering Provider: COLT RAND Report Released Date/Time: Sep 06, 2023 04:01 PM Reporting Lab: [address] [address] Performing Lab: [address] [address] PROTEIN,TOTAL 7.5 g/dL 6.0-8.3 ALBUMIN 4.4 g/dL 3.5-5.0 ALKALINE PHOSPHATASE 79 U/L 40-150 AST 18 U/L 5-34 ALT 16 U/L BILIRUBIN, TOTAL 0.8 mg/dL 0.2-1.2 Mar 06, 2024 11:43 AM [facility] HEMOGLOBIN A1C PANEL Specimen Type: BLOOD [...] Sep 06, 2023 04:01 PM Reporting Lab: [address] [address] Performing Lab: [address] [address] HEMOGLOBIN A1C 4.9 4.0-5.6 Mar 06, 2024 11:43 AM [facility] BASIC METABOLIC PANEL (fasting) Specimen Type: SERUM No comment entered. Ordering Provider: COLT RAND Report Released Date/Time: Sep 06, 2023 04:01 PM Reporting Lab: [address] [address] Performing Lab: [address] [address] UREA NITROGEN 12 mg/dL 7-25 GLUCOSE 119 mg/dL H 65-100 SODIUM 142 mmol/L 135-145 POTASSIUM 3.4 mmol/L L 3.5-5.0 CHLORIDE 105 mmol/L 100-110 CO2 26 meq/L 20-30 CREATININE, Serum 1.35 mg/dL 0.50-1.40 eGFR(CKD-EPI 2020) 58 mL/min L >60 Social History: Smoking Status (Most current) and Tobacco Use (All prior to encounter date) This section includes the most current, and the historical, smoking and tobacco- related health factors from the [place] facility where the Encounter took place. Current Smoking Status This section includes the most current smoking, or tobacco-related health factor, from the DC facility where the Encounter took place. Date/Time Current Smoking Status Comment Facil ity October 21, 2020 01:38 PM VA-TOBACCO USER EVERY DAY [facility] Tobacco Use History This section includes a history of the smoking, or tobacco-related health factors, that were collected on or before the date of the Encounter. The data comes from the DC facility where the Encounter took place. 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 This section includes ALL of a patient's completed or amended DC Advance and Rescinded Directives. The entries below indicate that a directive exists for the patient, but an actual copy is not included with this document. The data comes from all [place] facilities. Date Advance Directives Provider Source Mar 15, 2018 ADVANCE DIRECTIVE TOBI JOHNSON Encounter Notes: All associated encounter notes This section contains the clinical notes associated to the Encounter. Date/Time Encounter Note(s) Provider Source Mar 28, 2024 11:07 AM DERMATOLOGY CONSULT: LOCAL TITLE: CONSULT REPORT/DERMATOLOGY STANDARD TITLE: DERMATOLOGY CONSULT DATE OF NOTE: MAR 28, 2024@11:07 ENTRY DATE: MAR 28, 2024@11:07:54 AUTHOR: YOUNG HUSSEIN EXP COSIGNER: URGENCY: STATUS: COMPLETED MAR 28, 2024 JAMES LEO Jun 63 PATIENT PHONE - Patient here for: NEW CONSULT CHIEF COMPLAINT: LICHEN PLANUS HPI: reports to have had Lichen Planus since approx 10 yrs ago - treated with triamcinolone 0.1% ointment - which has been helpful - but recently the Rx was changed to a cream and it is not as effective - he would like the ointment. 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 [place] denies any other new/changing/bleeding/non- healing lesions. Reviewed records in [facility] (all available). 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 'The histologic features (no parakeratosis and inconspicuous eosinophils) favor lichen planus over a lichenoid drug eruption, however, clinical correlation is recommended.' -Phototherapy for LP in 2017 Family Hx: Denies known h/o MM PastMedHx: Reviewed History of Sun Exposure/Sunburns: Active Outpatient Medications (including Supplies): Active Outpatient Medications Status 1) ALBUTEROL 90MCG (CFC-F) 200D ORAL INHL INHALE 2 PUFFS ACTIVE BY MOUTH EVERY 6 HOURS NEEDED FOR WHEEZING 2) AMLODIPINE BESYLATE 10MG TAB TAKE ONE TABLET BY MOUTH ACTIVE ONCE DAILY FOR BLOOD PRESSURE/HEART, DO NOT TAKE WITH GRAPEFRUIT JUICE 3) DICLOFENAC NA 1% TOP GEL APPLY 2 GRAMS TOPICALLY FOUR ACTIVE TIMES A DAY FOR RIGHT KNEE OSTEOARTHRITIS - USE DOSING CARD PROVIDED IN BOX 4) FINASTERIDE 5MG TAB TAKE ONE TABLET BY MOUTH ONCE ACTIVE DAILY FOR ENLARGED PROSTATE 5) NICOTINE 14MG/24HR PATCH APPLY 1 PATCH TO SKIN ONCE ACTIVE DAILY FOR SMOKING CESSATION (REMOVE OLD PATCH BEFORE APPLYING NEW PATCH) 6) OMEPRAZOLE 20MG EC CAP TAKE ONE CAPSULE BY MOUTH ACTIVE TWICE DAILY FOR GASTROESOPHAGEAL REFLUX DISEASE 7) PERMETHRIN 5% CREAM APPLY A THIN LAYER TOPICALLY AT ACTIVE BEDTIME FOR SCABIES AT BEDTIME FROM NECK DOWN. WASH OFF IN THE MORNING. MAY REPEAT IN 1 WEEK IF NEEDED 8) SILDENAFIL CITRATE 100MG TAB TAKE ONE TABLET BY MOUTH ACTIVE ONCE DAILY NEEDED TAKE 1 HOUR PRIOR TO SEXUAL ACTIVITY 9) TAMSULOSIN HCL 0.4MG CAP TAKE ONE CAPSULE BY MOUTH ACTIVE EVERY EVENING AT BEDTIME FOR ENLARGED PROSTATE 10) VITAMIN B COMPLEX CAP TAKE 1 CAPSULE BY MOUTH ONCE ACTIVE DAILY FOR VITAMIN SUPPLEMENTATION PHYSICAL EXAM: [place]anson Skintype V- General-AxOx3, NAD, pleasant, breathing unlabored, speech clear Cutaneous examination, as permitted by the patient, including scalp, face, eyes, ears, neck, chest, back, abdomen, arms, hands, fingers, legs, feet, toes Pertinent findings per below: -papulosquamous eruption of flat-topped, violaceous polygonal macules and papules, most <1cm, some coalescing to form larger plaques on bilateral arms and lower legs, a few scattered areas on chest, umbilicus and L upper leg. reports that genital region is not affected. -R posterior and medial ankle with noted plaque of hyperkeratosis and xerosis -Noted bilateral lower leg edema Diagnosis/Plan: #Lichen Planus -Types: cutaneous -Discussed that this is an uncommon disorder of an unknown causes. -TREATMENT: -Cutaneous LP is usually self-limited. Focusing on accelerating resolution and managing pruritis. -Discussed treatment with topical Corticosteroids (high/super-high) on trunk and extremities and (mid/low) to intertriginous/face. Use for 2-3 weeks to assess response. -Application instructions discussed. Max 14d/m. Discussed this at length -Side effects including but not limited to atrophy of the skin, hypopigmentation, stretch roberts discussed. -Rx for triamcinolone 0.1% ointment placed per request. Clobetasol 0.05% ointment also prescribed for FLARE. -Discussed Phototherapy (3x/week for 6 wks). He reports improvement in skin condition in the past, would like to re-start this treatment. CC-DERM consult placed per request. #Xerosis -Advised liberal emollients #Stasis Dermatitis -Not currently flaring. -Discussed etiology of SD. Advised to maintain mobility and ambulation for good circulation, raise legs when possible, and use support socks. -Discussed Flexitough Plus Advanced Pneumatic Compression System and he agrees to try. Prosthetics Consult placed. -For itch/rash associated with flaring, ok to use clobetasol per application instructions. RTC 6m, sooner PRN * educated to RTC venu if any new, changing, non-healing, or symptomatic lesions. * Education on sun protection and avoidance strategies was provided. * Encouraged monthly skin self exams for lesions changing in size, shape, or color, or non-healing lesions * Differential diagnosis, prescription options and risks/benefits were discussed with the patient, who consented to treatment plan. * [place] consented to photography for documentation if indicated. * A dermatoscope was used during the exam. * NUB = Neoplasm of Uncertain Behavior of Skin * NMSC = Nonmelanoma Skin Cancer * AK = Actinic Keratosis ------TIME ESTIMATION To include but not limied to: -Review of medical records -Time spent with patient including obtaining history, physical exam, shared decision making, procedures and counseling -Post visit documentation; HPI and physical exam findings, clinical researching, medical decision making, medication and lab ordering Total estimated time = 50 min ------- Medication Reconciliation: Outpatient: Has the patient been taking medications as documented in the EMLR? YES: The patient has been taking medications as documented in the EMLR. Essential Medication List for Review used to complete this medication reconciliation. INCLUDED IN THIS LIST: Alphabetical list of active outpatient prescriptions dispensed from this DC (local) and dispensed from another DC or [facility] facility (remote) as well as inpatient orders [...] (Tool #5) FACILITY ALLERGY/ADR -------- TOVA CHAIREZ [facility] ([address] TETRACYCLINE [facility] T[facility] [place] [facility] [place] [facility] TETRACYCLINE [facility] TETRAC[facility]CLINE Med Recon NoGlossary (Tool #1) INCLUDED IN THIS LIST: Alphabetical list of active outpatient prescriptions dispensed from this DC (local) and dispensed from another DC or [facility] facility (remote) as well as inpatient orders (local pending and active), local clinic medications, locally documented non-VA medications, and local prescriptions that have or been discontinued in the past 90 days. Non-VA Meds Last Documented On: Data not found NOTE The display of VA prescriptions dispensed from another DC or [facility] facility (remote) is limited to active outpatient prescription entries matched to National Drug File at the originating site and may not include some items such as investigational drugs, compounds, etc. NOT INCLUDED IN THIS LIST: Medications self-entered by the patient into personal health records (i.e. [employer]) are NOT included in this list. Non-VA medications documented outside this DC, remote inpatient orders (regardless of status) and remote clinic medications are NOT included in this list. The patient and provider must always discuss medications the patient is taking, regardless of where the medication was dispensed or obtained. OUTPT ALBUTEROL 90MCG (CFC-F) 200D ORAL INHL (Status = Active) INHALE 2 PUFFS BY MOUTH EVERY 6 HOURS NEEDED FOR WHEEZING Rx# [id number] Last Released: 11/06/23 Qty/Days Supply: 06/27 Rx Expiration Date: 04/10/24 Refills Remainin Indication: FOR WHEEZING OUTPT AMLODIPINE BESYLATE 10MG TAB (Status = Active) TAKE ONE TABLET BY MOUTH ONCE DAILY FOR BLOOD PRESSURE/HEART, DO NOT TAKE WITH GRAPEFRUIT JUICE Rx# [id number] Last Released: 01/11/24 Qty/Days Supply: Rx Expiration Date: 01/11/25 Refills Remainin Indication: FOR HIGH BLOOD PRESSURE OUTPT AMLODIPINE BESYLATE 2.5MG TAB (Status = Discontinued) TAKE THREE TABLETS BY MOUTH ONCE DAILY FOR BLOOD PRESSURE/HEART, DO NOT TAKE WITH GRAPEFRUIT JUICE Rx# [id number] Last Released: Supply: Rx Expiration Date: 11/16/24 Refills Remainin Indication: FOR HIGH BLOOD PRESSURE OUTPT ATORVASTATIN CALCIUM 40MG TAB (Status = ) TAKE ONE-HALF TABLET BY MOUTH AT BEDTIME FOR CHOLESTEROL Rx# [id number] Last Released: 11/06/23 Qt/Days Supply: 45 Rx Expiration Date: 02/08/24 Refills Remainin OUTPT CLOBETASOL PROPIONATE 0.05% OINT (Status = Pending) APPLY THIN LAYER TOPICALLY TWICE DAILY NEEDED for itching/rash FOR ITCHING and FLARE. Max 14d/m Login Date: 03/28/24 Qt/ Supply: 60/ Refills Ordered: 5 OUTPT DICLOFENAC NA 1% TOP GEL (Status = Active) APPLY 2 GRAMS TOPICALLY FOUR TIMES A DAY FOR RIGHT KNEE OSTEOARTHRITIS - USE DOSING CARD PROVIDED IN BOX Rx# [id number] Last Released: 09/12/23 Qt Supply: 100 Rx Expiration Date: 04/10/24 Refills Remainin Indication: FOR RIGHT KNEE OUTPT FINASTERIDE 5MG TAB (Status = ) TAKE ONE TABLET BY MOUTH ONCE DAILY Rx# [id number] Last Released: 07/12/23 Qt Supply: Rx Expiration Date: 01/18/24 Refills Remainin OUTPT FINASTERIDE 5MG TAB (Status = Active) TAKE ONE TABLET BY MOUTH ONCE DAILY FOR ENLARGED PROSTATE Rx# [id number] Last Released: Supply: Rx Expiration Date: 03/21/25 Refills Remainin Indication: FOR ENLARGED PROSTATE OUTPT NICOTINE 14MG/24HR PATCH (Status = Active) APPLY 1 PATCH TO SKIN ONCE DAILY FOR SMOKING CESSATION (REMOVE OLD PATCH BEFORE APPLYING NEW PATCH) Rx# [id number] Last Released: 01/19/24 Qty/Days Supply: Rx Expiration Date: 01/11/25 Refills Remainin Indication: FOR SMOKING CESSATION OUTPT OMEPRAZOLE 20MG EC CAP (Status = Active) TAKE ONE CAPSULE BY MOUTH TWICE DAILY FOR GASTROESOPHAGEAL REFLUX DISEASE Rx# [id number] Last Released: 11/13/23 Qty/Days Supply: 60 Rx Expiration Date: 10/31/24 Refills Remainin Indication: FOR GASTROESOPHAGEAL REFLUX DISEASE OUTPT PERMETHRIN 5% CREAM (Status = Discontinued) APPLY A THIN LAYER TOPICALLY AT BEDTIME FOR SCABIES AT BEDTIME FROM NECK DOWN. WASH OFF IN THE MORNING. MAY REPEAT IN 1 WEEK IF NEEDED Rx# [id number] Last Released: 06/29/23 Qty/Days Supply: 60 Rx Expiration Date: 06/22/24 Refills Remainin Indication: FOR SCABIES OUTPT SILDENAFIL CITRATE 100MG TAB (Status = Active) TAKE ONE TABLET BY MOUTH ONCE DAILY NEEDED TAKE 1 HOUR PRIOR TO SEXUAL ACTIVITY Rx# [id number] Last Released: 03/25/24 Qty/Days Supply: Rx Expiration Date: 09/06/24 Refills Remainin Indication: FOR ERECTILE DYSFUNCTION OUTPT TAMSULOSIN HCL 0.4MG CAP (Status = Discontinued) TAKE ONE CAPSULE BY MOUTH AT BEDTIME DIRECTED BY PROVIDER Rx# [id number] Last Released: 12/13/23 Qty/Days Supply: 30 Rx Expiration Date: 10/05/24 Refills Remainin OUTPT TAMSULOSIN HCL 0.4MG CAP (Status = Active) TAKE ONE CAPSULE BY MOUTH EVERY EVENING AT BEDTIME FOR ENLARGED PROSTATE Rx# [id number] Last Released: 02/09/24 Qty/Days Supply: 90 Rx Expiration Date: 12/18/24 Refills Remainin Indication: FOR ENLARGED PROSTATE OUTPT TRIAMCINOLONE ACETONIDE 0.1% OINT (Status = ) APPLY THIN LAYER TOPICALLY TWICE DAILY NEEDED FOR ITCHING Rx# [id number] Last Released: 12/13/23 Qty/Days Supply: 16030 Rx Expiration Date: 01/07/24 Refills Remainin Indication: FOR ITCHING OUTPT TRIAMCINOLONE ACETONIDE 0.1% OINT (Status = Pending) APPLY THIN LAYER TOPICALLY TWICE DAILY NEEDED Login Date: 03/28/24 Qty/Days Supply: 454/30 Refills Ordered: 5 OUTPT VITAMIN B COMPLEX CAP (Status = Active) TAKE 1 CAPSULE BY MOUTH ONCE DAILY FOR VITAMIN SUPPLEMENTATION Rx# [id number] Last Released: 11/06/23 Qty/Days Supply: 100/90 Rx Expiration Date: 04/10/24 Refills Remainin Indication: FOR VITAMIN SUPPLEMENTATION SUPPLIES /arnaud/ YOUNG HUSSEIN DNP, BREAKING MACHINE OPERATOR-C NURSE PRACTITIONER Signed: 04/02/2024 08:52 YOUNG HUSSEIN [facility]
--- OUTSIDE RECORDS SUMMARY | 2024-07-24 13:38 | XMS_ITS | Encounter Summary ---
Author Name [facility] [facility] [place] [facility] [place] Address [address] [place] [address] Care Team Providers Care It Corporate Recruiter Name Role Phone COLT RAND Primary Care [...] Name Patient's Relationship to Policy [facility] MEDICAID MEDICAID MEDIC AID May 29, 2018 MEDICAI D [id number] ALEX AlexandreJAMES PATIENT MEDICAID MEDICAID [facility] Sep 24, 2018 MEDICAI D [id number] ALEX AlexandreJAMES PATIENT Selected Encounter This section includes the information on record at [place] for the Encounter. Date/Time Encounter Type Encounter Description Reason Provider Source Sep 06, 2023 03:30 PM OFFICE O/P EST MOD 30 MIN PRIMARY CARE/MEDICINE ICD-10-CM I10 Essential (primary) hypertension COLT RAND Encounter Template Text not used by VA Assessments - Encounter Diagnoses This section includes the primary and secondary diagnoses documented for the Encounter. Date/Time Primary/Secondary Diagnosis Diagnosis Name Provider Source Sep 06, 2023 04:02 PM PRIMARY Essential (primary) hypertension COLT RAND [facility] Sep 06, 2023 04:02 PM SECONDARY Hyperlipidemia, unspecified COLT RAND [facility] Sep 06, 2023 04:02 PM SECONDARY Malignant neoplasm of prostate COLT RAND [facility] Sep 06, 2023 04:02 PM SECONDARY Obesity, unspecified COLT RAND [place] Sep 06, 2023 04:02 PM SECONDARY Sleep apnea, unspecified COLT RAND [facility] Sep 06, 2023 04:02 PM SECONDARY Tobacco use COLT RAND [facility] Sep 06, 2023 04:02 PM SECONDARY Type 2 diabetes mellitus without complications COLT RAND [facility] Plan of Treatment: Future Appointments (+ 6 months) and Future Tests (+/- 45 days) The Plan of Treatment section includes future care activities for the patient from all [place] [facility] This section includes future appointments and future orders which are active, pending or scheduled. Future Appointments This section includes appointments that were scheduled to occur 6 months from the date of the Encounter, up to a maximum of 20 appointments. The data comes from all [place] treatment facilities. Appointment Date/Time Appointment Type Appointme nt Facility Name Sep 07, 2023 12:00 PM AMBULATORY [place] [facility]ICINE [place] [facility] [place] [facility] Sep 08, 2023 11:00 AM [facility] Sep 26, 2023 10:00 AM AMBULATORY - REHAB MEDICIN E [facility] October 05, 2023 01:30 PM AMBULATORY - MEDICINE [facility] [place] [facility] Oct 30, 2023 11:30 AM [facility] Oct 31, 2023 03:00 PM AMBULATORY - MEDICINE [place] [facility] [place] [facility] Nov 09, 2023 01:00 PM AMBULATORY - MEDICINE [place] [facility] [place] [facility] Nov 10, 2023 01:00 PM AMBULATORY - REHAB MEDICIN E [facility] Nov 27, 2023 01:30 PM AMBULATORY - [facility] MEDICIN [facility] [place] [facility] Nov 29, 2023 02:30 PM AMBULATORY - REHAB MEDICIN E [facility] [place] [facility] Dec 04, 2023 01:30 PM [facility] Dec 07, 2023 11:00 AM AMBULATORY - REHAB MEDICIN E [facility] Dec 22, 2023 11:30 AM AMBULATORY - REHAB MEDICIN E [facility] Dec 28, 2023 11:00 AM AMBULATORY - REHAB MEDICIN E [facility] Jan 05, 2024 11:30 AM AMBULATORY - REHAB MEDICIN E [facility] Jan 11, 2024 08:30 AM [facility] Feb 26, 2024 01:00 PM [facility] Feb 27, 2024 03:30 PM [facility] Lab Results: +/- 30 days of the encounter This section includes the Chemistry and Hematology Lab Results on record with [place] for the patient. Radiology Reports and Pathology Reports are provided separately, in subsequent sections. Lab Results This section contains the Chemistry/Hematology Results that were resulted 30 days before or 30 daysafter the date of the Encounter. Date/Time Source Result Type Result - Unit Interpretation Reference Range Comment Sep 08, 2023 01:01 PM [facility] CBC AND DIFF (AUTO) Specimen Type: BLOOD No comment entered. Ordering Provider: COLT RAND Report Released Date/Time: Sep 08, 2023 11:41 AM Reporting Lab: [facility] [address] [facility] [address] Performing Lab: [facility] [address] [address] WBC 5.25 10*3/uL 4.50-11.00 RBC 3.74 10*6/uL L 4.23-5.66 HGB 11.6 g/dL L 12.8-17 HCT 35.7 L 39.2-50.4 MCV 95.5 fL 82-99 MCHC 32.5 g/dL 30.8-35.1 PLT 215 10*3/uL 140-360 RDW-CV 16.5 H 12.0-16.0 Ocean, Abs 0.35 10*3/uL 0.30-1.10 MCH 31.0 pg 26.2-32.6 Neut % 43.2 L 43.7-75.8 Lymph % 41.9 14.0-42.3 Ocean % 6.7 5.1-13.7 Eos % 7.6 H 0.4-6.8 Baso % 0.4 0.1-2.0 Neut, Abs 2.27 10*3/uL 2.20-7.60 Lymph, Abs 2.20 10*3/uL 1.00-3.20 Eos, Abs 0.40 10*3/uL 0.03-0.44 Baso, Abs 0.02 10*3/uL 0.01-0.13 Immature Gran % 0.2 0.0-0.7 Immature Gran, Abs 0.01 10*3/uL 0.00-0.06 Aug 29, 2023 09:34 AM [facility] TRAMADOL PNL (Wikidata) Specimen Type: URINE Comment: REFERENCE RANGE: <100 ng/mL REFERENCE RANGE: <100 ng/mL See LDT message Test Performed by [facility], [facility], [address] [place] [address] Arturo Wilhelm M.D., Ph.D., Director of Laboratories , CLIA [id number] This drug testing is for medical treatment only. Analysis was performed as non-forensic testing and these results should be used only by healthcare providers to render diagnosis or treatment, or to monitor progress of medical conditions. LDT Message: This test was developed and its analytical performance characteristics have been determined by [facility] [place] [place]. It has not been cleared or approved by the U.S. Food and Drug Administration. This assay has been validated pursuant to the CLIA regulations and is used for clinical purposes. Healthcare Providers needing Interpretation assistance, please contact us at [phone] ( ) M-F, 8am to 10pm EST TEST PERFORMED AT: , Ordering Provider: COLT RAND Report Released Date/Time: Aug 24, 2023 02:13 PM Reporting Lab: [facility] [address] [facility] [address] Performing Lab: [facility] [address] [address] TRAMADOL,URINE NEGATIVE ng/mL SEE BELOW DESMETHYLTRAMAD OL NEGATIVE ng/mL SEE BELOW Aug 29, 2023 09:34 AM [facility] METHADONE SCREEN Specimen Type: URINE Comment: THOMAS test are qualitative, any L or H flags only indicate a VA alert was sent. Ordering Provider: COLT RAND Report Released Date/Time: Aug 24, 2023 02:13 PM Reporting Lab: [address] [address] Performing Lab: [facility] [address] [facility] [address] METHADONE SCREEN None detected(Negati ve) L Negative Aug 29, 2023 09:34 AM [facility] ALCOHOL, ETHYL URINE PANEL Specimen Type: [...] Aug 24, 2023 02:13 PM Reporting Lab: [address] [address] Performing Lab: [address] [address] ALCOHOL, ETHYL URINE NONE-DETECTED mg/dL NONE-DETEC KARIN, cutoff = 10 mg/dL PH, THOMAS 5.1 [pH] 4-10 CREATININE, THOMAS 318.04 mg/dL >20 SP.GRAVITY, THOMAS 1.031 H 1.00 3-1.02 0 Aug 29, 2023 09:34 AM [facility] AMPHETAMINES SCREEN PANEL Specimen Type: URINE [...] Aug 24, 2023 02:13 PM Reporting Lab: [address] [address] Performing Lab: [address] [address] AMPHETAMINES SCREEN NONE-DETECTED None-Detec karin, Cutoff = 1000 ng/mL PH, THOMAS 5.1 [pH] 4-10 CREATININE, THOMAS 318.04 mg/dL >20 SP.GRAVITY, THOMAS 1.031 H 1.00 3-1.02 0 Aug 29, 2023 09:34 AM [facility] FENTANYL SCREEN PANEL Specimen Type: URINE [...] Aug 24, 2023 02:13 PM Reporting Lab: [address] [address] Performing Lab: [address] [address] FENTANYL SCREEN NONE-DETECTE D ng/mL Negative: Cutoff = 1.00 ng/mL PH, THOMAS 5.3 [pH] 4-10 CREATININE, THOMAS 317.72 mg/dL >20 SP.GRAVITY, THOMAS 1.031 H 1.00 3-1.02 0 Aug 29, 2023 09:34 AM [facility] BENZODIAZEPINES SCREEN PANEL Specimen Type: URINE [...] Aug 24, 2023 02:13 PM Reporting Lab: [address] [address] Performing Lab: [address] [address] BENZODIAZEPINES SCREEN NONE-DETECTED None-Detec karin, Cutoff = 200 ng/mL PH, THOMAS 5.1 [pH] 4-10 CREATININE, THOMAS 318.04 mg/dL >20 SP.GRAVITY, THOMAS 1.031 H 1.00 3-1.02 0 Aug 29, 2023 09:34 AM [facility] BUPRENORPHINE SCREEN PANEL Specimen Type: URINE [...] Aug 24, 2023 02:13 PM Reporting Lab: [address] [address] Performing Lab: [address] [address] BUPRENORPHINE (URINE) NONE-DETECTED None Detected, Cutoff = 10.0 ng/mL PH, THOMAS 5.1 [pH] 4-10 CREATININE, THOMAS 318.04 mg/dL >20 SP.GRAVITY, THOMAS 1.031 H 1.00 3-1.02 0 Aug 29, 2023 09:34 AM [facility] CANNABINOIDS SCREEN PANEL Specimen Type: URINE [...] Aug 24, 2023 02:13 PM Reporting Lab: [address] [address] Performing Lab: [address] [address] CANNABINOIDS SCREEN NONE-DETECTED None-Detec karin,Cutoff = 50 ng/mL PH, THOMAS 5.1 [pH] 4-10 CREATININE, THOMAS 318.04 mg/dL >20 SP.GRAVITY, THOMAS 1.031 H 1.00 3-1.02 0 Aug 29, 2023 09:34 AM [facility] COCAINE SCREEN PANEL Specimen Type: URINE [...] Aug 24, 2023 02:13 PM Reporting Lab: [address] [address] Performing Lab: [address] [address] COCAINE SCREEN NONE-DETECTED N one-Detec karin,Cutoff = 300 ng/mL PH, THOMAS 5.1 [pH] 4-10 CREATININE, THOMAS 318.04 mg/dL >20 SP.GRAVITY, THOMAS 1.031 H 1.00 3-1.02 0 Aug 29, 2023 09:34 AM [facility] OPIATES SCREEN PANEL Specimen Type: URINE [...] Aug 24, 2023 02:13 PM Reporting Lab: [address] [address] Performing Lab: [address] [address] OPIATES SCREEN NONE-DETECTED N one-Detec karin, Cutoff = 300 ng/mL PH, THOMAS 5.1 [pH] 4-10 CREATININE, THOMAS 318.04 mg/dL >20 SP.GRAVITY, THOMAS 1.031 H 1.00 3-1.02 0 Aug 29, 2023 09:34 AM [facility] OXYCODONE SCREEN PANEL Specimen Type: URINE [...] Aug 24, 2023 02:13 PM Reporting Lab: [address] [address] Performing Lab: [address] [address] OXYCODONE SCREEN NONE-DETECTED None-Detec karin, Cutoff = 100 ng/mL PH, THOMAS 5.1 [pH] 4-10 CREATININE, THOMAS 318.04 mg/dL >20 SP.GRAVITY, THOMAS 1.031 H 1.00 3-1.02 0 Aug 29, 2023 09:06 AM [facility] LIPID PANEL FASTING Specimen Type: SERUM No comment entered. Ordering Provider: COLT RAND Report Released Date/Time: Aug 24, 2023 02:11 PM Reporting Lab: [facility] [address] [facility] [address] Performing Lab: [facility] [address] [address] CHOLESTEROL 132 mg/dL TRIGLYCERIDE 129 mg/dL 0-150 LDL calculated 69 mg/dL 0-129 CHOL/HDL 3.6 HDL CHOLESTEROL 37 mg/dL L 40-60 Aug 29, 2023 09:06 AM [facility] LIVER FUNCTION Specimen Type: SERUM No comment entered. Ordering Provider: COLT RAND Report Released Date/Time: Aug 24, 2023 02:11 PM Reporting Lab: [facility] [address] [address] Performing Lab: [address] [address] PROTEIN,TOTAL 7.7 g/dL 6.0-8.3 ALBUMIN 3.8 g/dL 3.5-5.0 ALKALINE PHOSPHATASE 73 U/L 40-150 AST 15 U/L 5-34 ALT 9 U/L BILIRUBIN, TOTAL 0.5 mg/dL 0.2-1.2 Aug 29, 2023 09:06 AM [facility] PSA Specimen Type: SERUM No comment entered. Ordering Provider: COLT RAND Report Released Date/Time: Aug 24, 2023 02:11 PM Reporting [facility]: [facility] [address] Performing [facility]: [facility] [address] PSA 7.14 ng/mL H 0.00-4.00 Aug 29, 2023 09:06 AM [facility] BASIC METABOLIC PANEL (fasting) Specimen Type: SERUM No comment entered. Ordering Provider: COLT RAND Report Released Date/Time: Aug 24, 2023 02:11 PM Reporting Lab: [address] [address] Performing Lab: [facility] [address] [facility] [address] UREA NITROGEN 10 mg/dL 7-25 GLUCOSE 113 mg/dL H 65-100 SODIUM 142 mmol/L 135-145 POTASSIUM 3.7 mmol/L 3.5-5.0 CHLORIDE 108 mmol/L 100-110 CO2 25 meq/L 20-30 CREATININE, Serum 1.13 mg/dL 0.50-1.40 eGFR(CKD-EPI 2020) 72 mL/min >60 Aug 29, 2023 09:06 AM [facility] HEMOGLOBIN A1C PANEL Specimen Type: BLOOD [...] Aug 24, 2023 02:11 PM Reporting Lab: [facility] [address] [facility] [address] Performing Lab: [facility] [address] [facility] [address] HEMOGLOBIN A1C 4.4 4.0-5.6 Aug 29, 2023 09:06 AM [facility] TSH Specimen Type: SERUM No comment entered. Ordering Provider: COLT RAND Report Released Date/Time: Aug 24, 2023 02:11 PM Reporting Lab: [facility] [address] [facility] [address] Performing Lab: [facility] [address] [facility] [address] TSH 1.07 u[IU]/mL 0.35-5.00 Aug 29, 2023 09:06 AM [facility] VITAMIN B12 Specimen Type: SERUM No comment entered. Ordering Provider: COLT RAND Report Released Date/Time: Aug 24, 2023 02:11 PM Reporting Lab: [facility] [address] [facility] [address] Performing Lab: [facility] [address] [facility] [address] VITAMIN B12 329 pg/mL 200-900 Aug 29, 2023 09:06 AM [facility] CBC AND DIFF (AUTO) Specimen Type: BLOOD No comment entered. Ordering Provider: COLT RAND Report Released Date/Time: Aug 24, 2023 02:11 PM Reporting Lab: [facility] [address] [facility] [address] Performing Lab: [facility] [address] [facility] [address] WBC 4.94 10*3/uL 4.50-11.00 RBC 3.69 10*6/uL L 4.23-5.66 HGB 11.4 g/dL L 12.8-17 HCT 34.8 L 39.2-50.4 MCV 94.3 fL 82-99 MCHC 32.8 g/dL 30.8-35.1 PLT 264 10*3/uL 140-360 RDW-CV 16.3 H 12.0-16.0 Ocean, Abs 0.28 10*3/uL L 0.30-1.10 MCH 30.9 pg 26.2-32.6 Neut % 54.0 43.7-75.8 Lymph % 31.8 14.0-42.3 Ocean % 5.7 5.1-13.7 Eos % 7.5 H [...] and tobacco- related health factors from the [facility] where the Encounter took place. Current Smoking Status This section includes the most current smoking, or tobacco-related health factor, from the [place] facility where the Encounter took place. Date/Time Current Smoking Status Comment Anthony ity Sep 06, 2023 03:30 PM VA-TOBACCO USER EVERY DAY [facility] Tobacco Use History This section includes a history of the smoking, or tobacco-related health factors, that were collected on or before the date of the Encounter. The data comes from the [place] facility where the Encounter took place. 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 [facility] Sep 06, 2023 03:30 PM VA-TOBACCO USE MED [facility] Sep 06, 2023 03:30 PM VA-TOBACCO USER EVERY DAY [facility] Jul 26, 2022 02:00 PM VA-TOBACCO USE 30 YEARS OR MORE [facility] Jul 26, 2022 02:00 PM VA-TOBACCO USE ADVICE [facility] Jul 26, 2022 02:00 PM VA-TOBACCO USE MINE EXPLORATION ENGINEER NO [facility] Jul 26, 2022 02:00 PM VA-TOBACCO USE MED [facility] Jul 26, 2022 02:00 PM VA-TOBACCO USE WI 30 MIN OF WAKE UP [facility] Jul 26, 2022 02:00 PM VA-TOBACCO USER EVERY DAY [facility] Mar 01, 2019 01:59 PM VA-TOBACCO DOESNT USE WI 30 MIN WAKEUP [facility] Mar 01, 2019 01:59 PM VA-TOBACCO USE 30 YEARS OR MORE [facility] Mar 01, 2019 01:59 PM VA-TOBACCO USE ADVICE [facility] Mar 01, 2019 01:59 PM VA-TOBACCO USE 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 EXPLORATION 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 [facility] Mar 01, 2019 01:59 PM VA-TOBACCO USE MED [facility] Mar 01, 2019 01:59 PM VA-TOBACCO USER EVERY DAY [facility] Mar 06, 2018 04:15 PM VA-TOBACCO USE 30 YEARS OR MORE [facility] Mar 06, 2018 04:15 PM VA-TOBACCO USE ADVICE [facility] Mar 06, 2018 04:15 PM VA-TOBACCO USE 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 This section includes ALL of a patient's completed or amended VA Advance and Rescinded Directives. The entries below indicate that a directive exists for the patient, but an actual copy is not included with this document. The data comes from all [place] facilities. Date Advance Directives Provider Source Mar 15, 2018 ADVANCE DIRECTIVE RULTOBI GORE Encounter Notes: All associated encounter notes This section contains the clinical notes associated to the Encounter. Date/Time Encounter Note(s) Provider Source Sep 06, 2023 04:37 PM ADDENDUM: LOCAL TITLE: Addendum STANDARD TITLE: ADDENDUM DATE OF NOTE: SEP 06, 2023@16:37:44 ENTRY DATE: SEP 06, 2023@16:37:45 AUTHOR: COLT RAND EXP COSIGNER: URGENCY: STATUS: COMPLETED Pact COSTUME SHOP COORDINATOR: please pull hospital notes Pact AMSA: please arrange VVC for 09/08/23. Thank you /arnaud/ COLT RAND MD Primary Care Physician Signed: 09/06/2023 16:45 Receipt Acknowledged By: 09/07/2023 09:05 /arnaud/ WAN ADAMS ADVANCED DIRECTOR OF FUNDRAISING 09/11/2023 08:04 /arnaud/ LADONNA GONGORA LPN PACT 10 --- Original Document --- 09/06/23 NOTE: HISTORY OF PRESENT ILLNESS: JAMES LEO, is a 61 yo MALE , who presents at the [facility] for his annual wellness exam. Labs completed. He has a long history of noncompliance and repeated no-shows for appts. He was seen at [facility] last month for cellulitis of his right lower leg. Will need to review hospital notes. Active problems - Computerized Problem List is the source for the followin. Vitamin D deficiency 2. Obesity 3. Folic acid deficiency 4. Housing lack 5. Colonoscopy Screening 6. Tobacco dependence, continuous 7. Hyperlipidemia 8. Type 2 diabetes mellitus 9. Benign prostatic hypertrophy with outflow obstruction 10. Hypertension 11. Cocaine dependence in remission 12. Tinnitus 13. Erectile dysfunction 14. Obstructive sleep apnea 15. Chronic hepatitis C 16. Chronic kidney disease The following VA and Non-VA meds were reconciled with patient: Active Outpatient Medications (including Supplies): Issue Date Status Last Fill Active Outpatient Medications Refills Expiration ======= 1) ATORVASTATIN CALCIUM 40MG TAB Qty: 45 ACTIVE Issu:12-17-21 for 90 days Sig: TAKE ONE-HALF TABLET Refills: 3 Last:12-17-21 BY MOUTH AT BEDTIME FOR CHOLESTEROL Expr:12-18-22 2) CHOLECALCIF 50MCG (D3-2,000UNIT) TAB ACTIVE Issu:12-17-21 Qty: 100 for 90 days Sig: TAKE ONE Refills: 3 Last:12-17-21 TABLET BY MOUTH ONCE DAILY FOR VITAMIN Expr:12-18-22 SUPPLEMENTATION 3) SILDENAFIL CITRATE 100MG TAB Qty: 6 for ACTIVE Issu:12-17-21 30 days Sig: TAKE ONE TABLET BY MOUTH Refills: 6 Last:12-17-21 ONCE DAILY TAKE 1 HOUR PRIOR TO Expr:12-18-22 SEXUAL ACTIVITY 4) TERAZOSIN HCL 2MG CAP Qty: 90 for 90 ACTIVE Issu:12-17-21 days Sig: TAKE ONE CAPSULE BY MOUTH Refills: 3 Last:12-17-21 ONCE DAILY Expr:12-18-22 ALLERGIES: ========= TETRACYCLINE LAB HISTORY: CHEM 7 [...] SERVICE INDICATED: No VITAL SIGNS: Blood Pressure 145/99 (09/06/2023 15:31)Repeat BP: 136/82 Pulse 89 (09/06/2023 15:31) Respiration 18 (09/06/2023:) Pulse Oximetry 99% (09/06/2023 15:31) Temperature 98 F [36.7 C] (09/06/2023 15:) Pain 0 (09/06/2023:) Height 67 in [170.2 cm] (09/06/2023:) Weight 192 lb [87.09 kg] (09/06/2023:) BMI BMI: 30.1 REVIEW OF SYSTEMS: ENT: No sore throat, no cough CARDIOVASCULAR: No chest pain, no palpitations RESPIRATORY: No SOB, no wheezing GASTROINTESTINAL: No abd pain, no N/V/D GENITOURINARY: No dysuria, no hematuria MUSCULOSKELETAL: No joint pain, no joint swelling PSYCHIATRIC: No anxiety, no trouble sleeping, no depression NEUROLOGIC: No H/A, no numbness, no weakness, no tingling EXAMINATION: GENERAL: WD/WN , pleasant & in NAD HEENT: Moist mucosa NECK: Supple, no LN's, no carotid bruits HEART: RRR, S1-S2, no murmurs LUNGS: CTA B/L, no wheezes ABDOMEN: Soft, NT/ND, no HSM, + BS x 4 Quads PERIPH PULSES: 2+ B/L EXTREMITIES: FROM x 4, no edema, gait normal NEUROLOGIC: AAO x3, no focal neurological deficits PSYCHIATRIC: Good eye contact, affect normal ASSESSMENT/PLAN: Adult Annual General Wellness Exam -advised eye exams yearly and dental exams Q6 mths -advised healthy well balanced diet and lifestyle habits -advised regular CV exercise for most days of the week 1. Hypertension: well controlled on amlodipine 7.5mg/day 2. Hyperlipidemia: well controlled on atorvastatin 20mg/QHS Collection DT Spec CHOL HDL CHO/HDL LDL-c TRIG 08/29/2023 09:06 SERUM 132 37 L 3.6 69 129 3. DM II: diet controlled FBS 113 - A1C 4.4% Eye exam: 06/21/23 - [place] [facility] exam: 07/22/19 - neg PVD and neg DPN Microalbuminuria: 10/19/20 - negative 4. Hx Hepatitis C: s/p ribavirin & ledipasvir treatment, Hep C neg on 05/14/19 5. Obstructive Sleep Apnea: compliant with CPAP 6. BPH: on terazosin 2mg/day 8. Prostate CA: dxed 12/2022, managed by urology at [facility], Dr Rodriguez ---- PROSTATIC ASSAYS ---- SERUM Aug 28 Apr 04 Jun 21 October 19 Reference 2023 2022 2022 2020 09:06 11:30 13:39 14:36 Units Ranges PSA 7.14 H 12.89 H 24.98 H 8.31 H ng/mL 0 - 4 9. Tobacco Dependence: down to 3 cigs a day from 3 PPD, (53+ pack yr hx) started age 7, not interested in quitting, declines smoking cessation aids, counseled at length 10. Hx Cocaine dependence: in remission - ? last use 05/29/16 11. Colonoscopy Screenin10/18/22, repeat 5 yrs 12. Erectile Dysfunction: on sildenafil 100mg/day prn 13. Lichen Planus: was receiving photo treatment from Derm, on triamcinolone acetonide 0.1% ointment (liberal amt TID), fluocinonide 0.05% oint (small amt BID), referred to Derm twice for continuation of care but he no-showed both times, advised vet to call [facility] for f/u appt 14. Psoriasis: on Acitretin 25mg/day 15. Obesity: BMI ~30, counseled on weight loss FOLLOW UP: 6 mths - FBW prior - HTN/Lipids/DM II ========= UPCOMING APPOINTMENTS: 06/14/2022 14:00 NHM/OPTOMETRY/ESCOBAR/ No barriers; Patient understands and agrees to [...] (Tool #5) FACILITY ALLERGY/ADR -------- TOVA CHAIREZ [facility] TETRACYCLINE [facility] TETRACYCLINE [facility] [place] [facility]ETRACYCLINE [facility] TETRACYCLINE Med Recon [...] display of VA prescriptions dispensed from another [place] or [facility] facility (remote) is limited to active outpatient prescription entries matched to National Drug File at the originating site and may not include some items such as investigational drugs, compounds, etc. NOT INCLUDED IN THIS LIST: Medications self-entered by the patient into personal health records (i.e. My Fashion Database) are NOT included in this list. Non-VA medications documented outside this [place], remote inpatient orders (regardless of status) and remote clinic medications are NOT included in this list. The patient and provider must always discuss medications the patient is taking, regardless of where the medication was dispensed or obtained. ------ OUTPT ALBUTEROL 90MCG (CFC-F) 200D ORAL INHL (Status = Active) INHALE 2 PUFFS BY MOUTH EVERY 6 HOURS NEEDED FOR WHEEZING Rx# [id number] Last Released: 06/07/23 Qty/Days Supply: 06/27 Rx Expiration Date: 04/10/24 Refills Remainin Indication: FOR WHEEZING OUTPT AMLODIPINE BESYLATE 2.5MG TAB (Status = Active) TAKE THREE TABLETS BY MOUTH ONCE DAILY FOR BLOOD PRESSURE/HEART, DO NOT TAKE WITH GRAPE[employer]UIT JUICE Rx# [id number] Last Released: 04/29/23 Qty/Days Supply: 270/90 Rx Expiration Date: 11/25/23 Refills Remainin Indication: FOR HIGH BLOOD PRESSURE OUTPT ATORVASTATIN CALCIUM 40MG TAB (Status = Active) TAKE ONE-HALF TABLET BY MOUTH AT BEDTIME FOR CHOLESTEROL Rx# [id number] Last Released: 06/07/23 Qty/Days Supply: 45 Rx Expiration Date: 02/08/24 Refills Remainin OUTPT DICLOFENAC NA 1% TOP GEL (Status = Active) APPLY 2 GRAMS TOPICALLY FOUR TIMES A DAY FOR RIGHT KNEE OSTEOARTHRITIS - USE DOSING CARD PROVIDED IN BOX Rx# [id number] Last Released: 06/03/23 Qty/Days Supply: Rx Expiration Date: 04/10/24 Refills Remainin Indication: FOR RIGHT KNEE OUTPT FINASTERIDE 5MG TAB (Status = Active) TAKE ONE TABLET BY MOUTH ONCE DAILY Rx# [id number] Last Released: 07/12/23 Qty/Days Supply: Rx Expiration Date: 01/18/24 Refills Remainin OUTPT IVERMECTIN 3MG TAB (Status = Active) TAKE FIVE TABLETS BY MOUTH DIRECTED BY PROVIDER ONCE ON 08/20/23 Rx# [id number] Last Released: 08/18/23 Qty/Days Supply: 09/26 Rx Expiration Date: 09/17/23 Refills Remainin Indication: FOR ROUNDWORM INFECTION OUTPT LEVOFLOXACIN 750MG TAB (Status = Active) TAKE ONE TABLET BY MOUTH ONCE DAILY FOR INFECTION CAUSED BY BACTERIA Rx# [id number] Last Released: 08/24/23 Qty/Days Supply: 03/07 Rx Expiration Date: 09/23/23 Refills Remainin Indication: FOR INFECTION CAUSED BY BACTERIA OUTPT OXYCODONE HCL 5MG TAB NOT SA (Status = Active) TAKE ONE TABLET BY MOUTH FOUR TIMES DAILY NEEDED FOR PAIN Rx# [id number] Last Released: 08/24/23 Qty/Days Supply: Rx Expiration Date: 09/23/23 Refills Remainin Indication: FOR PAIN OUTPT PERMETHRIN 5% CREAM (Status = Active) APPLY A THIN LAYER TOPICALLY AT BEDTIME FOR SCABIES AT BEDTIME FROM NECK DOWN. WASH OFF IN THE MORNING. MAY REPEAT IN 1 WEEK IF NEEDED Rx# [id number] Last Released: 06/29/23 Qty/Days Supply: Rx Expiration Date: 06/22/24 Refills Remainin Indication: FOR SCABIES OUTPT SILDENAFIL CITRATE 100MG TAB (Status = Active) TAKE ONE TABLET BY MOUTH ONCE DAILY NEEDED TAKE 1 HOUR PRIOR TO SEXUAL ACTIVITY Rx# [id number] Last Released: 09/06/23 Qty/Days Supply: 11/25 Rx Expiration Date: 04/26/24 Refills Remainin Indication: FOR ERECTILE DYSFUNCTION OUTPT TAMSULOSIN HCL 0.4MG CAP (Status = ) TAKE ONE CAPSULE BY MOUTH AT BEDTIME DIRECTED BY PROVIDER - STOP TAKING TERAZOSIN Rx# [id number] Last Released: 06/16/23 Qty/Days Supply: Rx Expiration Date: 08/08/23 Refills Remainin OUTPT VITAMIN B COMPLEX CAP (Status = Active) TAKE 1 CAPSULE BY MOUTH ONCE DAILY FOR VITAMIN SUPPLEMENTATION Rx# [id number] Last Released: 06/16/23 Qty/Days Supply: Rx Expiration Date: 04/10/24 Refills Remainin Indication: FOR VITAMIN SUPPLEMENTATION ------ SUPPLIES ------ HTN Assess for Elevated BP>=140/90: Repeat blood pressure: 136/82 Diabetes: Kidney Health Evaluation: Last eGFR: EGFR Collection DT Specimen Test Name Result Units Ref Range 08/29/2023 09:06 SERUM eGFR(CKD-EPI 2020 72 mL/min Ref: >=60 Last uACR: No uACR found within the past year uACR (Urine Albumin-Creatinine Ratio) Patient declines having lab(s) done /arnaud/ COLT RAND MD Primary Care Physician Signed: 09/06/2023 16:37 09/07/2023 ADDENDUM STATUS: COMPLETED VVC APPT SCHEDULED WITH VET FOR 11 AM ON 09-07arnaud/ WAN ADAMS ADVANCED DIRECTOR OF FUNDRAISING Signed: 09/07/2023 09:06 COLT RAND ALDRICH Sep 06, 2023 03:48 PM PHYSICIAN NOTE: LOCAL TITLE: NOTE STANDARD TITLE: PHYSICIAN NOTE DATE OF NOTE: SEP 06, 2023@15:48 ENTRY DATE: SEP 06, 2023@15:48:36 AUTHOR: COLT RAND EXP COSIGNER: URGENCY: STATUS: COMPLETED NOTE Has ADDENDA HISTORY OF PRESENT ILLNESS: JAMES LEO, is a 61 yo MALE , who presents at the [facility] for his annual wellness exam. Labs completed. He has a long history of noncompliance and repeated no-shows for appts. He was seen at [facility] last month for cellulitis of his right lower leg. Will need to review hospital notes. Active problems - Computerized Problem List is the source for the followin. Vitamin D deficiency 2. Obesity 3. Folic acid deficiency 4. Housing lack 5. Colonoscopy Screening 6. Tobacco dependence, continuous 7. Hyperlipidemia 8. Type 2 diabetes mellitus 9. Benign prostatic hypertrophy with outflow obstruction 10. Hypertension 11. Cocaine dependence in remission 12. Tinnitus 13. Erectile dysfunction 14. Obstructive sleep apnea 15. Chronic hepatitis C 16. Chronic kidney disease The following VA and Non-VA meds were reconciled with patient: Active Outpatient Medications (including Supplies): Issue Date Status Last Fill Active Outpatient Medications Refills Expiration ======= 1) ATORVASTATIN CALCIUM 40MG TAB Qty: 45 ACTIVE Issu:12-17-21 for 90 days Sig: TAKE ONE-HALF TABLET Refills: 3 Last:12-17-21 BY MOUTH AT BEDTIME FOR CHOLESTEROL Expr:12-18-22 2) CHOLECALCIF 50MCG (D3-2,000UNIT) TAB ACTIVE Issu:12-17-21 Qty: 100 for 90 days Sig: TAKE ONE Refills: 3 Last:12-17-21 TABLET BY MOUTH ONCE DAILY FOR VITAMIN Expr:12-18-22 SUPPLEMENTATION 3) SILDENAFIL CITRATE 100MG TAB Qty: 6 for ACTIVE Issu:12-17-21 30 days Sig: TAKE ONE TABLET BY MOUTH Refills: 6 Last:12-17-21 ONCE DAILY TAKE 1 HOUR PRIOR TO Expr:12-18-22 SEXUAL ACTIVITY 4) TERAZOSIN HCL 2MG CAP Qty: 90 for 90 ACTIVE Issu:12-17-21 days Sig: TAKE ONE CAPSULE BY MOUTH Refills: 3 Last:12-17-21 ONCE DAILY Expr:12-18-22 ALLERGIES: ========= TETRACYCLINE LAB HISTORY: CHEM 7 [...] SERVICE INDICATED: No VITAL SIGNS: Blood Pressure 145/99 (09/06/2023 15:31)Repeat BP: 136/82 Pulse 89 (09/06/2023 15:31) Respiration 18 (09/06/2023 15:) Pulse Oximetry 99% (09/06/2023 15:31) Temperature 98 F [36.7 C] (09/06/2023 15:31) Pain 0 (09/06/2023 15:31) Height 67 in [170.2 cm] (09/06/2023 15:31) Weight 192 lb [87.09 kg] (09/06/2023 15:) BMI BMI: 30.1 REVIEW OF SYSTEMS: ENT: No sore throat, no cough CARDIOVASCULAR: No chest pain, no palpitations RESPIRATORY: No SOB, no wheezing GASTROINTESTINAL: No abd pain, no N/V/D GENITOURINARY: No dysuria, no hematuria MUSCULOSKELETAL: No joint pain, no joint swelling PSYCHIATRIC: No anxiety, no trouble sleeping, no depression NEUROLOGIC: No H/A, no numbness, no weakness, no tingling EXAMINATION: GENERAL: WD/WN , pleasant & in NAD HEENT: Moist mucosa NECK: Supple, no LN's, no carotid bruits HEART: RRR, S1-S2, no murmurs LUNGS: CTA B/L, no wheezes ABDOMEN: Soft, NT/ND, no HSM, + BS x 4 Quads PERIPH PULSES: 2+ B/L EXTREMITIES: FROM x 4, no edema, gait normal NEUROLOGIC: AAO x3, no focal neurological deficits PSYCHIATRIC: Good eye contact, affect normal ASSESSMENT/PLAN: Adult Annual General Wellness Exam -advised eye exams yearly and dental exams Q6 mths -advised healthy well balanced diet and lifestyle habits -advised regular CV exercise for most days of the week 1. Hypertension: well controlled on amlodipine 7.5mg/day 2. Hyperlipidemia: well controlled on atorvastatin 20mg/QHS Collection DT Spec CHOL HDL CHO/HDL LDL-c TRIG 08/29/2023 09:06 SERUM 132 37 L 3.6 69 129 3. DM II: diet controlled FBS 113 - A1C 4.4% Eye exam: 06/21/23 - [facility] exam: 07/22/19 - neg PVD and neg DPN Microalbuminuria: 10/19/20 - negative 4. Hx Hepatitis C: s/p ribavirin & ledipasvir treatment, Hep C neg on 05/14/19 5. Obstructive Sleep Apnea: compliant with CPAP 6. BPH: on terazosin 2mg/day 8. Prostate CA: dxed 12/2022, managed by urology at [facility], Dr Rodriguez ---- PROSTATIC ASSAYS ---- SERUM Aug 28 Apr 04 Jun 21 October 19 Reference 2023 2022 2022 2020 09:06 11:30 13:39 14:36 Units Ranges PSA 7.14 H 12.89 H 24.98 H 8.31 H ng/mL 0 - 4 9. Tobacco Dependence: down to 3 cigs a day from 3 PPD, (53+ pack yr hx) started age 7, not interested in quitting, declines smoking cessation aids, counseled at length 10. Hx Cocaine dependence: in remission - ? last use 05/29/16 11. Colonoscopy Screenin10/18/22, repeat 5 yrs 12. Erectile Dysfunction: on sildenafil 100mg/day prn 13. Lichen Planus: was receiving photo treatment from Derm, on triamcinolone acetonide 0.1% ointment (liberal amt TID), fluocinonide 0.05% oint (small amt BID), referred to Derm twice for continuation of care but he no-showed both times, advised vet to call [facility] for f/u appt 14. Psoriasis: on Acitretin 25mg/day 15. Obesity: BMI ~30, counseled on weight loss FOLLOW UP: 6 mths - FBW prior - HTN/Lipids/DM II ========= UPCOMING APPOINTMENTS: 06/14/2022 14:00 NHM/OPTOMETRY/ESCOBAR/ No barriers; Patient understands and agrees to [...] of active outpatient prescriptions dispensed from this [place] (local) and dispensed from another VA or [...] JLV. Allergies/ADRs (Tool #5) FACILITY ALLERGY/ADR -------- [facility] TETRACYCLINE [facility]AC[facility] [place] [facility] TETRACYCLINE Med Nahed Junior (Tool #1) INCLUDED IN THIS LIST: Alphabetical list of active outpatient prescriptions dispensed from this [place] (local) and dispensed from another [place] or [facility] facility (remote) as well as inpatient orders (local pending and active), local clinic medications, locally documented non-VA medications, and local prescriptions that have or been discontinued in the past 90 days. Non-VA Meds Last Documented On: Data not found NOTE The display of VA prescriptions dispensed from another VA or [facility] facility (remote) is limited to active outpatient prescription entries matched to National Drug File at the originating site and may not include some items such as investigational drugs, compounds, etc. NOT INCLUDED IN THIS LIST: Medications self-entered by the patient into personal health records (i.e. My [employer] Database) are NOT included in this list. Non-VA medications documented outside this [place], remote inpatient orders (regardless of status) and remote clinic medications are NOT included in this list. The patient and provider must always discuss medications the patient is taking, regardless of where the medication was dispensed or obtained. ------ OUTPT ALBUTEROL 90MCG (CFC-F) 200D ORAL INHL (Status = Active) INHALE 2 PUFFS BY MOUTH EVERY 6 HOURS NEEDED FOR WHEEZING Rx# [id number] Last Released: 06/07/23 Qty/Days Supply: 06/27 Rx Expiration Date: 04/10/24 Refills Remainin Indication: FOR WHEEZING OUTPT AMLODIPINE BESYLATE 2.5MG TAB (Status = Active) TAKE THREE TABLETS BY MOUTH ONCE DAILY FOR BLOOD PRESSURE/HEART, DO NOT TAKE WITH GRAPEFRUIT JUICE Rx# [id number] Last Released: 04/29/23 Qty/Days Supply: 270/ Rx Expiration Date: 11/25/23 Refills Remainin Indication: FOR HIGH BLOOD PRESSURE OUTPT ATORVASTATIN CALCIUM 40MG TAB (Status = Active) TAKE ONE-HALF TABLET BY MOUTH AT BEDTIME FOR CHOLESTEROL Rx# [id number] Last Released: 06/07/23 Qty/Days Supply: 45 Rx Expiration Date: 02/08/24 Refills Remainin OUTPT DICLOFENAC NA 1% TOP GEL (Status = Active) APPLY 2 GRAMS TOPICALLY FOUR TIMES A DAY FOR RIGHT KNEE OSTEOARTHRITIS - USE DOSING CARD PROVIDED IN BOX Rx# [id number] Last Released: 06/03/23 Qty/Days Supply: 100/30 Rx Expiration Date: 04/10/24 Refills Remainin Indication: FOR RIGHT KNEE OUTPT FINASTERIDE 5MG TAB (Status = Active) TAKE ONE TABLET BY MOUTH ONCE DAILY Rx# [id number] Last Released: 07/12/23 Qty/Days Supply: 90 Rx Expiration Date: 01/18/24 Refills Remainin OUTPT IVERMECTIN 3MG TAB (Status = Active) TAKE FIVE TABLETS BY MOUTH DIRECTED BY PROVIDER ONCE ON 08/20/23 Rx# [id number] Last Released: 08/18/23 Qty/Days Supply: 09/26 Rx Expiration Date: 09/17/23 Refills Remainin Indication: FOR ROUNDWORM INFECTION OUTPT LEVOFLOXACIN 750MG TAB (Status = Active) TAKE ONE TABLET BY MOUTH ONCE DAILY FOR INFECTION CAUSED BY BACTERIA Rx# [id number] Last Released: 08/24/23 Qty/Days Supply: 03/07 Rx Expiration Date: 09/23/23 Refills Remainin Indication: FOR INFECTION CAUSED BY BACTERIA OUTPT OXYCODONE HCL 5MG TAB NOT SA (Status = Active) TAKE ONE TABLET BY MOUTH FOUR TIMES DAILY NEEDED FOR PAIN Rx# [id number] Last Released: 08/24/23 Qty/Days Supply: Rx Expiration Date: 09/23/23 Refills Remainin Indication: FOR PAIN OUTPT PERMETHRIN 5% CREAM (Status = Active) APPLY A THIN LAYER TOPICALLY AT BEDTIME FOR SCABIES AT BEDTIME FROM NECK DOWN. WASH OFF IN THE MORNING. MAY REPEAT IN 1 WEEK IF NEEDED Rx# [id number] Last Released: 06/29/23 Qty/Days Supply: 60/7 Rx Expiration Date: 06/22/24 Refills Remainin Indication: FOR SCABIES OUTPT SILDENAFIL CITRATE 100MG TAB (Status = Active) TAKE ONE TABLET BY MOUTH ONCE DAILY NEEDED TAKE 1 HOUR PRIOR TO SEXUAL ACTIVITY Rx# [id number] Last Released: 09/06/23 Qty/Days Supply: 11/25 Rx Expiration Date: 04/26/24 Refills Remainin Indication: FOR ERECTILE DYSFUNCTION OUTPT TAMSULOSIN HCL 0.4MG CAP (Status = ) TAKE ONE CAPSULE BY MOUTH AT BEDTIME DIRECTED BY PROVIDER - STOP TAKING TERAZOSIN Rx# [id number] Last Released: 06/16/23 Qty/Days Supply: Rx Expiration Date: 08/08/23 Refills Remainin OUTPT VITAMIN B COMPLEX CAP (Status = Active) TAKE 1 CAPSULE BY MOUTH ONCE DAILY FOR VITAMIN SUPPLEMENTATION Rx# [id number] Last Released: 06/16/23 Qty/Days Supply: 100/90 Rx Expiration Date: 04/10/24 Refills Remainin Indication: FOR VITAMIN SUPPLEMENTATION ------ SUPPLIES ------ HTN Assess for Elevated BP>=140/90: Repeat blood pressure: 136/82 Diabetes: Kidney Health Evaluation: Last eGFR: EGFR Collection DT Specimen Test Name Result Units Ref Range 08/29/2023 09:06 SERUM eGFR(CKD-EPI 2020 72 mL/min Ref: >=60 Last uACR: No uACR found within the past year uACR (Urine Albumin-Creatinine Ratio) Patient declines having lab(s) done /ethan RAND MD Primary Care Physician Signed: 09/06/2023 16:37 09/06/2023 ADDENDUM STATUS: COMPLETED Pact COSTUME SHOP COORDINATOR: please pull hospital notes Pact AMSA: please arrange VVC for 09/08/23. Thank you /ethan RAND MD Primary Care Physician Signed: 09/06/2023 16:45 Receipt Acknowledged By: 09/07/2023 09:05 /arnaud/ WAN ADAMS ADVANCED DIRECTOR OF FUNDRAISING * AWAITING SIGNATURE * LADONNA GONGORA 09/07/2023 ADDENDUM STATUS: COMPLETED VVC APPT SCHEDULED WITH VET FOR 11 AM ON 09-07 /ethan ADAMS ADVANCED DIRECTOR OF FUNDRAISING Signed: 09/07/2023 09:06 COLT RAND Sep 06, 2023 03:32 PM PREVENTIVE MEDICIN E NURSING NOTE: LOCAL TITLE: CLINICAL REMINDERS/NURSING STANDARD TITLE: PREVENTIVE MEDICINE NURSING NOTE DATE OF NOTE: SEP 06, 2023@15:32 ENTRY DATE: SEP 06, 2023@15:32:23 AUTHOR: LADONNA GONGORA EXP COSIGNER: URGENCY: STATUS: COMPLETED Advance Directive Screen MH AD: Patient has an Advance Directive on file at this [facility]. No updates are needed at this time. The patient received education about Advance Directives and written notification of his/her rights. Suicide Screen: C-SSRS Screening [place] Suicide Severity Rating Scale (C-SSRS) screener 1. Over the past month, have you wished you were or wished you could go to sleep and not wake up? No 2. Over the past month, have you had any actual thoughts of killing yourself? No 3. Over the past month, have you been thinking about how you might do this? Response not required due to responses to other questions. 4. Over the past month, have you had these thoughts and had some intention of acting on them? Response not required due to responses to other questions. 5. Over the past month, have you started to work out or worked out the details of how to kill yourself? Response not required due to responses to other questions. 6. If yes, at any time in the past month did you intend to carry out this plan? Response not required due to responses to other questions. 7. In your lifetime, have you ever done anything, started to do anything, or prepared to do anything to end your life (for example, collected pills, obtained a gun, gave away valuables, went to the roof but didn't jump)? No 8. If YES, was this within the past 3 months? Response not required due to responses to other questions. Homelessness/Food Insecurity Screen: In the past 2 months, have you been living in stable housing that you own, rent, or stay in as part of a household? Yes - Living in stable housing. Are you worried or concerned that in the next 2 months you may NOT have stable housing that you own, rent, or stay in as part of a household? No - Not worried about housing near future The [place] reports the following: Within the past 12 months, you worried whether your food would run out before you got money to buy more. Never true Within the past 12 months, the food you bought just didn't last and you didn't have money to get more. Never true Depression Screening: Perform PHQ-2 A PHQ-2 screen was performed. The score was 0 which is a negative screen for depression. Over the past two weeks, how often have you been bothered by the following problems? 1. Little interest or pleasure in doing things Not at all 2. Feeling down, depressed, or hopeless Not at all Pneumococcal Conjugate Vaccine (PCV15/PCV20): Refuses PCV vaccine Immunization: PNEUMOCOCCAL CONJUGATE, UNSPECIFIED FORMULATION Refusal Reason: PATIENT DECISION Patient refuses all immunization(s) in the PneumoPCV group Date Documented: 09/06/23 15:34 Tobacco Use Screening: The patient uses tobacco every day. The patient does not use tobacco within 30 minutes of waking up. The patient has been smoking or using tobacco for thirty years or more. Patient was advised to quit smoking and/or using tobacco. Discussion with patient included: - Quitting smoking or tobacco use is one of the most important things you can do to protect and improve your health and [place] has the resources to support you. - Set a quit date when you are ready to quit. - Get support from your family and friends. - Review any past quit attempts- What helped? What didn't? - On the day you plan to quit, get rid of all cigarettes and tobacco products from your home, car or work. - Using a combination of behavioral counseling or other support strategies and FDA-approved cessation medications is the most effective way to ensure success in quitting. Patient was offered Behavioral Counseling and other support strategies to assist with quitting. Discussion with patient included: - Behavioral counseling or other support strategies greatly increases your chances of successfully quitting smoking or tobacco use by helping you develop a quit plan and providing support and other strategies to make behavioral changes to help you quit. - [place] has a number of behavioral counseling options to help you with quitting, including: * Provide information about the facility smoking or tobacco use treatment options or clinics * [place]'s national quitline, 4-105-VKFH-VET, with counseling available Monday-Monday The patient was not interested in receiving additional information about how to use the treatment options discussed. Patient was offered FDA-approved cessation medications. Discussion with patient included: - Medications for Nicotine replacement therapy such as the patch, gum or lozenge, and other medications such as varenicline or bupropion, can play an important role in the initial weeks and months after you quit smoking or tobacco use. - Medications help with cravings and withdrawal symptoms and they greatly increase your chances of successfully quitting. The patient was not interested in a prescription for tobacco cessation medications. Alcohol Use Screen (AUDIT-C): Alcohol Screen: SCREEN FOR ALCOHOL (AUDIT-C) An alcohol screening test (AUDIT-C) was negative (score=0). 1. How often did you have a drink containing alcohol in the past year? Consider a drink to be a 12 ounce can or bottle of regular beer, 8 ounces of malt liquor, a 5 ounce glass of table wine, or a 1.5 ounce shot of liquor (like scotch, gin, or vodka). Never 2. How many drinks containing alcohol did you have on a typical day when you were drinking in the past year? Response not required due to responses to other questions. 3. How often did you have six or more drinks on one occasion in the past year? Response not required due to responses to other questions. Tdap Immunization: The patient declines to receive the recommended dose of Tdap vaccine. Immunization: TDAP Refusal Reason: PATIENT DECISION Patient refuses all immunization(s) in the TDAP group Date Documented: 09/06/23 15:35 Herpes Zoster (Shingles) Vaccine: The patient declines to receive the recommended dose of zoster (shingles) vaccine. Immunization: ZOSTER RECOMBINANT Refusal Reason: PATIENT DECISION Patient refuses all immunization(s) in the ZOSTER group Date Documented: 09/06/23 15:35 Sexual Orientation: The patient thinks of their sexual orientation as: Straight or Heterosexual RHS Screen: RHS Screen Session Format: Face to Face Environmental Check Upon inquiry, the individual reports that the environment is safe to proceed. Informed Consent to Screen and Document The individual consents to proceed with screening. The individual consents to documentation of responses. PRIMARY SCREEN: In the past 12 months, how often did a current or former intimate partner (e.g., boyfriend, girlfriend, , , sexual partner): 1. Scream or curse at you Never 2. Insult or talk down to you Never 3. Threaten you with harm Never 4. Physically hurt you Never 5. Force or pressure you to have sexual contact against your will, or when you were unable to say no Never ?? The HITS tool (items 1-4 above) is US copyright protected by Mario Jeffrey MD, and the user has full rights to use it throughout the [place] system. PRIMARY SCREEN RESULT: The Primary Screen is NEGATIVE. The individual answered never to all forms of IPV above (i.e., answered never to all 5 items) The individual accepts education and/or resources: No EDUCATION: The individual indicated readiness to learn. Education offered during this session as noted above. The individual indicated understanding by asking relevant questions and making appropriate comments. No barriers to learning were observed or identified. PAVE Foot Check: Patient declined limb care exam. Comment: decline The patient was advised the [place] mandates all patients with diabetes mellitus, end stage renal disease, peripheral vascular disease, or sensory neuropathy should have a complete foot check completed annually. This includes a visual exam of the skin, pedal pulses and a sensory exam. Patients with any abnormality noted during the foot check should be referred to a specialist. /arnaud/ LADONNA GONGORA LPN PACSidney 10 Signed: 09/06/2023 15:36 LADONNA GONGORA ALDRICH
--- OUTSIDE RECORDS SUMMARY | 2024-07-24 13:39 | XMS_ITS | Encounter Summary ---
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 Date/Time Encounter Type Encounter Description Reason Provider Source Oct 31, 2023 03:00 PM OFFICE O/P EST LOW 20 MIN PRIMARY CARE/MEDICINE ICD-10-CM K21.9 Gastro-esophageal reflux disease without esophagitis COLT RAND Encounter Template Text not used by [facility] Assessments - Encounter Diagnoses This section includes the primary and secondary diagnoses documented for the Encounter. Date/Time Primary/Secondary Diagnosis Diagnosis Name Provider Source Oct 31, 2023 03:34 PM PRIMARY Gastro-esophageal reflux disease without esophagitis COLT RAND [place] Plan of Treatment: Future Appointments (+ 6 months) and Future Tests (+/- 45 days) The Plan of Treatment section includes future care activities for the patient [facility] [place] [facility]. This section includes future appointments and future orders which are active, pending or scheduled. Future Appointments This section includes appointments that were scheduled to occur 6 months from the date of the Encounter, up to a maximum of 20 appointments. The data comes from all [place] treatment facilities. Appointment Date/Time Appointment Type Appointme nt Facility Name Nov 09, 2023 01:00 PM AM[place]ULATORY [place]ICINE [place] [facility] [place] [facility] Nov 10, 2023 01:00 PM AMBULATORY - [place] Nov 27, 2023 01:30 PM AMBULATORY - [place] [facility] [place] [facility] Nov 29, 2023 02:30 PM AMBULATORY - [place] [facility] [place] [facility] Dec 04, 2023 01:30 PM AMBULATORY - [place] [facility] [place] [facility] Dec 07, 2023 11:00 AM AMBULATORY - [place] Dec 22, 2023 11:30 AM AMBUL[place]ORY - [place] Dec 28, 2023 11:00 AM AMBUL[place]ORY [place] Jan 05, 2024 11:30 AM AMBULATORY - [place] Jan 11, 2024 08:30 AM AMBULATORY [place]ICINE [place] [facility] [place] [facility] Feb 26, 2024 01:00 PM AM[place]ULATORY [place] [facility] [place] [facility] Feb 27, 2024 03:30 PM AMBULATORY - [place]ICINE [place] [facility] [place] [facility] Mar 28, 2024 11:00 AM AMBULATORY - [place]ICINE [place] [facility] [place] [facility] Apr 01, 2024 01:30 PM AM[place]ULATORY [place]ICINE [place] [facility] [place] [facility] Social History: Smoking Status (Most current) and Tobacco Use (All prior to encounter date) This section includes the most current, and the historical, smoking and tobacco- related health factors from the [place] facility where the Encounter took place. Current Smoking Status This section includes the most current smoking, or tobacco-related health factor, from the [place] facility where the Encounter took place. Date/Time Current Smoking Status Comment Facil ity Sep 06, 2023 03:30 PM VA-TOBACCO USER EVERY DAY [place] Tobacco Use History This section includes a history of the smoking, or tobacco-related health factors, that were collected on or before the date of the Encounter. The data comes from the [place] facility where the Encounter took place. 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 [place] Jul 26, 2022 02:00 PM VA-TOBACCO USE MED [facility] Jul 26, 2022 02:00 PM VA-TOBACCO USE WI 30 MIN OF WAKE UP [place] Jul 26, 2022 02:00 PM VA-TOBACCO USER EVERY DAY [place] Mar 01, 2019 01:59 PM VA-TOBACCO DOESNT USE WI [facility] MIN [facility] Mar 01, 2019 01:59 PM VA-TOBACCO USE 30 YEARS OR MORE [place] Mar 01, 2019 01:59 PM VA-TOBACCO USE ADVICE [place] Mar 01, 2019 01:59 PM VA-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 [facility] Mar 01, 2019 01:59 PM VA-TOBACCO USE MED [facility] Mar 01, 2019 01:59 PM VA-TOBACCO USER EVERY DAY [place] Mar 06, 2018 04:15 PM VA-TOBACCO USE 30 YEARS OR MORE [place] Mar 06, 2018 04:15 PM VA-TOBACCO USE ADVICE [place] Mar 06, 2018 04:15 PM VA-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 This section includes ALL of a patient's completed or amended [place] Advance and Rescinded Directives. The entries below indicate that a directive exists for the patient, but an actual copy is not included with this document. The data comes from all [place] facilities. Date Advance Directives Provider Source Mar 15, 2018 ADVANCE DIRECTIVE ELIZABETH,TOBI RODRIGUEZ Encounter Notes: All associated encounter notes This section contains the clinical notes associated to the Encounter. Date/Time Encounter Note(s) Provider Source Oct 31, 2023 03:07 PM PREVENTIVE MEDICIN E NURSING NOTE: LOCAL TITLE: CLINICAL REMINDERS/NURSING STANDARD TITLE: PREVENTIVE MEDICINE NURSING NOTE DATE OF NOTE: OCT 31, 2023@15:07 ENTRY DATE: OCT 31, 2023@15:07:22 AUTHOR: LADONNA GONGORA COSIGNER: URGENCY: STATUS: COMPLETED Pneumococcal Conjugate Vaccine (PCV15/PCV20): Refuses PCV vaccine Immunization: PNEUMOCOCCAL CONJUGATE, UNSPECIFIED FORMULATION Refusal Reason: PATIENT DECISION Patient refuses all immunization(s) in the PneumoPCV group Date Documented: 10/31/23 15:08 COVID-19 Immunization: Refused Moderna Monovalent COVID-19 vaccine Immunization: COVID-19 (MODERNA), MRNA, LNP-S, PF, 50 MCG/0.5 ML (AGES 12+ YEARS) Refusal Reason: PATIENT DECISION Patient refuses all immunization(s) in the COVID-19 group Date Documented: 10/31/23 15:08 Refused Pfizer Monovalent COVID-19 vaccine Immunization: COVID-19 (PFIZER), MRNA, LNP-S, PF, MIKE-SUCROSE, 30 MCG/0.3 ML (AGES 12+ YEARS) Refusal Reason: PATIENT DECISION Patient refuses all immunization(s) in the COVID-19 group Date Documented: 10/31/23 15:08 Refused Novavax COVID-19 vaccine Immunization: COVID-19 (NOVAVAX), SUBUNIT, RS-NANOPARTICLE, ADJUVANTED, PF, 5 MCG/0.5 ML (AGES 12+ YEARS) Refusal Reason: PATIENT DECISION Patient refuses all immunization(s) in the COVID-19 group Date Documented: 10/31/23 15:09 Tdap Immunization: The patient declines to receive the recommended dose of Tdap vaccine. Immunization: TDAP Refusal Reason: PATIENT DECISION Patient refuses all immunization(s) in the TDAP group Date Documented: 10/31/23 15:09 Herpes Zoster (Shingles) Vaccine: The patient declines to receive the recommended dose of zoster (shingles) vaccine. Immunization: ZOSTER RECOMBINANT Refusal Reason: PATIENT DECISION Patient refuses all immunization(s) in the ZOSTER group Date Documented: 10/31/23 15:09 PAVE Foot Check: Patient declined limb care exam. The patient was advised the [place] mandates all patients with diabetes mellitus, end stage renal disease, peripheral vascular disease, or sensory neuropathy should have a complete foot check completed annually. This includes a visual exam of the skin, pedal pulses and a sensory exam. Patients with any abnormality noted during the foot check should be referred to a specialist. /arnaud/ LADONNA GONGORA LPN PACT 10 Signed: 10/31/2023 15:10 LADONNA GONGORA [place] Oct 31, 2023 12:53 PM PHYSICIAN NOTE: LOCAL TITLE: MD NOTE STANDARD TITLE: PHYSICIAN NOTE DATE OF NOTE: OCT 31, 2023@12:53 ENTRY DATE: OCT 31, 2023@12:53:15 AUTHOR: COLT RAND COSIGNER: URGENCY: STATUS: COMPLETED HISTORY OF PRESENT ILLNESS: JAMES LEO, is a 63 yo MALE , who presents at the [facility] with c/o gurgling and irritation in his throat, worsened when he lays down. Per nursing triage note dated 10/30/23: reports since recent discharge from hospital in June he has been having a feeling of gurgling in chest with dyspnea [place] states when he feels the gurgling, he will clear his throat and it will improve for a short time then returns. States mild dyspnea as well. Reports these symptoms started at the end of June reports he smokes tobacco, 1 pack every 3 days. states he has an albuterol Inh, using it with some effect. Seen by PCP 10/05/23, when asked why he did not mention it he said he though it was a cold. Active problems - Computerized Problem List is [...] ONCE Refills: 0 Last:07-15-23 DAILY Expr:01-18-24 6) PERMETHRIN 5% CREAM Qty: 60 for [...] ACTIVITY 8) TAMSULOSIN HCL 0.4MG CAP Qty: 30 for 30 ACTIVE Issu:10-05-23 days Sig: TAKE ONE CAPSULE BY MOUTH Refills: 5 Last:10-06-23 AT BEDTIME DIRECTED BY PROVIDER Expr:10-05-24 9) VITAMIN B COMPLEX CAP Qty: 100 for 90 ACTIVE Issu:04-10-23 days Sig: TAKE 1 CAPSULE BY MOUTH Refills: 2 Last:06-29-23 ONCE DAILY FOR VITAMIN SUPPLEMENTATION Expr:04-10-24 ALLERGIES: ========= TETRACYCLINE 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 - [facility]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 COMBAT SERVICE INDICATED: No VITAL SIGNS: Blood Pressure 135/89 (10/31/2023 15:05) Pulse 87 (10/31/2023 15:05) Respiration 18 (10/31/2023 15:05) Pulse Oximetry 97% (10/31/2023 15:05) Temperature 98.2 F [36.8 C] (10/31/2023 15:05) Pain 0 (10/31/2023 15:05) Height 67 in [170.2 cm] (10/31/2023 15:05) Weight 194 lb [88.00 kg] (10/31/2023 15:05) BMI BMI: 30.4 REVIEW OF SYSTEMS: CONSTITUTIONAL: No fever, no loss of appetite ENT: No sore throat, no cough CARDIOVASCULAR: No chest pain, no palpitations RESPIRATORY: No SOB, no wheezing, + congestion GASTROINTESTINAL: No abd pain, no N/V/D, no heartburn EXAMINATION: GENERAL: WD/WN , pleasant & in NAD HEENT: Moist mucosa NECK: Supple HEART: RRR, S1-S2, no murmurs LUNGS: CTA B/L, no wheezes, no rales, no crackles ASSESSMENT/PLAN: 1. GERD: will trial omeprazole 20mg BID, if sxs do not improve or fail to resolve in a couple weeks, advised him to contact me FOLLOW UP: PRN ========= UPCOMING APPOINTMENTS: 11/09/2023 13:00 NHM/OPTOMETRY/DANIEL 11/10/2023 13:00 CWM/SO/PHYSICAL THERAPY B 03/07/2024 14:00 CWM/SO/PACT 10 03/28/2024 11:00 CWM/NO/DERMATOLOGY TIRE DUSTER AM No barriers; Patient understands and agrees to [...] (Tool #5) FACILITY ALLERGY/ADR -------- [facility] CHAIRE[facility] ([facility] TETRACYCLINE [facility]AC[facility]CLINE [facility] [place] [facility] TETRACYCLINE [facility] TETRACYCLINE Med Recon NoGloary (Tool #1) INCLUDED IN THIS LIST: Alphabetical list of active outpatient prescriptions dispensed from this [place] (local) and dispensed from another [place] or DoD facility (remote) as well as [...] the patient into personal health records (i.e. [employer]) are NOT included in this list. Non-VA medications documented outside this [place], remote inpatient orders (regardless of status) and remote clinic medications are NOT included in this list. The patient and provider must always discuss medications the patient is taking, regardless of where the medication was dispensed or obtained. ------ OUTPT A & D OINT (Status = ) APPLY SMALL AMOUNT TOPICALLY TWICE DAILY NEEDED FOR SKIN PROTECTION Rx# [id number] Last Released: 10/09/23 Qty/Days Supply: 180/30 Rx Expiration Date: 10/15/23 Refills Remainin Indication: FOR SKIN PROTECTION OUTPT ALBUTEROL 90MCG (CFC-F) 200D ORAL INHL (Status = Active) INHALE 2 PUFFS BY MOUTH EVERY 6 HOURS NEEDED FOR WHEEZING Rx# [id number] Last Released: 06/07/23 Qty/Days Supply: 06/27 Rx Expiration Date: 04/10/24 Refills Remainin Indication: FOR WHEEZING OUTPT AMLODIPINE BESYLATE 2.5MG TAB (Status = Discontinued) TAKE THREE TABLETS BY MOUTH ONCE DAILY FOR BLOOD PRESSURE/HEART, DO NOT TAKE WITH GRAPEFRUIT JUICE Rx# [id number] Last Released: 04/29/23 Qty/Days Supply: 270/90 Rx Expiration Date: 11/25/23 Refills Remainin Indication: FOR HIGH BLOOD PRESSURE OUTPT AMLODIPINE BESYLATE 2.5MG TAB (Status = Active) TAKE THREE TABLETS BY MOUTH ONCE DAILY FOR BLOOD PRESSURE/HEART, DO NOT TAKE WITH GRAPEFRUIT JUICE Rx# [id number] Last Released: 09/06/23 Qty/Days Supply: 270/90 Rx Expiration Date: 09/06/24 Refills Remainin Indication: FOR HIGH BLOOD PRESSURE OUTPT ATORVASTATIN CALCIUM 40MG TAB (Status = Active) TAKE ONE-HALF TABLET BY MOUTH AT BEDTIME FOR CHOLESTEROL Rx# [id number] Last Released: 06/07/23 Qty/Days Supply: 45/90 Rx Expiration Date: 02/08/24 Refills Remainin OUTPT DICLOFENAC NA 1% TOP GEL (Status = Active) APPLY 2 GRAMS TOPICALLY FOUR TIMES A DAY FOR RIGHT KNEE OSTEOARTHRITIS - USE DOSING CARD PROVIDED IN BOX Rx# [id number] Last Released: 09/12/23 Qty/Days Supply: 100/30 Rx Expiration Date: 04/10/24 Refills Remainin Indication: FOR RIGHT KNEE OUTPT FINASTERIDE 5MG TAB (Status = Active) TAKE ONE TABLET BY MOUTH ONCE DAILY Rx# [id number] Last Released: 07/12/23 Qty/Days Supply: 90/90 Rx Expiration Date: 01/18/24 Refills Remainin OUTPT IVERMECTIN 3MG TAB (Status = ) TAKE FIVE TABLETS BY MOUTH DIRECTED BY PROVIDER ONCE ON 08/20/23 Rx# [id number] Last Released: 08/18/23 Qty/Days Supply: 09/26 Rx Expiration Date: 09/17/23 Refills Remainin Indication: FOR ROUNDWORM INFECTION OUTPT LEVOFLOXACIN 750MG TAB (Status = ) TAKE ONE TABLET BY MOUTH ONCE DAILY FOR INFECTION CAUSED BY BACTERIA Rx# [id number] Last Released: 08/24/23 Qty/Days Supply: 03/07 Rx Expiration Date: 09/23/23 Refills Remainin Indication: FOR INFECTION CAUSED BY BACTERIA OUTPT LORATADINE 10MG TAB (Status = ) TAKE ONE TABLET BY MOUTH EVERY EVENING FOR ALLERGY Rx# [id number] Last Released: 10/05/23 Qty/Days Supply: Rx Expiration Date: 10/15/23 Refills Remainin Indication: FOR ALLERGY OUTPT OXYCODONE HCL 5MG TAB NOT SA (Status = ) TAKE ONE TABLET BY MOUTH FOUR TIMES DAILY NEEDED FOR PAIN Rx# [id number] Last Released: 08/24/23 Qty/Days Supply: Rx Expiration Date: 09/23/23 Refills Remainin Indication: FOR PAIN OUTPT PERMETHRIN 5% CREAM (Status = Active) APPLY A THIN LAYER TOPICALLY AT BEDTIME FOR SCABIES AT BEDTIME FROM NECK DOWN. WASH OFF IN THE MORNING. MAY REPEAT IN 1 WEEK IF NEEDED Rx# [id number] Last Released: 06/29/23 Qty/Days Supply: 60 Rx Expiration Date: 06/22/24 Refills Remainin Indication: FOR SCABIES OUTPT SILDENAFIL CITRATE 100MG TAB (Status = Discontinued) TAKE ONE TABLET BY MOUTH ONCE DAILY NEEDED TAKE 1 HOUR PRIOR TO SEXUAL ACTIVITY Rx# [id number] Last Released: 09/06/23 Qty/Days Supply: 11/25 Rx Expiration Date: 04/26/24 Refills Remainin Indication: FOR ERECTILE DYSFUNCTION OUTPT SILDENAFIL CITRATE 100MG TAB (Status = Active) TAKE ONE TABLET BY MOUTH ONCE DAILY NEEDED TAKE 1 HOUR PRIOR TO SEXUAL ACTIVITY Rx# [id number] Last Released: 10/05/23 Qty/Days Supply: Rx Expiration Date: 09/06/24 Refills Remainin Indication: FOR ERECTILE DYSFUNCTION OUTPT TAMSULOSIN HCL 0.4MG CAP (Status = ) TAKE ONE CAPSULE BY MOUTH AT BEDTIME DIRECTED BY PROVIDER - STOP TAKING TERAZOSIN Rx# [id number] Last Released: 06/16/23 Qty/Days Supply: Rx Expiration Date: 08/08/23 Refills Remainin OUTPT TAMSULOSIN HCL 0.4MG CAP (Status = Discontinued) TAKE ONE CAPSULE BY MOUTH AT BEDTIME DIRECTED BY PROVIDER - STOP TAKING TERAZOSIN Rx# [id number] Last Released: 09/08/23 Qty/Days Supply: 03/07 Rx Expiration Date: 10/08/23 Refills Remainin OUTPT TAMSULOSIN HCL 0.4MG CAP (Status = Active) TAKE ONE CAPSULE BY MOUTH AT BEDTIME DIRECTED BY PROVIDER Rx# [id number] Last Released: 10/09/23 Qty/Days Supply: Rx Expiration Date: 10/05/24 Refills Remainin OUTPT TRIAMCINOLONE ACETONIDE 0.1% OINT (Status = Discontinued) APPLY THIN LAYER TOPICALLY TWICE DAILY FOR ITCHING Rx# [id number] Last Released: 09/06/23 Qty/Days Supply: 80/60 Rx Expiration Date: 11/05/23 Refills Remainin Indication: FOR ITCHING OUTPT TRIAMCINOLONE ACETONIDE 0.1% OINT (Status = ) APPLY THIN LAYER TOPICALLY EVERY 12 HOURS NEEDED FOR ITCHING Rx# [id number] Last Released: 10/05/23 Qty/Days Supply: 30 Rx Expiration Date: 10/15/23 Refills Remainin Indication: FOR ITCHING OUTPT VITAMIN B COMPLEX CAP (Status = Active) TAKE 1 CAPSULE BY MOUTH ONCE DAILY FOR VITAMIN SUPPLEMENTATION Rx# [id number] Last Released: 06/16/23 Qty/Days Supply: 100/90 Rx Expiration Date: 04/10/24 Refills Remainin Indication: FOR VITAMIN SUPPLEMENTATION ------ SUPPLIES ------ /arnaud/ COLT RAND MD Primary Care Physician Signed: 10/31/2023 15:43 COLT RAND [place]
--- OUTSIDE RECORDS SUMMARY | 2024-07-24 13:39 | XMS_ITS | Encounter Summary ---
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 Date/Time Encounter Type Encounter [...] this document. The data comes from all [place] facilities. Date Advance Directives Provider Source Mar 15, 2018 ADVANCE DIRECTIVE RULBAO,TOBI RODRIGUEZ
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
--- OUTSIDE RECORDS SUMMARY | 2024-07-24 13:39 | XMS_ITS | Encounter Summary ---
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 Date/Time Encounter Type Encounter Description Reason Provider Source Dec 07, 2023 11:00 AM THERAPEUTIC EXERCISES PHYSICAL THERAPY ICD-10-CM M62.81 Muscle weakness (generalized) SABINE CALLEJAS Encounter Template Text not used by VA Assessments - Encounter Diagnoses This section includes the primary and secondary diagnoses documented for the Encounter. Date/Time Primary/Secondary Diagnosis Diagnosis Name Provider Source Dec 07, 2023 12:42 PM PRIMARY Muscle weakness (generalized) KIKI CALLEJAS KATY Plan of Treatment: Future Appointments (+ 6 months) and Future Tests (+/- 45 days) The Plan of Treatment section includes future care activities for the patient [facility] [place] [facility] This section includes future appointments and future orders which are active, pending or scheduled. Future Appointments This section includes appointments that were scheduled to occur 6 months from the date of the Encounter, up to a maximum of 20 appointments. The data comes from all [facility] facilities. Appointment Date/Time Appointment Type Appointme nt Facility Name Dec 22, 2023 11:30 AM [facility]BULATORY [facility] Dec 28, 2023 11:00 AM [facility] Jan 05, 2024 11:30 [facility] Jan 11, 2024 08:30 AM [facility] [place] [facility] [place] [facility] Feb 26, 2024 01:00 PM AMBULATORY - MEDICINE [place] [facility] [place] [facility] Feb 27, 2024 03:30 PM AMBULATORY - MEDICINE [place] [facility] [place] [facility] Mar 28, 2024 11:00 AM AMBULATORY - MEDICINE [place] [facility] [place] [facility] Apr 01, 2024 01:30 PM AMBULATORY - MEDICINE [place] [facility] [place] [facility] May 03, 2024 02:00 PM AMBULATORY - MEDICINE [place] [facility] [place] [facility] Jun 03, 2024 02:00 PM AMBULATORY - NONE [place] [facility] [place] [facility] Jun 03, 2024 02:30 PM AMBULATORY - MEDICINE [place] [facility] [place] [facility] Jun 04, 2024 08:30 AM AMBULATORY - MEDICINE [facility] Social History: Smoking Status (Most current) [...] Anthony riojas Sep 06, 2023 03:30 PM VA-TOBACCO DOESNT USE WI 30 MIN WAKEUP [facility] Tobacco Use History This section includes a history of the smoking, or tobacco-related health factors, that were collected on or before the date of the Encounter. The data comes from the [place] facility where the Encounter took place. Date/Time Smoking Status/Tobacco Use Comment F acility Sep 06, 2023 03:30 PM VA-TOBACCO USE 30 YEARS OR MORE [facility] Sep 06, 2023 03:30 PM VA-TOBACCO USE ADVICE [facility] Sep 06, 2023 03:30 PM VA-TOBACCO USE BUILDING OPERATOR NO [facility] Sep 06, 2023 03:30 PM VA-TOBACCO USE MED [facility] Sep 06, 2023 03:30 PM VA-TOBACCO USER EVERY DAY [facility] Jul 26, 2022 02:00 PM VA-TOBACCO USE 30 YEARS OR MORE [facility] Jul 26, 2022 02:00 PM VA-TOBACCO USE ADVICE [facility] Jul 26, 2022 02:00 PM VA-TOBACCO USE BUILDING OPERATOR [facility] Jul 26, 2022 02:00 PM VA-TOBACCO USE MED [facility] Jul 26, 2022 02:00 PM VA-TOBACCO USE WI 30 MIN OF WAKE UP [facility] Jul 26, 2022 02:00 PM VA-TOBACCO USER EVERY DAY [facility] Mar 01, 2019 01:59 PM VA-TOBACCO DOESNT USE WI 30 MIN WAKEUP [facility] Mar 01, 2019 01:59 PM VA-TOBACCO USE 30 YEARS OR MORE [facility] Mar 01, 2019 01:59 PM VA-TOBACCO USE ADVICE [facility] Mar 01, 2019 01:59 PM VA-TOBACCO USE BUILDING OPERATOR [facility] Mar 01, 2019 01:59 PM VA-TOBACCO USE MED [facility] Mar 01, 2019 01:59 PM VA-TOBACCO USER EVERY DAY [facility] Mar 06, 2018 04:15 PM VA-TOBACCO USE 30 YEARS OR MORE [facility] Mar 06, 2018 04:15 PM VA-TOBACCO USE ADVICE [facility] Mar 06, 2018 04:15 PM VA-TOBACCO USE BUILDING OPERATOR NO [facility] Mar 06, 2018 04:15 PM VA-TOBACCO USE MED [facility] Mar 06, 2018 04:15 PM VA-TOBACCO USE WI 30 MIN OF WAKE UP [facility] Mar 06, 2018 04:15 PM VA-TOBACCO USER EVERY DAY [facility] Advance Directives: All historical and current Section [...] Mar 15, 2018 ADVANCE DIRECTIVE TOBI JOHNSON LD Encounter Notes: All associated encounter notes This section contains the clinical notes associated to the Encounter. Date/Time Encounter Note(s) Provider Source Dec 07, 2023 12:02 PM PHYSICAL THERAPY N OTE: LOCAL TITLE: PHYSICAL THERAPY STANDARD TITLE: PHYSICAL THERAPY NOTE DATE OF NOTE: DEC 07, 2023@12:02 ENTRY DATE: DEC 07, 2023@12:02:19 AUTHOR: KIKI CALLEJAS EXP COSIGNER: URGENCY: STATUS: COMPLETED Initial Evaluation date: 11/10/23 Treatment #: 4 Treatment time: 23 min Diagnosis: Muscle Weakness (Generalized) (ICD-10-CM M62.81) (Primary) Provider: Camilo Arevalo identified by full name and SUBJECTIVE: States that he's feeling fatigue today, no sure if the meds are affecting him this way. OBJECTIVE: initial BP 129/ 87 P 82 SP02 98% post BP 146/89 P 91 SP02 97% THERAPEUTIC EXERCISE: MINUTES: 23 mins Nu-step 8 mins L3 sit<> stand 1/2 to stand on step and Airex pad MANUAL THERAPY: MINUTES: GAIT TRAINING: MINUTES: NEUROMUSCULAR EDUCATION: MINUTES: OTHER: MINUTES: MODALITIES: MINUTES: [] Contraindication screen completed prior to modality [] Skin intact pre/post SELF CARE/EDUCATION: MINUTES: Patient education was provided for all aspects of care during this clinical encounter. ASSESSMENT: Tolerated session fair, could not perform many exercises secondary to feeling fatigue, did not want to do a full course therex on this date. PLAN: [place] is in agreement to split treatments between [place] and [place] due to availability. Aerobic exercise and walking routine. Mat hip and core stabilization. Functional movement patterns in parallel bars. Gentle lower extremity stretches. Balance and proprioception training in parallel bars. Pre-gait and gait training in parallel bars. /arnaud/ BETHANY ESPINOZA LICENSE RADIOCOMMUNICATIONS TECHNICIAN Signed: 12/07/2023 12:45 KIKI CALLEJAS
--- OUTSIDE RECORDS SUMMARY | 2024-07-24 13:39 | XMS_ITS | Encounter Summary ---
Author Name [facility] [place] Organization [facility] [place] Address [address] [place] [address] Care Team Providers Care Interactive Designer Name Role Phone COLT RAND Primary Care [...] Womack's Name Patient's Relationship to Policy Womack [facility] MEDICAID MEDICAID MEDIC AID May 29, 2018 MEDICAI D [id number] ALEX AlexandreJAMES PATIENT MEDICAID MEDICAID [facility] Sep 24, 2018 MEDICAI D [id number] ALEX AlexandreJAMES PATIENT Selected Encounter This section includes the information on record at [place] for the Encounter. Date/Time Encounter Type Encounter Description Reason Provider Source Jun 04, 2024 08:30 AM CO/KAYODE DIFFUSE CAPACITY PULMONARY FUNCTION ICD-10-CM J44.9 Chronic obstructive pulmonary disease, unspecified TONI MARY MD I[facility] Encounter Template Text not used by [place] Assessments - Encounter Diagnoses This section includes the primary and secondary diagnoses documented for the Encounter. Date/Time Primary/Secondary Diagnosis Diagnosis Name Provider Source Jun 05, 2024 10:48 AM PRIMARY Chronic obstructive pulmonary disease, unspecified TONI MARY MD [facility] Plan of Treatment: Future Appointments (+ 6 months) and Future Tests (+/- 45 days) The Plan of Treatment section includes future care activities for the patient from all [place] treatmentfacilities. This section includes future appointments and future orders which are active, pending or scheduled. Future Appointments This section includes appointments that were scheduled to occur 6 months from the date of the Encounter, up to a maximum of 20 appointments. The data comes from [facility] facilities. Appointment Date/Time Appointment Type Appointme nt Facility Name Aug 28, 2024 02:00 PM AMBULATORY MEDICINE [facility] Sep 23, 2024 01:30 PM [facility] October 02, 2024 02:00 PM AMBULATORY MEDICINE [facility] Nov 21, 2024 01:30 PM AMBULATORY MEDICINE [facility] Advance Directives: All historical and current Section Date Range: From patient's date of to the date document was created. This section includes ALL of a patient's completed or amended [place] Advance and Rescinded Directives. The entries below indicate that a directive exists for the patient, but an actual copy is not included with this document. The data comes from all [facility]. Date Advance Directives Provider Source [...] the Encounter. The data comes from all [facility] facilities. Date/Time Radiology Report Provider Source Jun 03, 2024 02:31 PM LDCT LUNG CANCER S CREENING: JAMES LEO [id number] -[id number] M Exm Date: JUN 03, 2024@14:31 Req Phys: COLT RAND Pat Loc: ZZCWM/NO/LCS ADMIN (Req'g Loc) Img Loc: NHM/CT Service: Unknown [facility] RAMAKRISHNA ALDANA [id number] (Case 70 COMPLETE) LDCT LUNG CANCER SCREENING (CT Detailed) CPT:62766 Reason for Study: LUNG CANCER SCREENING Clinical History: 43 TPY-Currently smoking LCS LDCT on 05/18/2023: LR2 Index Nodule: 3.0 mm solid round well-circumscribed right upper lobe pulmonary nodule, 8-180. Report Status: Verified Date Reported: JUN 03, 2024 Date Verified: JUN 03, 2024 [employer] E-Sig:/ES/YOSELIN LALA Report: CT THORAX LUNG CANCER [...] Primary Interpreting Staff: YOSELIN LALA Staff Physician ([employer]) /YOSELIN WALLACE [facility] Encounter Notes: All associated encounter notes This section contains the clinical notes associated to the Encounter. Date/Time Encounter Note(s) Provider Source Jun 05, 2024 10:47 AM PULMONARY DIAGNOST IC STUDY REPORT: LOCAL TITLE: CONSULT /[place] PFT STANDARD TITLE: PULMONARY DIAGNOSTIC STUDY REPORT DATE OF NOTE: JUN 05, 2024@10:47 ENTRY DATE: JUN 05, 2024@10:47:32 AUTHOR: TONI MARY MD EXP COSIGNER: URGENCY: STATUS: COMPLETED Pulmonary Function Test interpretation report completed. See [facility] CPRS for report. /es/ TONI MARY MD PULMONARY/CRITICAL CARE SECTION Signed: 06/05/2024 10:48 TONI MARY MD [facility]
--- OUTSIDE RECORDS SUMMARY | 2024-07-24 13:39 | XMS_ITS | Encounter Summary ---
Author Name [facility] of [facility] [place] [facility] [place] Organization [place] Address [address] [place] [address] Care Team Providers Care Flight Radio Officer Name Role Phone COLT RAND Primary Care [...] Womack's Name Patient's Relationship to Policy Womack [facility] MEDICAID MEDICAID MEDIC AID May 29, 2018 MEDICAI D [id number] ALEX AlexandreJAMES PATIENT MEDICAID MEDICAID [facility] [place] Sep 24, 2018 MEDICAI D [id number] ALEX AlexandreJAMES PATIENT Selected Encounter This section includes the information on record at [place] for the Encounter. Date/Time Encounter Type Encounter Description Reason Pro vider Source Jan 05, 2024 11:30 AM Outpatient Encounter PHYSICAL THERAPY IHE Encounter Template Text not used by VA Plan of Treatment: Future Appointments (+ 6 months) and Future Tests (+/- 45 days) The Plan of Treatment section includes future care activities for the patient from all VA treatmentfacilities. This section includes future appointments and future orders which are active, pending or scheduled. Future Appointments This section includes appointments that were scheduled to occur 6 months from the date of the Encounter, up to a maximum of 20 appointments. The data comes from all [place] treatment facilities. Appointment Date/Time Appointment Type Appointme nt Facility Name Jan 11, 2024 08:30 AM AMBULATORY [place]ICINE [place] [facility] [place] [facility] Feb 26, 2024 01:00 PM AMBULATORY - MEDICINE [facility] [place] [facility] Feb 27, 2024 03:30 PM AMBULATORY - MEDICINE [place] [facility] [place] [facility] Mar 28, 2024 11:00 AM AMBULATORY - MEDICINE [facility] [place] [facility] Apr 01, 2024 01:30 PM AMBULATORY - MEDICINE [place] [facility] [place] [facility] May 03, 2024 02:00 PM AMBULATORY - MEDICINE [facility] [place] [facility] Jun 03, 2024 02:00 PM AMBULATORY - NONE [facility] [place] [facility] Jun 03, 2024 02:30 PM AMBULATORY - MEDICINE [facility] [place] [facility] Jun 04, 2024 08:30 AM AMBULATORY - MEDICINE [facility] Social History: Smoking Status (Most current) and Tobacco Use (All prior to encounter date) This section includes the most current, and the historical, smoking and tobacco- related health factors from the [place] facility where the Encounter took place. Current Smoking Status This section includes the most current smoking, or tobacco-related health factor, from the [place] facility where the Encounter took place. Date/Time Current Smoking Status Comment Facil itmat Sep 06, 2023 03:30 PM VA-TOBACCO USER EVERY DAY [facility] Tobacco Use History This section includes a history of the smoking, or tobacco-related health factors, that were collected on or before the date of the Encounter. The data comes from the [place] facility where the Encounter took place. 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 [facility] Jul 26, 2022 02:00 PM VA-TOBACCO USE MED NO [facility] Jul 26, 2022 02:00 PM VA-TOBACCO USE WI 30 MIN OF WAKE UP [facility] Jul 26, 2022 02:00 PM VA-TOBACCO USER EVERY DAY [facility] Mar 01, 2019 01:59 PM VA-TOBACCO DOESNT USE WI 30 MIN WAKEUP [facility] Mar 01, 2019 01:59 PM VA-TOBACCO USE 30 YEARS OR MORE [facility] Mar 01, 2019 01:59 PM VA-TOBACCO USE ADVICE [facility] Mar 01, 2019 01:59 PM 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 [facility] Mar 01, 2019 01:59 PM VA-TOBACCO USE MED NO [facility] Mar 01, 2019 01:59 PM VA-TOBACCO USER EVERY DAY [facility] Mar 06, 2018 04:15 PM VA-TOBACCO USE 30 YEARS OR MORE [facility] Mar 06, 2018 04:15 PM VA-TOBACCO USE ADVICE [facility] Mar 06, 2018 04:15 PM 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 This section includes ALL of a patient's completed or amended [place] Advance and Rescinded Directives. The entries below indicate that a directive exists for the patient, but an actual copy is not included with this document. The data comes from all [facility]. Date Advance Directives Provider Source Mar 15, 2018 ADVANCE DIRECTIVE TOBI JOHNSON Encounter Notes: All associated encounter notes This section contains the clinical notes associated to the Encounter. Date/Time Encounter Note(s) Provider Source Jan 05, 2024 02:40 PM PHYSICAL MEDICINE REHAB ADMINISTRATIVE NOTE: LOCAL TITLE: APPOINTMENT NO SHOW DISCHARGE THERAPY NOTE STANDARD TITLE: PHYSICAL MEDICINE REHAB ADMINISTRATIVE NOTE DATE OF NOTE: JAN 05, 2024@14:40 ENTRY DATE: JAN 05, 2024@14:40:32 AUTHOR: CECI DUNN EXP COSIGNER: URGENCY: STATUS: COMPLETED Patient's medical record was reviewed. Follow-up actions were determined and initiated: Please check/complete as applies: [ ] Telephoned Directly [ ] Re-scheduled for next available appt [ ] Sent a N0-show letter ( must call for appointment) [ ] Other (Emergent/Overbook, etc.): [X] PT WAS DISCHARGED FROM THERAPY DUE TO MULTIPLE NO-SHOWS due to ER visit and likely hospital admission. Will need to be cleared by PCP prior to attending PT. Please enter a new PT consult when he is medically adolph to resume PT. /arnaud/ CECI DUNN DPT Physical Therapist Signed: 01/05/2024 15:41 Receipt Acknowledged By: 01/08/2024 07:09 /arnaud/ DUSTY MARTINEZ SUPERVISORY IT SERVICE MANAGER CECI DUNN [facility]
--- OUTSIDE RECORDS SUMMARY | 2024-07-24 13:39 | XMS_ITS | Encounter Summary ---
Author Name [facility] [place] Organization [facility] [facility] [place] Address [address] [place] [address] Care Team Providers Care Air Sealing Technician Name Role Phone COLT RAND Primary [...] Name Patient's Relationship to Policy Womack [facility] MEDICAID MEDICAID MEDIC AID May 29, 2018 MEDICAI D [id number] ALEX AlexandreJAMES PATIENT MEDICAID MEDICAID [facility] Sep 24, 2018 MEDICAI D [id number] ALEX AlexandreJAMES PATIENT Selected Encounter This section includes the information on record at [place] for the Encounter. Date/Time Encounter Type Encounter Description Reason Provider Source October 05, 2023 01:30 PM OFFICE O/P EST LOW 20 MIN PRIMARY CARE/MEDICINE ICD-10-CM L23.9 Allergic contact dermatitis, unspecified cause COLT RAND Encounter Template Text not used by VA Assessments - Encounter Diagnoses This section includes the primary and secondary diagnoses documented for the Encounter. Date/Time Primary/Secondary Diagnosis Diagnosis Name Provider Source October 05, 2023 02:11 PM PRIMARY Allergic contact dermatitis, unspecified cause COLT RAND [place] Plan of Treatment: Future Appointments (+ 6 months) and Future Tests (+/- 45 days) The Plan of Treatment section includes future care activities for the [facility] This section includes future appointments and future orders which are active, pending or scheduled. Future Appointments This section includes appointments that were scheduled to occur 6 months from the date of the Encounter, up to a maximum of 20 appointments. The data comes from all [place] treatment facilities. Appointment Date/Time Appointment Type Appointme nt Facility Name Oct 30, 2023 11:30 AM AMBULATORY - MEDICINE [facility] Oct 31, 2023 03:00 PM AMBULATORY - MEDICINE [place] [facility] [place] [facility] Nov 09, 2023 01:00 PM AMBULATORY - MEDICINE [place] [facility] [place] [facility] Nov 10, 2023 01:00 PM AMBULATORY - REHAB MEDICIN E [place] Nov 27, 2023 01:30 PM AMBULATORY - REHAB MEDICIN E [facility] [place] [facility] Nov 29, 2023 02:30 PM AMBULATORY - REHAB MEDICIN E [facility] [place] [facility] Dec 04, 2023 01:30 PM AMBULATORY - REHAB MEDICIN E [facility] [place] [facility] Dec 07, 2023 11:00 AM AMBULATORY - REHAB MEDICIN E [place] Dec 22, 2023 11:30 AM AMBULATORY - REHAB MEDICIN E [place] Dec 28, 2023 11:00 AM AMBULATORY - REHAB MEDICIN E [place] Jan 05, 2024 11:30 AM AMBULATORY - REHAB MEDICIN E [place] Jan 11, 2024 08:30 AM AMBULATORY - MEDICINE [place] [facility] [place] [facility] Feb 26, 2024 01:00 PM AMBULATORY - MEDICINE [place] [facility] [place] [facility] Feb 27, 2024 03:30 PM AMBULATORY - MEDICINE [facility] [place] [facility] Mar 28, 2024 11:00 AM AMBULATORY - MEDICINE [facility] [place] [facility] Apr 01, 2024 01:30 PM AMBULATORY - MEDICINE [place] [facility] [place] [facility] Lab Results: +/- 30 days of [...] Range Comment Sep 08, 2023 01:01 PM [place] CBC AND DIFF (AUTO) Specimen Type: BLOOD No comment entered. Ordering Provider: COLT RAND Report Released Date/Time: Sep 08, 2023 11:41 AM Reporting Lab: [facility] [address] [id number] Performing Lab: [facility] [address] [id number] WBC 5.25 10*3/uL 4.50-11.00 RBC 3.74 10*6/uL L 4.23-5.66 HGB 11.6 g/dL L 12.8-17 HCT 35.7 L 39.2-50.4 MCV 95.5 fL 82-99 MCHC 32.5 g/dL 30.8-35.1 PLT 215 10*3/uL 140-360 RDW-CV 16.5 H 12.0-16.0 [facility], Abs 0.35 10*3/uL 0.30-1.10 MCH 31.0 pg 26.2-32.6 Neut % 43.2 L 43.7-75.8 Lymph % 41.9 14.0-42.3 [facility] % 6.7 5.1-13.7 Eos % 7.6 H [...] 2023 03:30 PM VA-TOBACCO USER EVERY DAY [place] Tobacco Use History This section includes a history of the smoking, or tobacco-related health factors, that were collected on or before the date of the Encounter. The data comes from the [place] facility where the Encounter took place. 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 [place] Jul 26, 2022 02:00 PM [facility]ACCO USE [facility] Jul 26, 2022 02:00 PM VA-TOBACCO USE WI 30 MIN OF WAKE UP [place] Jul 26, 2022 02:00 PM VA-TOBACCO USER EVERY DAY [place] Mar 01, 2019 01:59 PM VA-TOBACCO DOESNT USE WI 30 MIN WAKEUP [place] Mar 01, 2019 01:59 PM VA-TOBACCO USE 30 YEARS OR MORE [place] Mar 01, 2019 01:59 PM VA-TOBACCO USE ADVICE [place] Mar 01, 2019 01:59 PM 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 [place] Mar 01, 2019 01:59 PM [facility]-TOBACCO USE [facility] Mar 01, 2019 01:59 PM VA-TOBACCO USER EVERY DAY [place] Mar 06, 2018 04:15 PM VA-TOBACCO USE 30 YEARS OR MORE [facility] Mar 06, 2018 04:15 PM VA-TOBACCO USE ADVICE [place] Mar 06, 2018 04:15 PM 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 Date/Time Encounter Note(s) Provider Source October 05, 2023 01:34 PM PREVENTIVE MEDICIN E NURSING NOTE: LOCAL TITLE: CLINICAL REMINDERS/NURSING STANDARD TITLE: PREVENTIVE MEDICINE NURSING NOTE DATE OF NOTE: OCTOBER 05, 2023@13:34 ENTRY DATE: OCTOBER 05, 2023@13:34:41 AUTHOR: LADONNA GONGORA EXP COSIGNER: URGENCY: STATUS: COMPLETED PAVE Foot Check: Patient declined limb care exam. The patient was advised the [place] mandates all patients with diabetes mellitus, end stage renal disease, peripheral vascular disease, or sensory neuropathy should have a complete foot check completed annually. This includes a visual exam of the skin, pedal pulses and a sensory exam. Patients with any abnormality noted during the foot check should be referred to a specialist. /arnaud/ LADONNA GONGORA LPN PACT 10 Signed: 10/05/2023 13:35 LADONNA GONGORA ROSARIO October 05, 2023 08:27 AM PHYSICIAN NOTE: LOCAL TITLE: MD NOTE STANDARD TITLE: PHYSICIAN NOTE DATE OF NOTE: OCTOBER 05, 2023@08:27 ENTRY DATE: OCTOBER 05, 2023@08:27:10 AUTHOR: COLT RAND EXP AMANDAIGNER: URGENCY: STATUS: COMPLETED HISTORY OF PRESENT ILLNESS: JAMES Ojeda FELIPA, is a 63 yo MALE , who presents at the [facility] with c/o TREATED WITH SCABIES IN MAY WHICH HAVE TURNED TO KELOIDS AND IT'S VERY ITCHY, CAN'T GET INTO SEE DERMATOLOGY UNTIL FEBRUARY . Pt has a VA telederm appt scheduled on 03/28/24. Active problems - Computerized Problem List is [...] Active Outpatient Medications Refills Expiration ======= 1) A & D OINT Qty: 180 for 30 days Sig: HOLD Issu:09-15-23 APPLY SMALL AMOUNT TOPICALLY TWICE Refills: 0 DAILY NEEDED FOR SKIN PROTECTION Expr:10-15-23 2) ALBUTEROL 90MCG (CFC-F) 200D ORAL INHL ACTIVE Issu:04-10-23 Qty: 1 for 30 days Sig: INHALE 2 Refills: 1 Last:06-05-23 PUFFS BY MOUTH EVERY 6 HOURS NEEDED Expr:04-10-24 FOR WHEEZING 3) AMLODIPINE BESYLATE 2.5MG TAB Qty: 270 ACTIVE Issu:09-06-23 for 90 days Sig: TAKE THREE TABLETS Refills: 1 Last:09-06-23 BY MOUTH ONCE DAILY FOR BLOOD Expr:09-06-24 PRESSURE/HEART, DO NOT TAKE WITH GRAPEFRUIT JUICE 4) ATORVASTATIN CALCIUM 40MG TAB Qty: 45 ACTIVE Issu:02-07-23 for 90 days Sig: TAKE ONE-HALF TABLET Refills: 2 Last:06-05-23 BY MOUTH AT BEDTIME FOR CHOLESTEROL Expr:02-08-24 5) DICLOFENAC NA 1% TOP GEL Qty: 100 for ACTIVE Issu:04-10-23 30 days Sig: APPLY 2 GRAMS TOPICALLY Refills: 0 Last:09-11-23 FOUR TIMES A DAY FOR RIGHT KNEE Expr:04-10-24 OSTEOARTHRITIS - USE DOSING CARD PROVIDED IN BOX 6) FINASTERIDE 5MG TAB Qty: 90 for 90 days ACTIVE Issu:01-17-23 Sig: TAKE ONE TABLET BY MOUTH ONCE Refills: 0 Last:07-15-23 DAILY Expr:01-18-24 7) LORATADINE 10MG TAB Qty: 30 for 30 days HOLD Issu:09-15-23 Sig: TAKE ONE TABLET BY MOUTH EVERY Refills: 0 EVENING FOR ALLERGY Expr:10-15-23 8) PERMETHRIN 5% CREAM Qty: 60 for 7 days ACTIVE Issu:06-22-23 Sig: APPLY A THIN LAYER TOPICALLY AT Refills: 0 Last:06-29-23 BEDTIME FOR SCABIES AT BEDTIME FROM Expr:06-22-24 NECK DOWN. WASH OFF IN THE MORNING. MAY REPEAT IN 1 WEEK IF NEEDED 9) SILDENAFIL CITRATE 100MG TAB Qty: 18 ACTIVE Issu:09-06-23 for 90 days Sig: TAKE ONE TABLET BY Refills: 3 Last:10-14-23 MOUTH ONCE DAILY NEEDED TAKE 1 Expr:09-06-24 HOUR PRIOR TO SEXUAL ACTIVITY 10) TAMSULOSIN HCL 0.4MG CAP Qty: 10 for 10 ACTIVE Issu:09-08-23 days Sig: TAKE ONE CAPSULE BY MOUTH Refills: 0 Last:09-08-23 AT BEDTIME DIRECTED BY PROVIDER - Expr:10-08-23 STOP TAKING TERAZOSIN 11) TRIAMCINOLONE ACETONIDE 0.1% OINT Qty: ACTIVE Issu:09-15-23 454 for 30 days Sig: APPLY THIN LAYER Refills: 0 Last:10-04-23 TOPICALLY EVERY 12 HOURS NEEDED FOR Expr:10-15-23 ITCHING 12) VITAMIN B COMPLEX CAP Qty: 100 for 90 ACTIVE Issu:04-10-23 days Sig: TAKE 1 CAPSULE BY MOUTH Refills: 2 Last:06-29-23 ONCE DAILY FOR VITAMIN SUPPLEMENTATION Expr:04-10-24 ALLERGIES: ========= TETRACYCLINE 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 - POST-codesyY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 COMBAT SERVICE INDICATED: No REVIEW OF SYSTEMS: CONSTITUTIONAL: itchy skin lesions on arms B/L EXAMINATION: GENERAL: WD/WN , pleasant & in NAD SKIN: multiple scattered darkened skin lesions over forearms, some slightly elevated resulting in small keloid formations ASSESSMENT/PLAN: 1. Pruritic Skin Lesions: B/L arms, scabies infection caused scratching which in turn results in small keloid formations of many lesions, he had a tele-emergency visit on 09/15/23 and was prescribed loratidine and A&D ointment but he did not pick them up from pharmacy today - instructed him to pick them today, cont triamcinolone ointment BID prn FOLLOW UP: prn ========= UPCOMING APPOINTMENTS: 11/09/2023 13:00 NHM/OPTOMETRY/DANIEL 03/07/2024 14:00 CWM/SO/PACT 10 03/28/2024 11:00 CWM/NO/DERMATOLOGY EVALUATOR AM No barriers; Patient understands and agrees [...] (Tool #5) FACILITY ALLERGY/ADR -------- [facility] ([facility] TETRACYCLINE [facility] TETRACYCLINE [place] [facility] [place] [facility] TETRACYCLINE [facility] TETRACYCLINE Med Recon NoGlossary (Tool #1) INCLUDED IN THIS LIST: Alphabetical list of active outpatient prescriptions dispensed from this VA (local) and dispensed from another VA or [facility] facility (remote) as well as inpatient [...] the patient into personal health records (i.e. [email or web address]) are NOT included in this list. Non-VA medications documented outside this [place], remote inpatient orders (regardless of status) and remote clinic medications are NOT included in this list. The patient and provider must always discuss medications the patient is taking, regardless of where the medication was dispensed or obtained. ------ OUTPT A & D OINT (Status = On Hold) APPLY SMALL AMOUNT TOPICALLY TWICE DAILY NEEDED FOR SKIN PROTECTION Rx# [id number] Last Released: QtyDays Supply: 180 Rx Expiration Date: 10/15/23 Refills Remainin Indication: FOR SKIN PROTECTION OUTPT ALBUTEROL 90MCG (CFC-F) 200D ORAL INHL (Status = Active) INHALE 2 PUFFS BY MOUTH EVERY 6 HOURS NEEDED FOR WHEEZING Rx# [id number] Last Released: 06/07/23 Qty/Days Supply: 06/27 Rx Expiration Date: 04/10/24 Refills Remainin Indication: FOR WHEEZING OUTPT AMLODIPINE BESYLATE 2.5MG TAB (Status = Discontinued) TAKE THREE TABLETS BY MOUTH ONCE DAILY FOR BLOOD PRESSURE/HEART, DO NOT TAKE WITH GRAPEFRUIT JUICE Rx# [id number] Last Released: 04/29/23 Qty/Days Supply: 270/90 Rx Expiration Date: 11/25/23 Refills Remainin Indication: FOR HIGH BLOOD PRESSURE OUTPT AMLODIPINE BESYLATE 2.5MG TAB (Status = Active) TAKE THREE TABLETS BY MOUTH ONCE DAILY FOR BLOOD PRESSURE/HEART, DO NOT TAKE WITH GRAPEFRUIT JUICE Rx# [id number] Last Released: 09/06/23 Qty/Days Supply: 270/90 Rx Expiration Date: 09/06/24 Refills Remainin Indication: FOR HIGH BLOOD PRESSURE OUTPT ATORVASTATIN CALCIUM 40MG TAB (Status = Active) TAKE ONE-HALF TABLET BY MOUTH AT BEDTIME FOR CHOLESTEROL Rx# [id number] Last Released: 06/07/23 Qty/Days Supply: 45/ Rx Expiration Date: 02/08/24 Refills Remainin OUTPT DICLOFENAC NA 1% TOP GEL (Status = Active) APPLY 2 GRAMS TOPICALLY FOUR TIMES A DAY FOR RIGHT KNEE OSTEOARTHRITIS - USE DOSING CARD PROVIDED IN BOX Rx# [id number] Last Released: 09/12/23 Qty/Days Supply: 100/30 Rx Expiration Date: 04/10/24 Refills Remainin Indication: FOR RIGHT KNEE OUTPT FINASTERIDE 5MG TAB (Status = Active) TAKE ONE TABLET BY MOUTH ONCE DAILY Rx# [id number] Last Released: 07/12/23 Qty/Days Supply: 90/90 Rx Expiration Date: 01/18/24 Refills Remainin OUTPT IVERMECTIN 3MG TAB (Status = ) TAKE FIVE TABLETS BY MOUTH DIRECTED BY PROVIDER ONCE ON 08/20/23 Rx# [id number] Last Released: 08/18/23 Qty/Days Supply: 09/26 Rx Expiration Date: 09/17/23 Refills Remainin Indication: FOR ROUNDWORM INFECTION OUTPT LEVOFLOXACIN 750MG TAB (Status = ) TAKE ONE TABLET BY MOUTH ONCE DAILY FOR INFECTION CAUSED BY BACTERIA Rx# [id number] Last Released: 08/24/23 Qty/Days Supply: 03/07 Rx Expiration Date: 09/23/23 Refills Remainin Indication: FOR INFECTION CAUSED BY BACTERIA OUTPT LORATADINE 10MG TAB (Status = On Hold) TAKE ONE TABLET BY MOUTH EVERY EVENING FOR ALLERGY Rx# [id number] Last Released: QtDays Supply: Rx Expiration Date: 10/15/23 Refills Remainin Indication: FOR ALLERGY OUTPT OXYCODONE HCL 5MG TAB NOT SA (Status = ) TAKE ONE TABLET BY MOUTH FOUR TIMES DAILY NEEDED FOR PAIN Rx# [id number] Last Released: 08/24/23 Qty/Days Supply: Rx Expiration Date: 09/23/23 Refills Remainin Indication: FOR PAIN OUTPT PERMETHRIN 5% CREAM (Status = Active) APPLY A THIN LAYER TOPICALLY AT BEDTIME FOR SCABIES AT BEDTIME FROM NECK DOWN. WASH OFF IN THE MORNING. MAY REPEAT IN 1 WEEK IF NEEDED Rx# [id number] Last Released: 06/29/23 Qty/Days Supply: 60/ Rx Expiration Date: 06/22/24 Refills Remainin Indication: FOR SCABIES OUTPT SILDENAFIL CITRATE 100MG TAB (Status = Discontinued) TAKE ONE TABLET BY MOUTH ONCE DAILY NEEDED TAKE 1 HOUR PRIOR TO SEXUAL ACTIVITY Rx# [id number] Last Released: 09/06/23 Qty/Days Supply: 11/25 Rx Expiration Date: 04/26/24 Refills Remainin Indication: FOR ERECTILE DYSFUNCTION OUTPT SILDENAFIL CITRATE 100MG TAB (Status = Active) TAKE ONE TABLET BY MOUTH ONCE DAILY NEEDED TAKE 1 HOUR PRIOR TO SEXUAL ACTIVITY Rx# [id number] Last Released: Qty/Days Supply: Rx Expiration Date: 09/06/24 Refills Remainin Indication: FOR ERECTILE DYSFUNCTION OUTPT TAMSULOSIN HCL 0.4MG CAP (Status = ) TAKE ONE CAPSULE BY MOUTH AT BEDTIME DIRECTED BY PROVIDER - STOP TAKING TERAZOSIN Rx# [id number] Last Released: 06/16/23 Qty/Days Supply: Rx Expiration Date: 08/08/23 Refills Remainin OUTPT TAMSULOSIN HCL 0.4MG CAP (Status = Active) TAKE ONE CAPSULE BY MOUTH AT BEDTIME DIRECTED BY PROVIDER - STOP TAKING TERAZOSIN Rx# [id number] Last Released: 09/08/23 Qty/Days Supply: 03/07 Rx Expiration Date: 10/08/23 Refills Remainin OUTPT TRIAMCINOLONE ACETONIDE 0.1% OINT (Status = Discontinued) APPLY THIN LAYER TOPICALLY TWICE DAILY FOR ITCHING Rx# [id number] Last Released: 09/06/23 Qty/Days Supply: 80/60 Rx Expiration Date: 11/05/23 Refills Remainin Indication: FOR ITCHING OUTPT TRIAMCINOLONE ACETONIDE 0.1% OINT (Status = Active) APPLY THIN LAYER TOPICALLY EVERY 12 HOURS NEEDED FOR ITCHING Rx# [id number] Last Released: Qty/Days Supply: 30 Rx Expiration Date: 10/15/23 Refills Remainin Indication: FOR ITCHING OUTPT VITAMIN B COMPLEX CAP (Status = Active) TAKE 1 CAPSULE BY MOUTH ONCE DAILY FOR VITAMIN SUPPLEMENTATION Rx# [id number] Last Released: 06/16/23 Qty/Days Supply: 100/90 Rx Expiration Date: 04/10/24 Refills Remainin Indication: FOR VITAMIN SUPPLEMENTATION ------ SUPPLIES ------ /es/ COLT RAND MD Primary Care Physician Signed: 10/05/2023 14:14 COLT RAND
--- OUTSIDE RECORDS SUMMARY | 2024-07-24 13:39 | XMS_ITS ---
Author Organization [facility] on Address Unknown Allergies, Adverse Reactions, Alerts Substance Reaction Status Noted Date Resolved Date Tetracyclines & Related active 08/04/2023 Tetracycline active 08/04/2023 Problems Problem Status Start Date End Date CELLULITIS OF RIGHT LOWER LI MB (Primary) (L03.115 - ICD-10-CM) ACTIVE 08/04/2023 SEPSIS, UNSPECIFIED ORGANISM (A41.9 - ICD-10-CM) ACTIV E 08/04/2023 PAIN IN RIGHT LEG (M79.604 - ICD-10-CM) ACTIVE 0 08/04/2023 HYPOKALEMIA (E87.6 - ICD-10-CM) ACTIVE RASH AND OTHER NONSPECIFIC SKIN ERUPTION (R21 - ICD-10 -CM) ACTIVE 08/04/2023 TYPE 2 DIABETES MELLITUS WIT HOUT COMPLICATIONS (E11.9 - ICD-10-CM) ACTIVE 08/04/2023 CHRONIC KIDNEY DISEASE, UNSPECIFIED (N18.9 - ICD-10-CM ) ACTIVE 08/04/2023 ANEMIA, UNSPECIFIED (D64.9 - ICD-10-CM) ACTIVE 0 08/04/2023 HYPERLIPIDEMIA, UNSPECIFIED (E78.5 - ICD-10-CM) ACTIVE 08/04/2023 BENIGN PROSTATIC HYPERPLASIA WITHOUT LOWER URINARY TRACT SYMPTOMS (N40.0 - ICD-10-CM) ACTIVE 08/04/2023 ESSENTIAL (PRIMARY) HYPERTENSION (I10 - ICD-10-CM) ACT AMY 08/04/2023 Encounters Encounter Performer Performer Role Encounter Diagnoses Location Date Discharge - Discharged to home or self care - [facility] - Private home/apt. with home health services [facility] 08/04/2023 12:06 pm EST - 08/17/2023 11:32 am EDT Immunizations Vaccine Date Pneumococcal Conjugate Vaccine (PCV13) SARS-COV-2 (COVID-19) 11/10/2021 12:00 a m EDT Prevnar 20 Pneumococcal conjugate (PCV20 ) SARS-COV-2 (COVID-19 BOOSTER) RSV, bivalent, protein subunit RSVpreF, diluent rec Social History
--- OUTSIDE RECORDS SUMMARY | 2024-07-24 13:39 | XMS_ITS | Encounter Summary ---
Author Name [facility] Organization [facility] [place] Address [address] [place] [address] Care Team Providers Care Care Consultant Name Role Phone COLT RAND Primary Care [...] Womack's Name Patient's Relationship to Policy Womack [facility] MEDICAID MEDICAID MEDIC AID May 29, 2018 MEDICAI D [id number] ALEX AlexandreJAMES PATIENT MEDICAID MEDICAID [facility] Sep 24, 2018 MEDICAI D [id number] ALEX AlexandreJAMES PATIENT Selected Encounter This section includes the information on record at OR for the Encounter. Date/Time Encounter Type Encounter Description Reason Pro vider Source Jun 03, 2024 02:30 PM Outpatient Encounter PULMONARY FUNCTION IHE Encounter Template Text not used by OR Plan of Treatment: Future Appointments (+ 6 [...] 20 appointments. The data comes from all [place] treatment facilities. Appointment Date/Time Appointment Type Appointme nt Facility Name Jun 04, 2024 08:30 AM AMBULATORY - MEDICINE [facility] Aug 28, 2024 02:00 PM AMBULATORY - MEDICINE [place] [facility] [place] [facility] Sep 23, 2024 01:30 PM AMBULATORY - MEDICINE [place] [facility] [place] [facility] October 02, 2024 02:00 PM AMBULATORY - MEDICINE [place] [facility] [place] [facility] Nov 21, 2024 01:30 PM AMBULATORY - MEDICINE [facility] Social History: Smoking Status (Most current) and Tobacco Use (All prior to encounter date) This section includes the most current, and the historical, smoking and tobacco- related health factors from the OR facility where the Encounter took place. Current Smoking Status This section includes the most current smoking, or tobacco-related health factor, from the OR facility where the Encounter took place. Date/Time Current Smoking Status Comment Facil ity October 21, 2020 01:38 PM [facility] Tobacco Use History This section includes a history of the smoking, or tobacco-related health factors, that were collected on or before the date of the Encounter. The data comes from the [place] facility where the Encounter took place. 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 This section includes ALL of a patient's completed or amended VA Advance and Rescinded Directives. The entries below indicate that a directive exists for the patient, but an actual copy is not included with this document. The data comes from all OR facilities. Date Advance Directives Provider Source Mar 15, 2018 ADVANCE DIRECTIVE RUTOBI AU Radiology Reports: +/- 30 days of the [...] the Encounter. The data comes from all OR treatment facilities. Date/Time Radiology Report Provider Source Jun 03, 2024 02:31 PM LDCT LUNG CANCER S CREENING: FELIPAJAMES Lynette [id number] -[id number] M Exm Date: JUN 03, 2024@14:31 Req Phys: COLT RAND Loc: ZZCWM/NO/LCS ADMIN (Req'g Loc) Img Loc: NHM/CT Service: [place] [address] (Case 70 COMPLETE) LDCT LUNG CANCER SCREENING (CT Detailed) CPT:14580 Reason for Study: LUNG CANCER SCREENING Clinical History: 43 TPY-Currently smoking LCS LDCT on 05/18/2023: LR2 Index Nodule: 3.0 mm solid round well-circumscribed right upper lobe pulmonary nodule, 8-180. Report Status: Verified Date Reported: JUN 03, 2024 Date Verified: JUN 03, 2024 Multisensor Intelligence Officer E-Sig:/ES/YOSELIN LALA Report: CT THORAX LUNG CANCER [...] Primary Interpreting Staff: YOSELIN LALA Staff Physician (Multisensor Intelligence Officer) /YOSELIN [facility] Encounter Notes: All associated encounter notes This section contains the clinical notes associated to the Encounter. Date/Time Encounter Note(s) Provider Source Jun 03, 2024 04:07 PM PULMONARY DIAGNOSTIC STUDY CONSULT: LOCAL TITLE: CP PULMONARY FUNCTION TEST STANDARD TITLE: PULMONARY DIAGNOSTIC STUDY CONSULT DATE OF NOTE: JUN 03, 2024@16:07 ENTRY DATE: JUN 03, 2024@16:07:15 AUTHOR: TONI URBINA MD EXP COSIGNER: URGENCY: STATUS: COMPLETED PROCEDURE SUMMARY CODE: Abnormal DATE/TIME PERFORMED: JUN 03, 2024@14:54 For complete results please go to [facility]. SPIROMETRY: Mildly reduced FVC (2.51 L, 72%) [...] is a borderline significant response to bronchodilator. /arnaud/ Toni Urbina MD Director, [facility] Pulmonary Lab Signed: 06/06/2024 15:20 TONI URBINA MD [facility]
--- OUTSIDE RECORDS SUMMARY | 2024-07-24 13:39 | XMS_ITS ---
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 Sep 24, 2018 MEDICAI D [id number] JAMES WRIGHT PATIENT Selected Encounter This section includes the information on record at [place] for the Encounter. Date/Time Encounter Type Encounter Description Reason Pro vider Source Sep 18, 2023 09:31 PM Outpatient Encounter ADMIN PAT ACTIVTIES (MASNONCT) IHE Encounter Template Text not used by [...] 20 appointments. The data comes from all [place] treatment facilities. Appointment Date/Time Appointment Type Appointme nt Facility Name Sep 26, 2023 10:00 AM AMBULATORY - REHAB MEDICIN E [facility] October 05, 2023 01:30 PM AMBULATORY - MEDICINE [facility] [place] [facility] Oct 30, 2023 11:30 AM AMBULATORY - MEDICINE [facility] Oct 31, 2023 03:00 PM AMBULATORY - MEDICINE [facility] [place] [facility] Nov 09, 2023 01:00 PM AMBULATORY - MEDICINE [facility] [place] [facility] Nov 10, 2023 01:00 PM AMBULATORY - [facility]IN [facility] Nov 27, 2023 01:30 PM AMBULAT[facility] - [facility] [place] [facility] Nov 29, 2023 02:30 PM AMBULATORY - REHAB MEDICIN E [facility] [place] [facility] Dec 04, 2023 01:30 PM AMBULATORY - REHAB MEDICIN E [facility] [place] [facility] Dec 07, 2023 11:00 AM AMBULATORY - [facility] MEDICIN [facility] Dec 22, 2023 11:30 AM AMBULATORY - [facility]IN [facility] Dec 28, 2023 11:00 AM AMBULATORY - RE[facility]AB MEDICIN [facility] Jan 05, 2024 11:30 AM AMBULATORY - RE[facility]AB MEDICIN [facility] Jan 11, 2024 08:30 AM AMBULATORY - MEDICINE [facility] [place] [facility] Feb 26, 2024 01:00 PM AMBULATORY - MEDICINE [facility] [place] [facility] Feb 27, 2024 03:30 PM AMBULATORY - MEDICINE [facility] [place] [facility] Lab Results: +/- 30 days of the encounter This section includes the Chemistry and Hematology Lab Results on record with [place] for the patient. Radiology Reports and Pathology Reports are provided separately, in subsequent sections. Lab Results This section contains the Chemistry/Hematology Results that were resulted 30 days before or 30 daysafter the date of the Encounter. Date/Time Source Result Type Result - Unit Interpretation Reference Range Comment Sep 08, 2023 01:01 PM [facility] CBC AND DIFF (AUTO) Specimen Type: BLOOD No comment entered. Ordering Provider: COLT RAND Report Released Date/Time: Sep 08, 2023 11:41 AM Reporting Lab: [facility] [address] [facility] [address] Performing Lab: [facility] [address] [facility] [address] WBC 5.25 10*3/uL 4.50-11.00 RBC 3.74 10*6/uL L 4.23-5.66 HGB 11.6 g/dL L 12.8-17 HCT 35.7 L 39.2-50.4 MCV 95.5 fL 82-99 MCHC 32.5 g/dL 30.8-35.1 PLT 215 10*3/uL 140-360 RDW-CV 16.5 H 12.0-16.0 [place], Abs 0.35 10*3/uL 0.30-1.10 MCH 31.0 pg 26.2-32.6 Neut % 43.2 L 43.7-75.8 Lymph % 41.9 14.0-42.3 [place] % 6.7 5.1-13.7 Eos % 7.6 H 0.4-6.8 Baso % 0.4 0.1-2.0 Neut, Abs 2.27 10*3/uL 2.20-7.60 Lymph, Abs 2.20 10*3/uL 1.00-3.20 Eos, Abs 0.40 10*3/uL 0.03-0.44 Baso, Abs 0.02 10*3/uL 0.01-0.13 Immature Gran % 0.2 0.0-0.7 Immature Gran, Abs 0.01 10*3/uL 0.00-0.06 Aug 29, 2023 09:34 AM [facility] TRAMADOL PNL ([facility]) Specimen Type: URINE Comment: REFERENCE RANGE: <100 ng/mL REFERENCE RANGE: <100 ng/mL See LDT message Test Performed by [facility], [employer] [facility], [address] [place], [place] Arturo Wilhelm M.D., Ph.D., Director of Laboratories , CLIA [id number] This drug testing is for medical treatment only. Analysis was performed as non-forensic testing and these results should be used only by healthcare providers to render diagnosis or treatment, or to monitor progress of medical conditions. LDT Message: This test was developed and its analytical performance characteristics have been determined by [employer] [place], [place]. It has not been cleared or approved by the U.S. Food and Drug Administration. This assay has been validated pursuant to the CLIA regulations and is used for clinical purposes. Healthcare Providers needing Interpretation assistance, please contact us at [phone] ( ) M-F, 8am to 10pm EST TEST PERFORMED AT: , Ordering Provider: COLT RAND Report Released Date/Time: Aug 24, 2023 02:13 PM Reporting Lab: [address] [address] Performing Lab: [facility] [address] [address] TRAMADOL,URINE NEGATIVE ng/mL SEE BELOW DESMETHYLTRAMAD OL NEGATIVE ng/mL SEE BELOW Aug 29, 2023 09:34 AM [facility] METHADONE SCREEN Specimen Type: URINE Comment: THOMAS test are qualitative, any L or H flags only indicate a [place] alert was sent. Ordering Provider: COLT RAND Report Released Date/Time: Aug 24, 2023 02:13 PM Reporting Lab: [facility] [address] [facility] [address] Performing Lab: [facility] [address] [facility] [address] METHADONE SCREEN None detected(Negati ve) L Negative Aug 29, 2023 09:34 AM [facility] ALCOHOL, ETHYL URINE PANEL Specimen Type: URINE [...] Aug 24, 2023 02:13 PM Reporting Lab: [address] [address] Performing Lab: [address] [address] ALCOHOL, ETHYL URINE NONE-DETECTED mg/dL NONE-DETEC KARIN, cutoff = 10 mg/dL PH, THOMAS 5.1 [pH] 4-10 CREATININE, THOMAS 318.04 mg/dL >20 SP.GRAVITY, THOMAS 1.031 H 1.00 3-1.02 0 Aug 29, 2023 09:34 AM [facility] FENTANYL SCREEN PANEL Specimen Type: URINE Comment: [...] Aug 24, 2023 02:13 PM Reporting Lab: [address] [address] Performing Lab: [address] [address] FENTANYL SCREEN NONE-DETECTE D ng/mL Negative: Cutoff = 1.00 ng/mL PH, THOMAS 5.3 [pH] 4-10 CREATININE, THOMAS 317.72 mg/dL >20 SP.GRAVITY, THOMAS 1.031 H 1.00 3-1.02 0 Aug 29, 2023 09:34 AM [facility] AMPHETAMINES SCREEN PANEL Specimen Type: URINE Comment: [...] Aug 24, 2023 02:13 PM Reporting Lab: [address] [address] Performing Lab: [address] [address] AMPHETAMINES SCREEN NONE-DETECTED None-Detec karin, Cutoff = 1000 ng/mL PH, THOMAS 5.1 [pH] 4-10 CREATININE, THOMAS 318.04 mg/dL >20 SP.GRAVITY, THOMAS 1.031 H 1.00 3-1.02 0 Aug 29, 2023 09:34 AM [facility] BENZODIAZEPINES SCREEN PANEL Specimen Type: URINE Comment: [...] Aug 24, 2023 02:13 PM Reporting Lab: [address] [address] Performing Lab: [address] [address] BENZODIAZEPINES SCREEN NONE-DETECTED None-Detec karin, Cutoff = 200 ng/mL PH, THOMAS 5.1 [pH] 4-10 CREATININE, THOMAS 318.04 mg/dL >20 SP.GRAVITY, THOMAS 1.031 H 1.00 3-1.02 0 Aug 29, 2023 09:34 AM [facility] BUPRENORPHINE SCREEN PANEL Specimen Type: URINE Comment: [...] Aug 24, 2023 02:13 PM Reporting Lab: [address] [address] Performing Lab: [address] [address] BUPRENORPHINE (URINE) NONE-DETECTED None Detected, Cutoff = 10.0 ng/mL PH, THOMAS 5.1 [pH] 4-10 CREATININE, THOMAS 318.04 mg/dL >20 SP.GRAVITY, THOMAS 1.031 H 1.00 3-1.02 0 Aug 29, 2023 09:34 AM [facility] CANNABINOIDS SCREEN PANEL Specimen Type: URINE Comment: [...] Aug 24, 2023 02:13 PM Reporting Lab: [address] [address] Performing Lab: [address] [address] CANNABINOIDS SCREEN NONE-DETECTED None-Detec karin,Cutoff = 50 ng/mL PH, THOMAS 5.1 [pH] 4-10 CREATININE, THOMAS 318.04 mg/dL >20 SP.GRAVITY, THOMAS 1.031 H 1.00 3-1.02 0 Aug 29, 2023 09:34 AM [facility] COCAINE SCREEN PANEL Specimen Type: URINE Comment: [...] Aug 24, 2023 02:13 PM Reporting Lab: [address] [address] Performing Lab: [address] [address] COCAINE SCREEN NONE-DETECTED N one-Detec karin,Cutoff = 300 ng/mL PH, THOMAS 5.1 [pH] 4-10 CREATININE, THOMAS 318.04 mg/dL >20 SP.GRAVITY, THOMAS 1.031 H 1.00 3-1.02 0 Aug 29, 2023 09:34 AM [facility] OPIATES SCREEN PANEL Specimen Type: URINE Comment: [...] Aug 24, 2023 02:13 PM Reporting Lab: [address] [address] Performing Lab: [address] [address] OPIATES SCREEN NONE-DETECTED N one-Detec karin, Cutoff = 300 ng/mL PH, THOMAS 5.1 [pH] 4-10 CREATININE, THOMAS 318.04 mg/dL >20 SP.GRAVITY, THOMAS 1.031 H 1.00 3-1.02 0 Aug 29, 2023 09:34 AM [facility] OXYCODONE SCREEN PANEL Specimen Type: URINE Comment: [...] Aug 24, 2023 02:13 PM Reporting Lab: [address] [address] Performing Lab: [address] [address] OXYCODONE SCREEN NONE-DETECTED None-Detec karin, Cutoff = 100 ng/mL PH, THOMAS 5.1 [pH] 4-10 CREATININE, THOMAS 318.04 mg/dL >20 SP.GRAVITY, THOMAS 1.031 H 1.00 3-1.02 0 Aug 29, 2023 09:06 AM [facility] LIPID PANEL FASTING Specimen Type: SERUM No comment entered. Ordering Provider: COLT RAND Report Released Date/Time: Aug 24, 2023 02:11 PM Reporting Lab: [address] [address] Performing Lab: [address] [address] CHOLESTEROL 132 mg/dL TRIGLYCERIDE 129 mg/dL 0-150 LDL calculated 69 mg/dL 0-129 CHOL/HDL 3.6 HDL CHOLESTEROL 37 mg/dL L 40-60 Aug 29, 2023 09:06 AM [facility] LIVER FUNCTION Specimen Type: SERUM No comment entered. Ordering Provider: COLT RAND Report Released Date/Time: Aug 24, 2023 02:11 PM Reporting Lab: [address] [address] Performing Lab: [address] [address] PROTEIN,TOTAL 7.7 g/dL 6.0-8.3 ALBUMIN 3.8 g/dL 3.5-5.0 ALKALINE PHOSPHATASE 73 U/L 40-150 AST 15 U/L 5-34 ALT 9 U/L BILIRUBIN, TOTAL 0.5 mg/dL 0.2-1.2 Aug 29, 2023 09:06 AM [facility] PSA Specimen Type: SERUM No comment entered. Ordering Provider: COLT RAND Report Released Date/Time: Aug 24, 2023 02:11 PM Reporting Lab: [facility] [address] [facility] [address] Performing Lab: [address] [address] PSA 7.14 ng/mL H 0.00-4.00 Aug 29, 2023 09:06 AM [facility] BASIC METABOLIC PANEL (fasting) Specimen Type: SERUM No comment entered. Ordering Provider: COLT RAND Report Released Date/Time: Aug 24, 2023 02:11 PM Reporting Lab: [facility] [address] [facility] [address] Performing Lab: [address] [address] UREA NITROGEN 10 mg/dL 7-25 GLUCOSE 113 mg/dL H 65-100 SODIUM 142 mmol/L 135-145 POTASSIUM 3.7 mmol/L 3.5-5.0 CHLORIDE 108 mmol/L 100-110 CO2 25 meq/L 20-30 CREATININE, Serum 1.13 mg/dL 0.50-1.40 eGFR(CKD-EPI 2020) 72 mL/min >60 Aug 29, 2023 09:06 AM [facility] HEMOGLOBIN A1C PANEL Specimen Type: BLOOD Comment: [...] Aug 24, 2023 02:11 PM Reporting Lab: [facility] [place] [facility] [address] [facility] [address] Performing Lab: [place] [facility] [place] [facility] [address] [facility] [address] HEMOGLOBIN A1C 4.4 4.0-5.6 Aug 29, 2023 09:06 AM [facility] [place] [facility] TSH Specimen Type: SERUM No comment entered. Ordering Provider: COLT RAND Report Released Date/Time: Aug 24, 2023 02:11 PM Reporting Lab: [facility] [place] [facility] [address] [facility] [address] Performing Lab: [facility] [place] [address] [address] TSH 1.07 u[IU]/mL 0.35-5.00 Aug 29, 2023 09:06 AM [facility] VITAMIN B12 Specimen Type: SERUM No comment entered. Ordering Provider: COLT RAND Report Released Date/Time: Aug 24, 2023 02:11 PM Reporting Lab: [facility] [place] [address] [address] Performing Lab: [facility] [place] [address] [address] VITAMIN B12 329 pg/mL 200-900 Aug 29, 2023 09:06 AM [facility] CBC AND DIFF (AUTO) Specimen Type: BLOOD No comment entered. Ordering Provider: COLT RAND Report Released Date/Time: Aug 24, 2023 02:11 PM Reporting Lab: [facility] [place] [facility] [address] [facility] [address] Performing Lab: [facility] [place] [address] [address] WBC 4.94 10*3/uL 4.50-11.00 RBC 3.69 10*6/uL L 4.23-5.66 HGB 11.4 g/dL L 12.8-17 HCT 34.8 L 39.2-50.4 MCV 94.3 fL 82-99 MCHC 32.8 g/dL 30.8-35.1 PLT 264 10*3/uL 140-360 RDW-CV 16.3 H 12.0-16.0 [place], Abs 0.28 10*3/uL L 0.30-1.10 MCH 30.9 pg 26.2-32.6 Neut % 54.0 43.7-75.8 Lymph % 31.8 14.0-42.3 [place] % 5.7 5.1-13.7 Eos % 7.5 H [...] and tobacco- related health factors from the [place] facility where the Encounter took place. Current Smoking Status This section includes the most current smoking, or tobacco-related health factor, from the [place] facility where the Encounter took place. Date/Time Current Smoking Status Comment Anthony ity October 21, 2020 01:38 PM VA-TOBACCO USER EVERY DAY [facility] Tobacco Use History This section includes a history of the smoking, or tobacco-related health factors, that were collected on or before the date of the Encounter. The data comes from the [place] facility where the Encounter took place. 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 Advance Directives: All historical and current Section Date Range: From patient's date of to the date document was created. This section includes ALL of a patient's completed or amended [place] Advance and Rescinded Directives. The entries below indicate that a directive exists for the patient, but an actual copy is not included with this document. The data comes from all [place] facilities. Date Advance Directives Provider Source Mar 15, 2018 ADVANCE DIRECTIVE ARABELLAAniTOBI GORE MICAHEL Encounter Notes: All associated encounter notes This section contains the clinical notes associated to the Encounter. Date/Time Encounter Note(s) Provider Source Sep 18, 2023 09:31 PM PHARMACY NOTE: LOCAL TITLE: V1 PHARMACY CUSTOMER CARE MEDICATION RENEWAL STANDARD TITLE: PHARMACY NOTE DATE OF NOTE: SEP 18, 2023@21:31 ENTRY DATE: SEP 18, 2023@21:32:04 AUTHOR: DULCE ORTIZ EXP COSIGNER: URGENCY: STATUS: COMPLETED V1 PHARMACY CUSTOMER CARE MEDICATION RENEWAL Has ADDENDA Date: Aug Division: [facility] referred by Pharmacy Call Center for medication renewal: Non-controlled/maintenanc e medication Medications requested: [id number] TAMSULOSIN HCL 0.4MG CAP Defer to specialty clinic To be mailed . Please review and renew if appropriate. *This note was generated by [facility] [facility]. If you have any questions or need assistance, do not contact this author. Please refer all questions to your local, on-site pharmacy departments. /ethan ORTIZ CPhT Rn Assessment, [place] Customer [facility] Signed: 09/18/2023 21:34 Receipt Acknowledged By: 09/19/2023 12:11 /arnaud/ COLT RAND MD Primary Care Physician 09/19/2023 09:53 /arnaud/ ANTONIO SANTANA RN REGISTERED NURSE 09/19/2023 ADDENDUM STATUS: COMPLETED Spoke with the and made him aware that he would need to speak with his Urologist's office to have a new script faxed to the clinic. /es/ ANTONIO FALES, RN REGISTERED NURSE Signed: 09/19/2023 09:55 DULCE ORTIZ [facility]
--- OUTSIDE RECORDS SUMMARY | 2024-07-24 13:39 | XMS_ITS | Encounter Summary ---
Author Name [facility] [place] Organization [place] Address [address] [place] [address] Care Team Providers Care Applications Sales Consultant Name Role Phone COLT RAND Primary [...] Womack's Name Patient's Relationship to Policy Womack [facility] MEDICAID MEDICAID MEDIC AID May 29, 2018 MEDICAI D [id number] ALEX AlexandreJAMES PATIENT MEDICAID MEDICAID [facility] Sep 24, 2018 MEDICAI D [id number] ALEX AlexandreJAMES PATIENT Selected Encounter This section includes the information on record at [place] for the Encounter. Date/Time Encounter Type Encounter Description Reason Provider Source Aug 24, 2023 09:00 AM OFFICE O/P EST LOW 20 MIN PRIMARY CARE/MEDICINE ICD-10-CM L03.90 Cellulitis, unspecified GIUSEPPE RODRIGUEZ Encounter Template Text not used by [facility] Assessments - Encounter Diagnoses This section includes the primary and secondary diagnoses documented for the Encounter. Date/Time Primary/Secondary Diagnosis Diagnosis Name Provider Source Aug 24, 2023 03:13 PM PRIMARY Cellulitis, unspecified GIUSEPPE RODRIGUEZ [facility] Plan of Treatment: Future Appointments (+ 6 months) and Future Tests (+/- 45 days) The Plan of Treatment section includes future care activities for the patient from all [facility]. This section includes future appointments and future orders which are active, pending or scheduled. Future Appointments This section includes appointments that were scheduled to occur 6 months from the date of the Encounter, up to a maximum of 20 appointments. The data comes from all [place] treatment facilities. Appointment Date/Time Appointment Type Appointme nt Facility Name Sep 06, 2023 03:30 PM AMBULATORY - MEDICINE [place] [facility] [place] [facility] Sep 07, 2023 12:00 PM AMBULATORY - MEDICINE [place] [facility] [place] [facility] Sep 08, 2023 11:00 AM AMBULATORY - MEDICINE [facility] Sep 26, 2023 10:00 AM AMBULATORY - REHAB MEDICIN E [facility] October 05, 2023 01:30 PM AMBULATORY - MEDICINE [place] [facility] [place] [facility] Oct 30, 2023 11:30 AM [facility]ICINE [facility] Oct 31, 2023 03:00 PM AMBULATORY - MEDICINE [place] [facility] [place] [facility] Nov 09, 2023 01:00 PM AMBULATORY - MEDICINE [place] [facility] [place] [facility] Nov 10, 2023 01:00 PM AMBULATORY - REHAB MEDICIN E [facility] Nov 27, 2023 01:30 PM AMBULATORY - REHAB MEDICIN E [place] [facility] [place] [facility] Nov 29, 2023 02:30 PM AMBULATORY - REHAB MEDICIN E [facility] [place] [facility] Dec 04, 2023 01:30 PM AMBULATORY - REHAB MEDICIN E [facility] [place] [facility] Dec 07, 2023 11:00 AM AMBULATORY - REHAB MEDICIN E [facility] Dec 22, 2023 11:30 AM AMBULATORY - REHAB MEDICIN E [facility] Dec 28, 2023 11:00 AM AMBULATORY - REHAB MEDICIN E [facility] Jan 05, 2024 11:30 AM AMBULATORY - REHAB MEDICIN E [facility] Jan 11, 2024 08:30 AM AMBULATORY - MEDICINE [place] [facility] [place] [facility] Lab Results: +/- 30 days of the encounter This section includes the Chemistry and Hematology Lab Results on record with PA for the patient. Radiology Reports and Pathology Reports are provided separately, in subsequent sections. Lab Results This section contains the Chemistry/Hematology Results that were resulted 30 days before or 30 daysafter the date of the Encounter. Date/Time Source Result Type Result - Unit Interpretation Reference Range Comment Sep 08, 2023 01:01 PM [facility] CBC AND DIFF (AUTO) Specimen Type: BLOOD No comment entered. Ordering Provider: COLT RAND Report Released Date/Time: Sep 08, 2023 11:41 AM Reporting Lab: [facility] [address] [address] Performing Lab: [address] [address] WBC 5.25 10*3/uL 4.50-11.00 RBC 3.74 10*6/uL L 4.23-5.66 HGB 11.6 g/dL L 12.8-17 HCT 35.7 L 39.2-50.4 MCV 95.5 fL 82-99 MCHC 32.5 g/dL 30.8-35.1 PLT 215 10*3/uL 140-360 RDW-CV 16.5 H 12.0-16.0 [place], Abs 0.35 10*3/uL 0.30-1.10 MCH 31.0 pg 26.2-32.6 Neut % 43.2 L 43.7-75.8 Lymph % 41.9 14.0-42.3 [place] % 6.7 5.1-13.7 Eos % 7.6 H 0.4-6.8 Baso % 0.4 0.1-2.0 Neut, Abs 2.27 10*3/uL 2.20-7.60 Lymph, Abs 2.20 10*3/uL 1.00-3.20 Eos, Abs 0.40 10*3/uL 0.03-0.44 Baso, Abs 0.02 10*3/uL 0.01-0.13 Immature Gran % 0.2 0.0-0.7 Immature Gran, Abs 0.01 10*3/uL 0.00-0.06 Aug 29, 2023 09:34 AM [facility] TRAMADOL PNL (Quest) Specimen Type: URINE Comment: REFERENCE RANGE: <100 ng/mL REFERENCE RANGE: <100 ng/mL See LDT message Test Performed by [employer] [place], [employer] [place], [address] [place], [place] Arturo Wilhelm M.D., Ph.D., Director of Laboratories , CLIA [id number] This drug testing is for medical treatment only. Analysis was performed as non-forensic testing and these results should be used only by healthcare providers to render diagnosis or treatment, or to monitor progress of medical conditions. LDT Message: This test was developed and its analytical performance characteristics have been determined by [employer] [place], [place]. It has not been cleared or approved by the U.S. Food and Drug Administration. This assay has been validated pursuant to the CLIA regulations and is used for clinical purposes. Healthcare Providers needing Interpretation assistance, please contact us at [phone] ( ) M-F, 8am to 10pm EST TEST PERFORMED AT: , Ordering Provider: COLT RAND Report Released Date/Time: Aug 24, 2023 02:13 PM Reporting Lab: [facility] [address] [address] Performing Lab: [facility] [address] [address] TRAMADOL,URINE NEGATIVE ng/mL SEE BELOW DESMETHYLTRAMAD OL NEGATIVE ng/mL SEE BELOW Aug 29, 2023 09:34 AM [facility] METHADONE SCREEN Specimen Type: URINE Comment: THOMAS test are qualitative, any L or H flags only indicate a VA alert was sent. Ordering Provider: COLT RAND Report Released Date/Time: Aug 24, 2023 02:13 PM Reporting Lab: [facility] [address] [address] Performing Lab: [facility] [address] [facility] [address] METHADONE SCREEN None detected(Negati ve) L Negative Aug 29, 2023 09:34 AM [facility] ALCOHOL, ETHYL URINE PANEL Specimen Type: URINE [...] Aug 24, 2023 02:13 PM Reporting Lab: [address] [address] Performing Lab: [address] [address] ALCOHOL, ETHYL URINE NONE-DETECTED mg/dL NONE-DETEC KARIN, cutoff = 10 mg/dL PH, THOMAS 5.1 [pH] 4-10 CREATININE, THOMAS 318.04 mg/dL >20 SP.GRAVITY, THOMAS 1.031 H 1.00 3-1.02 0 Aug 29, 2023 09:34 AM [facility] AMPHETAMINES SCREEN PANEL Specimen Type: URINE Comment: [...] Aug 24, 2023 02:13 PM Reporting Lab: [address] [address] Performing Lab: [address] [address] AMPHETAMINES SCREEN NONE-DETECTED None-Detec karin, Cutoff = 1000 ng/mL PH, THOMAS 5.1 [pH] 4-10 CREATININE, THOMAS 318.04 mg/dL >20 SP.GRAVITY, THOMAS 1.031 H 1.00 3-1.02 0 Aug 29, 2023 09:34 AM [facility] FENTANYL SCREEN PANEL Specimen Type: URINE Comment: [...] Aug 24, 2023 02:13 PM Reporting Lab: [address] [address] Performing Lab: [address] [address] FENTANYL SCREEN NONE-DETECTE D ng/mL Negative: Cutoff = 1.00 ng/mL PH, THOMAS 5.3 [pH] 4-10 CREATININE, THOMAS 317.72 mg/dL >20 SP.GRAVITY, THOMAS 1.031 H 1.00 3-1.02 0 Aug 29, 2023 09:34 AM [facility] BENZODIAZEPINES SCREEN PANEL Specimen Type: URINE Comment: [...] Aug 24, 2023 02:13 PM Reporting Lab: [address] [address] Performing Lab: [address] [address] BENZODIAZEPINES SCREEN NONE-DETECTED None-Detec karin, Cutoff = 200 ng/mL PH, THOMAS 5.1 [pH] 4-10 CREATININE, THOMAS 318.04 mg/dL >20 SP.GRAVITY, THOMAS 1.031 H 1.00 3-1.02 0 Aug 29, 2023 09:34 AM [facility] BUPRENORPHINE SCREEN PANEL Specimen Type: URINE Comment: [...] Aug 24, 2023 02:13 PM Reporting Lab: [address] [address] Performing Lab: [address] [address] BUPRENORPHINE (URINE) NONE-DETECTED None Detected, Cutoff = 10.0 ng/mL PH, THOMAS 5.1 [pH] 4-10 CREATININE, THOMAS 318.04 mg/dL >20 SP.GRAVITY, THOMAS 1.031 H 1.00 3-1.02 0 Aug 29, 2023 09:34 AM [facility] CANNABINOIDS SCREEN PANEL Specimen Type: URINE Comment: [...] Aug 24, 2023 02:13 PM Reporting Lab: [address] [address] Performing Lab: [address] [address] CANNABINOIDS SCREEN NONE-DETECTED None-Detec karin,Cutoff = 50 ng/mL PH, THOMAS 5.1 [pH] 4-10 CREATININE, THOMAS 318.04 mg/dL >20 SP.GRAVITY, THOMAS 1.031 H 1.00 3-1.02 0 Aug 29, 2023 09:34 AM [facility] COCAINE SCREEN PANEL Specimen Type: URINE Comment: [...] Aug 24, 2023 02:13 PM Reporting Lab: [address] [address] Performing Lab: [address] [address] COCAINE SCREEN NONE-DETECTED N one-Detec karin,Cutoff = 300 ng/mL PH, THOMAS 5.1 [pH] 4-10 CREATININE, THOMAS 318.04 mg/dL >20 SP.GRAVITY, THOMAS 1.031 H 1.00 3-1.02 0 Aug 29, 2023 09:34 AM [facility] OPIATES SCREEN PANEL Specimen Type: URINE Comment: [...] Aug 24, 2023 02:13 PM Reporting Lab: [address] [address] Performing Lab: [address] [address] OPIATES SCREEN NONE-DETECTED N one-Detec karin, Cutoff = 300 ng/mL PH, THOMAS 5.1 [pH] 4-10 CREATININE, THOMAS 318.04 mg/dL >20 SP.GRAVITY, THOMAS 1.031 H 1.00 3-1.02 0 Aug 29, 2023 09:34 AM [facility] OXYCODONE SCREEN PANEL Specimen Type: URINE Comment: [...] Aug 24, 2023 02:13 PM Reporting Lab: [address] [address] Performing Lab: [address] [address] OXYCODONE SCREEN NONE-DETECTED None-Detec karin, Cutoff = 100 ng/mL PH, THOMAS 5.1 [pH] 4-10 CREATININE, THOMAS 318.04 mg/dL >20 SP.GRAVITY, THOMAS 1.031 H 1.00 3-1.02 0 Aug 29, 2023 09:06 AM [facility] LIPID PANEL FASTING Specimen Type: SERUM No comment entered. Ordering Provider: COLT RAND Report Released Date/Time: Aug 24, 2023 02:11 PM Reporting Lab: [address] [address] Performing Lab: [address] [address] CHOLESTEROL 132 mg/dL TRIGLYCERIDE 129 mg/dL 0-150 LDL calculated 69 mg/dL 0-129 CHOL/HDL 3.6 HDL CHOLESTEROL 37 mg/dL L 40-60 Aug 29, 2023 09:06 AM [facility] LIVER FUNCTION Specimen Type: SERUM No comment entered. Ordering Provider: COLT RAND Report Released Date/Time: Aug 24, 2023 02:11 PM Reporting Lab: [facility] [address] [address] Performing Lab: [address] [address] PROTEIN,TOTAL 7.7 g/dL 6.0-8.3 ALBUMIN 3.8 g/dL 3.5-5.0 ALKALINE PHOSPHATASE 73 U/L 40-150 AST 15 U/L 5-34 ALT 9 U/L BILIRUBIN, TOTAL 0.5 mg/dL 0.2-1.2 Aug 29, 2023 09:06 AM [facility] PSA Specimen Type: SERUM No comment entered. Ordering Provider: COLT RAND Report Released Date/Time: Aug 24, 2023 02:11 PM Reporting Lab: [address] [address] Performing Lab: [address] [address] PSA 7.14 ng/mL H 0.00-4.00 Aug 29, 2023 09:06 AM [facility] BASIC METABOLIC PANEL (fasting) Specimen Type: SERUM No comment entered. Ordering Provider: COLT RAND Report Released Date/Time: Aug 24, 2023 02:11 PM Reporting Lab: [address] [address] Performing Lab: [address] [address] UREA NITROGEN 10 mg/dL 7-25 GLUCOSE 113 mg/dL H 65-100 SODIUM 142 mmol/L 135-145 POTASSIUM 3.7 mmol/L 3.5-5.0 CHLORIDE 108 mmol/L 100-110 CO2 25 meq/L 20-30 CREATININE, Serum 1.13 mg/dL 0.50-1.40 eGFR(CKD-EPI 2020) 72 mL/min >60 Aug 29, 2023 09:06 AM [facility] HEMOGLOBIN A1C PANEL Specimen Type: BLOOD Comment: [...] Aug 24, 2023 02:11 PM Reporting [facility] [place] [address] [address] Performing Lab: [place] [facility] [place] [facility] [address] [address] HEMOGLOBIN A1C 4.4 4.0-5.6 Aug 29, 2023 09:06 [facility] TSH Specimen Type: SERUM No comment entered. Ordering Provider: COLT RAND Report Released Date/Time: Aug 24, 2023 02:11 PM Reporting [facility] [place] [address] [address] Per[facility]: [facility] [place] [facility] [address] [address] TSH 1.07 u[IU]/mL 0.35-5.00 Aug 29, 2023 09:06 AM [facility] VITAMIN B12 Specimen Type: SERUM No comment entered. Ordering Provider: COLT RAND Report Released Date/Time: Aug 24, 2023 02:11 PM Reporting [facility] [place] [address] [address] Performing Lab: [place] [facility] [place] [facility] [address] [address] VITAMIN B12 329 pg/mL 200-900 Aug 29, 2023 09:06 AM [facility] CBC AND DIFF (AUTO) Specimen Type: BLOOD No comment entered. Ordering Provider: COLT RAND Report Released Date/Time: Aug 24, 2023 02:11 PM Reporting [facility] [place] [address] [address] Performing Lab: [place] [address] WBC 4.94 10*3/uL 4.50-11.00 RBC 3.69 10*6/uL L 4.23-5.66 HGB 11.4 g/dL L 12.8-17 HCT 34.8 L 39.2-50.4 MCV 94.3 fL 82-99 MCHC 32.8 g/dL 30.8-35.1 PLT 264 10*3/uL 140-360 RDW-CV 16.3 H 12.0-16.0 [place], Abs 0.28 10*3/uL L 0.30-1.10 MCH 30.9 pg 26.2-32.6 Neut % 54.0 43.7-75.8 Lymph % 31.8 14.0-42.3 [place] % 5.7 5.1-13.7 Eos % 7.5 H [...] AM 97.3 91 120/75 18 100 4 [facility] Social History: Smoking Status (Most current) and Tobacco Use (All prior to encounter date) This section includes the most current, and the historical, smoking and tobacco- related health factors from the PA facility where the Encounter took place. Current Smoking Status This section includes the most current smoking, or tobacco-related health factor, from the PA facility where the Encounter took place. Date/Time Current Smoking Status Marita riojas Jul 26, 2022 02:00 PM PA-TOBACCO USER EVERY DAY [facility] Tobacco Use History This section includes a history of the smoking, or tobacco-related health factors, that were collected on or before the date of the Encounter. The data comes from the PA facility where the Encounter took place. Date/Time Smoking Status/Tobacco Use Comment F acility Jul 26, 2022 02:00 PM VA-TOBACCO USE ADVICE [facility] Jul 26, 2022 02:00 PM VA-TOBACCO USE ABRASIVE WHEEL MOLDER NO [facility] Jul 26, 2022 02:00 PM VA-TOBACCO USE MED NO [facility] Jul 26, 2022 02:00 PM VA-TOBACCO USE WI 30 MIN OF WAKE UP [facility] Jul 26, 2022 02:00 PM VA-TOBACCO USER EVERY DAY [facility] Mar 01, 2019 01:59 PM VA-TOBACCO DOESNT USE WI 30 MIN WAKEUP [facility] Mar 01, 2019 01:59 PM VA-TOBACCO USE 30 YEARS OR MORE [facility] Mar 01, 2019 01:59 PM VA-TOBACCO USE ADVICE [facility] Mar 01, 2019 01:59 PM VA-TOBACCO USE ABRASIVE WHEEL MOLDER NO [facility] Mar 01, 2019 01:59 PM VA-TOBACCO USE MED [facility] Mar 01, 2019 01:59 PM VA-TOBACCO USER EVERY DAY [facility] Mar 06, 2018 04:15 PM VA-TOBACCO USE 30 YEARS OR MORE [facility] Mar 06, 2018 04:15 PM VA-TOBACCO USE ADVICE [facility] Mar 06, 2018 04:15 PM VA-TOBACCO USE ABRASIVE WHEEL MOLDER NO [facility] Mar 06, 2018 04:15 PM VA-TOBACCO USE MED [facility] Mar 06, 2018 04:15 PM VA-TOBACCO USE WI 30 MIN OF WAKE UP [facility] Mar 06, 2018 04:15 PM VA-TOBACCO USER EVERY DAY [facility] Advance Directives: All historical and current Section Date Range: From patient's date of to the date document was created. This section includes ALL of a patient's completed or amended PA Advance and Rescinded Directives. The entries below indicate that a directive exists for the patient, but an actual copy is not included with this document. The data comes from all [facility]. Date Advance Directives Provider Source Mar 15, 2018 ADVANCE DIRECTIVE TOBI JOHNSON Encounter Notes: All associated encounter notes This section contains the clinical notes associated to the Encounter. Date/Time Encounter Note(s) Provider Source Aug 24, 2023 09:30 AM ACCOUNTING OF DISC LOSURES NOTE: LOCAL TITLE: STATE PRESCRIPTION DRUG MONITORING PROGRAM STANDARD TITLE: ACCOUNTING OF DISCLOSURES NOTE DATE OF NOTE: AUG 24, 2023@09:30:14 ENTRY DATE: AUG 24, 2023@09:30:14 AUTHOR: GIUSEPPE RODRIGUEZIGNER: URGENCY: STATUS: COMPLETED This PDMP query was submitted by Giuseppe Rodriguez. The clinical justification for this PDMP query is to review controlled substances prescribed outside of the [facility], and any additional information that may become available, as an important component of standard clinical care, and in accordance with [facility] policy. [facility]. No prescription(s) for controlled substances outside the [facility] were found in the last 90 days. /arnaud/ GIUSEPPE RODRIGUEZ PA-C STAFF PHYSICIAN LAWN CARETAKER Signed: 08/24/2023 09:30 GIUSEPPE RODRIGUEZ Aug 24, 2023 09:26 AM PHYSICIAN ASSISTAN [place] NOTE: LOCAL TITLE: KRYSTLE NOTE STANDARD TITLE: PHYSICIAN LAWN CARETAKER NOTE DATE OF NOTE: AUG 24, 2023@09:26 ENTRY DATE: AUG 24, 2023@09:26:21 AUTHOR: GIUSEPPE RODRIGUEZIGNER: URGENCY: STATUS: COMPLETED S - f/u rehab released aug 19 was there because of cellulitis, R lower leg necrotizing fasciitis was part of DDX for the uncanny oedema, but CT of R LE displayed no underlying gas; reactive lymph nodes seen O - LOWER EXT's: R side - +closed vesicles pre-tib aspect, R Side nothing exudative at all skin taut not jackson and no calf tenderness (if he had dvt, they would known this in the hospital) ankle flex does not incite pain A/P - 1) Cellulitis, R LE (vs. Necrotizing Fasciitis) 2) Compartment Syndrome - this would my worse fear if pain and swelling were to escalate next 2-3 days - I advise return to the ED if Sx of Compartment Syndrome Manifest - I will ref Levaquin - only took it for 5 days; longer course needed - I will ref Oxy for Pain, yannick. at night trying to sleep RTC prn next week or go to ED over weekend if pain and swell escalate next couple days Medication Reconciliation: Outpatient: Has the patient been [...] all non-VA/Herbal/OTC medications were entered into CPRS. Changes: nt - If there were any medications the patient should no longer take, they were discontinued. - The patient/caregiver was instructed to update this list, discard old lists, and take this list to the next appointment, whether with a VA or non-VA provider. /arnaud/ GIUSEPPE RODRIGUEZ PA-C STAFF PHYSICIAN LAWN CARETAKER Signed: 08/24/2023 15:13 GIUSEPPE RODRIGUEZ
--- OUTSIDE RECORDS SUMMARY | 2024-07-24 13:39 | XMS_ITS ---
Author Name [facility] [place] Organization [facility] [place] [facility] [place] Address [address] [place] [address] Care Team Providers Care Test Carrier Name Role Phone COLT RAND Primary Care [...] Womack's Name Patient's Relationship to Policy Womack [facility] MEDICAID MEDICAID MEDIC AID May 29, 2018 MEDICAI D [id number] JAMES WRIGHT PATIENT MEDICAID [facility]ICA[facility] Sep 24, 2018 MEDICAI D [id number] JAMES WRIGHT PATIENT Selected Encounter This section includes the information on record at OR for the Encounter. Date/Time Encounter Type Encounter Description Reason Pro vider Source Nov 14, 2023 09:52 PM Outpatient Encounter ADMIN PAT ACTIVTIES (MASNONCT) [...] 01:30 PM AMBULATORY - REHAB MEDICIN E [place] [facility] [place] [facility] Nov 29, 2023 02:30 PM AMBULATORY - REHAB MEDICIN E [place] [facility] [place] [facility] Dec 04, 2023 01:30 PM AMBULATORY - REHAB MEDICIN E [place] [facility] [place] [facility] Dec 07, 2023 11:00 AM AMBULATORY - REHAB MEDICIN E [place] Dec 22, 2023 11:30 AM AMBULATORY - REHAB MEDICIN E [place] Dec 28, 2023 11:00 AM AMBULATORY - REHAB MEDICIN E [place] Jan 05, 2024 11:30 AM AMBULATORY - REHAB MEDICIN E [place] Jan 11, 2024 08:30 AM AMBULATORY - MEDICINE [place] [place] [facility] Feb 26, 2024 01:00 PM AMBULATORY - MEDICINE OR C [facility] [place] [facility] Feb 27, 2024 03:30 PM AMBULATORY - MEDICINE OR C [facility] [place] [facility] Mar 28, 2024 11:00 AM AMBULATORY - MEDICINE [place] C [facility] [place] [facility] Apr 01, 2024 01:30 PM AMBULATORY - MEDICINE [place] C [place] [place] [facility] May 03, 2024 02:00 PM AMBULATORY - MEDICINE [facility] [place] [facility] Social History: Smoking [...] 2020 01:38 PM [facility] Tobacco Use History This section includes a history of the smoking, or tobacco-related health factors, that were collected on or before the date of the Encounter. The data comes from the [place] facility where the Encounter took place. Date/Time Smoking Status/Tobacco Use Comment F acility October 21, 2020 01:38 PM VA-TOBACCO USE 30 YEARS OR MORE [facility] WSN [facility] October 21, 2020 01:38 PM [facility]AC[facility] October 21, 2020 01:38 PM VA-TOBACCO USE OSS ARCHITECT [facility] October 21, 2020 01:38 PM VA-TOBACCO USE MED NO [facility] October 21, 2020 01:38 PM VA-TOBACCO USER EVERY DAY [facility] Advance Directives: All historical and current Section Date Range: From patient's date of to the date document was created. This section includes ALL of a patient's completed or amended [place] Advance and Rescinded Directives. The entries below [...] Encounter. Date/Time Encounter Note(s) Provider Source Nov 14, 2023 09:52 PM PHARMACY NOTE: LOCAL TITLE: V1 PHARMACY CUSTOMER CARE MEDICATION RENEWAL STANDARD TITLE: PHARMACY NOTE DATE OF NOTE: NOV 14, 2023@21:52 ENTRY DATE: NOV 14, 2023@21:52:48 AUTHOR: RAMIRO KELLY COSIGNER: URGENCY: STATUS: COMPLETED V1 PHARMACY CUSTOMER CARE MEDICATION RENEWAL Has ADDENDA Date: Oct Division: [facility] referred by Pharmacy Call Center for medication renewal: Non-controlled/maintenanc e medication Medications requested: [id number] AMLODIPINE BESYLATE 2.5MG TAB [id number] TRIAMCINOLONE ACETONIDE 0.1% OINT Patient is out of medication and would appreciate expedited delivery if available. Please contact the outpatient pharmacy for assistance with shipment Defer to primary care provider To be mailed . Please review and renew if appropriate. *This note was generated by [facility] Pharmacy Customer Care. If you have any questions or need assistance, do not contact this author. Please refer all questions to your local, on-site pharmacy departments. /arnaud/ RAMIRO KELLY CPhT Computational Linguist, MS/Pharmacy Customer Care Signed: 11/14/2023 21:53 Receipt Acknowledged By: 11/16/2023 09:01 /arnaud/ ANTONIO SANTANA RN REGISTERED NURSE 11/16/2023 08:24 /arnaud/ COLT RAND MD Primary Care Physician 11/16/2023 ADDENDUM STATUS: COMPLETED Medication request sent to Dermatology for Triamcinolone cream. /arnaud/ ANTONIO SANTANA RN REGISTERED NURSE Signed: 11/16/2023 09:01 RAMIRO KELLY [facility]
--- OUTSIDE RECORDS SUMMARY | 2024-07-24 13:39 | XMS_ITS ---
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 Date/Time Encounter Type Encounter Description Reason Pro vider Source Aug 18, 2023 12:51 PM Outpatient Encounter ADMIN PAT ACTIVTIES (MASNONCT) [...] Appointment Type Appointme nt Facility Name Aug 24, 2023 08:45 AM AMBULATORY - [facility]ICINE [facility] Aug 24, 2023 09:00 AM AMBULATORY - MEDICINE [facility] Sep 06, 2023 03:30 PM [place] [facility] [place] [facility] Sep 07, 2023 12:00 PM [place] [facility] [facility] Sep 08, 2023 11:00 AM AM[facility]ULATORY [facility] Sep 26, 2023 10:00 AM AMBULATORY - REHAB MEDICIN [facility] October 05, 2023 01:30 PM AM[place]ICINE [place] [facility] [place] [facility] Oct 30, 2023 11:30 AM [facility]ATORY - MEDICINE [facility] Oct 31, 2023 03:00 PM [place] [facility] [place] [facility] Nov 09, 2023 01:00 PM [place]UL[place] [facility] [place] [facility] Nov 10, 2023 01:00 PM AMBULATORY - RE[facility] MED[facility]IN [facility] [place] Nov 27, 2023 01:30 PM AMBULAT[facility] - [facility] [facility] [place] [facility] [place] [facility] Nov 29, 2023 02:30 PM AMBULATORY - [facility]ICIN [facility] [place] [facility] Dec 04, 2023 01:30 PM AMBULATORY - REHAB MEDICIN [facility] [place] [facility] Dec 07, 2023 11:00 AM AMBULATORY - REHAB MED[facility]IN [facility] [place] Dec 22, 2023 11:30 AM AMBULATORY - REHAB [facility]IN [facility] [place] Dec 28, 2023 11:00 AM AMBULATORY - REHAB MED[facility]IN [facility] [place] Jan 05, 2024 11:30 AM AMBULATORY - REHAB MEDICIN [facility] [place] Jan 11, 2024 08:30 AM [place] [facility] [facility] Lab Results: +/- 30 days of the encounter This section includes the Chemistry and Hematology Lab Results on record with [place] for the patient. Radiology Reports and Pathology Reports are provided separately, in subsequent sections. Lab Results This section contains the Chemistry/Hematology Results that were resulted 30 days before or 30 daysafter the date of the Encounter. Date/Time Source Result Type Result - Unit Interpretation Reference Range Comment Sep 08, 2023 01:01 PM [facility] CBC AND DIFF (AUTO) Specimen Type: BLOOD No comment entered. Ordering Provider: COLT RAND Report Released Date/Time: Sep 08, 2023 11:41 AM Reporting Lab: [facility] [address] [address] Performing Lab: [facility] [address] [facility] [address] WBC 5.25 10*3/uL 4.50-11.00 RBC 3.74 10*6/uL L 4.23-5.66 HGB 11.6 g/dL L 12.8-17 HCT 35.7 L 39.2-50.4 MCV 95.5 fL 82-99 MCHC 32.5 g/dL 30.8-35.1 PLT 215 10*3/uL 140-360 RDW-CV 16.5 H 12.0-16.0 Park, Abs 0.35 10*3/uL 0.30-1.10 MCH 31.0 pg 26.2-32.6 Neut % 43.2 L 43.7-75.8 Lymph % 41.9 14.0-42.3 Park % 6.7 5.1-13.7 Eos % 7.6 H 0.4-6.8 Baso % 0.4 0.1-2.0 Neut, Abs 2.27 10*3/uL 2.20-7.60 Lymph, Abs 2.20 10*3/uL 1.00-3.20 Eos, Abs 0.40 10*3/uL 0.03-0.44 Baso, Abs 0.02 10*3/uL 0.01-0.13 Immature Gran % 0.2 0.0-0.7 Immature Gran, Abs 0.01 10*3/uL 0.00-0.06 Aug 29, 2023 09:34 AM [facility] TRAMADOL PNL ([facility]) Specimen Type: URINE Comment: REFERENCE RANGE: <100 ng/mL REFERENCE RANGE: <100 ng/mL See LDT message Test Performed by [facility], [employer] [place], [address] [place], [place] Arturo Wilhelm M.D., Ph.D., Director of Laboratories , CLIA [id number] This drug testing is for medical treatment only. Analysis was performed as non-forensic testing and these results should be used only by healthcare providers to render diagnosis or treatment, or to monitor progress of medical conditions. LDT Message: This test was developed and its analytical performance characteristics have been determined by [facility]. It has not been cleared or approved by the U.S. Food and Drug Administration. This assay has been validated pursuant to the CLIA regulations and is used for clinical purposes. Healthcare Providers needing Interpretation assistance, please contact us at [phone] ( ) M-F, 8am to 10pm EST TEST PERFORMED AT: , Ordering Provider: COLT RAND Report Released Date/Time: Aug 24, 2023 02:13 PM Reporting Lab: [facility] [address] [facility] [address] Performing Lab: [facility] [address] [address] TRAMADOL,URINE NEGATIVE ng/mL SEE BELOW DESMETHYLTRAMAD OL NEGATIVE ng/mL SEE BELOW Aug 29, 2023 09:34 AM [facility] METHADONE SCREEN Specimen Type: URINE Comment: THOMAS test are qualitative, any L or H flags only indicate a [place] alert was sent. Ordering Provider: COLT RAND Report Released Date/Time: Aug 24, 2023 02:13 PM Reporting Lab: [facility] [address] [address] Performing Lab: [facility] [address] [address] METHADONE SCREEN None detected(Negati ve) L Negative Aug 29, 2023 09:34 AM [facility] ALCOHOL, ETHYL URINE PANEL Specimen Type: [...] Aug 24, 2023 02:13 PM Reporting Lab: [address] [address] Performing Lab: [address] [address] ALCOHOL, ETHYL URINE NONE-DETECTED mg/dL NONE-DETEC KARIN, cutoff = 10 mg/dL PH, THOMAS 5.1 [pH] 4-10 CREATININE, THOMAS 318.04 mg/dL >20 SP.GRAVITY, THOMAS 1.031 H 1.00 3-1.02 0 Aug 29, 2023 09:34 AM [facility] FENTANYL SCREEN PANEL Specimen Type: URINE [...] Aug 24, 2023 02:13 PM Reporting Lab: [address] [address] Performing Lab: [address] [address] FENTANYL SCREEN NONE-DETECTE D ng/mL Negative: Cutoff = 1.00 ng/mL PH, THOMAS 5.3 [pH] 4-10 CREATININE, THOMAS 317.72 mg/dL >20 SP.GRAVITY, THOMAS 1.031 H 1.00 3-1.02 0 Aug 29, 2023 09:34 AM [facility] AMPHETAMINES SCREEN PANEL Specimen Type: URINE [...] Aug 24, 2023 02:13 PM Reporting Lab: [address] [address] Performing Lab: [address] [address] AMPHETAMINES SCREEN NONE-DETECTED None-Detec karin, Cutoff = 1000 ng/mL PH, THOMAS 5.1 [pH] 4-10 CREATININE, THOMAS 318.04 mg/dL >20 SP.GRAVITY, THOMAS 1.031 H 1.00 3-1.02 0 Aug 29, 2023 09:34 AM [facility] BENZODIAZEPINES SCREEN PANEL Specimen Type: URINE [...] Aug 24, 2023 02:13 PM Reporting Lab: [address] [address] Performing Lab: [address] [address] BENZODIAZEPINES SCREEN NONE-DETECTED None-Detec karin, Cutoff = 200 ng/mL PH, THOMAS 5.1 [pH] 4-10 CREATININE, THOMAS 318.04 mg/dL >20 SP.GRAVITY, THOMAS 1.031 H 1.00 3-1.02 0 Aug 29, 2023 09:34 AM [facility] BUPRENORPHINE SCREEN PANEL Specimen Type: URINE [...] Aug 24, 2023 02:13 PM Reporting Lab: [address] [address] Performing Lab: [address] [address] BUPRENORPHINE (URINE) NONE-DETECTED None Detected, Cutoff = 10.0 ng/mL PH, THOMAS 5.1 [pH] 4-10 CREATININE, THOMAS 318.04 mg/dL >20 SP.GRAVITY, THOMAS 1.031 H 1.00 3-1.02 0 Aug 29, 2023 09:34 AM [facility] CANNABINOIDS SCREEN PANEL Specimen Type: URINE [...] Aug 24, 2023 02:13 PM Reporting Lab: [address] [address] Performing Lab: [address] [address] CANNABINOIDS SCREEN NONE-DETECTED None-Detec karin,Cutoff = 50 ng/mL PH, THOMAS 5.1 [pH] 4-10 CREATININE, THOMAS 318.04 mg/dL >20 SP.GRAVITY, THOMAS 1.031 H 1.00 3-1.02 0 Aug 29, 2023 09:34 AM [facility] COCAINE SCREEN PANEL Specimen Type: URINE [...] Aug 24, 2023 02:13 PM Reporting Lab: [address] [address] Performing Lab: [address] [address] COCAINE SCREEN NONE-DETECTED N one-Detec karin,Cutoff = 300 ng/mL PH, THOMAS 5.1 [pH] 4-10 CREATININE, THOMAS 318.04 mg/dL >20 SP.GRAVITY, THOMAS 1.031 H 1.00 3-1.02 0 Aug 29, 2023 09:34 AM [facility] OPIATES SCREEN PANEL Specimen Type: URINE [...] Aug 24, 2023 02:13 PM Reporting Lab: [address] [address] Performing Lab: [address] [address] OPIATES SCREEN NONE-DETECTED N one-Detec karin, Cutoff = 300 ng/mL PH, THOMAS 5.1 [pH] 4-10 CREATININE, THOMAS 318.04 mg/dL >20 SP.GRAVITY, THOMAS 1.031 H 1.00 3-1.02 0 Aug 29, 2023 09:34 AM [facility] OXYCODONE SCREEN PANEL Specimen Type: URINE [...] Aug 24, 2023 02:13 PM Reporting Lab: [address] [address] Performing Lab: [address] [address] OXYCODONE SCREEN NONE-DETECTED None-Detec karin, Cutoff = 100 ng/mL PH, THOMAS 5.1 [pH] 4-10 CREATININE, THOMAS 318.04 mg/dL >20 SP.GRAVITY, THOMAS 1.031 H 1.00 3-1.02 0 Aug 29, 2023 09:06 AM [facility] LIPID PANEL FASTING Specimen Type: SERUM No comment entered. Ordering Provider: COLT RAND Report Released Date/Time: Aug 24, 2023 02:11 PM Reporting Lab: [address] [address] Performing Lab: [address] [address] CHOLESTEROL 132 mg/dL TRIGLYCERIDE 129 mg/dL 0-150 LDL calculated 69 mg/dL 0-129 CHOL/HDL 3.6 HDL CHOLESTEROL 37 mg/dL L 40-60 Aug 29, 2023 09:06 AM [facility] LIVER FUNCTION Specimen Type: SERUM No comment entered. Ordering Provider: COLT RAND Report Released Date/Time: Aug 24, 2023 02:11 PM Reporting Lab: [facility] [address] [facility] [address] Performing Lab: [facility] [address] [facility] [address] PROTEIN,TOTAL 7.7 g/dL 6.0-8.3 ALBUMIN 3.8 g/dL 3.5-5.0 ALKALINE PHOSPHATASE 73 U/L 40-150 AST 15 U/L 5-34 ALT 9 U/L BILIRUBIN, TOTAL 0.5 mg/dL 0.2-1.2 Aug 29, 2023 09:06 AM [facility] TSH Specimen Type: SERUM No comment entered. Ordering Provider: COLT RAND Report Released Date/Time: Aug 24, 2023 02:11 PM Reporting Lab: [address] [address] Performing Lab: [address] [address] TSH 1.07 u[IU]/mL 0.35-5.00 Aug 29, 2023 09:06 AM [facility] HEMOGLOBIN [...] Aug 24, 2023 02:11 PM Reporting Lab: [facility] [address] [facility] [address] Performing Lab: [address] [address] HEMOGLOBIN A1C 4.4 4.0-5.6 Aug 29, 2023 09:06 AM [facility] PSA Specimen Type: SERUM No comment entered. Ordering Provider: COLT RAND Report Released Date/Time: Aug 24, 2023 02:11 PM Reporting Lab: [address] [place] [address] Performing [facility]: [facility] [address] PSA 7.14 ng/mL H 0.00-4.00 Aug 29, 2023 09:06 AM [facility] BASIC METABOLIC PANEL (fasting) Specimen Type: SERUM No comment entered. Ordering Provider: COLT RAND Report Released Date/Time: Aug 24, 2023 02:11 PM Reporting Lab: [facility] [address] [facility] [address] Performing Lab: [facility] [address] UREA NITROGEN 10 mg/dL 7-25 GLUCOSE 113 mg/dL H 65-100 SODIUM 142 mmol/L 135-145 POTASSIUM 3.7 mmol/L 3.5-5.0 CHLORIDE 108 mmol/L 100-110 CO2 25 meq/L 20-30 CREATININE, Serum 1.13 mg/dL 0.50-1.40 eGFR(CKD-EPI 2020) 72 mL/min >60 Aug 29, 2023 09:06 AM [facility] VITAMIN B12 Specimen Type: SERUM No comment entered. Ordering Provider: COLT RAND Report Released Date/Time: Aug 24, 2023 02:11 PM Reporting Lab: [address] [address] Performing Lab: [facility] [address] VITAMIN B12 329 pg/mL 200-900 Aug 29, 2023 09:06 AM [facility] CBC AND DIFF (AUTO) Specimen Type: BLOOD No comment entered. Ordering Provider: COLT RAND Report Released Date/Time: Aug 24, 2023 02:11 PM Reporting Lab: [facility] [address] [address] Performing Lab: [address] [address] WBC 4.94 10*3/uL 4.50-11.00 RBC 3.69 10*6/uL L 4.23-5.66 HGB 11.4 g/dL L 12.8-17 HCT 34.8 L 39.2-50.4 MCV 94.3 fL 82-99 MCHC 32.8 g/dL 30.8-35.1 PLT 264 10*3/uL 140-360 RDW-CV 16.3 H 12.0-16.0 Park, Abs 0.28 10*3/uL L 0.30-1.10 MCH 30.9 pg 26.2-32.6 Neut % 54.0 43.7-75.8 Lymph % 31.8 14.0-42.3 Park % 5.7 5.1-13.7 Eos % 7.5 H [...] 2020 01:38 PM VA-TOBACCO USER EVERY DAY [facility] Tobacco Use History This section includes a history of the smoking, or tobacco-related health factors, that were collected on or before the date of the Encounter. The data comes from the [place] facility where the Encounter took place. 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 Date/Time Encounter Note(s) Provider Source Aug 18, 2023 12:51 PM PHARMACY OUTPATIEN T MEDICATION MGT NOTE: LOCAL TITLE: [facility] PRESCRIPTION NOTE STANDARD TITLE: PHARMACY OUTPATIENT MEDICATION MGT NOTE DATE OF NOTE: AUG 18, 2023@12:51 ENTRY DATE: AUG 18, 2023@12:51:50 AUTHOR: SHANKAR DE LA TORRE COSIGNER: URGENCY: STATUS: COMPLETED IVERMECTIN 3MG TAKE 5 TABLETS BY MOUTH ONCE ON 08/20/23 #5 TABS Exclusion Criteria If the answer to ANY item below is met, then the patient should NOT receive ivermectin tablets. Use as a treatment for COVID-19 infection without another appropriate indication (see inclusion criteria below) Known hypersensitivity to ivermectin Inclusion Criteria Prescribed by or in consultation with Infectious Diseases or other facility authorized provider(s) and at least ONE of the following [X]Treatment of a parasitic infection for which ivermectin is indicated (strongylodiasis, onchocerciasis, lymphatic filariasis, cutaneous larva migrans, ascariasis, scabies and lice) Empiric treatment for Strongyloides stercolis in a hospitalized patient at epidemiologic risk (, long-term residence in or travel to endemic locations) who is being initiated on corticosteroids or other immunosuppressant medications. Additional inclusion criteria for women of childbearing potential should be excluded prior to receiving ivermectin Medical history relevant to this request:PARASITIC INFECTION Per pharmacy review, non-formulary/prior authorization is: [X] Approved [ ] Denied Comments: Time Spent: /arnaud/ SHANKAR DE LA TORRE PHARMD CLINICAL PHARMACIST Signed: 08/18/2023 12:55 SHANKAR DE LA TORRE [facility]
== END 2024-07-24 11:28 | disposition home or self-care (01) ==
PROVIDERS: PCP Family Medicine; Visit Provider Urology
DX: N40.0 Benign prostatic hyperplasia without lower urinary tract symptoms (principal); C61 Malignant neoplasm of prostate
CPT/HCPCS: 99213

== ENCOUNTER → 2024-07-24 10:55 | Outpatient (BNVA) | payer OTHER, SELFPAY | PROVIDERS: PCP Family Medicine; Visit Provider Urology | DX: C61 Malignant neoplasm of prostate (principal); N40.0 Benign prostatic hyperplasia without lower urinary tract symptoms | CPT/HCPCS: 51798; 99212 ==

== ENCOUNTER 2024-07-24 11:39 | Outpatient (REF) | payer OTHER, SELFPAY ==
[2024-07-24 13:43] LABS: PSA,Total (Free>4and<10) 6.45 ng/mL (0.00-4.00)
--- OUTSIDE RECORDS SUMMARY | 2024-07-24 14:43 | XMS_ITS | Continuity of Care Document ---
Author Name [facility] Organization [facility] Care Team Providers Care Developmental Behavioral Physician Name Role Phone [facility] Unavailable Unavailable Problems Combined list of problems from Department of Defense and Veterans Affairs facilities. It does not include entries that were removed or entered in error. Problem Status Onset Date Problem Type Date of Resolution Comments Source Adenocarcinoma of prostate Active Condition Apr 14, 2023 Entered By: COLT RAND Comment: [place] grade 3+3=6 - Dxed 12/2022 [place] Albuminuria * (ICD-9-CM 791.0) Active Condition [facility] Benign prostatic hypertrophy with outflow obstruction Active Condition [facility] [place] [facility] Chronic hepatitis C Active Condition Feb 23, 2018 Entered By: COLT RAND Comment: s/p ribavirin and ledipasvir treatment [facility] [place] [facility] Chronic obstructive pulmonary disease Active Condition Jan 10 Entered By: COLT RAND Comment: with Emphysema [place] Closed fracture of other bone of wrist (ICD-9-CM 814.09) Active Condition [facility] Cocaine dependence [facility] Cocaine dependence in remission Active Condition [facility] [place] [facility] Cocaine dependence in remission (SNOMED CT 287403570) Active Condition [facility] Colonoscopy Screening Active Condition Feb 23, 2018 Entered By: COLT RAND Comment: +FH of Colon CAOct 2017 Entered By: COLT RAND Comment: 2015 adenomatous/hype rplastic polyps removed - repeat 3 yrs (2018)October 26, 2022 Entered By: LADONNA GONGORA Comment: 10/18/22: [facility] Dr. Carbajal, 3mm polyp proxial ascending colon, Diverticulosis sigmoid, non-bleeding hemorrhoids repeat 5yr. [facility] [place] [facility] Diabetes Mellitus without mention of Complication, type II or unspecified type, Active Condition Nov 26, 2010 Entered By: KATHY ASHTON III Comment: no 2010; f/u summer 2011 [facility] Dyslipidemia (SNOMED CT 790180845) Active Condition [facility] Edema of lower extremity Active Condition Feb 23, 2015 Entered By: KATHY ASHTON III Comment: chronic, left leg [facility] Erectile dysfunction Active Condition [facility] Family History of Malignant Neoplasm of Gastrointestinal Tract Active Condition Nov 17, 2010 Entered By: KATHY ASHTON III Comment: father: colon ca ~age55 [facility] Fit for work with restrictions (SNOMED CT 125340816) Active Condition [facility] Folic acid deficiency Active Condition [facility] Frac Wrist Active Condition [facility] Hearing loss (SNOMED CT 81078045) Active Condition [facility] Hepatitis C (SNOMED CT 89056350) Active Condition Dec 31, 2009 Entered By: KATHY ASHTON III Comment: genotype 1; liver bx 11/05: grade 2 inflam; stage 2 fibrosis [facility] Homeless single person Active Condition [facility] Housing lack Active Condition [facility] Hyperlipidemia Active Condition [facility] Hypertension Active Condition [facility] Hypertension * (ICD-9-CM 401.9) Active Condition [facility] Hypertrophy (Benign) of Prostate with Urinary obstruction (ICD-9-CM 600.01) Active Condition [facility] Impotence of organic origin (SNOMED CT 694418363) Active Condition [facility] Nicotine dependence Active Condition [facility] Nocturia * (ICD-9-CM 788.43) Active Condition [facility] Obesity Active Condition [facility] Obstructive sleep apnea Active Condition Feb 23, 2018 Entered By: COLT RAND Comment: on CPAP [facility] Screening for Malignant Neoplasms of colon Active Condition Nov 17, 2010 Entered By: KATHY ASHTON III Comment: cscope 2009: diverticulosis; f/u due 2014 due to fhx [facility] Tinnitus Active Condition [facility] Tinnitus (SNOMED CT 89206893) Active Condition [facility] Tobacco dependence syndrome (SNOMED CT 95801197) Active Condition [facility] Tobacco dependence, continuous Active Condition [facility] Type 2 diabetes mellitus Active Condition [facility] Diagnosis: ICD-10-CM J44.9 Chronic obstructive pulmonary disease, unspecified Active Diagnosis [facility] Diagnosis: ICD-10-CM Z12.2 Encntr screen for malignant neoplasm of respiratory organs Active Diagnosis [facility] Diagnosis: ICD-10-CM I10 Essential (primary) hypertension Active Diagnosis [place] Diagnosis: ICD-10-CM L43.9 Lichen planus, unspecified Active Diagnosis [facility] Diagnosis: ICD-10-CM Z01.818 Encounter for other preprocedural examination Active Diagnosis [place] Diagnosis: ICD-10-CM M62.81 Muscle weakness (generalized) Active Diagnosis [place] Diagnosis: ICD-10-CM Z46.0 Encounter for fit/adjst of spectacles and contact lenses Active Diagnosis [facility] Diagnosis: ICD-10-CM H53.2 Diplopia Active Diagnosis [facility] Diagnosis: ICD-10-CM K21.9 Gastro-esophageal reflux disease without esophagitis Active Diagnosis [facility] Diagnosis: ICD-10-CM R06.00 Dyspnea, unspecified Active Diagnosis [place] Diagnosis: ICD-10-CM L23.9 Allergic contact dermatitis, unspecified cause Active Diagnosis [facility] [place] Diagnosis: ICD-10-CM R60.9 Edema, unspecified Active Diagnosis [facility] Diagnosis: ICD-10-CM L03.90 Cellulitis, unspecified Active Diagnosis [place] Diagnosis: ICD-10-CM R26.9 Unspecified abnormalities of gait and mobility Active Diagnosis [facility] [place] Diagnosis: ICD-10-CM L03.115 Cellulitis of right lower limb Active Diagnosis [place] Diagnosis: ICD-10-CM M25.561 Pain in right knee Active Diagnosis [facility] Diagnosis: ICD-10-CM Z46.1 Encounter for fitting and adjustment of hearing aid Active Diagnosis [facility] Medications Combined list [...] BY MOUTH ONCE DAILY ORAL ACTIVE 09/18/2024 [id number] CAPUA,SOF IA 2024 90 [facility] ALBUTEROL 90MCG/ACTUA T (CFC-F) INHL,ORAL,8 .5GM DOSE COUNTER INHALE 2 PUFFS BY MOUTH EVERY 6 HOURS NEEDED FOR WHEEZING RESPIR ATORY (INHAL ATION) 04/10/2024 [id number] KORI RAND SA 2022 1 [place] AMLODIPINE BESYLATE 10MG TAB TAKE ONE TABLET BY MOUTH ONCE DAILY FOR BLOOD PRESSURE /HEART, DO NOT TAKE WITH GRAPEFRU IT JUICE ORAL ACTIVE 01/11/2025 [id number] 4 KORI RAND SA 2023 90 [place] AMLODIPINE BESYLATE 2.5MG TAB TAKE THREE TABLETS BY MOUTH ONCE DAILY FOR BLOOD PRESSURE /HEART, DO NOT TAKE WITH GRAPEFRU IT JUICE ORAL DISCONT INUED (EDIT) 11/16/2024 [id number] KORI RAND SA 2023 270 [place] AMLODIPINE BESYLATE 2.5MG TAB TAKE THREE TABLETS BY MOUTH ONCE DAILY FOR BLOOD PRESSURE /HEART, DO NOT TAKE WITH GRAPEFRU IT JUICE ORAL DISCONT INUED 09/06/2024 [id number] KORI RAND SA 2023 270 [place] AMLODIPINE BESYLATE 2.5MG TAB TAKE THREE TABLETS BY MOUTH ONCE DAILY FOR BLOOD PRESSURE /HEART, DO NOT TAKE WITH GRAPEFRU IT JUICE ORAL DISCONT INUED 11/25/2023 [id number] KORI RAND SA 2022 270 [place] ATORVASTATI N CA 40MG TAB TAKE ONE-HALF TABLET BY MOUTH AT BEDTIME FOR CHOLESTE ROL ORAL ACTIVE 04/02/2025 [id number] 5 KORI RAND SA 2023 45 [place] ATORVASTATI N CA 40MG TAB TAKE ONE-HALF TABLET BY MOUTH AT BEDTIME FOR CHOLESTE ROL ORAL DISCONT INUED 02/08/2024 [id number] 4 KORI RAND SA 2022 45 [place] CLOBETASOL PROPIONATE 0.05% OINT,TOP APPLY THIN LAYER TOPICALL Y TWICE DAILY NEEDED FOR ITCHING/ RASH FOR ITCHING AND FLARE. MAX 14D/M TOPICA L ACTIVE 03/29/2025 [id number] 5 YOUNG HUSSEIN 2023 60 [facility] DICLOFENAC NA 1% GEL,TOP APPLY 2 GRAMS TOPICALL Y FOUR TIMES A DAY FOR RIGHT KNEE OSTEOART HRITIS - USE DOSING CARD PROVIDED IN BOX DAPHNE Law 04/10/2024 [id number] KORI RAND SA 2022 100 [place] FINASTERIDE 5MG TAB TAKE ONE TABLET BY MOUTH ONCE DAILY FOR ENLARGED PROSTATE ORAL ACTIVE 03/21/2025 [id number] JIMMIE BELL MD 2023 90 [facility] FINASTERIDE 5MG TAB TAKE ONE TABLET BY MOUTH ONCE DAILY ORAL 01/18/2024 [id number] CALLI MCGILL 2022 90 [place] IVERMECTIN 3MG TAB TAKE FIVE TABLETS BY MOUTH DIRECTED BY PROVIDER ONCE ON 08/20/23 ORAL 09/17/2023 [id number] KOMAL BARRIENTOS KENYA 2023 5 [facility] LEVOFLOXACI N 750MG TAB TAKE ONE TABLET BY MOUTH ONCE DAILY FOR INFECTIO N CAUSED BY BACTERIA ORAL 09/23/2023 [id number] 4 SARAH BETH DUNAWAY 2023 10 [place] LORATADINE 10MG TAB TAKE ONE TABLET BY MOUTH EVERY EVENING FOR ALLERGY ORAL 10/15/2023 [id number] 4 ERI XAVIER NP 2023 30 [facility] NICOTINE 14MG/24HRS PATCH APPLY 1 PATCH TO SKIN ONCE DAILY FOR SMOKING CESSATIO N (REMOVE OLD PATCH BEFORE APPLYING NEW PATCH) TRANSD ERMAL ACTIVE 01/11/2025 [id number] 5 KORI RAND SA 2023 28 [place] OMEPRAZOLE 20MG CAP,EC TAKE ONE CAPSULE BY MOUTH TWICE DAILY FOR GASTROES OPHAGEAL REFLUX DISEASE ORAL ACTIVE 10/31/2024 [id number] 4 KORI RAND SA 2023 60 [place] OXYCODONE HCL 5MG TAB TAKE ONE TABLET BY MOUTH FOUR TIMES DAILY NEEDED FOR PAIN ORAL 09/23/2023 [id number] 4 SARAH BETH DUNAWAY 2023 40 [place] PERMETHRIN 5% CREAM APPLY A THIN LAYER TOPICALL Y AT BEDTIME FOR SCABIES AT BEDTIME FROM NECK DOWN. WASH OFF IN THE MORNING. MAY REPEAT IN 1 WEEK IF NEEDED TOPICA L DISCONT INUED BY PROVIDE R 06/22/2024 [id number] KORI RAND SA 2023 60 [place] SILDENAFIL CITRATE 100MG TAB TAKE ONE TABLET BY MOUTH ONCE DAILY NEEDED TAKE 1 HOUR PRIOR TO SEXUAL ACTIVITY ORAL ACTIVE 09/06/2024 [id number] 5 KORI RAND SA 2023 18 [place] SILDENAFIL CITRATE 100MG TAB TAKE ONE TABLET BY MOUTH ONCE DAILY NEEDED TAKE 1 HOUR PRIOR TO SEXUAL ACTIVITY ORAL DISCONT INUED 04/26/2024 [id number] 4 KORI RAND SA 2022 6 [place] TAMSULOSIN HCL 0.4MG CAP TAKE ONE CAPSULE BY MOUTH EVERY EVENING AT BEDTIME FOR ENLARGED PROSTATE ORAL ACTIVE 12/18/2024 [id number] JIMMIE BELL MD 2023 90 [facility] TAMSULOSIN HCL 0.4MG CAP TAKE ONE CAPSULE BY MOUTH AT BEDTIME DIRECTED BY PROVIDER ORAL DISCONT INUED 10/05/2024 [id number] 4 KORI RAND SA 2023 30 [place] TAMSULOSIN HCL 0.4MG CAP TAKE ONE CAPSULE BY MOUTH AT BEDTIME DIRECTED BY PROVIDER - STOP TAKING TERAZOSI N ORAL DISCONT INUED 10/08/2023 [id number] JAMES ESCALANTE RY D 2023 10 [place] TAMSULOSIN HCL 0.4MG CAP TAKE ONE CAPSULE BY MOUTH AT BEDTIME DIRECTED BY PROVIDER - STOP TAKING TERAZOSI N ORAL 08/08/2023 [id number] JAMES ESCALANTE RY D 2022 30 [place] TRIAMCINOLO NE ACETONIDE 0.1% CREAM,TOP APPLY A THIN LAYER TOPICALL Y EVERY 12 HOURS NEEDED FOR ITCHING TOPICA L 12/16/2023 [id number] 4 XAVIERERI Escobedo [facility] 2023 454 [facility] TRIAMCINOLO NE ACETONIDE 0.1% OINT,TOP APPLY THIN LAYER TOPICALL Y TWICE DAILY NEEDED TOPICA L ACTIVE 03/29/2025 [id number] 5 YOUNG HUSSEIN 2023 454 [facility] TRIAMCINOLO NE ACETONIDE 0.1% OINT,TOP APPLY THIN LAYER TOPICALL Y TWICE DAILY FOR ITCHING TOPICA L DISCONT INUED 11/05/2023 [id number] KORI RAND SA 2023 80 [place] TRIAMCINOLO NE ACETONIDE 0.1% OINT,TOP APPLY THIN LAYER TOPICALL Y TWICE DAILY NEEDED FOR ITCHING TOPICA L 01/07/2024 [id number] XAVIERERI [facility] 2023 160 [facility] TRIAMCINOLO NE ACETONIDE 0.1% OINT,TOP APPLY THIN LAYER TOPICALL Y EVERY 12 HOURS NEEDED FOR ITCHING TOPICA L 10/15/2023 [id number] 4 XAVIERERI Escobedo [facility] 2023 454 [facility] VITAMIN A/VITAMIN D OINT,TOP APPLY SMALL AMOUNT TOPICALL Y TWICE DAILY NEEDED FOR SKIN PROTECTI ON TOPICA L 10/15/2023 [id number] ERI XAVIER [facility] 2023 180 [facility] VITAMIN B COMPLEX CAP TAKE 1 CAPSULE BY MOUTH ONCE DAILY FOR VITAMIN SUPPLEME NTATION ORAL 04/10/2024 [id number] KORI RAND SA 2022 100 [place] vomiting, Itching of eye, Eruption active 0 [facility] TETRACYCLINE Propensity to adverse reactions to drug (finding) Nausea, Finding of vomiting active 5 [facility] TETRACYCLINE Propensity to adverse reactions to drug (finding) active 9 [facility] TETRACYCLINE Propensity to adverse reactions to drug (finding) Stomach cramps, Nausea and vomiting active 9 [facility] Immunizations Combined list of available immunizations from the Department of Defense and Veterans Affairs facilities. Immunization Series Date Given Administered By Site Reaction Lot Number CVX Code Drug Science Teacher Status Comments Source ZOSTER RECOMBINANT 1 2023 MARGIE GONGORA ON M LEFT DELTO ID [id number] 187 complet ed [place] COVID-19 (MODERNA), MRNA, LNP-S, PF, 50 MCG/0.5 ML (AGES 12+ YEARS) 2023 MARGIE GONGORA ON M RIGHT DELTO ID [id number] 312 complet ed [place] INFLUENZA, SPLIT VIRUS, TRIVALENT, PF 2023 MARGIE GONGORA ON M LEFT DELTO ID [id number] 140 complet ed [place] INFLUENZA, INJECTABLE, QUADRIVALENT, PRESERVATIVE FREE 2022 MARGIE GONGORA ON M LEFT DELTO ID [id number] 150 complet ed [place] COVID-19 (MODERNA), MRNA, LNP-S, PF, 100 MCG/0.5ML DOSE OR 50 MCG/0.25ML DOSE 3 2021 207 complet ed [facility] COVID-19 (MODERNA), MRNA, LNP-S, PF, 100 MCG/0.5 ML DOSE 2 2020 207 complet ed MOD; [id number]; 1 [place] COVID-19 (MODERNA), MRNA, LNP-S, PF, 100 MCG/0.5 ML DOSE 1 2020 207 complet ed MOD; [id number]; 1 [place] TDAP (HISTORICAL) 2015 115 complet ed [facility] INFLUENZA, SEASONAL, INJECTABLE 2015 141 complet ed [facility] TD(ADULT) UNSPECIFIED FORMULATION 2015 139 complet ed [facility] INFLUENZA, UNSPECIFIED FORMULATION 2014 88 complet ed [employer]/# [id number] [facility] INFLUENZA, UNSPECIFIED FORMULATION 2011 88 complet ed [employer]/ Lot# [id number] [facility] INFLUENZA (HISTORICAL) 2010 88 complet ed INFLUENZA MANUF/LOT #: SANOFI PASTEUR/U [id number] [facility] V7 PNEUMOCOCCAL (HISTORICAL) 2010 NONE 109 complet ed Left Deltoid [facility] PNEUMOCOCCAL POLYSACCHARID E PPV23 2010 33 complet ed [facility] HEP A-HEP B 2010 NONE 104 complet ed [facility] HEPATITIS B VACCINE (HISTORICAL) 2010 43 complet ed [facility] [place] HEP A-HEP B 2 2009 104 complet ed [facility] HEP A-HEP B 1 2009 104 complet ed [facility] INFLUENZA (HISTORICAL) 2009 NONE 88 complet ed 0.5cc R Deltoid, Lot #[id number] A/Exp.10/29 [facility] NOVEL INFLUENZA-H1N 1-09, ALL FORMULATIONS 2009 128 complet ed [facility] Results Combined list of recent chemistry, [...] PM Reporting Lab: [facility] [place] [facility] [address] [facility] [address] Performing Lab: [facility] [place] [facility] [address] [facility] [address] [facility] [facility] MICROALBU MIN CREATININ E RATIO PANEL MICROALBUMI N [MASS/VOLUM E] IN URINE 2.8 mg/dL 03/07 Specimen Type: URINE No comment entered. Ordering Provider: COLT RAND Report Released Date/Time: Sep 06, 2023 04:01 PM Reporting Lab: [facility] [place] [facility] [address] [facility] [address] Performing Lab: [facility] [place] [facility] [address] [facility] [address] [facility] [place] [facility] MICROALBU MIN CREATININ E RATIO PANEL CREATININE [MASS/VOLUM E] IN URINE 158.84 mg/dL 03/07 Specimen Type: URINE No comment entered. Ordering Provider: COLT RAND Report Released Date/Time: Sep 06, 2023 04:01 PM Reporting Lab: [facility] [place] [facility] [address] [facility] [address] Performing Lab: [facility] [place] [facility] [address] [facility] [address] [facility] [facility] BASIC METABOLIC PANEL (fasting) UREA NITROGEN [MASS/VOLUM E] IN SERUM OR PLASMA 12 mg/dL 7 - 25 03/06 Specimen Type: SERUM No comment entered. Ordering Provider: COLT RAND Report Released Date/Time: Sep 06, 2023 04:01 PM Reporting Lab: [facility] [place] [facility] [address] [facility] [address] Performing Lab: [facility] [address] [facility] [address] [facility] BASIC METABOLIC PANEL (fasting) GLUCOSE [MASS/VOLUM E] IN SERUM OR PLASMA 119 mg/dL 65 - 100 03/06 H Specimen Type: SERUM No comment entered. Ordering Provider: COLT RAND Report Released Date/Time: Sep 06, 2023 04:01 PM Reporting Lab: [facility] [address] [facility] [address] Performing Lab: [facility] [address] [facility] [address] [facility] BASIC METABOLIC PANEL (fasting) SODIUM [MOLES/VOLU ME] IN SERUM OR PLASMA 142 mmol/L 135 - 145 03/06 Specimen Type: SERUM No comment entered. Ordering Provider: COLT RAND Report Released Date/Time: Sep 06, 2023 04:01 PM Reporting Lab: [facility] [address] [facility] [address] Performing Lab: [facility] [address] [facility] [address] [facility] BASIC METABOLIC PANEL (fasting) POTASSIUM [MOLES/VOLU ME] IN SERUM OR PLASMA 3.4 mmol/L 3.5 - 5.0 03/06 L Specimen Type: SERUM No comment entered. Ordering Provider: COLT RAND Report Released Date/Time: Sep 06, 2023 04:01 PM Reporting Lab: [facility] [address] [facility] [address] Performing Lab: [facility] [address] [facility] [address] [facility] BASIC METABOLIC PANEL (fasting) CHLORIDE [MOLES/VOLU ME] IN SERUM OR PLASMA 105 mmol/L 100 - 110 03/06 Specimen Type: SERUM No comment entered. Ordering Provider: COLT RAND Report Released Date/Time: Sep 06, 2023 04:01 PM Reporting Lab: [facility] [place] [facility] [address] [facility] [address] Performing Lab: [facility] [place] [facility] [address] [facility] [address] [facility] BASIC METABOLIC PANEL (fasting) CARBON DIOXIDE, TOTAL [MOLES/VOLU ME] IN SERUM OR PLASMA 26 meq/L 20 - 30 03/06 Specimen Type: SERUM No comment entered. Ordering Provider: COLT RAND Report Released Date/Time: Sep 06, 2023 04:01 PM Reporting Lab: [facility] [place] [facility] [address] [facility] [address] Performing Lab: [facility] [place] [address] [address] [facility] [facility] BASIC METABOLIC PANEL (fasting) CREATININE [MASS/VOLUM E] IN SERUM OR PLASMA 1.35 mg/dL 0.50 - 1.40 03/06 Specimen Type: SERUM No comment entered. Ordering Provider: COLT RAND Report Released Date/Time: Sep 06, 2023 04:01 PM Reporting Lab: [facility] [place] [facility] [address] [facility] [address] Performing Lab: [facility] [place] [address] [address] [facility] [place] [facility] BASIC METABOLIC PANEL (fasting) GLOMERULAR FILTRATION RATE/1.73 SQ M.PREDICTED [VOLUME RATE/AREA] IN SERUM, PLASMA OR BLOOD BY CREATININE- BASED FORMULA (CKD-EPI 2020) 58 mL/min 60 03/06 L Specimen Type: SERUM No comment entered. Ordering Provider: COLT RAND Report Released Date/Time: Sep 06, 2023 04:01 PM Reporting Lab: [facility] [place] [facility] [address] [facility] [address] Performing Lab: [facility] [place] [address] [address] [facility] HEMOGLOBI N A1C PANEL HEMOGLOBIN A1C/HEMOGLO [...] 9.27. Ref: [email or web address] Ordering Provider: COLT RAND Report Released Date/Time: Sep 06, 2023 04:01 PM Reporting Lab: [address] [address] Performing Lab: [address] [id number] [place] [address] LIPID PANEL FASTING CHOLESTEROL [MASS/VOLUM E] IN SERUM OR PLASMA 193 mg/dL 03/06 Specimen Type: SERUM No comment entered. Ordering Provider: COLT RAND Report Released Date/Time: Sep 06, 2023 04:01 PM Reporting Lab: [address] [address] Performing Lab: [address] [address] [facility] LIPID PANEL FASTING TRIGLYCERID E [MASS/VOLUM E] IN SERUM OR PLASMA 221 mg/dL 0 - 150 03/06 H Specimen Type: SERUM No comment entered. Ordering Provider: COLT RAND Report Released Date/Time: Sep 06, 2023 04:01 PM Reporting Lab: [address] [address] Performing Lab: [address] [address] [facility] LIPID PANEL FASTING CHOLESTEROL IN LDL [MASS/VOLUM E] IN SERUM OR PLASMA BY CALCULATION 113 mg/dL 0 - 129 03/06 Specimen Type: SERUM No comment entered. Ordering Provider: COLT RAND Report Released Date/Time: Sep 06, 2023 04:01 PM Reporting Lab: [facility] [place] [facility] [address] [facility] [address] Performing Lab: [facility] [address] [facility] [address] [facility] LIPID PANEL FASTING CHOLESTEROL .TOTAL/CHOL ESTEROL IN HDL [MASS RATIO] IN SERUM OR PLASMA 5.4 03/06 Specimen Type: SERUM No comment entered. Ordering Provider: COLT RAND Report Released Date/Time: Sep 06, 2023 04:01 PM Reporting Lab: [facility] [place] [facility] [address] [facility] [address] Performing Lab: [facility] [place] [facility] [address] [facility] [address] [facility] [place] [facility] LIPID PANEL FASTING CHOLESTEROL IN HDL [MASS/VOLUM E] IN SERUM OR PLASMA 36 mg/dL 40 - 60 03/06 L Specimen Type: SERUM No comment entered. Ordering Provider: COLT RAND Report Released Date/Time: Sep 06, 2023 04:01 PM Reporting Lab: [facility] [place] [facility] [address] [facility] [address] Performing Lab: [facility] [place] [facility] [address] [facility] [address] [facility] [place] [facility] LIVER FUNCTION PROTEIN [MASS/VOLUM E] IN SERUM OR PLASMA 7.5 g/dL 6.0 - 8.3 03/06 Specimen Type: SERUM No comment entered. Ordering Provider: COLT RAND Report Released Date/Time: Sep 06, 2023 04:01 PM Reporting Lab: [facility] [place] [facility] [address] [facility] [address] Performing Lab: [facility] [place] [facility] [address] [facility] [address] [facility] [place] [facility] LIVER FUNCTION ALBUMIN [MASS/VOLUM E] IN SERUM OR PLASMA 4.4 g/dL 3.5 - 5.0 03/06 Specimen Type: SERUM No comment entered. Ordering Provider: COLT RAND Report Released Date/Time: Sep 06, 2023 04:01 PM Reporting Lab: [facility] [place] [facility] [address] [facility] [address] Performing Lab: [facility] [place] [facility] [address] [facility] [address] [facility] [place] [facility] LIVER FUNCTION ALKALINE PHOSPHATASE [ENZYMATIC ACTIVITY/VO LUME] IN SERUM OR PLASMA 79 U/L 40 - 150 03/06 Specimen Type: SERUM No comment entered. Ordering Provider: COLT RAND Report Released Date/Time: Sep 06, 2023 04:01 PM Reporting Lab: [facility] [place] [facility] [address] [facility] [address] Performing Lab: [facility] [place] [facility] [address] [facility] [address] [facility] [place] [facility] LIVER FUNCTION ASPARTATE AMINOTRANSF ERASE [ENZYMATIC ACTIVITY/VO LUME] IN SERUM OR PLASMA 18 U/L 5 - 34 03/06 Specimen Type: SERUM No comment entered. Ordering Provider: COLT RAND Report Released Date/Time: Sep 06, 2023 04:01 PM Reporting Lab: [facility] [place] [facility] [address] [facility] [address] Performing Lab: [facility] [place] [facility] [address] [facility] [address] [facility] [place] [facility] LIVER FUNCTION ALANINE AMINOTRANSF ERASE [ENZYMATIC ACTIVITY/VO LUME] IN SERUM OR PLASMA 16 U/L 03/06 Specimen Type: SERUM No comment entered. Ordering Provider: COLT RAND Report Released Date/Time: Sep 06, 2023 04:01 PM Reporting Lab: [facility] [place] [facility] [address] [facility] [address] Performing Lab: [facility] [place] [facility] [address] [facility] [address] [facility] [place] [facility] LIVER FUNCTION BILIRUBIN.T OTAL [MASS/VOLUM E] IN SERUM OR PLASMA 0.8 mg/dL 0.2 - 1.2 03/06 Specimen Type: SERUM No comment entered. Ordering Provider: COLT RAND Report Released Date/Time: Sep 06, 2023 04:01 PM Reporting Lab: [facility] [place] [address] [address] Performing Lab: [facility] [place] [address] [address] [facility] [facility] CBC AND DIFF (AUTO) LEUKOCYTES [#/VOLUME] IN BLOOD BY AUTOMATED COUNT 5.25 10*3/u L 4.50 - 11.00 09/07 Specimen Type: BLOOD No comment entered. Ordering Provider: COLT RAND Report Released Date/Time: Sep 08, 2023 11:41 AM Reporting Lab: [facility] [address] [address] Performing Lab: [facility]N [place] [address] [address] [place] CBC AND DIFF (AUTO) ERYTHROCYTE S [#/VOLUME] IN BLOOD BY AUTOMATED COUNT 3.74 10*6/u L 4.23 - 5.66 09/07 L Specimen Type: BLOOD No comment entered. Ordering Provider: COLT RAND Report Released Date/Time: Sep 08, 2023 11:41 AM Reporting Lab: [facility] [place] [address] [address] Performing Lab: [facility] [place] [address] [address] [place] CBC AND DIFF (AUTO) HEMOGLOBIN [MASS/VOLUM E] IN BLOOD 11.6 g/dL 12.8 - 17 09/07 L Specimen Type: BLOOD No comment entered. Ordering Provider: COLT RAND Report Released Date/Time: Sep 08, 2023 11:41 AM Reporting Lab: [facility] [place] [address] [address] Performing Lab: [facility] [address] [address] [place] CBC AND DIFF (AUTO) HEMATOCRIT [VOLUME FRACTION] OF BLOOD BY AUTOMATED COUNT 35.7 39.2 - 50.4 09/07 L Specimen Type: BLOOD No comment entered. Ordering Provider: COLT RAND Report Released Date/Time: Sep 08, 2023 11:41 AM Reporting Lab: [facility] [address] [address] Performing Lab: [facility]TR[facility] [address] [place] CBC AND DIFF (AUTO) MCV [ENTITIC VOLUME] BY AUTOMATED COUNT 95.5 fL 82 - 99 09/07 Specimen Type: BLOOD No comment entered. Ordering Provider: COLT RAND Report Released Date/Time: Sep 08, 2023 11:41 AM Reporting Lab: [facility] [address] [address] Performing Lab: [facility] [address] [place] CBC AND DIFF (AUTO) MCHC [MASS/VOLUM E] BY AUTOMATED COUNT 32.5 g/dL 30.8 - 35.1 09/07 Specimen Type: BLOOD No comment entered. Ordering Provider: COLT RAND Report Released Date/Time: Sep 08, 2023 11:41 AM Reporting Lab: [facility]ITAL[facility]INGHAMN [address] [address] Performing Lab: [facility]TR[facility] [address] [place] CBC AND DIFF (AUTO) PLATELETS [#/VOLUME] IN BLOOD BY AUTOMATED COUNT 215 10*3/u L 140 - 360 09/07 Specimen Type: BLOOD No comment entered. Ordering Provider: COLT RAND Report Released Date/Time: Sep 08, 2023 11:41 AM Reporting Lab: [facility] WSTRN [address] [address] Performing Lab: [facility]ITAL[facility]ITALTRN [facility] [address] [place] CBC AND DIFF (AUTO) ERYTHROCYTE DISTRIBUTIO N WIDTH [RATIO] BY AUTOMATED COUNT 16.5 12.0 - 16.0 09/07 H Specimen Type: BLOOD No comment entered. Ordering Provider: COLT RAND Report Released Date/Time: Sep 08, 2023 11:41 AM Reporting Lab: [facility] [place] [address] [address] Performing Lab: [facility] [place] [address] [address] [place] CBC AND DIFF (AUTO) MONOCYTES [#/VOLUME] IN BLOOD BY AUTOMATED COUNT 0.35 10*3/u L 0.30 - 1.10 09/07 Specimen Type: BLOOD No comment entered. Ordering Provider: COLT RAND Report Released Date/Time: Sep 08, 2023 11:41 AM Reporting Lab: [facility] WSTRN [address] [address] Performing Lab: [facility] [place] [address] [address] [place] CBC AND DIFF (AUTO) MCH [ENTITIC MASS] BY AUTOMATED COUNT 31.0 pg 26.2 - 32.6 09/07 Specimen Type: BLOOD No comment entered. Ordering Provider: COLT RAND Report Released Date/Time: Sep 08, 2023 11:41 AM Reporting Lab: [facility] [place] [address] [address] Performing Lab: [facility] [place] [address] [address] [place] CBC AND DIFF (AUTO) NEUTROPHILS /100 LEUKOCYTES IN BLOOD BY AUTOMATED COUNT 43.2 43.7 - 75.8 09/07 L Specimen Type: BLOOD No comment entered. Ordering Provider: COLT RAND Report Released Date/Time: Sep 08, 2023 11:41 AM Reporting Lab: [facility] [place] [address] [address] Performing Lab: [facility] [place] [address] [address] [place] CBC AND DIFF (AUTO) LYMPHOCYTES /100 LEUKOCYTES IN BLOOD BY AUTOMATED COUNT 41.9 14.0 - 42.3 09/07 Specimen Type: BLOOD No comment entered. Ordering Provider: COLT RAND Report Released Date/Time: Sep 08, 2023 11:41 AM Reporting Lab: [facility]CH[facility] [address] [address] Performing Lab: [facility] [address] [address] [place] CBC AND DIFF (AUTO) MONOCYTES/1 00 LEUKOCYTES IN BLOOD BY AUTOMATED COUNT 6.7 5.1 - 13.7 09/07 Specimen Type: BLOOD No comment entered. Ordering Provider: COLT RAND Report Released Date/Time: Sep 08, 2023 11:41 AM Reporting Lab: [facility]ITALRU[facility]ITALTRN [address] [address] Performing Lab: [facility]ITALRL TRN [facility] [address] [place] CBC AND DIFF (AUTO) EOSINOPHILS /100 LEUKOCYTES IN BLOOD BY AUTOMATED COUNT 7.6 0.4 - 6.8 09/07 H Specimen Type: BLOOD No comment entered. Ordering Provider: COLT RAND Report Released Date/Time: Sep 08, 2023 11:41 AM Reporting Lab: [facility] TRN [facility] [address] [address] Performing Lab: [facility]ITALRUAB [facility]ITALTRN [facility]ITALUSE[address] [address] [place] CBC AND DIFF (AUTO) BASOPHILS/1 00 LEUKOCYTES IN BLOOD BY AUTOMATED COUNT 0.4 0.1 - 2.0 09/07 Specimen Type: BLOOD No comment entered. Ordering Provider: COLT RAND Report Released Date/Time: Sep 08, 2023 11:41 AM Reporting Lab: [facility]ITALRL WSTRN [facility]ITAL[facility] [address] [address] Performing Lab: [facility]ITALRL TRN [facility] [address] [address] [place] CBC AND DIFF (AUTO) NEUTROPHILS [#/VOLUME] IN BLOOD BY AUTOMATED COUNT 2.27 10*3/u L 2.20 - 7.60 09/07 Specimen Type: BLOOD No comment entered. Ordering Provider: COLT RAND Report Released Date/Time: Sep 08, 2023 11:41 AM Reporting Lab: [facility] [address] [address] Performing Lab: [facility]ITALRL [facility] [address] [address] [place] CBC AND DIFF (AUTO) LYMPHOCYTES [#/VOLUME] IN BLOOD BY AUTOMATED COUNT 2.20 10*3/u L 1.00 - 3.20 09/07 Specimen Type: BLOOD No comment entered. Ordering Provider: COLT RAND Report Released Date/Time: Sep 08, 2023 11:41 AM Reporting Lab: [facility]ITALRL TRN [address] [address] Performing Lab: [facility]OSPITALRNOL[facility] BIRMINGHAMN [address] [address] [place] CBC AND DIFF (AUTO) EOSINOPHILS [#/VOLUME] IN BLOOD BY AUTOMATED COUNT 0.40 10*3/u L 0.03 - 0.44 09/07 Specimen Type: BLOOD No comment entered. Ordering Provider: COLT RAND Report Released Date/Time: Sep 08, 2023 11:41 AM Reporting Lab: [facility]ITALRL TRN [address] [address] Performing Lab: [facility]ITALRL TRN [facility] [address] [place] CBC AND DIFF (AUTO) BASOPHILS [#/VOLUME] IN BLOOD BY AUTOMATED COUNT 0.02 10*3/u L 0.01 - 0.13 09/07 Specimen Type: BLOOD No comment entered. Ordering Provider: COLT RAND Report Released Date/Time: Sep 08, 2023 11:41 AM Reporting Lab: [facility] [address] Performing Lab: [facility]ITALRL TRN [facility] [address] [place] CBC AND DIFF (AUTO) IMMATURE GRANULOCYTE S/100 LEUKOCYTES IN BLOOD BY AUTOMATED COUNT 0.2 0.0 - 0.7 09/07 Specimen Type: BLOOD No comment entered. Ordering Provider: COLT RAND Report Released Date/Time: Sep 08, 2023 11:41 AM Reporting Lab: [address] [address] Performing Lab: [address] [address] [place] CBC AND DIFF (AUTO) IMMATURE GRANULOCYTE S [#/VOLUME] IN BLOOD 0.01 10*3/u L 0.00 - 0.06 09/07 Specimen Type: BLOOD No comment entered. Ordering Provider: COLT RAND Report Released Date/Time: Sep 08, 2023 11:41 AM Reporting Lab: [address] [address] Performing Lab: [facility] [address] [place] ALCOHOL, ETHYL URINE PANEL ETHANOL [MASS/VOLUM E] [...] Aug 24, 2023 02:13 PM Reporting Lab: [address] [address] Performing Lab: [facility] [address] [facility] ALCOHOL, ETHYL URINE PANEL PH OF URINE [...] Aug 24, 2023 02:13 PM Reporting Lab: [facility] [place] [address] [address] Performing Lab: [address] [address] [facility] ALCOHOL, ETHYL URINE PANEL CREATININE [MASS/VOLUM E] IN URINE 318.04 mg/dL 08/28 Specimen Type: URINE Comment: Urine [...] Aug 24, 2023 02:13 PM Reporting Lab: [facility] [address] Performing Lab: [address] [address] [facility] ALCOHOL, ETHYL URINE PANEL SPECIFIC GRAVITY OF [...] Aug 24, 2023 02:13 PM Reporting Lab: [address] [address] Performing Lab: [address] [address] [facility] FENTANYL SCREEN PANEL FENTANYL [PRESENCE] IN URINE [...] Aug 24, 2023 02:13 PM Reporting Lab: [address] [address] Performing Lab: [address] [address] [facility] FENTANYL SCREEN PANEL PH OF URINE 5.3 [...] Aug 24, 2023 02:13 PM Reporting Lab: [address] [address] Performing Lab: [address] [address] [facility] FENTANYL SCREEN PANEL CREATININE [MASS/VOLUM E] IN URINE 317.72 mg/dL 20 08/28 Specimen Type: URINE Comment: [...] Aug 24, 2023 02:13 PM Reporting Lab: [address] [address] Performing Lab: [address] [address] [facility] FENTANYL SCREEN PANEL SPECIFIC GRAVITY OF [...] Aug 24, 2023 02:13 PM Reporting Lab: [address] [address] Performing Lab: [address] [address] [facility] METHADONE SCREEN METHADONE [PRESENCE] IN URINE BY SCREEN METHOD None detect ed(Neg ative) 08/28 L Specimen Type: URINE Comment: THOMAS test are qualitative , any L or H flags only indicate a [facility] alert was sent. Ordering Provider: COLT RAND Report Released Date/Time: Aug 24, 2023 02:13 PM Reporting Lab: [facility] [place] [facility] [address] [facility] [address] Performing Lab: [facility] [place] [facility] [address] [facility] [address] [facility] TRAMADOL PNL ([facility]) TRAMADOL CUTOFF [MASS/VOLUM E] IN URINE FOR CONFIRMATOR Y METHOD NEGATI VEng/m L 08/28 Specimen Type: URINE Comment: REFERENCE RANGE: <100 ng/mL REFERENCE RANGE: <100 ng/mL See LDT message Test Performed by [facility], [facility] [place], [address] [place] [address] Arturo Wilhelm M.D., Ph.D., Director of Laboratorie s , CLIA [id number] This drug testing is for medical treatment only. Analysis was performed as non-forensi c testing and these results should be used only by healthcare providers to render diagnosis or treatment, or to monitor progress of medical conditions. LDT Message: This test was developed and its analytical performance characteris tics have been determined by [facility] [place], [place]. It has not been cleared or approved by the U.S. Food and Drug Administrat ion. This assay has been validated pursuant to the CLIA regulations and is used for clinical purposes. Healthcare Providers needing Interpretat ion assistance, please contact us at [phone] [phone] ([phone]) M-F, 8am to 10pm EST TEST PERFORMED AT: , Ordering Provider: COLT RAND Report Released Date/Time: Aug 24, 2023 02:13 PM Reporting Lab: [facility] [place] [facility] [address] [facility] [address] Performing Lab: [facility]N [facility] [address] [address] [facility] TRAMADOL PNL ([facility]) NORTRAMADOL [MASS/VOLUM E] IN URINE NEGATI VEng/m L 08/28 Specimen Type: URINE Comment: REFERENCE RANGE: <100 ng/mL REFERENCE RANGE: <100 ng/mL See LDT message Test Performed by [facility], [facility] [place], [address] [place], [place] Arturo Wilhelm M.D., Ph.D., Director of Laboratorie s , CLIA [id number] This drug testing is for medical treatment only. Analysis was performed as non-forensi c testing and these results should be used only by healthcare providers to render diagnosis or treatment, or to monitor progress of medical conditions. LDT Message: This test was developed and its analytical performance characteris tics have been determined by [facility] [place], [place]. It has not been cleared or approved by the U.S. Food and Drug Administrat ion. This assay has been validated pursuant to the CLIA regulations and is used for clinical purposes. Healthcare Providers needing Interpretat ion assistance, please contact us at [phone] [phone] ([phone]) M-F, 8am to 10pm EST TEST PERFORMED AT: , Ordering Provider: COLT RAND Report Released Date/Time: Aug 24, 2023 02:13 PM Reporting Lab: [facility] [address] [facility] [address] Performing Lab: [facility] [address] [place], [place] [address]N [facility] Vital Signs Combined list of inpatient and outpatient Vital Signs from Department of Defense and Veterans Affairs, ranging from 12 months to all on record, depending upon the facility. Vital Sign Value Date Comments Source SYSTOLIC BLOOD PRESSURE 135 04/01/20 24 13:22:41 [facility] DIASTOLIC BLOOD PRESSURE 88 024 13:22:41 [facility] [place] [facility] PULSE OXIMETRY 96 04/01/2024 13:22:41 [facility] [facility] WEIGHT 200.6 04/01/2024 13:22:41 [facility] BMI 31 kg/m2 04/01/2024 13:22:41 [facility] [...] included; 2) Encounters from the Department of [facility] facilities going backup to 280 months. Location Location Details Encounter Type Encounter Number Reason For Visit Attending Provider ADM Date DC Date Status Disposition Source [facility] [place] En[facility] [id number] 01/24 [facility] [place] Outpatient Encounter [id number] 01/24 [place] [facility] En[facility] [id number] 02/02 [facility] [place] En[facility] [id number] 02/02 [facility] [place] CONFORMITY EVALUATION [id number] Diagnos is: ICD-10- CM Z46.1 Encount er for fitting and adjustm ent of hearing aid Nithya MATSON 02/03 [facility] En[facility] [id number] 02/06 [facility] [place] [facility] [place] OFFICE O/P EST LOW 20-29 MIN [id number] Diagnos is: ICD-10- CM I10 Essenti al (primar y) hyperte micky DAQUAN RAND 02/07 [place] [facility] Encounter [id number] 02/17 [facility] En[facility] [id number] 02/22 [facility] [place] En[facility] [id number] 03/22 [facility] [place] En[facility] [id number] 03/23 [facility] [place] En[facility] [id number] 04/03 [facility] [place] [facility] OFFICE O/P EST MOD 30-39 MIN [id number] Diagnos is: ICD-10- CM I10 Essenti al (primar y) hyperte micky DAQUAN RAND 04/10 [place] [facility] En[facility] [id number] 04/11 [facility] En[facility] [id number] 04/12 [facility] En[facility] [id number] 04/26 [facility] En[facility] [id number] 04/26 [facility] [place] En[facility] [id number] 05/18 [facility] [place] En[facility] [id number] 05/18 [facility] [place] [facility] OFFICE O/P EST LOW 20-29 MIN [id number] Diagnos is: ICD-10- CM M25.561 Pain in right knee DAQUAN RAND 05/19 [facility] En[facility] [id number] 06/01 [facility] [place] En[facility] [id number] 06/15 [facility] [place] En[facility] [id number] 06/20 [facility] [place] En[facility] [id number] 06/21 [facility] En[facility] [id number] 06/22 [facility] En[facility] [id number] 06/27 [facility] En[facility] [id number] 07/14 [facility] En[facility] [id number] 07/18 [facility] En[facility] [id number] 07/19 [facility] En[facility] [id number] 07/24 [facility] En[facility] [id number] 08/03 [facility] [place] En[facility] [id number] 08/14 [facility] En[facility] [id number] 08/17 [facility] En[facility] [id number] 08/17 [facility] En[facility] [id number] 08/17 [facility] [id number] 08/20 [facility] En[facility] [id number] 08/21 [facility] [place] OFF/OP EST SEPTEMBER X REQ PHY/QHP [id number] 1BY. 53 Diagnos is: ICD-10- CM L03.115 Celluli tis of right lower limb KATERIN HAQUE IC K 08/23 [place] [facility] Outpatient Encounter [id number] 08/23 [facility] OFFICE O/P EST LOW 20 MIN [id number] Diagnos is: ICD-10- CM L03.90 Celluli tis, unspeci fied OSVALDO DUNAWAY N 08/[address] [place] [facility] LD ORTHC/PROS TC MGMT SBSQ ENC [id number] Diagnos is: ICD-10- CM R26.9 Unspeci fied abnorma lities of gait and mobilit y CECI DUNN 08/23 [place] [facility] En[facility] [id number] 08/23 [facility] En[facility] [id number] 08/27 [facility] En[facility] [id number] 09/04 [facility] LD OFFICE O/P EST MOD 30 MIN [id number] Diagnos is: ICD-10- CM I10 Essenti al (primar y) hyperte tawanaion DAQUAN RAND 09/05 [place] [facility] En[facility] [id number] 09/06 [facility] [id number] 09/07 [facility] [id number] 09/07 [facility] En[facility] [id number] 09/07 [facility] OFFICE O/P EST LOW 20 MIN [id number] Diagnos is: ICD-10- CM L03.90 Celluli tis, unspeci fied DAQUAN RAND 09/07 [place] [facility] En[facility] [id number] 09/07 [facility] [id number] 09/11 [facility] [id number] 09/11 [facility] [facility] En[facility] [id number] 09/13 [facility] En[facility] [id number] MARC-TAMIE PO,BILL 09/13 [facility] Encounter [id number] Diagnos is: ICD-10- CM L23.9 Allergi c contact dermati tis, unspeci fied cause XAVIER,ERI [facility] 09/14 [facility] Encounter [id number] 09/17 [facility] Encounter [id number] 09/17 [facility] Encounter [id number] 09/19 [facility] SELF CARE MNGMENT TRAINING [id number] Diagnos is: ICD-10- CM R60.9 Edema, unspeci fied CECI DUNN 09/25 [place] [facility] Encounter [id number] 09/27 [facility] Encounter [id number] 09/28 [facility] Encounter [id number] 10/02 [facility] Encounter [id number] 10/03 [facility] Out[facility] Encounter [id number] 10/03 [facility] OFFICE O/P EST LOW 20 MIN [id number] Diagnos is: ICD-10- CM L23.9 Allergi c contact dermati tis, unspeci fied cause DAQUAN RAND 10/04 [place] [facility] Out[facility] Encounter [id number] 10/15 [facility] Encounter [id number] 10/17 [facility] Encounter [id number] 10/18 [facility] Outpatient Encounter [id number] 10/18 [facility] [place] OFF/OP EST MAY X REQ PHY/QHP [id number] Diagnos is: ICD-10- CM R06.00 Dyspnea , unspeci fied GARLAND,ER IC K 10/29 [place] [facility] Outpatient Encounter [id number] 10/29 [facility] [place] OFFICE O/P EST LOW 20 MIN [id number] Diagnos is: ICD-10- CM K21.9 Gastro- esophag eal reflux disease without esophag itis DAQUAN RAND 10/30 [facility] [place] [facility] COMPRE OPH EXAM EST PT 1/> [id number] Diagnos is: ICD-10- CM H53.2 Diplopi a CHALINO SANCHEZ 11/08 [facility] FIT SPECTACLES MULTIFOCAL [id number] Diagnos is: ICD-10- CM Z46.0 Encount er for fit/adj st of spectac les and contact lenses CHALINO SANCHEZ 11/08 [facility] [place] SELF CARE MNGMENT TRAINING [id number] Diagnos is: ICD-10- CM M62.81 Muscle weaknes s (genera lized) CECI DUNN 11/09 [place] [facility] Encounter [id number] 11/13 [facility] Out[facility] Encounter [id number] 11/15 [facility] Encounter [id number] 11/21 [facility] Out[facility] Encounter [id number] 11/23 [facility] Encounter [id number] 11/24 [facility] THERAPEUTI C EXERCISES [id number] Diagnos is: ICD-10- CM M62.81 Muscle weaknes s (genera lized) Fanny CALLEJAS 11/26 [facility] THERAPEUTI C EXERCISES [id number] Diagnos is: ICD-10- CM M62.81 Muscle weaknes s (genera lized) Fanny CALLEJAS 11/28 [facility] THERAPEUTI C EXERCISES [id number] Diagnos is: ICD-10- CM M62.81 Muscle weaknes s (genera lized) Fanny CALLEJAS 12/03 [facility] THERAPEUTI C EXERCISES [id number] Diagnos is: ICD-10- CM M62.81 Muscle weaknes s (genera lized) Fanny CALLEJAS 12/06 [place] [facility] Out[facility] Encounter [id number] 12/06 [facility] Out[facility] Encounter [id number] 12/17 [facility] [place] THERAPEUTI C EXERCISES [id number] Diagnos is: ICD-10- CM M62.81 Muscle weaknes s (genera lized) CECI DUNN 12/21 [place] [facility] Out[facility] Encounter [id number] 12/27 [facility] Out[facility] Encounter [id number] 12/28 [facility] Out[facility] Encounter [id number]/28 [facility] Out[facility] Encounter [id number] 12/31 [facility] Out[facility] Encounter [id number] 12/31 [facility] Out[facility] Encounter [id number] 12/31 [facility] Outpatient Encounter [id number] 01/04 [facility] LD OFFICE O/P EST LOW 20 MIN [id number] 1BY. [id number] Diagnos is: ICD-10- CM I10 Essenti al (primar y) hyperte nsion DAQUAN RANDE 01/10 [place] [facility] Out[facility] Encounter [id number]/23 [facility] Out[facility] Encounter [id number] 01/25 [facility] Out[facility] Encounter [id number] 02/13 [facility] Out[facility] Encounter [id number] 02/14 [facility] Out[facility] Encounter [id number] 1.02/25 [facility] OFFICE O/P EST LOW 20 MIN [id number] Diagnos is: ICD-10- CM Z01.818 Encount er for other preproc edural examina tiDAQUAN Wild BRONWYN 02/25 [place] [facility] Out[facility] Encounter [id number] 02/26 [facility] Out[facility] Encounter [id number] 03/04 [facility] Out[facility] Encounter [id number] 03/04 [facility] Out[facility] Encounter [id number] 03/20 [facility] OFFICE O/P NEW HI 60 MIN [id number] 1. Diagnos is: ICD-10- CM L43.9 Lichen planus, unspeci fied YOUNG HUSSEIN 03/28 [facility] OFFICE O/P EST LOW 20 MIN [id number] 1BY. 63 Diagnos is: ICD-10- CM I10 Essenti al (primar y) hyperte nsion DAQUAN RANDE 04/01 [place] [facility] Outpatient Encounter [id number] 1.05/03 [facility] Outpatient Encounter [id number] 1.06/03 [facility] EVALUATION OF WHEEZING [id number] 1. Diagnos is: ICD-10- CM J44.9 Chronic obstruc tive pulmona ry disease , unspeci fied JARMOLOWIC Z,LAKEISHA 06/03 [facility] Encounter [id number] 1.06/03 [facility] Out[facility] Encounter [id number] 1.06/04 [facility] NQHP OL DIG ASSMT&MGMT 5-10 [id number] 1. Diagnos is: ICD-10- CM Z12.2 Encntr screen for maligna nt neoplas m of respira tory organs ZAFAR GUTHRIE 06/04 [facility] CO/[place] DIFFUSE CAPACITY [id number] Diagnos is: ICD-10- CM J44.9 Chronic obstruc tive pulmona ry disease , unspeci britnied Baldomero MARY MD 06/04 [facility] Outpatient Encounter [id number] 06/05 [facility] Outpatient Encounter [id number] 06/12 [facility] Outpatient Encounter [id number] 06/14 [facility] Social History Combined list of available smoking, tobacco, and other social history from Department of Defense and Veterans Affairs facilities. Social History Type Response Date Comment Source Tobacco smoking status [facility]-TOBACCO USER EVERY DAY 09/06/2023 [facility] History of tobacco use [place]-TOBACCO DOESNT USE WI 30 MIN WAKEUP 09/06/2023 [place] History of tobacco use AR-TOBACCO USER EVERY DAY 07/26/2022 [place] History of tobacco use AR-TOBACCO USER EVERY DAY 10/21/2020 [facility] [place] [facility] History of tobacco use AR-TOBACCO USE [employer] NO 03/01/2019 [place] History of tobacco use AR-TOBACCO USER EVERY DAY 03/06/2018 [facility] History of tobacco use CURRENT TOBACCO USER 04/13/2017 [facility] History of tobacco use V7-CURRENT TOBACCO PRODUCT USER 11/24/2016 [facility] History of tobacco use V7-CURRENT TOBACCO PRODUCT USER 04/01/2016 [facility] History of tobacco use CURRENT TOBACCO USER 03/28/2016 [facility] History of tobacco use V7-CURRENT TOBACCO PRODUCT USER 02/11/2016 [facility] History of tobacco use V7-DECLINED MEDS FOR TOBACCO CESSATION 12/28/2015 [facility] History of tobacco use V7-DECLINED MEDS FOR TOBACCO CESSATION 06/24/2015 [facility] History of tobacco use V7-CURRENT TOBACCO PRODUCT USER 02/23/2015 [facility] History of tobacco use CURRENT TOBACCO USER 02/09/2015 [facility] History of tobacco use V7-CURRENT TOBACCO PRODUCT USER 08/22/2013 [facility] History of tobacco use V7-CURRENT TOBACCO PRODUCT USER 08/16/2012 [facility] History of tobacco use V7-CURRENT TOBACCO PRODUCT USER 04/12/2011 [facility] History of tobacco use CURRENT TOBACCO USER 04/11/2011 [facility] History of tobacco use V7-CURRENT TOBACCO PRODUCT USER 11/17/2010 [facility] History of tobacco use TOBACCO COUNSELING CONTRAINDICATED 03/22/2010 pain [facility] History of tobacco use V7-CURRENT TOBACCO PRODUCT USER 11/16/2009 [facility] History of tobacco use V7-CURRENT TOBACCO PRODUCT USER 08/12/2009 [facility] History of tobacco use V7-CURRENT TOBACCO PRODUCT USER 07/10/2009 [facility] Plan of Care List of future care activities from [facility] facilities. Additional future care activities may be listed in the Assessment and Plan section. Date/Time Care Activity Care Activity Detail Facili ty 08/28/2024 [facility] 09/23/2024 AMBULATORY - MEDICINE [facility] [place] [facility] 10/02/2024 AMBULATORY - MEDICINE [facility]ATORY [facility] [place] [facility] 11/21/2024 AMBULATORY - MEDIC[facility] Advance Directives List of completed, amended, or rescinded Advance Directives on record at [facility] facilities. An actual copy of the Directive is not included. Date Advance Directive Provider Source 03/15/2018 ADVANCE DIRECTIVE TOBI JOHNSON
[2024-07-26 14:43] LABS: Free Prostate Spec Ag 0.6 ng/mL; Percent Free Prostate Spec Ag 9 % (calc) (>25); Prostate Specific Ag Total 6.7 ng/mL (< OR = 4.0)
== END 2024-07-24 11:40 | disposition home or self-care (01) ==
LOC: HO.10HDL 11:39
PROVIDERS: Visit Provider Urology
DX: C61 Malignant neoplasm of prostate (principal); Z12.5 Encounter for screening for malignant neoplasm of prostate
CPT/HCPCS: 36415; 84153; 84154

== ENCOUNTER 2024-10-24 11:05 | Outpatient (AMB) | payer OTHER, SELFPAY ==
--- NOTE | 2024-10-24 11:11 | MHC.OFFVIS ---
Intake Visit Reasons: 4m/PSA Intake Note: Patient is present for 4M/PSA Urology Medication:TAMSULOSIN,FINASTERIDE,SILDENAFIL Antibiotic Allergy:TETRACYCLINE Blood Thinner:NONE Dining Room Supervisor Required: No Allergies tetracycline Allergy (Intermediate, Verified 10/24/24 11:12) Gastrointestinal Upset HPI Comments Details: Marcus is a pleasant male. He is a patient of Dr. Page. He is seen for the following urologic conditions - prostate cancer - Lower urinary tract symptoms Telemedicine Evaluation 15 min Consultation Clique Intelligence Marty Video Four month surveillance Remains on tamsulosin, finasteride and sildenafil Refill medication Discussed PSA PSA 07/23 6.5 9% Continued weakness of stream Would like to rediscuss GreenLight laser at next follow-up Lower urinary tract symptoms Progressive Maximized on medication - tamsulosin, finasteride Prostate cancer - low-grade, low volume - active surveillance PSA 09/19 8.0 03/21 Prostate MRI reviewed with 1.9 cm right posterior transition zone base lesion PI-RADS 5 - directed biopsies negative 02/18 initial PSA 25 Histologic type: Acinar adenocarcinoma [place] score: 3+3=6 Grade group: 1 Tumor quantitation: Number cores positive 1: Total number of cores: 12 % of tissue involved: <1% of all tissue PFSH Medical History History of vitamin D deficiency Hx of type 2 diabetes mellitus History of tobacco use Hx of tinnitus Hx of sleep apnea Hx of obesity History of erectile dysfunction History of hyperlipidemia Hx of essential hypertension History of vitamin B deficiency History of cocaine abuse Hx of chronic hepatitis Hx of chronic kidney disease History of benign prostatic hyperplasia Surgical History Hx of hernia repair Hx of colonoscopy Family History Father No problems noted. Mother No problems noted. Social History Are you a primary child care aide to a significant other at home: No Do you presently have visiting nurse or other home services: No Alcohol intake: unknown Patient Tobacco Use Status: Current everyday Tobacco user Tobacco use type: Cigarette Cigarette Packs Per Day: 0.5 Cigarettes Per Day: 10.0 Review of Systems Const Denies chills and Denies fever(s) Card Reports no additional complaints and Denies syncope Resp Denies cough GI Denies abdominal pain and Denies heartburn Reports as per HPI and Denies change in libido Neuro Denies syncope Psych Denies change in libido Endo Denies change in libido Physical Exam Const General: cooperative, healthy appearing, comfortable and no acute distress Orientation/consciousness: patient oriented x3 HEENT Face and sinus: Yes normal facial exam Mouth: moist mucous membranes Neck Neck: Yes normal visual inspection, Yes full ROM and Yes trachea midline Chest Chest palpation & inspection: normal inspection of the chest Resp Effort & Inspection: normal respiratory effort, able to speak in complete sentences and no respiratory distress GI Inspection: Yes normal to inspection Back/Spine/Pelvis Cervical Spine: normal cervical lordosis Thoracic/Lumbar Spine: thoracic and lumbar spine normal to inspection Skin General skin exam: no rashes or lesions noted Neuro General: patient oriented x3, gait normal, tone normal and moves all extremities Extrem General: Yes normal to inspection and Yes capillary refill normal Assessment & Plan Assessment & Plan (1) Adenocarcinoma of prostate: Code(s): C61 - Malignant neoplasm of prostate Category: Medical (2) Erectile dysfunction: Code(s): N52.9 - Male erectile dysfunction, unspecified Category: Medical Plan Continue surveillance Refill medications Six-month follow-up lab work Orders: Orders PSA,Total (Free>4and<10) 6 Months C61 - Malignant neoplasm of prostate Medications: Changed From sildenafil administer 30 minutes to 4 hours before activity 100 mg PO DAILY PRN Erectile Dysfunction To sildenafil administer 30 minutes to 4 hours before activity 100 mg PO ONCE 30 days PRN 30 tabs 0RF Erectile Dysfunction Refilled finasteride (Proscar) take daily 5 mg PO ONCE 90 days 90 tabs 1RF tamsulosin . 0.4 mg PO BEDTIME 90 days 90 caps 1RF Patient Instructions: This note is constructed using voice recognition software. While every effort has been made to ensure accuracy fountain helper errors may have been included. Imaging studies, laboratory and physical exam results were discussed and reviewed in detail. No major barriers to patient understanding were identified. An opportunity to ask questions regarding the treatment plan was provided. All questions were answered. The patient expressed understanding and agreement with the above treatment plan. The patient is aware they should contact our office by phone for worsening of their current condition or the appearance of new urologic symptoms. Compliance is encouraged with any medications and followup testing that is ordered. It is a privilege to participate in the urologic care of your patient. If you have any questions or concerns regarding treatment for the above conditions, or other urologic issues, please do not hesitate to contact me. The office telephone contact is [phone]. Sincerely, Dr Sukhdev Naylor MD, [facility] - Urology Compassionate Specialist Care for the Genitourinary System Coding Level of Care Code Tele Est Pt Level 4 (31727) Complex EM visit Add On G2211 Diagnoses Adenocarcinoma of prostate C61 Erectile dysfunction N52.9
--- OUTSIDE RECORDS SUMMARY | 2024-10-24 11:33 | XMS_ITS ---
Author Organization [facility] on Care Team Providers Care Implementation Lead Name Role Phone Belkys Hammer Unavailable Unavailable Faina Watson Unavailable Unavailable Destiny Perez Unavailable Unavailable Shelby Reynoso Unavailable Unavailable Karolina Morse Unavailable Unavailable Allergies and adverse reactions Code CodeSystem Substance Reaction Severity StartDate Concern Status 815341024 SNOMED CT Tetracyclines & Related Mild 08/04/2023 active 49696 RXNORM Tetracycline Unknown 08/04/2023 active Care Team Name Role Address Phone Organization Dates Faina Watson PCP [address] [place] [address], [address], [place] (Office[place] : [facility] 08/04/2023 - 08/17/2023 Belkys Hammer [address] [place], [address], [place] (Office): [facility] 08/04/2023 - 08/17/2023 Destiny Perez [address] [place], [address], [place] (Office): [facility] 08/04/2023 - 08/17/2023 Shelby Edgardo [address] [place], [address], [place] (Office): [facility] 08/04/2023 - 08/17/2023 Karolina Morse [address] [place] [address], [address], [place] (Office): : [facility] 08/04/2023 - 08/17/2023 Immunizations Immunization Status Vaccine Details Vaccine Code CodeSystem Date Notes Pneumococcal Conjugate Vaccine (PCV13) new pneumococcal conjugate vaccine, 13 valent 133 CVX created date: 08/06/2023 consent date: 08/06/2023 Educated by Marisa Gil on 08/06/2023 SARS-COV-2 (COVID-19) completed SARS-COV-2 (COVID-19) vaccine, mRNA, spike protein, LNP, preservative free, 100 mcg/0.5mL dose or 50 mcg/0.25mL dose Mfg: Moderna Step 1 of Multi-step with next step required 207 CVX created date: 08/08/2023 administer ed date: 11/10/2021 Verified in SDIS. Prevnar 20 Pneumococcal conjugate (PCV20) new Pneumococcal conjugate vaccine 20-valent (PCV20), polysaccharide [id number] conjugate, adjuvant, preservative free 216 CVX created date: 08/06/2023 consent date: 08/06/2023 Educated by Marisa iGl on 08/06/2023 SARS-COV-2 (COVID-19 BOOSTER) new SARS-COV-2 (COVID-19) vaccine, mRNA, spike protein, LNP, preservative free, 25 mcg/0.25 mL dose 311 CVX created date: 08/06/2023 consent date: 08/06/2023 Educated by Marisa Gil on 08/06/2023 RSV, bivalent, protein subunit RSVpreF, diluent rec new Respiratory syncytial virus (RSV) monoclonal antibody, IgG1k, (nirsevimab-alip) , 0.5 mL, neonates and children to 24 months 306 CVX created date: 08/06/2023 consent date: 08/06/2023 Educated by Marisa Gil on 08/06/2023 Mental Status Section Date Assessment Total Score Description 08/17/2023 BIMS 15 cognitively int act CAM 0 No delirium ind icated PHQ-9 00 Problems Problem # Description Date of onset Resolved Date Code CodeSystem Concern Status 1 ANEMIA, UNSPECIFIED 08/04/[address] active 2 BENIGN PROSTATIC HYPERPLASIA WITHOUT LOWER URINARY TRACT SYMPTOMS 08/04/[address] active 3 CELLULITIS OF RIGHT LOWER LIMB 08/04/[id number] active 4 CHRONIC KIDNEY DISEASE, UNSPECIFIED 08/04/[address] active 5 ESSENTIAL (PRIMARY) HYPERTENSION 08/04/[address] active 6 HYPERLIPIDEMIA, UNSPECIFIED 08/04/[address] active 7 HYPOKALEMIA 08/04/[address] active 8 PAIN IN RIGHT LEG 08/04/[address] active 9 RASH AND OTHER NONSPECIFIC SKIN ERUPTION 08/04/[address] active 10 SEPSIS, UNSPECIFIED ORGANISM 08/04/[address] active 11 TYPE 2 DIABETES MELLITUS WITHOUT COMPLICATIONS 08/04/[address] active Reason for Referral No Reasons for Referral Entered Social History Social History Observation Description Start Date End Date Code Code System Current Smoking Status Tobacco smoking consumption unknown 702937476 SNOMED CT Sex Assigned At Male 1960 59429-5 [facility] Gender Identity Vital Signs Code Code System Vitals Name Values and Units Timing Information 30403-2 LOINC Pain Level Value=0.0 08/17/2023 9279-1 LOINC Respiratory Rate Value=16.0 Units=/m in 08/17/2023 8462-4 LOINC Blood Pressure-Diastolic Value=91 Un its=mmHg 08/17/2023 8480-6 LOINC Blood Pressure-Systolic Guokp=248 Un its=mmHg 08/17/2023 8310-5 LOINC Body Temperature Value=97.8 Units=?? F 08/17/2023 8867-4 [facility] Heart rate Value=84.0 Units=/min 59181-0 [facility] O2 % BldC Oximetry Value=91.0 Units= % 08/17/2023 27144-9 [facility] Weight Kpfyp=007.6 Units=Lbs 8302-2 [facility] Height Value=67.0 Units=Inches 08/04/2023
== END 2024-10-24 11:35 | disposition home or self-care (01) ==
LOC: HO.HUSH 11:05
PROVIDERS: PCP Family Medicine; Visit Provider Urology
DX: C61 Malignant neoplasm of prostate (principal); N52.9 Male erectile dysfunction, unspecified
CPT/HCPCS: 99214; G2211

== ENCOUNTER 2025-04-09 12:22 | Outpatient (REF) | payer OTHER, SELFPAY ==
[2025-04-09 15:07] LABS: PSA,Total (Free>4and<10) 11.55 ng/mL (0.00-4.00)
== END 2025-04-09 12:23 | disposition home or self-care (01) ==
LOC: HO.LAB 12:22
PROVIDERS: PCP Family Medicine; Visit Provider Urology
DX: C61 Malignant neoplasm of prostate (principal); Z12.5 Encounter for screening for malignant neoplasm of prostate
CPT/HCPCS: 36415; 84153

== ENCOUNTER 2025-04-23 15:12 | Outpatient (AMB) | payer OTHER, SELFPAY ==
--- NOTE | 2025-04-23 15:20 | MHC.OFFVIS ---
Intake Visit Reasons: 6M PSA/PVR(set) Intake Note: Reason for Visit: PSA/PVR Follow Up Urology Meds: Sildenafil, Tamsulosin, Finasteride, Terazosin Blood Thinners: None Labs: PSA- 11.55 (04/09/2025) Imaging: None Last PVR: 21ml PVR: 0ml Patient states he would like to discuss prostate Surgery options Accompanied by: Self / Same As Patient Allergies tetracycline Allergy (Intermediate, Verified 10/24/24 11:12) Gastrointestinal Upset HPI Comments Details: Marcus is a pleasant male. He is a patient of Dr. Page. He is seen for the following urologic conditions - prostate cancer - Lower urinary tract symptoms Significant jump in PSA - PSA still well below initial presentation Would like to move ahead with GreenLight laser Needs refill on tamsulosin and finasteride Plan for prostate biopsy with GreenLight laser Printed information provided PSA 07/23 6.5 9% on finasteride Continued weakness of stream Would like to rediscuss GreenLight laser at next follow-up Lower urinary tract symptoms Progressive Maximized on medication - tamsulosin, finasteride Prostate cancer - low-grade, low volume - active surveillance PSA 09/19 8.0 03/21 Prostate MRI reviewed with 1.9 cm right posterior transition zone base lesion PI-RADS 5 - 50 g prostate - directed biopsies negative 02/18 initial PSA 25 Histologic type: Acinar adenocarcinoma Raffy score: 3+3=6 Grade group: 1 Tumor quantitation: Number cores positive 1: Total number of cores: 12 % of tissue involved: <1% of all tissue PFSH Medical History History of vitamin D deficiency Hx of type 2 diabetes mellitus History of tobacco use Hx of tinnitus Hx of sleep apnea Hx of obesity History of erectile dysfunction History of hyperlipidemia Hx of essential hypertension History of vitamin B deficiency History of cocaine abuse Hx of chronic hepatitis Hx of chronic kidney disease History of benign prostatic hyperplasia Surgical History Hx of hernia repair Hx of colonoscopy Family History Father No problems noted. Mother No problems noted. Social History Are you a primary lawn care specialist to a significant other at home: No Do you presently have visiting nurse or other home services: No Alcohol intake: unknown Patient Tobacco Use Status: Current everyday Tobacco user Tobacco use type: Cigarette Cigarette Packs Per Day: 0.5 Cigarettes Per Day: 10.0 Review of Systems Const Denies chills and Denies fever(s) Card Reports no additional complaints and Denies syncope Resp Denies cough GI Denies abdominal pain and Denies heartburn Reports as per HPI and Denies change in libido Neuro Denies syncope Psych Denies change in libido Endo Denies change in libido Physical Exam Const General: cooperative, healthy appearing, comfortable and no acute distress Orientation/consciousness: patient oriented x3 HEENT Face and sinus: Yes normal facial exam Mouth: moist mucous membranes Neck Neck: Yes normal visual inspection, Yes full ROM and Yes trachea midline Chest Chest palpation & inspection: normal inspection of the chest Resp Effort & Inspection: normal respiratory effort, able to speak in complete sentences and no respiratory distress GI Inspection: Yes normal to inspection Back/Spine/Pelvis Cervical Spine: normal cervical lordosis Thoracic/Lumbar Spine: thoracic and lumbar spine normal to inspection Skin General skin exam: no rashes or lesions noted Neuro General: patient oriented x3, gait normal, tone normal and moves all extremities Extrem General: Yes normal to inspection and Yes capillary refill normal Office Procedures Post Void Residual Post Residual Void Post Void Residual (PVR): 0 [id number] Void Residual by ultrasound Assessment & Plan Assessment & Plan (1) Adenocarcinoma of prostate: Code(s): C61 - Malignant neoplasm of prostate Category: Medical (2) BPH (benign prostatic hyperplasia): Code(s): N40.0 - Benign prostatic hyperplasia without lower urinary tract symptoms Category: Medical Plan We discussed the nature of the decision and reasonable options for performing a prostate intervention. Interventions include TURP, GreenLight laser enucleation of the prostate, GreenLight laser ablation of the prostate, transurethral incision of the prostate, and I-Tend prostate procedure. Options such as medical therapy were discussed. The relative uncertainties and benefits related to each alternate procedure were adequately discussed. General surgical risks including, but not limited to, pain, bleeding, infection, myocardial infarction, pulmonary embolus, deep vein thrombosis and cerebrovascular accident which may result in further hospitalization were discussed. Full disclosure of the procedure as well as all major risks, benefits and complications were discussed including but not limited to damage to the urethra or bladder neck, recurrent BPH, retrograde ejaculation, bladder infection, urge, de ceci frequency, incomplete emptying, dysuria, remote chance of erectile dysfunction, epididymitis, and meatal stenosis. The success rate of the procedure was discussed. Success of the procedure in the short-term does not necessarily guarantee that long-term success will be maintained. Suitable follow up will need to be maintained. The patient showed understanding of discussion. An opportunity was provided for questions to be answered and wishes to proceed with the following procedure. - prostate biopsy with GreenLight laser Orders: Orders AMB Post Void Residual by ultrasound Today N40.0 - Benign prostatic hyperplasia without lower urinary tract symptoms Medications: Refilled tamsulosin . 0.4 mg PO BEDTIME 90 caps 1RF 90 days finasteride (Proscar) take daily 5 mg PO ONCE 90 tabs 1RF 90 days Patient Instructions: This note is constructed using voice recognition software. While every effort has been made to ensure accuracy property appraiser errors may have been included. Imaging studies, laboratory and physical exam results were discussed and reviewed in detail. No major barriers to patient understanding were identified. An opportunity to ask questions regarding the treatment plan was provided. All questions were answered. The patient expressed understanding and agreement with the above treatment plan. The patient is aware they should contact our office by phone for worsening of their current condition or the appearance of new urologic symptoms. Compliance is encouraged with any medications and followup testing that is ordered. It is a privilege to participate in the urologic care of your patient. If you have any questions or concerns regarding treatment for the above conditions, or other urologic issues, please do not hesitate to contact me. The office telephone contact is [phone]. Sincerely, Dr Sukhdev Naylor MD, [facility] - Urology Compassionate Specialist Care for the Genitourinary System Coding Level of Care Code Est Pt Level 4 (22408) Complex visit Add On G2211 Diagnoses Adenocarcinoma of prostate C61 BPH (benign prostatic hyperplasia) N40.0 CPT Codes Post Residual Void - PVR CPT Code: 08708-Zuyl Void Residual by ultrasound ([id number])
--- OUTSIDE RECORDS SUMMARY | 2025-04-23 17:41 | XMS_ITS | Clinical Summary ---
Author Organization [facility] Address [address] [place] [address] Phone Care Team Providers Care Recreation Adviser Name Role Phone Physician, Pcp Unknown Primary Care Provider Leah vailable Allergies Active Allergy Reactions Criticality Noted Date Comments Tetracycline Nausea And Vomiting Medium 01/03/2025 Medications amLODIPine (NORVASC) 10 mg tablet Take 1 tablet (10 mg total) by mouth 1 (one) time each day. 4 Active albuterol HFA (PROAIR HFA ; PROVENTIL HFA ; VENTOLIN HFA) 90 mcg/actuation inhaler Inhale 2 puffs by mouth every 6 (six) hours if needed. 4 Active atorvastatin (LIPITOR) 40 mg tablet Take 0.5 tablets (20 mg total) by mouth at bedtime. Active finasteride (PROSCAR) 5 mg tablet Take 1 tablet (5 mg total) by mouth 1 (one) time each day. Do not crush, chew, or split. Active sildenafiL (VIAGRA) 100 mg tablet Take 1 tablet (100 mg total) by mouth 1 (one) time each day if needed for erectile dysfunction. Active tamsulosin (FLOMAX) 0.4 mg 24 hr capsule Take 1 capsule (0.4 mg total) by mouth 1 (one) time each day with breakfast. Capsules should be taken 30 minutes following the same meal each day. Active triamcinolone (KENALOG) 0.1 % ointment Apply 1 Application topically 3 (three) times a day. Active clobetasoL (TEMOVATE) 0.05 % ointment Apply 1 Application topically 2 (two) times a day. Active ipratropium-albu teroL (DUONEB) 0.5-2.5 mg/3 mL nebulizer solutionIndicati ons:Chronic obstructive pulmonary disease with acute exacerbation ([facility] V24, [facility] V28) Take 3 mL by nebulization 4 (four) times a day if needed for wheezing or shortness of breath. 360 mL 5 Active mometasone-formo terol (DULERA 100) 100-5 mcg/actuation inhaler Inhale 2 puffs by mouth 2 (two) times a day. Rinse mouth with water after use to reduce aftertaste and incidence of candidiasis. Do not swallow. 1 each 5 Active nicotine polacrilex (COMMIT) 2 mg lozenge Dissolve 1 lozenge (2 mg total) in the mouth every 2 (two) hours if needed for smoking cessation. 100 lozenge 5 Active Active Problems Problem Noted Date Diagnosed Date COPD (chronic obstructive pu lmonary disease) ([facility] V24, [facility] V28) 01/28/2025 COPD with acute exacerbation ([facility] V24, [facility] V28) 01/03/2025 Encounters Date Type Department Care Team Description 01/28/2025 9:34 AM EDT - 01/29/2025 3:29 PM EDT Hospital Encounter [facility] [address] [place] [address] [phone] Kayleigh Crespo DO Bukalo, Nermina, MD Alam, Aroosa, MD COPD exacerbation ([facility] V24, [facility] V28) (Primary Dx); Chronic obstructive pulmonary disease with acute exacerbation ([facility] V24, [facility] V28) Discharge Disposition: Home or Self Care from Last 3 Months Medical History Medical History Date Comments COPD (chronic obstructive pulmonary disease) ([facility] V24, [facility] V28) Prostate cancer ([facility] V24, [facility] V28) Hypertension Family History Medical History Relation Name Comments Hypertension Father Prostate cancer Father Diabetes Maternal Grandmother Ovarian cancer Mother Lung cancer Paternal Grandfather Relation Name Status Comments Father Maternal Grandmother Mother Paternal Grandfather Social History Tobacco Use Types Packs/Day Years Used Date Smoking Tobacco: Some Days Cigarettes Smokeless Tobacco: Never Tobacco Cessation:Ready to Q uit: No; Counseling Given: Yes Alcohol Use Standard Drinks/Week Comments Never 0 (1 standard drink = 0.6 oz pur e alcohol) Interpersonal Safety Answer Date Record ed Physical Abuse Unrecognized value 01/28/2025 Verbal Abuse Unrecognized value 01/28/2025 Sex and Gender Information Value Date Recorded Sex Assigned at Not on file Legal Sex Male 10:05 AM EST Gender Identity Not on file Sexual Orientation Straight 01/03/2025 8: 52 AM EDT Obstetrics History Last Filed Vital Signs Vital Sign Reading Time Taken Comments Blood Pressure 151/85 01/29/2025 10:58 AM EDT Pulse 105 01/29/2025 10:58 AM EDT Temperature 36.6 C (97.9 F) 01/29/2025 7:35 AM EDT Respiratory Rate 15 01/29/2025 7:35 AM EDT Oxygen Saturation 98% 01/29/2025 10:58 AM EDT Inhaled Oxygen Concentration - - Weight 88 kg (194 lb) 01/28/2025 9:42 AM EDT Height 170.2 cm (5' 7 ) 01/28/2025 9:42 AM EDT Body Mass Index 30.38 01/28/2025 9:42 AM EDT Plan of Treatment Health Maintenance Due Date Last Done Comments Colorectal Cancer Screening: Colonoscopy 1958 Diabetes: Annual Foot Exam 1968 Diabetes: Annual Retina Eye Exam 1968 RSV Immunization Adult Patients (1 - Risk 50-74 years 1-dose series) 2008 Pneumococcal Vaccine: 50+ Years (2 of 2 - PCV) 11/18/2011 11/17/2010, 11/17/2010 Abdominal Aortic Aneurysm (AAA) Screen 04/26/2022 Cholesterol Screening (Lipid Panel) 04/26/2022 Hepatitis C Screening 04/26/2022 Medicare Annual Wellness Visit 04/26/2022 Social Influencers of Health Screening 04/26/2022 Depression Screening 05/29/2024 COVID-19 Vaccine ( season) 2025 02/26/2024, 11/10/2021, 12/01/2020, Additional history exists Influenza Vaccine (#1) 2025 , 04/10/2023, 02/11/2016, Additional history exists Diabetes: Annual Urine Albumin-Creatinine Ratio (uACR) 01/28/2025 Diabetes: Blood Sugar Control Test (HGBA1C) 07/06/2025 01/03/2025 Diabetes: Annual GFR (Glomerular Filtration Rate) 01/29/2026 01/29/2025, 01/28/2025, 01/05/2025, Additional history exists Falls Risk Assessment 01/29/2026 01/29/2025 Hypertension/CHF/CAD Annual BMP Blood Test 01/29/2026 01/29/2025, 01/28/2025, 01/05/2025, Additional history exists DTaP,Tdap,and Td Vaccines (3 - Td or Tdap) 02/10/2026 02/11/2016, 02/11/2016 Hepatitis A Vaccines Completed 07/22/2010, 11/27/2009, 10/29/2009 Hepatitis B Vaccines Completed 07/22/2010, 07/09/2010, 11/27/2009, Additional history exists Zoster Vaccines Completed 08/28/2024, 04/01/2024 HIB Vaccines Aged Out No longer eligi ble based on patient's age to complete this topic HPV Vaccines Aged Out No longer eligi ble based on patient's age to complete this topic IPV Vaccines Aged Out No longer eligi ble based on patient's age to complete this topic MMR Vaccines Aged Out No longer eligi ble based on patient's age to complete this topic Meningococcal ACWY Vaccine Aged Out N o longer eligible based on patient's age to complete this topic Meningococcal B Vaccine Aged Out No l onger eligible based on patient's age to complete this topic RSV Immunization Patients Under 20 months Aged Out No longer eligible based on patient's age to complete this topic Varicella Vaccines Aged Out No longer eligible based on patient's age to complete this topic Procedures Procedure Name Priority Date/Time Associated Diagnosis Comments ECG OUTSIDE 01/31/2025 ECG ANNOTATED 01/31/2025 DRUG ABUSE SCREEN 8A PANEL, URINE STAT 01/29/2025 8:50 AM EDT MAGNESIUM STAT Add-on 01/29/2025 5:26 AM EDT COMPLETE BLOOD COUNT Routine 01/29/2025 5:26 AM EDT BASIC METABOLIC PANEL Routine 01/29/2025 5:26 AM EDT POTASSIUM Routine 01/28/2025 6:31 PM EDT XR CHEST 1 VIEW STAT 01/28/2025 1:51 PM EDT ECG 12-LEAD STAT 01/28/2025 10:19 AM EDT RESPIRATORY VIRUS PANEL MOLECULAR STUDY STAT 01/28/2025 10:09 AM EDT XR CHEST 1 VIEW STAT 01/28/2025 10:07 AM EDT MANUAL DIFFERENTIAL - SYSMEX WAM STAT 01/28/2025 10:01 AM EDT CBC WITH AUTO DIFFERENTIAL STAT 01/28/2025 10:01 AM EDT MAGNESIUM STAT 01/28/2025 10:01 AM EDT VENOUS BLOOD GAS STAT 01/28/2025 10:0 1 AM EDT TROPONIN I HIGH SENSITIVITY STAT 01/28/2025 10:01 AM EDT COMPREHENSIVE METABOLIC PANEL STAT 01/28/2025 10:01 AM EDT CBC AND DIFFERENTIAL STAT 01/28/2025 10:01 AM EDT HEMOGLOBIN A1C Add-On 01/03/2025 11:44 AM EDT from Last 3 Months or Most Recently Relevant to Health Maintenance Results * ECG-Outside (01/31/2025) us Provider Onbase MD ECG ORDERABLES Final Result * ECG-Annotated (01/31/2025) us Provider Onbase MD ECG ORDERABLES Final Result * Drug abuse screen 8a panel, urine (01/29/2025 8:50 AM EDT) Amphetamine Screen, Ur Negative Negative LAB CHEMISTRY METHOD 01/29/2025 10:30 AM [facility] Comment:Certain OTC medicati ons containing ephedrine, phenylephrine, pseudoephedrine and phenylpropanolamine can cause false positive results. Barbiturate Screen, Ur Negative Negative LAB CHEMISTRY METHOD 01/29/2025 10:[facility] Benzodiazepine Screen, Ur Negative Negative LAB CHEMISTRY METHOD 01/29/2025 10:30 AM [facility] Cocaine Screen, Ur Negative Negative LAB CHEMISTRY METHOD 01/29/2025 10:30 AM [facility] Opiate Screen, Ur Negative Negative LAB CHEMISTRY METHOD 01/29/2025 10:30 AM [facility] Cannabinoid (THC) Screen, Ur Negative Negative LAB CHEMISTRY METHOD 01/29/2025 10:30 AM [facility] Comment:Specimens from patie nts taking pantoprazole sodium (Protonix) have been shown to produce false positive results. Oxycodone Screen, Ur Negative Negative LAB CHEMISTRY METHOD 01/29/2025 10:30 AM [facility] Fentanyl, Ur Negative Negative LAB CHEMISTRY METHOD 01/29/2025 10:30 AM [facility] Urine Urine specimen obtained by clean catch procedure / Unknown Non-blood Collection / Unknown 01/29/2025 8:50 AM EDT 01/29/2025 9:45 AM EDT [facility] - 01/29/2025 10:30 AM EDT Assay cutoffs: Amphetamines 1000 ng/mL Barbiturates 200 ng/mL Benzodiazepines 200 ng/mL Cocaine 300 ng/mL Fentanyl 1 ng/mL Opiates 300 ng/mL Oxycodone 100 ng/mL THC 50 ng/mL Semi-quantitative assay for screening purposes only. Unconfirmed screening result should not be used for non-medical purposes. *ALTERNATE METHOD CONFIRMATION DONE UPON REQUEST ONLY* Nilam DALTON LAB URINE ORDERABLES Final Result [facility] [address] [place] [address], [place] [phone] * (ABNORMAL) Complete blood count (01/29/2025 5:26 AM EDT) [facility] WBC 8.7 4.8 - 10.8 K/mcL LAB HEMETOLOGY METHOD 01/29/2025 7:04 AM [facility] RBC 3.50(L) 4.50 - 5.50 M/mcL LAB HEMETOLOGY METHOD 01/29/2025 7:04 AM [facility] Hemoglobin 11.3(L) 13.5 - 17.5 g/dL LAB HEMETOLOGY METHOD 01/29/2025 7:04 AM [facility] Hematocrit 32.8(L) 42.0 - 54.0 % LAB HEMETOLOGY METHOD 01/29/2025 7:04 AM [facility] MCV 92.7 79.0 - 98.0 FL LAB HEMETOLOGY METHOD 01/29/2025 7:04 AM [facility] MCH 31.9 27.0 - 32.0 pcg LAB HEMETOLOGY METHOD 01/29/2025 7:04 AM [facility] MCHC 34.5 32.0 - 37.0 g/dL LAB HEMETOLOGY METHOD 01/29/2025 7:04 AM [facility] RDW 15.2(H) 11.0 - 15.0 % LAB HEMETOLOGY METHOD 01/29/2025 7:04 AM [facility] Platelets 203 130 - 400 K/mcL LAB HEMETOLOGY METHOD 01/29/2025 7:04 AM EDT [facility] MPV 10.7 7.0 - 11.0 FL LAB HEMETOLOGY METHOD 01/29/2025 7:04 AM EDT [facility] NRBC 0.2 <1.0 % LAB HEMETOLOGY METHOD 01/29/2025 7:04 AM EDT [facility] NRBC Absolute 0.02 <0.10 K/mcL LAB HEMETOLOGY METHOD 01/29/2025 7:04 AM EDT [facility] Blood Venous blood specimen / Unknown Venipuncture / Unknown 01/29/2025 5:26 AM EDT 01/29/2025 6:10 AM EDT us Channing Jensen MD LAB BLOOD ORDERABLES Final Res ult Performing Organization Address City/[facility]/ZIP Co de Phone Number [facility] [address] [place] [address], [place] [phone] * (ABNORMAL) Magnesium (01/29/2025 5:26 AM EDT) Only the most recent of2 resultswithin the time period is included. Magnesium 1.8(L) 1.9 - 2.6 mg/dL LAB CHEMISTRY METHOD 01/29/2025 7:48 AM EDT [facility] Blood Venous blood specimen / Unknown Venipuncture / Unknown 01/29/2025 5:26 AM EDT 01/29/2025 6:09 AM EDT us Nilam DALTON LAB BLOOD ORDERABLES Final Result Performing Organization Address [facility]/ZIP Co de Phone Number [facility] [address] [place] [address], [place] [phone] * (ABNORMAL) Basic metabolic panel (01/29/2025 5:26 AM EDT) Sodium 140 133 - 145 mmol/L LAB CHEMISTRY METHOD 01/29/2025 6:59 AM [facility] Potassium 3.7 3.5 - 5.5 mmol/L LAB CHEMISTRY METHOD 01/29/2025 6:59 AM [facility] Chloride 108 96 - 110 mmol/L LAB CHEMISTRY METHOD 01/29/2025 6:59 AM [facility] CO2 26 21 - 32 mmol/L LAB CHEMISTRY METHOD 01/29/2025 6:59 AM [facility] Anion Gap 6 3 - 11 LAB CHEMISTRY METHOD 01/29/2025 6:59 AM [facility] Glucose 174(H) 70 - 100 mg/dL LAB CHEMISTRY METHOD 01/29/2025 6:59 AM [facility] BUN 13 5 - 25 mg/dL LAB CHEMISTRY METHOD 01/29/2025 6:59 AM [facility] Creatinine 1.15 0.70 - 1.30 mg/dL LAB CHEMISTRY METHOD 01/29/2025 6:59 AM [facility] eGFR 70 >=60 mL/min/1. 73m2 LAB CHEMISTRY METHOD 01/29/2025 6:59 AM [facility] Comment:Calculation based on the Chronic Kidney Disease Epidemiology Collaboration (CKD-EPI) equation refit without adjustment for race. BUN/Creatinine Ratio 11.3 LAB CHEMISTRY METHOD 01/29/2025 6:59 AM [facility] Calcium 9.3 8.5 - 10.5 mg/dL LAB CHEMISTRY METHOD 01/29/2025 6:59 AM [facility] Blood Venous blood specimen / Unknown Venipuncture / Unknown 01/29/2025 5:26 AM EDT 01/29/2025 6:09 AM EDT us Channing Jensen MD LAB BLOOD ORDERABLES Final Res ult Performing Organization Address City/[facility]/ZIP Co de Phone Number [facility] [address] [place] [address], [place] [phone] * Potassium (01/28/2025 6:31 PM EDT) Potassium 3.6 3.5 - 5.5 mmol/L LAB CHEMISTRY METHOD 01/28/2025 7:35 PM EDT [facility] Blood Venous blood specimen / Unknown Venipuncture / Unknown 01/28/2025 6:31 PM EDT 01/28/2025 7:04 PM EDT Ivett DALTON LAB BLOOD ORDERABLES Final Re sult Performing Organization Address [facility]/ZIP Co de Phone Number [facility] [address] [place] [address], [place] [phone] * XR Chest 1 View (01/28/2025 1:51 PM EDT) Only the most recent of2 resultswithin the time period is included. Anatomical Region Laterality Modality Body Radiographic Suzy ging 01/28/2025 2:01 PM EDT Impressions 01/28/2025 2:03 PM EDT FINDINGS/IMPRESSION: Streaky opacities at the lung bases favored to represent bronchovascular crowding and volume loss. No consolidation or effusion. No congestive heart failure. No acute osseous abnormality. -------- FINAL REPORT -------- Dictated By: Michael Lopez Dictated Date: 01/28/2025 14:01 ET Assigned Physician: Michael Lopez Reviewed and Electronically Signed By: Michael Lopez Signed Date: 01/28/2025 14:03 ET Workstation ID: [id number] Transcribed By: Self Edit Transcribed Date: 01/28/2025 14:01 ET Narrative 01/28/2025 2:03 PM EDT XR CHEST 1 VIEW INDICATION: Aspiration TECHNIQUE: XR CHEST 1 VIEW COMPARISON: No priors available. Procedure Note Michael Lopez MD - 01/28/2025 XR CHEST 1 VIEW INDICATION: Aspiration TECHNIQUE: XR CHEST 1 VIEW COMPARISON: No priors available. IMPRESSION: FINDINGS/IMPRESSION: Streaky opacities at the lung bases favored torepresent bronchovascular crowding and volume loss. No consolidation oreffusion. No congestive heart failure. No acute osseous abnormality. -------- FINAL REPORT -------- Dictated By: Michael Lopez Dictated Date: 01/28/2025 14:01 ET Assigned Physician: Michael Lopez Reviewed and Electronically Signed By: Michael Lopez Signed Date: 01/28/2025 14:03 ET Workstation ID: [id number] Transcribed By: Self Edit Transcribed Date: 01/28/2025 14:01 ET Ghazal DALTON IMG XR PROCEDURES Final Resu lt * ECG 12 lead (01/28/2025 10:19 AM EDT) Pathologist [facility] Ventricular Rate ECG 81 BPM GEMUSE Atrial Rate 81 BPM GEMUSE P-R Interval 168 ms GEMUSE QRS Duration 98 ms GEMUSE Q-T Interval 376 ms GEMUSE QTc 436 ms GEMUSE P Wave [place] 46 degrees GEMUSE R [place] 32 degrees GEMUSE T [place] 14 degrees GEMUSE ECG Interpretation Normal sinus rhythm Nonspecific T wave changes When compared with ECG of 03-JAN-2025 04:43, No significant change was found Confirmed by Ibeth ANDINO YUFENG ([id number]) on 01/28/2025 8:13:07 PM GEMUSE 01/28/2025 10:1 9 AM EDT 01/28/2025 8:13 PM EDT Ghazal DALTON ECG ORDERABLES Final Result GEMUSE * Respiratory virus panel molecular study (01/28/2025 10:09 AM EDT) Pathologist [facility] Adenovirus Detection by PCR Not Detected Not Detected LAB MICROBIOLOGY METHOD 01/28/2025 11:32 AM EDT [facility] Influenza A PCR Not Detected Not Detected LAB MICROBIOLOGY METHOD 01/28/2025 11:32 AM EDT [facility] Influenza B PCR Not Detected Not Detected LAB MICROBIOLOGY METHOD 01/28/2025 11:32 AM EDT [facility] Coronavirus 229E Not Detected Not Detected LAB MICROBIOLOGY METHOD 01/28/2025 11:32 AM EDT [facility] Coronavirus HKU1 Not Detected Not Detected LAB MICROBIOLOGY METHOD 01/28/2025 11:32 AM EDT [facility] Coronavirus OC43 Not Detected Not Detected LAB MICROBIOLOGY METHOD 01/28/2025 11:32 AM EDT [facility] Coronavirus NL63 Not Detected Not Detected LAB MICROBIOLOGY METHOD 01/28/2025 11:32 AM EDT [facility] Parainfluenza Virus 1 Not Detected Not Detected LAB MICROBIOLOGY METHOD 01/28/2025 11:32 AM EDT [facility] Parainfluenza Virus 2 Not Detected Not Detected LAB MICROBIOLOGY METHOD 01/28/2025 11:32 AM EDT [facility] Parainfluenza Virus 3 Not Detected Not Detected LAB MICROBIOLOGY METHOD 01/28/2025 11:32 AM EDT [facility] Parainfluenza Virus 4 Not Detected Not Detected LAB MICROBIOLOGY METHOD 01/28/2025 11:32 AM EDT [facility] RSV PCR Not Detected Not Detected LAB MICROBIOLOGY METHOD 01/28/2025 11:32 AM EDT [facility] Human Metapneumovirus A and B Not Detected Not Detected LAB MICROBIOLOGY METHOD 01/28/2025 11:32 AM EDT [facility] Rhinovirus/Entero virus Not Detected Not Detected LAB MICROBIOLOGY METHOD 01/28/2025 11:32 AM EDT [facility] Bordetella pertussis Not Detected Not Detected LAB MICROBIOLOGY METHOD 01/28/2025 11:32 AM EDT [facility] Bordetella parapertussis Not Detected Not Detected LAB MICROBIOLOGY METHOD 01/28/2025 11:32 AM EDT [facility] Mycoplasma pneumo by PCR Not Detected Not Detected LAB MICROBIOLOGY METHOD 01/28/2025 11:32 AM EDT [facility] Chlamydia pneumoniae Not Detected Not Detected LAB MICROBIOLOGY METHOD 01/28/2025 11:32 AM EDT [facility] SARS COV-2 Not Detected Not Detected LAB MICROBIOLOGY METHOD 01/28/2025 11:32 AM EDT [facility] Swab Both anterior nares / Unknown Non-blood Collection / Unknown 01/28/2025 10:09 AM EDT 01/28/2025 10:33 AM EDT [facility] - 01/28/2025 11:32 AM EDT Testing was performed using the [employer] Respiratory Pathogen PCR Assay. All results must be correlated with the clinical findings. Results should not be used as the sole basis for diagnosis. False Negative results may occur from the presence of sequence variants in the region targeted by the assay or the presence of inhibitors. Results may be affected by concurrent antiviral/antimicrobial therapy or levels of organisms that are below the limit of detection. Ghazal DALTON LAB MICROBIOLOGY - GENERAL O RDERABLES Final Result [facility] [address] [place] [address], * Troponin I high sensitivity (01/28/2025 10:01 AM EDT) [facility] High Sensitivity Troponin I 13 <=79 ng/L LAB CHEMISTRY METHOD 01/28/2025 10:41 AM EDT [facility] Blood Venous blood specimen / Unknown Venipuncture / Unknown 01/28/2025 10:01 AM EDT 01/28/2025 10:10 AM EDT [facility] - 01/28/2025 10:41 AM EDT High levels of biotin in samples may falsely decrease hsTroponin values. Use caution when interpreting hsTroponin results in patients taking biotin who exhibit renal impairment (eGFR <60) or in patients taking more than 20 mg/day of biotin. Ghazal DALTON LAB BLOOD ORDERABLES Final R esult [facility] [address] [place] [address], * (ABNORMAL) Manual differential (01/28/2025 10:01 AM EDT) Neutrophils % 46.0 % LAB HEMETOLOGY METHOD 01/28/2025 10:47 AM EDT [facility] Lymphocytes % 36.0 % LAB HEMETOLOGY METHOD 01/28/2025 10:47 AM [facility] Monocytes % 6.0 % LAB HEMETOLOGY METHOD 01/28/2025 10:47 AM [facility] Eosinophils % 11.0 % LAB HEMETOLOGY METHOD 01/28/2025 10:47 AM [facility] Basophils % 3.0 % LAB HEMETOLOGY METHOD 01/28/2025 10:47 AM [facility] Neutrophils Absolute Manual 1.84 1.50 - 7.00 K/mcL LAB HEMETOLOGY METHOD 01/28/2025 10:47 AM [facility] Lymphocytes Absolute 1.44 1.00 - 5.00 K/mcL LAB HEMETOLOGY METHOD 01/28/2025 10:47 AM [facility] Monocytes Absolute Manual 0.24 0.20 - 1.00 K/mcL LAB HEMETOLOGY METHOD 01/28/2025 10:47 AM [facility] Eosinophils Absolute Manual 0.44 0.00 - 0.50 K/mcL LAB HEMETOLOGY METHOD 01/28/2025 10:47 [facility] Basophils Absolute Manual 0.12 0.00 - 0.20 K/mcL LAB HEMETOLOGY METHOD 01/28/2025 10:47 AM EDT [facility] Rbc Morphology Present( A) Consistent with indices, Normal for LAB HEMETOLOGY METHOD 01/28/2025 10:47 AM EDT [facility] Comment:RBC: Morphology agre es with CBC Platelet Morphology - WAM See Note(A) Normal LAB HEMETOLOGY METHOD 01/28/2025 10:47 AM EDT [facility] Comment:PLT: Normal Ovalocytes Present 5 - 10%(A) (none) LAB HEMETOLOGY METHOD 01/28/2025 10:47 AM EDT [facility] Blood Venous blood specimen / Unknown Venipuncture / Unknown 01/28/2025 10:01 AM EDT 01/28/2025 10:10 AM EDT Ghazal DALTON LAB BLOOD ORDERABLES Final R esult [facility] [address] [place] [address], * (ABNORMAL) CBC auto differential (01/28/2025 10:01 AM EDT) WBC 4.0(L) 4.8 - 10.8 K/mcL LAB HEMETOLOGY METHOD 01/28/2025 10:47 AM EDT [facility] RBC 3.50(L) 4.50 - 5.50 M/[facility] LAB HEMETOLOGY METHOD 01/28/2025 10:47 AM EDT [facility] Hemoglobin 11.0(L) 13.5 - 17.5 g/dL LAB HEMETOLOGY METHOD 01/28/2025 10:47 AM EDT [facility] Hematocrit 32.9(L) 42.0 - 54.0 % LAB HEMETOLOGY METHOD 01/28/2025 10:47 AM EDT [facility] MCV 94.0 79.0 - 98.0 FL LAB HEMETOLOGY METHOD 01/28/2025 10:47 AM EDT [facility] MCH 31.4 27.0 - 32.0 pcg LAB HEMETOLOGY METHOD 01/28/2025 10:47 AM EDT [facility] MCHC 33.4 32.0 - 37.0 g/dL LAB HEMETOLOGY METHOD 01/28/2025 10:47 AM EDT [facility] RDW 15.6(H) 11.0 - 15.0 % LAB HEMETOLOGY METHOD 01/28/2025 10:47 AM EDT [facility] Platelets 198 130 - 400 K/mcL LAB HEMETOLOGY METHOD 01/28/2025 10:47 AM EDT [facility] MPV 10.2 7.0 - 11.0 FL LAB HEMETOLOGY METHOD 01/28/2025 10:47 AM EDT [facility] NRBC 0.0 <1.0 % LAB HEMETOLOGY METHOD 01/28/2025 10:47 AM EDT [facility] NRBC Absolute 0.00 <0.10 K/mcL LAB HEMETOLOGY METHOD 01/28/2025 10:47 AM EDT [facility] Blood Venous blood specimen / Unknown Venipuncture / Unknown 01/28/2025 10:01 AM EDT 01/28/2025 10:10 AM EDT us Ghazal DALTON LAB BLOOD ORDERABLES Final R esult [facility] [address] [place] [address], * Venous blood gas (01/28/2025 10:01 AM EDT) [facility] Signature pH, Erich 7.36 7.32 - 7.42 pH 01/28/2025 10:36 AM [facility] pCO2, Erich 49 41 - 51 mmHg 01/28/2025 10:36 AM [facility] pO2, Erich 28 25 - 40 mmHg 01/28/2025 10:36 AM [facility] HCO3, Venous 24.9 22.0 - 26.0 mmol/L 01/28/2025 10:36 AM [facility] O2 Sat, Erich 43.0 % 01/28/2025 10:36 AM [facility] Base Excess, Erich 1.6 -2.0 - 2.0 mmol/L 01/28/2025 10:36 AM [facility] Blood Venous blood specimen / Unknown Venipuncture / Unknown 01/28/2025 10:01 AM EDT 01/28/2025 10:31 AM EDT Ghazal DALTON LAB BLOOD ORDERABLES Final R esult [facility] [address] [place] [address], * (ABNORMAL) Comprehensive metabolic panel (01/28/2025 10:01 AM EDT) Sodium 144 133 - 145 mmol/L LAB CHEMISTRY METHOD 01/28/2025 11:01 AM [facility] Potassium 2.9(LL) 3.5 - 5.5 mmol/L LAB CHEMISTRY METHOD 01/28/2025 11:01 AM [facility] Chloride 111(H) 96 - 110 mmol/L LAB CHEMISTRY METHOD 01/28/2025 11:01 AM [facility] CO2 25 21 - 32 mmol/L LAB CHEMISTRY METHOD 01/28/2025 11:01 AM [facility] Anion Gap 8 3 - 11 LAB CHEMISTRY METHOD 01/28/2025 11:01 AM [facility] Glucose 211(H) 70 - 100 mg/dL LAB CHEMISTRY METHOD 01/28/2025 11:01 AM [facility] BUN 6 5 - 25 mg/dL LAB CHEMISTRY METHOD 01/28/2025 11:01 AM [facility] Creatinine 1.26 0.70 - 1.30 mg/dL LAB CHEMISTRY METHOD 01/28/2025 11:01 AM [facility] eGFR 63 >=60 mL/min/1. 73m2 LAB CHEMISTRY METHOD 01/28/2025 11:01 AM [facility] Comment:Calculation based on the Chronic Kidney Disease Epidemiology Collaboration (CKD-EPI) equation refit without adjustment for race. BUN/Creatinine Ratio 4.8 LAB CHEMISTRY METHOD 01/28/2025 11:01 AM [facility] Calcium 8.4(L) 8.5 - 10.5 mg/dL LAB CHEMISTRY METHOD 01/28/2025 11:01 AM [facility] AST (SGOT) 25 10 - 42 unit/L LAB CHEMISTRY METHOD 01/28/2025 11:01 AM [facility] ALT (SGPT) 25 10 - 60 unit/L LAB CHEMISTRY METHOD 01/28/2025 11:01 AM [facility] Alkaline Phosphatase 88 42 - 121 unit/L LAB CHEMISTRY METHOD 01/28/2025 11:01 AM [facility] Total Protein 6.4 6.0 - 8.0 g/dL LAB CHEMISTRY METHOD 01/28/2025 11:01 AM [facility] Albumin 3.9 3.2 - 5.0 g/dL LAB CHEMISTRY METHOD 01/28/2025 11:01 AM [facility] Total Bilirubin 0.7 0.0 - 1.4 mg/dL LAB CHEMISTRY METHOD 01/28/2025 11:01 AM EDT [facility] Blood Venous blood specimen / Unknown Venipuncture / Unknown 01/28/2025 10:01 AM EDT 01/28/2025 10:10 AM EDT Ghazal Srinivasan PA LAB BLOOD ORDERABLES Final R esult Performing Organization Address City/[facility]/ZIP Co de Phone Number [facility] [address] [place] [address], [place] [phone] * Hemoglobin A1c (01/03/2025 11:44 AM EDT) Hemoglobin A1C 4.9 <6.5 % LAB CHEMISTRY METHOD 01/03/2025 1:56 PM EDT [facility] Mean Bld Glu Estim. 94 mg/dL LAB CHEMISTRY METHOD 01/03/2025 1:56 PM EDT [facility] Blood Venous blood specimen / Unknown Venipuncture / Unknown 01/03/2025 11:44 AM EDT 01/03/2025 11:49 AM EDT Kate Zhou [employer]PA[employer] LAB BLOOD ORDERABLES Final Res ult Performing Organization Address City/[facility]/ZIP Co de Phone Number [facility] [address] [place] [address], from Last 3 Months or Most Recently Relevant to Health Maintenance Insurance [employer] MED[employer]ARE [place]ICA[place] - [place] Advance Directives * Full Code - Default (Latest Code Status on File) Date Activated Date Inactivated Comments 01/28/2025 3:37 PM 01/29/2025 5:39 PM This is order is used when code status has not been discussed with the patient, or code status is otherwise unknown/unconfirmed To update the patient's code status, place a code status order. Do not modify or discontinue any currently active code status orders. * Full Code - Default Date Activated Date Inactivated Comments 01/28/2025 1:54 PM 01/28/2025 3:37 PM This is order is used when code status has not been discussed with the patient, or code status is otherwise unknown/unconfirmed To update the patient's code status, place a code status order. Do not modify or discontinue any currently active code status orders. * Full Code - Default Date Activated Date Inactivated Comments 01/03/2025 6:05 AM 01/05/2025 4:31 PM This is order is used when code status has not been discussed with the patient, or code status is otherwise unknown/unconfirmed To update the patient's code status, place a code status order. Do not modify or discontinue any currently active code status orders. Healthcare Agents on File Name Relationship Healthcare Agent [facility] Micheal Robbins Partner Health Care Agent Care Teams Recreation Adviser Relationship Specialty Start Date End Date Physician, Pcp Unknown PCP - General 01/03/25
== END 2025-04-23 16:17 | disposition home or self-care (01) ==
LOC: HO.HUSH 15:13
PROVIDERS: PCP Family Medicine; Visit Provider Urology
DX: C61 Malignant neoplasm of prostate (principal); N40.0 Benign prostatic hyperplasia without lower urinary tract symptoms
CPT/HCPCS: 99214; G2211

== ENCOUNTER → 2025-04-23 15:12 | Outpatient (BNVA) | payer OTHER, SELFPAY | PROVIDERS: PCP Family Medicine; Visit Provider Urology | DX: C61 Malignant neoplasm of prostate (principal); N40.1 Benign prostatic hyperplasia with lower urinary tract symptoms; R39.12 Poor urinary stream; Z79.899 Other long term (current) drug therapy | CPT/HCPCS: 51798; 99212 ==